=== PATIENT | male | born 1975 | race Hispanic/Latino ===

== ENCOUNTER 2016-02-11 20:46 | Emergency (ER) | payer MEDICAID ==
[~2016-02-11] VITALS: Ht 162.6 cm; Wt 73.0 kg
[~2016-02-11 20:46] MED LIST: ACET325T51 PO; CARV25TA PO; ISOS40TA4 PO; OXYC-474 PO; PANT40TA3 PO; POLY500P23 MC; PRD5T PO; SEVE800T7 PO; VALS320T12 PO; WARF5TAB PO; WARF7.5T PO
[2016-02-11 20:54] VITALS: BP 190/118; PULSE 87; RESP 16; O2SAT 97
--- NOTE | 2016-02-11 21:55 | ED.REPORT ---
HPI-General Illness Date of Service Feb 11, 2016 ED Provider: Avel Pedro MD A 40 year old anticoagulated male with an extensive medical history including CVA, PE, SLE, lupus nephritis, antiphospholipid syndrome, hypertension, and ESRD on dialysis presents to the ED requesting dialysis after missing his appointment today due to a court appearance. The patient normally dialyzes Tues , Th, and Sat in [place]. He was sent from [place] this evening because they couldn't schedule another dialysis until tomorrow. The patient denies other symptoms or complaints. Nursing Notes Stated Complaint: DIALYSIS PT/MUSCULAR PAIN Chief Complaint: Male Abdominal Pain Nursing Notes Reviewed: Yes Allergies: Coded Allergies: amlodipine (Verified Allergy, Unknown, 11/17/15) hydralazine (Verified Allergy, Unknown, 11/17/15) morphine (Verified Allergy, Unknown, 11/17/15) Scheduled Carvedilol (Coreg) 25 Mg Tablet 25 MG PO BID Isosorbide Dinitrate (Isochron) 40 Mg Tablet.er 40 MG PO TID Pantoprazole DR (Pantoprazole DR) 40 Mg Tablet.dr 40 MG PO DAILY Polyethylene Glycol 8000 (Polyethylene Glycol) 500 Gm Powder 17 GM MC prn Prednisone (PredniSONE) 5 Mg Tab 10 MG PO DAILY Sevelamer Carbonate (Renvela) 800 Mg Tablet 800 MG PO TID Valsartan (Valsartan) 320 Mg Tablet 320 MG PO DAILY Warfarin Sodium (Coumadin) 5 Mg Tablet 5 MG PO DIRECTED Warfarin Sodium (Coumadin) 7.5 Mg Tablet 7.5 MG PO DIRECTED Scheduled PRN Acetaminophen (Acetaminophen) 325 Mg Tablet 650 MG PO QID PRN PRN For Pain Oxycodone (Roxicodone) 5 Mg Tablet 5-20 MG PO Q4H PRN PRN For Pain General Time Seen by MD: 21:53 Chief Complaint Other (Dialysis Request) Hx Obtained From: Patient Arrived By: Walk-in Sudden in Onset?: No Onset Occurred: 13 - 16 hours ago Symptom Duration: Since onset Severity: Current: No pain currently Severity: Maximum: No pain Associated with: Denies: Cough, Fever, Shortness of breath Pertinent Negative: Relieved by nothing Context Related History: Reports Autoimmune disorder Recent Healthcare: Recent doctor visit Past Medical History Past Medical History Notes: in the hospital for lupus from 12/21/14 to 04/11/15 SeaMar: Dr. Velasco Bar Manager: Dr. Beckman Dialysis pt at [facility] Past Medical History 1. End-stage renal disease on chronic hemodialysis, since 2011 Hemodialysis on Monday, , Monday. right brachiocephalic fistula. 2. 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 h/o previous CVA while at [facility] 4. 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 Pulmonary embolism-s/p IVC filter placement, DVT-chronic anticoagulation on warfarin 6. Systolic and diastolic cardiomyopathy w/EF ~40% 7. Hypertension 8. Chronic autoimmune thrombocytopenia 9. Anemia 10. Chronic pain w/opioid dependence 11. h/o left lower extremity arterial ulcer 12. Oral herpes infection 13. Thrush Past Surgical History 1. AV fistula, reportedly thrombosed & required revisions. 2. Former fistula L arm Smoking History Never Smoker Social History Drug Use: Denies drug use Other Social History: Good social support, Local resident Ambulatory Status Independent Review of Systems + Dialysis request Full Review of Systems Constitutional: Denies: Fever Respiratory: Denies: Non-productive cough, Shortness of breath GI: Denies: Vomiting Complete sys rev & neg: except as marked. Physical Exam Vital Signs Vital Signs Date Time Temp Pulse Resp B/P Pulse Ox O2 Delivery O2 Flow Rate FiO2 02/12/16 03:45 36.4 68 18 151/100 95 Room Air 02/12/16 00:05 72 16 155/92 94 Room Air 02/11/16 20:54 36.4 87 16 190/118 97 Room Air Initial VS: Reviewed, Vital signs abnormal Head / Eyes: Atraumatic, Normocephalic ENT: Conjunctiva normal, No scleral icterus Neck: Supple, Full range of motion Respiratory: Breath sounds normal, Clear to auscultation, No respiratory distress Cardiovascular: Regular rate & rhythm, Heart sounds normal Abdomen / GI: Soft, Non-tender Neurologic: Alert, Oriented, Nonfocal Psychiatric: Mood/affect normal, Behavior normal, Normal thought content General/Constitutional: Awake, Alert, No acute distress Conversant Skin: Warm, Dry Trauma / Burn / Environmental: Positive: Ecchymosis (Multiple on extremities ) Interpretation & Diagnostics Lab Results Interpretation Result Diagram: 02/11/16 2221 02/12/16 0205 Test 02/11/16 22:21 02/12/16 02:05 White Blood Count 3.9th/mm3 (3.8-10.1) Red Blood Count 2.41mil/mm3 (4.40-5.80) Hemoglobin 7.4g/dL (13.8-17.2) Hematocrit 22.2% (41.0-50.0) Mean Corpuscular Volume 92.1fL (81-100) Mean Corpuscular Hemoglobin 30.7pg (27.0-35.0) Mean Corpuscular Hemoglobin Concent 33.3% (32.0-37.0) Red Cell Distribution Width 15.5% (12.3-15.4) Platelet Count 44bil/L (150-400) Neutrophils (%) (Auto) 83.6% (40-74) Lymphocytes (%) (Auto) 11.5% (14-46) Monocytes (%) (Auto) 4.1% (4-12) Eosinophils (%) (Auto) 0.3% (0-5) Basophils (%) (Auto) 0% (0-3) Prothrombin Time 15.0sec (8.1-12.5) Prothromb Time International Ratio 1.39ratio Sodium Level 138mEq/L (134-144) Chloride Level 93mEq/L (97-108) Carbon Dioxide Level 25mmol/L (18-29) Blood Urea Nitrogen 93mg/dL (6-20) Creatinine 9.05mg/dL (0.76-1.27) Estimat Glomerular Filtration Rate 7mL/min (>59) Glucose Level 109mg/dL (60-99) Calcium Level 8.8mg/dL (8.5-10.1) Phosphorus Level 5.8mg/dL (2.5-4.9) Magnesium Level 2.1mg/dL (1.6-2.6) Total Bilirubin 0.5mg/dL (0.0-1.2) Aspartate Amino Transf (AST/SGOT) 31U/L (0-50) Alanine Aminotransferase (ALT/SGPT) 50U/L (0-44) Alkaline Phosphatase 97U/L (25-150) Total Protein 4.9g/dL (6.4-8.4) Albumin 3.5g/dL (3.4-5.0) Hold Henry Top Tube Received (Received) Potassium Level 6.6mEq/L (3.5-5.2) Lab Results Interpretation: Stable chronic anemia, stable chronic renal failure, hyperkalemia ECG Interpretation ECG Interpretation: Sinus rhythm rate 77 LVH with secondary repolarization abnormality Time: 23:23 Interpreted by: ED physician ECG Interpretation: Ventricular-paced complexes, rate 71 Probable left atrial enlargement LVH with secondary repolarization abnormality Time: 03:27 Interpreted by: ED physician Re-Eval/Medical Decision Med Decision/Clinical Course 40-year-old male who has chronic renal failure and is on hemodialysis secondary to lupus nephrosis. He missed his dialysis today. His potassium was 7.2 and vital signs were otherwise normal. There were no EKG changes. He was given hyperkalemia treatment was brought the potassium from 7.2 down to 6.6. It would be unlikely for his potassium to cause him further problems while awaiting dialysis. I recommended low potassium diet also. It makes no sense that he was referred down here from [place] for dialysis. He initially stated that he was in the emergency room but I checked with the emergency room and they did not have any record of him. His case was discussed with Dr. Grande, hydraulic rock drill operator. He feels the patient is stable enough to wait for dialysis in the morning. He will contact the [place] dialysis center in the morning for an appointment. If he is not able to get into dialysis he is to report to the emergency room at [facility]. Source of Hx: Old records Time of Eval: 03:30 Patient Status: Condition improved Re-Evaluation/Progress Note: Discussed with patient lab results, diagnosis, and plan for discharge. Follow-up and return to the ER instructions given. Patient agrees with plan for care and all questions were addressed. Consultation #1: Call Returned at: 23:32 Street Light Repairer: Agrees with evtruman, Agrees with plan Note: [facility] ED - Patient was not seen there today Consultation #2: Referral / Consult Name: Stepan Grande DO Consulted With: Nephrology Call Returned at: 23:52 Street Light Repairer: Agrees with eval, Agrees with plan Counseled Regarding: Diagnosis, Lab results, Need for follow-up, When/why to return to ED Discharge & Departure Primary Impression: Hyperkalemia Additional Impressions: Hypertension with renal disease Chronic renal failure Chronic kidney disease stage: stage 5 Qualified Code: N18.5 - Chronic kidney disease, stage 5 Disposition: Home Discharge Condition All VS Reviewed: Yes Condition: Stable Patient Instructions: Renal Failure Diet (GEN) Additional Instructions: Your potassium went from 7.2 down to 6.6. You need to contact the [place] dialysis center BETTIE in the morning and get scheduled for your run. If you are unable to get into dialysis unit to go to the emergency room. Referrals: OTHER,PHYSICIAN (PCP) Scribe Attestation Portions of this note were transcribed by Shanda Velasco. I, Dr. Pedro, personally performed the history, physical exam, and medical decision-making; I reviewed and confirmed the accuracy of the information in the transcribed note. Signed by: Brandon Mullins, 02/12/2016, 03:49 Avel Pedro MD Feb 11, 2016 21:55 SHANDA VELASCO Feb 11, 2016 22:23
[2016-02-11 22:44] LABS: BASOPHILS % (AUTO) 0 % (0-3); EOSINOPHILS % (AUTO) 0.3 % (0-5); MONOCYTES % (AUTO) 4.1 % (4-12); Mean Corpuscular Hemoglobin 30.7 pg (27.0-35.0); Mean Corpuscular Volume 92.1 fL (81-100); NEUTROPHILS % (AUTO) 83.6 % (40-74); Platelet Count 44 bil/L (150-400)
[2016-02-11 23:10] LABS: Magnesium 2.1 mg/dL (1.6-2.6); Phosphorus 5.8 mg/dL (2.5-4.9)
[2016-02-11 23:14] LABS: INR 1.39 ratio
[2016-02-11] MEDS ORDERED: Sodium Polystyrene Sulfonate 0.25 Gm/mL 500 mL Suspension PO ONE (23:25)
[2016-02-11] MEDS ORDERED: Calcium GLUCOnate 10% (Gm) 1 Gm/10 mL Inj IVPUSH PRN (23:25)
[2016-02-11] MEDS ORDERED: Insulin Human REGular-Omnicell 100 Unit/mL IV ONE (23:25)
[2016-02-12 00:05] VITALS: BP 155/92; PULSE 72; RESP 16; O2SAT 94
[2016-02-12] MEDS ORDERED: Furosemide 10 mg/mL 4 mL Inj IVPUSH ONE (03:00)
[2016-02-12 03:45] VITALS: BP 151/100; PULSE 68; RESP 18; O2SAT 95
== END 2016-02-12 04:30 | disposition home or self-care (01) ==
LOC: SED 20:46
DX: E87.5 Hyperkalemia (principal); I12.0 Hypertensive chronic kidney disease with stage 5 chronic kidney disease or end stage renal disease; N18.5 Chronic kidney disease, stage 5; M32.14 Glomerular disease in systemic lupus erythematosus; D68.61 Antiphospholipid syndrome; Z86.73 Personal history of transient ischemic attack (TIA), and cerebral infarction without residual deficits; Z99.2 Dependence on renal dialysis; Z86.711 Personal history of pulmonary embolism; Z79.01 Long term (current) use of anticoagulants; Z88.8 Allergy status to other drugs, medicaments and biological substances; Z88.5 Allergy status to narcotic agent
CPT/HCPCS: 36415; 80053; 83735; 84100; 84132; 85025; 85610; 93005; 96374; 96375; 99285; J0610; J1815; J1940

== ENCOUNTER 2016-05-05 21:50 | Inpatient (IN) | payer MEDICAID ==
[~2016-05-05] VITALS: Ht 154.9 cm; Wt 64.2 kg
[2016-05-05 22:03] VITALS: BP 162/97; PULSE 86; RESP 21; O2SAT 96
[2016-05-05 23:07] LABS: Platelet Count 49 bil/L (150-400)
[2016-05-05 23:08] LABS: Mean Corpuscular Volume 93.3 fL (81-100)
[2016-05-05 23:09] LABS: BASOPHILS % (AUTO) 0.2 % (0-3); EOSINOPHILS % (AUTO) 1.1 % (0-5); MONOCYTES % (AUTO) 4.5 % (4-12); NEUTROPHILS % (AUTO) 87.1 % (40-74)
--- NOTE | 2016-05-05 23:14 | ED.REPORT ---
HPI-General Illness Date of Service May 05, 2016 ED Provider: Lex Zapata MD Patient is a 40 year old male with a history of lupus nephritis, ESRD on hemodialysis, congestive heart failure, antiphospholipid syndrome, CVA, PE s/p IVC filter placement, DVT, and recent admit for lupus pulmonary capillaritis who presents to the ED complaining of increasing shortness of breath after running out of his oxygen today. The patient was recently admitted to [facility] in [place] for 10 days, discharged yesterday. Patient states that he has had pneumonia for the past month, which "never fully goes away". He reports ongoing cough and states that he previously had hemoptysis (5 days ago) . He states that the cough is nonproductive and that it has improved since this morning. The patient states that during his hospital admission it was determined that he was oxygen dependent, discharged with oxygen. Patient states that he was also admitted to the hospital for anemia. Review of [facility] records reveal a diagnosis of lupus pulmonary capillaritis, hypoxia, and anemia requiring blood transfusion. See PMHx for further detail.However, his oxygen container only lasted for an hour after discharge. The patient has not used home oxygen in the past and is unsure if he used it improperly. The patient may have been set up for home oxygen, but he was visiting a friend today and is unsure. Patient also reports pain in his right leg, which began 5 days ago. Patient reports chills but denies fever or swelling in his legs. The patient is due for dialysis tomorrow and last had dialysis prior to discharge yesterday. His dialysis is in [place]. His PCP is Dr. Velasco at [facility] in [place]. He received narcotic pain medications through this provider and did not receive additional medication on discharge from the hospital. This conversation was assisted by the use of a Customer Business Manager. Nursing Notes Stated Complaint: TROUBLE BREATHING Chief Complaint: Respiratory Distress Nursing Notes Reviewed: Yes (SocialGlimpz not reconciled - EMR indicates ho warfarin use) Allergies: Coded Allergies: amlodipine (Verified Allergy, Unknown, 11/17/15) hydralazine (Verified Allergy, Unknown, 11/17/15) morphine (Verified Allergy, Unknown, 11/17/15) Scheduled Carvedilol (Coreg) 25 Mg Tablet 25 MG PO BID Isosorbide Dinitrate (Isochron) 40 Mg Tablet.er 40 MG PO TID Pantoprazole DR (Pantoprazole DR) 40 Mg Tablet.dr 40 MG PO DAILY Polyethylene Glycol 8000 (Polyethylene Glycol) 500 Gm Powder 17 GM MC prn Prednisone (PredniSONE) 5 Mg Tab 10 MG PO DAILY Sevelamer Carbonate (Renvela) 800 Mg Tablet 800 MG PO TID Valsartan (Valsartan) 320 Mg Tablet 320 MG PO DAILY Warfarin Sodium (Coumadin) 5 Mg Tablet 5 MG PO DIRECTED Warfarin Sodium (Coumadin) 7.5 Mg Tablet 7.5 MG PO DIRECTED Scheduled PRN Acetaminophen (Acetaminophen) 325 Mg Tablet 650 MG PO QID PRN PRN For Pain Oxycodone (Roxicodone) 5 Mg Tablet 5-20 MG PO Q4H PRN PRN For Pain General Time Seen by MD: 22:26 Chief Complaint Breathing problem Hx Obtained From: Patient Arrived By: Walk-in Sudden in Onset?: No Onset Occurred: 1 - 4 hours ago Symptom Duration: Since onset Location: : Hip right Quality: Painful Severity: Current: Moderate Severity: Maximum: Moderate Recent Healthcare: Recent hospitalization Similar Sx Previous: Yes Past Medical History Past Medical History Notes: Patient claims discharged from [facility] in [place] 05/04/16 (patient can not tell me why he was in the hospital and reports a 10 day admit) records obtained indicate the patient was admitted with 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 Patient also had anemia acute on chronic and received 4 units-exact baseline unknown. Patient's records do indicate he was supposed be discharged on home oxygen) in the hospital for lupus from 12/21/14 to 04/11/15 SeaMar: Dr. Velasco Dish Network Installer: Dr. Beckman Dialysis pt at [facility] Past Medical History 1. End-stage renal disease on chronic hemodialysis, since 2011 Hemodialysis on Monday, , Monday. right brachiocephalic fistula. 2. 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 h/o previous CVA while at [facility] 4. 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 Pulmonary embolism-s/p IVC filter placement, DVT-chronic anticoagulation on warfarin 6. Systolic and diastolic cardiomyopathy w/EF ~40% 7. Hypertension 8. Chronic autoimmune thrombocytopenia 9. Anemia 10. Chronic pain w/opioid dependence 11. h/o left lower extremity arterial ulcer 12. h/o Oral herpes infection 13. Thrush Past Surgical History 1. AV fistula, R upper extremity 2. Former fistula L arm 3. IVC filter Smoking History Never Smoker Social History Drug Use: Denies drug use Other Social History: Good social support, Local resident Ambulatory Status Independent Review of Systems Full Review of Systems Constitutional: Reports: Chills, Denies: Fever Respiratory: Reports: Non-productive cough, Shortness of breath, Denies: Hemoptysis Musculoskeletal: Reports: Extremity pain, Denies: Extremity swelling Complete sys rev & neg: except as marked. Physical Exam Vital Signs Vital Signs Date Time Temp Pulse Resp B/P Pulse Ox O2 Delivery O2 Flow Rate FiO2 05/05/16 22:03 36.3 86 21 162/97 96 Nasal Cannula 3 Initial VS: Reviewed Head / Eyes: Atraumatic, Normocephalic, PERRL ENT: Conjunctiva normal, No scleral icterus Neck: Supple, Full range of motion Skin: Warm, Dry, No cyanosis Neurologic: Alert, Oriented, Nonfocal Psychiatric: Mood/affect normal, Behavior normal General/Constitutional: Awake, Alert, No acute distress Appearance / Presentation: Positive: Ill appearing/not toxic (chronically ill appearing) poor historian, fatigued Respiratory / Chest: Breath sounds NL, Breath sounds = bilat, No respiratory distress crackles bilateral lung fisher, minimal movement causes increased shortness of breath dyspneic no increased work of breathing Cardiovascular: Heart rate NL, Regular rhythm, Heart sounds NL, No murmurs Abdomen: Soft, Non-tender, No guarding, No rebound several cutaneous bruises of abdomen Upper Extremities Upper Extremity / MS: No swelling, No edema fistula right upper extremity, with thrill old fistual site left upper extremity Lower Extremity / Pelvis / MS: No swelling, No edema Interpretation & Diagnostics Lab Results Interpretation Result Diagram: 05/05/16224405/05/162244 Test 05/05/16 22:45 05/05/16 23:25 White Blood Count 4.6th/mm3 (3.8-10.1) Red Blood Count 2.10mil/mm3 (4.40-5.80) Hemoglobin 6.5g/dL (13.8-17.2) Hematocrit 19.6% (41.0-50.0) Mean Corpuscular Volume 93.3fL (81-100) Mean Corpuscular Hemoglobin 31.0pg (27.0-35.0) Mean Corpuscular Hemoglobin Concent 33.2% (32.0-37.0) Red Cell Distribution Width 20.4% (12.3-15.4) Platelet Count 49bil/L (150-400) Neutrophils (%) (Auto) 87.1% (40-74) Lymphocytes (%) (Auto) 4.7% (14-46) Monocytes (%) (Auto) 4.5% (4-12) Eosinophils (%) (Auto) 1.1% (0-5) Basophils (%) (Auto) 0.2% (0-3) Band Neutrophils % 2% (1-5) Sodium Level 134mEq/L (134-144) Potassium Level 5.1mEq/L (3.5-5.2) Chloride Level 94mEq/L (97-108) Carbon Dioxide Level 19mmol/L (18-29) Blood Urea Nitrogen 110mg/dL (6-20) Creatinine 6.60mg/dL (0.76-1.27) Estimat Glomerular Filtration Rate 10mL/min (>59) Glucose Level 89mg/dL (60-99) Calcium Level 8.0mg/dL (8.5-10.1) Total Bilirubin 1.0mg/dL (0.0-1.2) Aspartate Amino Transf (AST/SGOT) 21U/L (0-50) Alanine Aminotransferase (ALT/SGPT) 22U/L (0-44) Alkaline Phosphatase 62U/L (25-150) Troponin T 0.051ug/L (0.0-0.011) Pro-B-Type Natriuretic Peptide 15152rw/mL (0-86) Total Protein 5.1g/dL (6.4-8.4) Albumin 3.1g/dL (3.4-5.0) Hold Henry Top Tube Received (Received) Prothrombin Time 24.8sec (8.1-12.5) Prothromb Time International Ratio 2.28ratio Activated Partial Thromboplast Time 32.9sec (22.8-33.0) Lab Results Interpretation: CBC-severe anemia and thrombocytopenia, records from [facility] indicate hemoglobin 6.5 and white count 78 on April 27, patient's anemia is similar to multiple prior lab values here - so it is not clear that there is any acute component. CMP normal potassium, chronic renal failure INR currently therapeutic, records indicate patient previously supratherapeutic little over a week ago with INR 5 ECG Interpretation ECG Interpretation: Normal sinus rhythm, Rate 84 LVH with repolarization T wave inversions and marginal ST depression laterally No major interval change compared with Feb 12 2016 Time: 22:13 Interpreted by: ED physician X-Ray Chest Interpretation Chest Xray Interpretation: Impression: Bilaterl densities. Differential includes congestive heart failure and pulmonary capillaritis. View: Portable Interpretation / Wet Read by: Tawnya read ED physician Re-Eval/Medical Decision Med Decision/Clinical Course This is a very complicated 40-year-old male. He is dialysis dependent, he has chronic lupus, has had multiple thromboembolic events, is status post an IVC filter, and is chronically quite warfarin. He presents tonight indicating that he needs more education. He is a difficult historian and matters are complicated by a language barrier. (He is a difficult patient to be able to use the iPad hand collator) When he tells me is that he is discharged yesterday from [facility], and told he needs to be on home O2-and was given follow-up O2, which is now out. As a result is develops more shortness of breath. He cannot tell me much about why he was in the hospital what all was going on-the records were obtained and indicate that he was thought to have lupus caplillaritis and it presented with some hemoptysis, hypoxemia and diffuse infiltrates. he has had no hemoptysis over the past week. He still feels short of breath, and is improved on being placed back on O2 when he arrives here. He denies fever. He denies hemorrhage. He reports fatigue. He also has some chronic right-sided abdominal leg pain-this is not new, and reports is unchanged-like some pain and nausea medicine for this. He was chronically ill. And he did bring in an empty oxygen bottle with him. The patient has very little understanding and really cannot articulate much else about what is going on, and required a cane records from [facility]. His evaluation here demonstrates he is hypoxic and does require O2, described impressive on his chest x-ray which match of the description of the chest x-ray and CT scan obtained at [facility]-may likely be chronic. Blood work is notable for severe anemia, and is similar to what I think with his entry labs at [facility]-a semi-a massive packet, but only a couple sets of labs-the records indicate a transfusion but I do not know what is postprandial numbers were. The patient is due for dialysis again tomorrow. He is presenting after hours, is a complex patient-think is newly anemic again- he is dialysis dependent, and requires O2 and does not have oxygen set up at home. None of the problems identified are clearly new - but it is challenging to determine the acuity and chronicity of his presentation. I have no social media job titles options, no way to set him up for home O2 hour time period Additionally the anemia may need to be monitored, and repeat transfusion may be warranted. Therefore admission is appropriate. Source of Hx: Old records (obtained from [facility]) Time of Eval: 01:08 Patient Status: Condition improved Re-Evaluation/Progress Note: Rechecked the patient. Discussed the results of his labs, EKG, and chest x-ray. Discussed his records from [facility]. Patient will be admitted to the hospital for further care. Patient understands and agrees with the plan for hospital admission. All questions were addressed. Introduced the patient to the inpatient resident. Consultation #1: Referral / Consult Name: Becki Bolanos DO Consulted With: Hospitalist Call Returned at: 00:43 Strategic Planner: Will see patient, Agrees with eval, Agrees with plan, Accepts admit Note: Spoke with Dr. Bolanos, hospitalist, about the patient's case. She agress to accept admit. Will coordinate his care tomorrow morning. Consultation #2: Referral / Consult Name: Stepan Grande DO Consulted With: Nephrology Call Returned at: 00:55 Strategic Planner: Will see patient, Agrees with eval, Agrees with plan Note: Spoke with Dr. Grande, nephrology, who agrees to act as consult. Will help coordinate his dialysis tomorrow. Counseled Regarding: Diagnosis, Lab results, Need for admission Discharge & Departure Primary Impression: Pulmonary capillaritis Additional Impressions: Lupus Hypoxia Anemia Anemia type: unspecified type Qualified Code: D64.9 - Anemia, unspecified Chronic renal failure Chronic kidney disease stage: stage 5 Qualified Code: N18.5 - Chronic kidney disease, stage 5 Anticoagulated on Coumadin Thrombocytopenia Disposition: ADMITTED TO HOSPITAL Discharge Condition All VS Reviewed: Yes Condition: Stable Referrals: OTHER,PHYSICIAN (PCP) Angelaibgil Attestation Portions of this note were transcribed by Nika Greenwood. I, Dr. Zapata personally performed the history, physical exam and medical decision-making; I reviewed and confirmed the accuracy of the information in the transcribed note. Signed by: Brandon Mckee, 05/06/2016 0115 copies to: OTHER,PHYSICIAN Lex Zapata MD May 05, 2016 23:14 Nika Greenwood May 05, 2016 23:17
[2016-05-05] MEDS ORDERED: HYDROmorphone 1 mg/mL Inj IVPUSH ONE ×2 (23:30)
[2016-05-05 23:48] LABS: TROPONIN T 0.051 ug/L (0.0-0.011)
[2016-05-05 23:49] LABS: INR 2.28 ratio
[2016-05-05] MEDS ORDERED: Ondansetron 2 mg/mL 2 mL Inj IVPUSH ONE (23:55)
[2016-05-06] VITALS (16 sets, daily range): BP systolic 114–174; BP diastolic 69–101; PULSE 64–92; RESP 18–24; O2SAT 92–97
[2016-05-06] MEDS ORDERED: Polyethylene Glycol (PEG) 17 Gm Powder PO PRN (01:45)
[2016-05-06] MEDS ORDERED: Alum-Mag Hydrox-Simeth 30 mL Suspension PO PRN (01:45)
[2016-05-06] MEDS ORDERED: PANT40TA2 PO (03:01)
[2016-05-06] MEDS ORDERED: SEVE800T7 PO (03:01)
[2016-05-06] MEDS ORDERED: ONDA4TAB6 PO (03:01)
[2016-05-06] MEDS ORDERED: ALBUTEROL 90 MCG INHALATION (03:01)
[2016-05-06] MEDS ORDERED: calcium carbonate (03:01)
[2016-05-06] MEDS ORDERED: WARF5TAB7 PO (03:01)
[2016-05-06] MEDS ORDERED: CARV25TA PO (03:01)
[2016-05-06] MEDS ORDERED: PRE10 PO (03:01)
[2016-05-06] MEDS ORDERED: CALC667C9 PO (03:01)
[2016-05-06] MEDS ORDERED: MYCO250C PO (03:01)
[2016-05-06] MEDS ORDERED: OXYC-474 PO (03:01)
[2016-05-06] MEDS ORDERED: [UNRECOGNIZED DRUG - MIXTURE] PO (03:01)
[2016-05-06] MEDS ORDERED: CALC0.257 PO (03:01)
[2016-05-06] MEDS ORDERED: SULF1TAB7 PO (03:01)
--- NOTE | 2016-05-06 04:11 | PCM.HPMED ---
Subjective Date of Service May 06, 2016 Primary Provider: Admitting Physician: Becki Bolanos DO Primary Care Physician: Other,Physician Attending Physician: Becki Bolanos DO Admit Status: From the Emergency Department, 23-Hour Observation, [facility] Telemetry Chief Complaint: SOB History of Present Illness: Jean-Claude Salinas is a 40 year old British-speaking male with a complex medical history of lupus nephritis, ESRD on hemodialysis, congestive heart failure, antiphospholipid syndrome, CVA, diffuse alveolar hemorrhage, PE s/p IVC filter placement, and DVT who presents to the ED complaining of increasing shortness of breath after running out of his oxygen today. The patient is a poor historian even with the help with a court interpreter. According to record, he was recently admitted to [facility] in [place] for lupus pulmonary capillaritis for 10 days, discharged yesterday. Patient states that he has had pneumonia for the past month, which "never fully goes away". He reports ongoing cough and states that he previously had hemoptysis 5 days ago, that now resolves. He states that the cough is nonproductive and that it has improved since this morning. The patient states that during his hospital admission it was determined that he was oxygen dependent and was discharged with home oxygen. However, his oxygen container only lasted for an hour after discharge. The patient has not used home oxygen in the past and is unsure if he used it improperly. He denies chest pain, fever, chills, loss of consciousness, headache, nausea, or vomiting. Patient states that he was also admitted to the hospital for anemia. Review of [facility] records reveal a diagnosis of lupus pulmonary capillaritis, hypoxia, and anemia requiring blood transfusion. Patient states that he has chronic anemia and has had several blood transfusion, approximately every 2 weeks. Patient also reports pain in his hip leg, which began while he was in the hospital 5 days ago. He has not been bedbound most of the time, but notes hip pain with walking. He denies any radiation of pain or numbness/tingling. He received narcotic pain medications through this provider and did not receive additional medication on discharge from the hospital. The patient is due for dialysis tomorrow and last had dialysis prior to discharge yesterday. His dialysis is in [place]. His PCP is Dr. Velasco at [facility] in [place]. This conversation was assisted by the use of a Process Control Programmer. In the ED, the patient had elevated BP of 162/97 and required 3L of O2 for SpO2 of 96%. RR 21, HR 86, temp 36.3. CBC significant for Hgb of 6.5 and platelet of 49. CMP significant for BUN 110, creatinine 6.6. CXR showed diffuse bilateral interstitial infiltrates. Radiology read pending. EKG normal sinus rhythm at rate 84 and no major changes compared to prior EKG. Review of Systems: A comprehensive review of systems was conducted with the patient and found to be negative except as above in the History of Present Illness. Allergies Coded Allergies: amlodipine (Verified Allergy, Unknown, 11/17/15) hydralazine (Verified Allergy, Unknown, 11/17/15) morphine (Verified Allergy, Unknown, 11/17/15) Home Medications Scheduled Carvedilol (Coreg) 25 Mg Tablet 25 MG PO BID Isosorbide Dinitrate (Isochron) 40 Mg Tablet.er 40 MG PO TID Pantoprazole DR (Pantoprazole DR) 40 Mg Tablet.dr 40 MG PO DAILY Polyethylene Glycol 8000 (Polyethylene Glycol) 500 Gm Powder 17 GM MC prn Prednisone (PredniSONE) 5 Mg Tab 10 MG PO DAILY Sevelamer Carbonate (Renvela) 800 Mg Tablet 800 MG PO TID Valsartan (Valsartan) 320 Mg Tablet 320 MG PO DAILY Warfarin Sodium (Coumadin) 5 Mg Tablet 5 MG PO DIRECTED Warfarin Sodium (Coumadin) 7.5 Mg Tablet 7.5 MG PO DIRECTED Scheduled PRN Acetaminophen (Acetaminophen) 325 Mg Tablet 650 MG PO QID PRN PRN For Pain Oxycodone (Roxicodone) 5 Mg Tablet 5-20 MG PO Q4H PRN PRN For Pain PMH 1. End-stage renal disease on chronic hemodialysis, since 2011 Hemodialysis on Monday, , Monday. right brachiocephalic fistula. 2. 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 h/o previous CVA while at [facility] 4. 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 Pulmonary embolism-s/p IVC filter placement, DVT-chronic anticoagulation on warfarin 6. Systolic and diastolic cardiomyopathy w/EF ~40% 7. Hypertension 8. Chronic autoimmune thrombocytopenia 9. Anemia 10. Chronic pain w/opioid dependence 11. h/o left lower extremity arterial ulcer 12. h/o Oral herpes infection 13. Thrush Surgical History 1. AV fistula, R upper extremity 2. Former fistula L arm 3. IVC filter Family History Patient denies significant family history. Social History Hx Alcohol Use: No Hx Substance Use: Yes (patient denied substance abuse) Smoking Status: Never Smoker Living Arrangement: with Friends/Roommate Additional Information SeaMar: Dr. Velasco Clay Digger: Dr. Beckman Dialysis pt at [facility] Patient lives with a friend in [place]. His partner from asthma attack 3 months ago, and his daughters now live with their grandmother. Exam Vital Signs Vital Sign - Last Date Time Temp Pulse Resp B/P Pulse Ox O2 Delivery O2 Flow Rate FiO2 05/06/16 01:22 92 21 174/99 92 Nasal Cannula 2 05/05/16 22:03 36.3 Exam GENERAL: chronically ill appearing, lying in bed in no distress. Poor historian. HEAD/EYES: Normocephalic, atraumatic, sclera pale, PERRL, mild facial edema with puffy eye lids. ENT: Mucous membranes dry, no nasal discharge. NECK: Supple, without lymphadenopathy or masses. RESPIRATORY: Mild crackles in bilateral lung fisher, no wheezing, no increased work of breathing. CARDIOVASCULAR: Regular rate and rhythm, systolic murmur present. ABDOMEN: several cutaneous bruises of abdomen. Soft, nondistended without masses or hepatosplenomegaly. Bowel sounds present EXTREMITIES: fistula right upper extremity, with thrill. Old fistual site left upper extremity. No edema in bilateral LE. MSK: moderate tenderness to palpation at the right hip capsule. However, full range of motion with mild pain. SKIN: Warm, dry, without obvious rashes or ulcerations. Lymphatic: no cervical or supraclavicular lymphadenopathy NEUROLOGIC: CN II-XII grossly intact. No focal deficit. Lab and Diagnostics Result Diagram: 05/05/16224405/05/162244 12-lead ECG Normal sinus rhythm, Rate 84 LVH with repolarization T wave inversions and marginal ST depression laterally No major interval change compared with Feb 12 2016 Assessment & Plan 40 year old male with a history of lupus nephritis, ESRD on hemodialysis, congestive heart failure, antiphospholipid syndrome, CVA, PE s/p IVC filter placement, DVT, and recent admit for lupus pulmonary capillaritis who presents to the ED complaining of increasing shortness of breath after running out of his oxygen today 1. Acute on chronic respiratory failure, present on admission, active. - At the recent hospitalization, patient was found to have lupus caplillaritis that led to hemoptysis, hypoxemia and diffuse infiltrates. His hemoptysis has resolved and dyspnea now improved on being placed back on O2. - Quantiferon Gold was negative per hospital record. - Will need to have home O2 set up so that the patient does not run out of O2. - Albuterol inhaler Q6H PRN - Follow up with pulmonology (Dr. Parsons) as outpatient per [facility] discharge. 2. Pulmonary capillaritis with hypoxemia and bilateral pulmonary infiltrates, present on admission, active. 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 - Patient was treated with 4 doses of IVIG, IV steroids, and started on CellCept. - Will continue CellCept and Prednisone (60mg x 2 weeks with tapering dose). - Follow up with Pulmonology and Rheumatology as outpatient. 3. Acute on chronic normocytic anemia, present on admission, active. - Records from [facility] indicate hemoglobin 6.5 on April 27. - Patient's anemia is similar to multiple prior lab values here. - Repeat H/H showed improvement to Hgb of 7 (From 6.5). No sign of active bleeding. - Blood is typed and crossed. - Continue to trend H/H Q6H. Consider transfusion if H/H trends down. - Patient is not a candidate for Erythropoietin according to [facility] because of thrombotic risk of lupus. 4. ESRD, on chronic HD, present on admission. - likely secondary to lupus nephritis - hemodialysis on right AV fistula - Patient is due for HD tomorrow. Will consult Nephrology. Dr. Grande saw the patient at the last visit. - Continue home Sevelamer - daily BMP 5. Chronic autoimmune thrombocytopenia, present on admission. - likely due to lupus - no signs/symptoms of active bleeding. - Transfusion threshold 15,000 if no bleeding, 50,000 in active bleeding - Continue to monitor. 6. 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 - will continue outpatient po prednisone for now - Follow up with Rheumatology as outpatient. 7. Chronic Hypertension, secondary to ESRD, present on admission. - Resume home Carvedilol. - Continue to monitor BP. 8. History of thromboembolic disease, present on admission. Stable. - h/o previous CVA, PE s/p IVC filter placement and DVT. 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 Will continue Warfarin dosing per pharmacy. Monitor INR daily. - encourage ambulation. PT eval in the morning. 9. History of systolic and diastolic cardiomyopathy w/EF ~40%, present on admission. - pt does not appear fluid overloaded. [place] [address]. - Last Echo in 11/2015 showed severely dilated left ventricle and EF 40-45%. - fluid removal via dialysis per nephrology. 10. Elevated Troponin, present on admission, active. - In the setting of ESRD. - No acute changes on EKG and patient denies CP. - Will continue to trend trop x3. - Monitor Tele 11. Acute on chronic right hip pain, present on admission, active. - Given his chronic steroid use, will check XR for avascular necrosis. - Pain control with Oxycodone and Dilaudid PRN. CODE STATUS: FULL CODE. Patient is admitted under observation status with expected length of stay less than 2 midnights due to severity of presenting symptoms, risk of adverse event, and complexity of treatment plan. Pain Evaluation: Adequate Pain Control GI Prophylaxis: Proton Pump Inhibitor VTE Prophylaxis: Theraputic Anticoag with Warfarin Resuscitation Status: CPR: Attempt Resuscitation Attending Statement The patient was seen and examined together with house staff on 05/06/2016 and I agree with the history, exam and plan as outlined in the note above. Angela Stanton DO May 06, 2016 01:52 Becki Bolanos DO May 06, 2016 05:41 midnights for severity of present symptoms and risk for adverse event. Pain Evaluation: Adequate Pain Control GI Prophylaxis: Proton Pump Inhibitor VTE Prophylaxis: Theraputic Anticoag with Warfarin Resuscitation Status: CPR: Attempt Resuscitation Angela Stanton DO May 06, 2016 01:52
[2016-05-06] MEDS: HYDROmorphone 0.5 mg/0.5 mL iSecure Syringe IVPUSH PRN ×2 (04:14→11:21)
[2016-05-06 04:47] LABS: BASOPHILS % (AUTO) 0.1 % (0-3); EOSINOPHILS % (AUTO) 1.2 % (0-5); MONOCYTES % (AUTO) 2.4 % (4-12); Mean Corpuscular Hemoglobin 31.1 pg (27.0-35.0); NEUTROPHILS % (AUTO) 89.5 % (40-74); Platelet Count 54 bil/L (150-400)
[2016-05-06 04:53] LABS: INR 2.28 ratio
[2016-05-06 04:58] LABS: Magnesium 2.3 mg/dL (1.6-2.6)
[2016-05-06] MEDS ORDERED: Albuterol 2.5 mg/3 mL Inhalation Solution NEB PRN (05:26)
--- NOTE | 2016-05-06 05:28 | NUR ---
Admit: Pt admitted to PCC room 2008. Pt naive language Lao but speaks good [place] African and is refusing an the need for an technical support associate at this time. Sp02 maintained mid 90s on 5 L NC. Tele SR 80s. Med rec completed from use of discharge paperwork from recent admission to [facility]. PRN dilaudid given for right hip pain. pt sleeping intermittently. care ongoing.
[2016-05-06 07:41] LABS: APPEARANCE,URINE HAZY (CLEAR,HAZY); COLOR,URINE YELLOW (YELLOW); OCCULT BLOOD,URINE SMALL (NEGATIVE); PH,URINE 7.5 (5.0-8.0); UROBILINOGEN,URINE NORMAL (NORMAL)
[2016-05-06] MEDS: Calcium Carbonate (Oyster Shell) 500 mg Tablet PO SCH (08:10)
[2016-05-06] MEDS: Ondansetron 2 mg/mL 2 mL Inj IVPUSH PRN ×2 (08:16→10:27)
[2016-05-06] MEDS ORDERED: Pantoprazole 40 mg ER24 Tablet PO SCH (08:30)
[2016-05-06] MEDS ORDERED: predniSONE 20 mg Tablet PO SCH (08:30)
--- NOTE | 2016-05-06 08:38 | DRSVH ---
PROCEDURE: X-RAY CHEST ONE VIEW, PORTABLE ([id number]) INDICATIONS: SHORTNESS OF BREATH TECHNIQUE: One view of the chest was acquired. COMPARISON: [facility], CR, XR CHEST 1VW (PORTABLE), 11/17/2015, 20:10. FINDINGS: Surgical changes and devices: None. Lungs and pleura: Diffuse, widespread bilateral pulmonary interstitial and air space opacities are pr esent increased from previous examination. Mediastinum: Mediastinal contours appear normal. Heart size is enlarged. Bones and chest wall: No suspicious bony lesions. Overlying soft tissues appear unremarkable. IMPRESSION: CHF and/or diffuse bilateral pneumonia. Correlate clinically. Dictated by: Errol Sánchez RRA Interpreted: Doar Augustine MD on 05/06/2016 at 8:37 Transcribed by: ABEBA on 05/06/2016 at 8:38 Approved by: Dora Augustine MD, PhD on 05/06/2016 at 12:49
--- NOTE | 2016-05-06 10:27 | NUR ---
Social Work: Screen D: Per EMR review, pt is a 40 year old male admitted for pulmonary capillaritis, anemia, lupus. Pt insurance is [facility]. PCP is listed as other physician. NOK is not listed. Readmit score not entered at this time. Advanced directives not completed- CUSHION SPRING ASSEMBLER provided pt with Somali directives. CUSHION SPRING ASSEMBLER met with pt at bedside. Sw role and contact info provided. Pt is Somali speaking but also speaks Greek- pt declined bid clerk. Pt live in [place] with roommates. He is I with ADLs at baseline. Pt states he was discharged home from [facility] with home 02 however he does not know which company was supposed to deliver his 02. Pt discussed in am rounds. RT is coming to see the pt today to assess for 02 needs and coordinate home 02 for the pt. Pt is scheduled for dialysis today. A: Pt who is I at baseline P: Anticipate pt to discharge home via POV with home 02; CUSHION SPRING ASSEMBLER to continue to follow and confirm pt's 02 has been setup with RT. DAXA Durand Addendum: 05/06/16 at 1458 by ANGELA SULLIVAN SS Per Process Account Notes pt insurance only covered for Emergency Related Services. This may explain why pt's 02 was not delivered. RT is attempting to coordinate RT services at discharge. DAXA updated re: pt's insurance.
[2016-05-06] MEDS ORDERED: LORazepam 0.5 mg Tablet PO ONE (10:55)
--- NOTE | 2016-05-06 10:59 | DRSVH ---
PROCEDURE: X-RAY RIGHT HIP COMPLETE, MINIMUM TWO VIEWS ([id number]) INDICATIONS: Acute hip pain TECHNIQUE: 2 views of the hip were acquired. COMPARISON: None. FINDINGS: Bones: No fractures or dislocations. Subchondral lucency present involving the superior medial aspe ct of the femoral head. The visualized pelvic ring appears intact. Soft tissues: No suspicious soft tissue calcifications or masses. IMPRESSION: Subchondral lucency involving the femoral head and avascular necrosis cannot be excluded or less likely fracture. Recommend clinical correlation and if indicated MRI could be performed. Dr. Vann given results and recommendations at 1058 hrs. 05/07/19 and 2016. Dictated by: Errol Sánchez RR Interpreted: Dora Augustine MD on 05/06/2016 at 9:51 Transcribed by: ABEBA on 05/06/2016 at 10:59 Approved by: Dora Augustine MD, PhD on 05/06/2016 at 16:35
--- NOTE | 2016-05-06 11:01 | CONS ---
[address] [address] CONSULTATION REPORT PATIENT: TAMMY SENIOR : 1975 MR#: [id number] ADMIT: 05/06/2016 JOB ID: [id number] DATE OF SERVICE: 05/06/2016 HISTORY: The patient is a very pleasant, but unfortunate 40-year-old gentleman who was admitted to [facility] for shortness of breath. He has a history of end-stage renal disease and renal consultation is being sought for further evaluation of his kidney issues. He has approximately a four year history of end-stage renal disease and normally receives three times a week dialysis. The etiology of his renal failure is due to longstanding lupus nephritis. He is normally seen by Dr. Hubbard, his crop production advisor, in [place]. He was recently hospitalized for approximately 10 days at [facility] in [place] for what sounds like a flare of his lupus. During his hospitalization, he had several episodes of sylvia hemoptysis which was felt consistent with pulmonary . Also during this hospitalization, he had complained of some ongoing issues with diffuse myalgias, arthralgias which were felt to be consistent with a flare of his lupus. In the last several months, he states that he has had some increasing fatigue and progressive shortness of breath usually exacerbated on Mondays and Monday mornings prior to dialysis. He was sent home on oxygen, however, the tank ran out and there had been no arrangements made for continuous home oxygen. He came to the hospital last night and was subsequently admitted. DATE OF SERVICE: REVIEW OF SYSTEMS: He denies any recent cough, chest pain or wheezing. He does complain of some orthopnea but no lower extremity edema. Of note, his hemoglobin was 7.0 which is no doubt adding to his respiratory problem. Otherwise his appetite is good and he denies any nausea, vomiting or diarrhea. PAST MEDICAL HISTORY: Is significant for lupus as detailed above and recent pulmonary . There is also a history of end-stage renal disease-dialysis dependent, hypertension with hypertensive heart disease and hypertensive nephrosclerosis, severe diastolic and systolic cardiomyopathy with an ejection fraction of 40%, autoimmune thrombocytopenia secondary to lupus, chronic pain with opioid dependency, and recent thrush. PAST SURGICAL HISTORY: Is significant for an IVC filter, a fistula of his left arm and right upper extremity. ALLERGIES: He is allergic to AMLODIPINE, HYDRALAZINE and MORPHINE. SOCIAL HISTORY: He denies use of alcohol, tobacco or illicit drugs. MEDICATIONS: At time of my evaluation included carvedilol, Isordil, omeprazole, polyethylene glycol, prednisone, Renvela, valsartan and warfarin. FAMILY HISTORY: Noncontributory. REVIEW OF SYSTEMS: Is detailed above. Otherwise is unremarkable. PHYSICAL EXAMINATION: Revealed a pale, somewhat sallow complected 40-year-old gentleman who was alert and oriented x3, and in some mild respiratory distress at time of my evaluation. His vital signs this morning showed a blood pressure of 159/101, and a pulse of 80. HEENT examination is remarkable for periorbital edema and pale sclerae. Neck is supple without adenopathy, thyromegaly or jugular venous distention. Heart was regular and rhythmical with a grade 2-3 systolic ejection murmur. There was no S3 or S4 noted. Abdomen is soft without any tenderness, rebound, guarding, masses or hepatosplenomegaly. Extremities did not show any evidence of any clubbing, cyanosis or edema. Skin turgor was good and there is no evidence of any rashes. LABORATORY EXAMINATION: This morning, his white count is 6.7, hemoglobin 7.0, hematocrit 20.7. Platelet count is 54,000 and he has 89 segs. Urinalysis was unremarkable. His sodium this morning is 129, potassium 5.8, chloride 92, bicarbonate of 17. BUN and creatinine were 115 and 6.8 respectively. IMPRESSION: 1. End-stage renal disease-dialysis dependent. 2. History of lupus nephritis and active lupus. 3. Anemia which appears to be multifactorial, however, I would like to exclude a gastrointestinal bleed. 4. Hypertension with hypertensive heart disease and hypertensive nephrosclerosis. RECOMMENDATION: The patient is to be dialyzed today for 4 hours on Revaclear Max dialyzer and a 3 potassium bath. There will be no heparin used, 2 units of blood will be given and I would like to take 3-4 kg of weight off as tolerated. Once again, I would like to thank you for allowing me to participate in the care of this most pleasant but unfortunate patient. I will be following him closely with you.
[2016-05-06] MEDS ORDERED: HYDROmorphone 1 mg/mL Inj IVPUSH PRN (11:20)
--- NOTE | 2016-05-06 13:11 | NUR ---
Home Oxygen I was asked to visit this pt by Dr Lopez to determine oxygen needs. Pt was discharged from [facility] 2 days ago with home oxygen from [facility]. I spoke to Neel at [facility], and he stated that they had been trying to reach the pt by phone, but they had not gotten a call back. The pt's paperwork was faxed, but was incomplete and had no qualifying testing. Pt will need to be re-qualified and have new paperwork submitted upon discharge from [facility].
--- NOTE | 2016-05-06 14:15 | NUR ---
pt arrived to [facility] at ~1315 via bed escorted by CNAs report received from primary nurse MS RN (PCC) tele lunchroom monitor informed of temp room location pt alert, cooperative, sleepy, denies complaints 6L oximask 97% sat; saline lock to left wrist ball worker at bedside; will cont to monitor
--- NOTE | 2016-05-06 15:22 | PCM.PNMED ---
Subjective Date of Service May 06, 2016 Subjective Overnight breathing status improved with supplemental oxygen. Continues to complain of right hip pain, making it difficult for him to walk. Exam Vital Signs Vital Sign - Last Date Time Temp Pulse Resp B/P Pulse Ox O2 Delivery O2 Flow Rate FiO2 05/06/16 08:00 85 05/06/16 07:57 Supplement Oxygen 05/06/16 07:57 37.2 24 159/101 95 5.00 Exam General: Sitting on side of bed, no apparent distress, appears mildly uncomfortable. HEENT: Normocephalic, atraumatic, EOMI grossly, mucous membranes moist, conjunctiva pink. Nasal cannula in place. Cardiovascular: Regular rate and rhythm, no clicks, rubs, peripheral pulses 2/4 equal bilaterally, + systolic murmur Pulmonary: Clear to auscultation bilaterally, no W/R/R. Abdominal: Some mild ecchymosis, soft, nondistended, no hepatosplenomegaly. Bowel sounds are present. Extremities: Fistula to the right upper extremity, large scar representing old fistula site to left upper extremity. No edema in upper or lower extremities. Neuro: Neurologically grossly intact, strength is equal bilaterally upper and lower extremities. MSK: Able to move extremities on their own volition, strength 5 out of 5 equal bilaterally to upper and lower extremities. IVs and Medications Medications Reviewed: Medications were reviewed in detail Lab and Diagnostics Result Diagram: 05/06/16 0250 05/06/16 0250 X-Rays, CTs and MRIs Complete right hip x-ray performed 05/06/2016 IMPRESSION: Subchondral lucency involving the femoral head and avascular necrosis cannot be excluded or less likely fracture. Recommend clinical correlation and if indicated MRI could be performed. Dr. Vann given results and recommendations at 1058 hrs. 05/07/19 and 2016. Dictated by: Errol AVILEZ Interpreted: Dora Augustine MD on 05/06/2016 at 9:51 Chest x-ray performed 05/05/2016 IMPRESSION: CHF and/or diffuse bilateral pneumonia. Correlate clinically. Dictated by: Errol AVIELZ Interpreted: Dora Augustine MD on 05/06/2016 at 8:37 12-lead ECG Normal sinus rhythm, Rate 84 LVH with repolarization T wave inversions and marginal ST depression laterally No major interval change compared with Feb 12 2016 Assessment & Plan 40 year old male with a history of lupus nephritis, ESRD on hemodialysis, congestive heart failure, antiphospholipid syndrome, CVA, PE s/p IVC filter placement, DVT, and recent admit for lupus pulmonary capillaritis who presents to the ED complaining of increasing shortness of breath after running out of his oxygen on day of admission. Further evaluation demonstrated a mass also have avascular necrosis of the right hip. 1. Acute on chronic respiratory failure, present on admission, active. - At the recent hospitalization, patient was found to have lupus caplillaritis that led to hemoptysis, hypoxemia and diffuse infiltrates. His hemoptysis has resolved and dyspnea now improved on being placed back on O2. - Quantiferon Gold was negative per hospital record. - Will need to have home O2 set up so that the patient does not run out of O2. - Albuterol inhaler Q6H PRN - Follow up with pulmonology (Dr. Parsons) as outpatient per [facility] [place] discharge. 2. Acute avascular necrosis of right hip, present on admission, evaluation ongoing -Demonstrated on hip x-ray, this is attributed to steroid use for autoimmune disorders. (x-ray images reviewed) -MRI ordered and pending -Orthopedics has been contacted, Dr. Solano will review the case -Decrease oral prednisone to 10 mg daily 2. Pulmonary capillaritis with hypoxemia and bilateral pulmonary infiltrates, present on admission, active. 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 - Patient was treated with 4 doses of IVIG, IV steroids, and started on CellCept. - Will continue CellCept and Prednisone (discontinued taper, return to 10 milligrams daily). - Follow up with Pulmonology and Rheumatology as outpatient. 3. Acute on chronic normocytic anemia, present on admission, active. - Records from [facility] [place] indicate hemoglobin 6.5 on April 27. - Patient's anemia is similar to multiple prior lab values here. - Repeat H/H showed improvement to Hgb of 7 (From 6.5). No sign of active bleeding. May be transfused during dialysis today. - Blood is typed and crossed. - Continue to trend H/H Q6H. Consider transfusion if H/H trends down. - Patient is not a candidate for Erythropoietin according to [facility] because of thrombotic risk of lupus. 4. ESRD, on chronic HD, present on admission. - likely secondary to lupus nephritis - Hemodialysis today, nephrology service is following - Continue home Sevelamer - daily BMP -Nephrology following 5. Chronic autoimmune thrombocytopenia, present on admission. Stable. - likely due to lupus - no signs/symptoms of active bleeding. - Transfusion threshold 15,000 if no bleeding, 50,000 in active bleeding - Continue to monitor. 6. 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 - will continue outpatient po prednisone for now, at lower dose due to AVN - Follow up with Rheumatology as outpatient. 7. Chronic Hypertension, secondary to ESRD, present on admission. - Resume home Carvedilol. - Continue to monitor BP. - Hemodialysis with ultrafiltration. 8. History of thromboembolic disease, present on admission. Stable. - h/o previous CVA, PE s/p IVC filter placement and DVT. 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 Will continue Warfarin dosing per pharmacy. Monitor INR daily. - encourage ambulation. PT eval in the morning. 9. History of systolic and diastolic cardiomyopathy w/EF ~40%, present on admission. - pt does not appear fluid overloaded. [place] [address]. - Last Echo in 11/2015 showed severely dilated left ventricle and EF 40-45%. - fluid removal via dialysis per nephrology. 10. Elevated Troponin, present on admission, active. - In the setting of ESRD. - No acute changes on EKG and patient denies CP. - No long trending troponin. - Monitor Tele 11. Acute on chronic right hip pain, present on admission, active. - Given his chronic steroid use, will check XR for avascular necrosis. - Pain control with Oxycodone and Dilaudid PRN. CODE STATUS: FULL CODE. Patient meets in patient status and has been changed from observation to in patient due to the complexity of the patient's treatment. Pain Evaluation: Adequate Pain Control GI Prophylaxis: Proton Pump Inhibitor VTE Prophylaxis: Theraputic Anticoag with Warfarin Resuscitation Status: CPR: Attempt Resuscitation Time spent 40 minutes Attending Statement The patient was seen and examined together with Dr. Gustafson on 05/06/16 and I have added additional information to the note above. Antonio Gustafson DO May 06, 2016 15:22 Brittany Vann DO May 07, 2016 12:07
--- NOTE | 2016-05-06 17:50 | NUR ---
Dialysis note: 4 hours tx 4000 ml net UF Right upper arm AV fistula Pls see DTR for VS details Qb 400 No heparin given O2 @ 5L via mask then switched to 4L via NC 2 units PRBC given with no problems Tolerated tx, slept at intervals Fistula needle sites clotted in 10 min Report given to Gaby Fernando RN Stable condition at end of tx
--- NOTE | 2016-05-06 17:58 | NUR ---
pt returned to [facility] post DIALYSIS at 1800 via bed escorted by CNAs report returned to MS RN ([facility]) tele personnel monitor informed of return to unit pt received 2 units PRBC during dialysis and tolerated well; vss; no adverse s/s see flat polisher note, interventions, and/or graphic flow chart for treatment details pt tolerating 4L NC (vs 6L mask) upon discharge from [facility]
--- NOTE | 2016-05-06 18:29 | NUR ---
Oxygen Sats/Anxiety/Pain At approximately 1000 pt became anxious about his oxygen sats. He repeatedly asked this RN how his breathing was. He was reassured that his SaO2 was at 93% and that his respiratory rate was within normal limits. Approximately 10 minutes later the PROPERTY ASSISTANT called this RN to room. Pt was extremely anxious and had started to desat into high 80s low 90s, RR 26. Pt was placed on oxymask @ 6L and coached to breath deeply and slower. Pt immediately improved his sats to 97%. Pt asked for anxiety medication. A one time dose of 0.5mg of Ativan was given with results. Pt c/o hip pain at 7/10 at rest and 10/10 with activity. Pt had been administered 5mg Roxycodone during prior shift with no relief. A second dose of 5mg was given with no relief. notified. Pt was given 0.5mg Dilaudid with the aforementioned Ativan. Upon reassessment pt was sleeping. increased Roxycodone to PRN q4hr 10mg.
--- NOTE | 2016-05-06 21:59 | PCM.CONORT ---
Subjective Surgeon Admitting Provider:Becki Bolanos DO Attending Provider:Becki Bolanos DO Primary Care Physician:Other,Physician Other Provider: Reason for Consultation: Right hip pain Allergy Allergies: Coded Allergies: amlodipine (Verified Allergy, Unknown, 11/17/15) hydralazine (Verified Allergy, Unknown, 11/17/15) morphine (Verified Allergy, Unknown, 11/17/15) Medications ([Albuterol 90 mcg]) 2 PUFFS INHALATION QID PRN PRN For Wheezing (Reported) ([calcoum carb vit d3]) 2 TABLET PO DAILY (Reported) Calcitriol (Rocaltrol) 0.25 Mcg Capsule 0.25 MCG PO Mon, , Mon (Reported) Calcium Acetate (Calcium Acetate) 667 Mg Capsule 1,334 MG PO TIDWM (Reported) Carvedilol (Coreg) 25 Mg Tablet 50 MG PO BID (Reported) Mycophenolate Mofetil (Cellcept) 250 Mg Capsule 1,000 MG PO BIDAC (Reported) Ondansetron (Zofran) 4 Mg Tablet 4 MG PO BID PRN PRN For Nausea (Reported) Oxycodone (Roxicodone) 5 Mg Tablet 5-10 MG PO Q4H PRN PRN For Pain (Reported) Pantoprazole DR (Protonix) 40 Mg Tablet 40 MG PO DAILY (Reported) Prednisone (PredniSONE) 10 Mg Tablet 10 MG PO DAILY (Reported) Sevelamer Carbonate (Renvela) 800 Mg Tablet 1,600 MG PO TIDWM (Reported) Sulfamethoxazole/Trimeth 800-160 mg (Bactrim DS) 1 Each Tablet 1 TABLET PO three times a week (Reported) Warfarin Sodium (Warfarin Sodium) 5 Mg Tablet 5 MG PO DAILY (Reported) Discontinued Medications ([calcium carbonate]) (Reported) Acetaminophen (Acetaminophen) 325 Mg Tablet 650 MG PO QID PRN PRN For Pain ( Reported) Carvedilol (Coreg) 25 Mg Tablet 25 MG PO BID (Reported) Isosorbide Dinitrate (Isochron) 40 Mg Tablet.er 40 MG PO TID (Reported) Oxycodone (Roxicodone) 5 Mg Tablet 5-20 MG PO Q4H PRN PRN For Pain Prescribed by: DIVYA AGUILAR MD Pantoprazole (Pantoprazole DR) 40 Mg Tablet.dr 40 MG PO DAILY (Reported) Polyethylene Glycol 8000 (Polyethylene Glycol) 500 Gm Powder 17 GM MC prn ( Reported) Prednisone (PredniSONE) 5 Mg Tab 10 MG PO DAILY (Reported) Sevelamer Carbonate (Renvela) 800 Mg Tablet 800 MG PO TID (Reported) Valsartan (Valsartan) 320 Mg Tablet 320 MG PO DAILY (Reported) Warfarin Sodium (Coumadin) 5 Mg Tablet 5 MG PO DIRECTED (Reported) Warfarin Sodium (Coumadin) 7.5 Mg Tablet 7.5 MG PO DIRECTED (Reported) History History of ENT Problems?: No HEENT History: Denies:: Cataracts Dysphagia Sinus Problem Hx of Heart Problems?: Yes Cardiovascular History: Positive for:: Chest Pain Congestive Heart Failure Hypertension Irregular Heartbeat Thrombophlebitis Denies:: Cardiac Surgery Edema Heart Murmur Pacemaker Hx of Respiratory Problem?: Yes Respiratory History: Positive for:: Dyspnea Hemoptysis Pneumonia Denies:: Asthma COPD Chest Surgery Emphysema Tuberculosis Other Resp Pertinent History: pulomnary capilaritis, PE S/p IVC filter Hx Neurologic Problems?: Yes Neurological History: Positive for:: CVA Dizziness Denies:: Alzheimer's Disease Dementia Headaches Parkinson's Disease Seizures Hx of GI Problems?: Yes Gastrointestinal History: Positive for:: Heartburn Denies:: Diverticulitis Gastroesphageal Reflux Gastrointestinal Bleeding Hepatitis Hiatal Hernia Rectal Bleeding Hx of Problems?: Yes Genitourinary History: Positive for:: HX of Hemodialysis (tue, thur, sat) Denies:: Kidney Stones Urinary Tract Infection HX of Peritoneal Dialysis: No Male Hx: Denies:: Prostate Problems Scrotal Mass Testicular Surgery Hx Musculoskeletal Problems?: No Musculoskeletal History: Denies:: Back Injury Joint Replacement Musculoskeletal Trauma Other History/Comment Gabriela Salinas is a 40-year-old male patient who presents to the hospital for shortness of breath with a past medical history of lupus nephritis , ESRD on hemodialysis, congestive heart failure, antiphospholipid syndrome, CVA , diffuse alveolar hemorrhage, PE s/p IVC filter placement, and DVT. Orthopedics was consulted for a 6 day history of right hip pain. The patient states that their pain is a dull in nature and mild/moderate in severity localized in the hip and groin without radiation. This has been progressing over the past 6 days after no known injury. Moreover, the pain is exacerbated by activities, especially with ambulation as well as deep flexion, walking, running, stairs, but not from sleeping on the affected side. Rest seems to improve the symptoms. Patient reports associated symptoms no clicking, no stiffness, no swelling, or weakness. Previous treatment has included no NSAIDs, PT, intraarticular injections. He reports that his current pain medications help his hip pain There is no reports numbness, tingling, or weakness to the affected distal lower extremity. There is no known history of hip problems as a child/adolescent such as SCFE, Perthes, dysplasia, OI, or ligamentous laxity. The patient denies any fever, chills, nausea, vomiting, chest pain, does report some shortness of breath, or calf tenderness. Work/hobbies/sports include: Accompanied by son Hx of Psycho/Social Problems?: No Psycho Social History: Denies:: Anxiety Bipolar Disorder Hx Depression Suicide Attempt Hx Surgeries?: Yes (FISTULAS) Hx Any Other Health Problems?: Yes Other History: Positive for:: Hospitalization Denies:: Cancer Thyroid Disease History Blood Transfusions: Positive for:: Accept Blood Products? Blood Transfusions Denies:: Blood Transfuse Reaction Hx Diabetes: No Other Pertinent History: lupus, anemia pt poor historian- unable to communicated H&p- information gathered from [facility] paper work and MD admit h &P Hx Alcohol Use: NoHx Substance Use: Yes (patient denied substance abuse) Smoking Status: Never Smoker Have You Smoked inLast 12 mo: NoApprox How Many Cigarettes/day: quit 8 years ago Objective Exam Vital Signs & I/O Vital Sign- Last 8 Hours Date Time Temp Pulse Resp B/P Pulse Ox O2 Delivery O2 Flow Rate FiO2 05/06/16 19:32 Supplement Oxygen 05/06/16 19:22 36.5 82 20 146/72 96 Nasal Cannula 5.00 05/06/16 18:25 Supplement Oxygen 05/06/16 16:36 18 97 Nasal Cannula 4.00 05/06/16 15:25 35.8 78 20 127/89 05/06/16 15:00 35.9 82 20 129/86 05/06/16 14:45 35.9 76 18 130/90 05/06/16 14:42 36.2 73 18 114/79 05/06/16 14:20 36.3 64 20 125/87 05/06/16 14:05 36.0 65 20 124/83 Lab & Micro Results Laboratory Tests Test 05/05/16 22:45 05/05/16 23:25 05/06/16 02:50 05/06/16 07:00 White Blood Count 4.6th/mm3 (3.8-10.1) 6.7th/mm3 (3.8-10.1) Red Blood Count 2.10mil/mm3 (4.40-5.80) 2.25mil/mm3 (4.40-5.80) Hemoglobin 6.5g/dL (13.8-17.2) 7.0g/dL (13.8-17.2) Hematocrit 19.6% (41.0-50.0) 20.7% (41.0-50.0) Mean Corpuscular Volume 93.3fL (81-100) 92.0fL (81-100) Mean Corpuscular Hemoglobin 31.0pg (27.0-35.0) 31.1pg (27.0-35.0) Mean Corpuscular Hemoglobin Concent 33.2% (32.0-37.0) 33.8% (32.0-37.0) Red Cell Distribution Width 20.4% (12.3-15.4) 20.2% (12.3-15.4) Platelet Count 49bil/L (150-400) 54bil/L (150-400) Neutrophils (%) (Auto) 87.1% (40-74) 89.5% (40-74) Lymphocytes (%) (Auto) 4.7% (14-46) 5.2% (14-46) Monocytes (%) (Auto) 4.5% (4-12) 2.4% (4-12) Eosinophils (%) (Auto) 1.1% (0-5) 1.2% (0-5) Basophils (%) (Auto) 0.2% (0-3) 0.1% (0-3) Band Neutrophils % 2% (1-5) Sodium Level 134mEq/L (134-144) 129mEq/L (134-144) Potassium Level 5.1mEq/L (3.5-5.2) 5.5mEq/L (3.5-5.2) Chloride Level 94mEq/L (97-108) 92mEq/L (97-108) Carbon Dioxide Level 19mmol/L (18-29) 17mmol/L (18-29) Blood Urea Nitrogen 110mg/dL (6-20) 115mg/dL (6-20) Creatinine 6.60mg/dL (0.76-1.27) 6.81mg/dL (0.76-1.27) Estimat Glomerular Filtration Rate 10mL/min (>59) 10mL/min (>59) Glucose Level 89mg/dL (60-99) 101mg/dL (60-99) Calcium Level 8.0mg/dL (8.5-10.1) 8.3mg/dL (8.5-10.1) Total Bilirubin 1.0mg/dL (0.0-1.2) 1.1mg/dL (0.0-1.2) Aspartate Amino Transf (AST/SGOT) 21U/L (0-50) 24U/L (0-50) Alanine Aminotransferase (ALT/SGPT) 22U/L (0-44) 24U/L (0-44) Alkaline Phosphatase 62U/L (25-150) 64U/L (25-150) Troponin T 0.051ug/L (0.0-0.011) 0.053ug/L (0.0-0.011) Pro-B-Type Natriuretic Peptide 75499yn/mL (0-86) Total Protein 5.1g/dL (6.4-8.4) 5.2g/dL (6.4-8.4) Albumin 3.1g/dL (3.4-5.0) 3.6g/dL (3.4-5.0) Hold Henry Top Tube Received (Received) Prothrombin Time 24.8sec (8.1-12.5) 24.8sec (8.1-12.5) Prothromb Time International Ratio 2.28ratio 2.28ratio Activated Partial Thromboplast Time 32.9sec (22.8-33.0) Magnesium Level 2.3mg/dL (1.6-2.6) Urine Color Yellow (YELLOW) Urine Appearance Hazy (CLEAR,HAZY) Urine pH 7.5 (5.0-8.0) Urine Specific [place] 1.015 (1.003-1.035) Urine Protein 100mg/dL (NEG,TRACE) Urine Glucose (UA) 250mg/dL (NEGATIVE) Urine Ketones Negativemg/dL (NEGATIVE) Urine Occult Blood Small (NEGATIVE) Urine Nitrite Negative (NEGATIVE) Urine Bilirubin Negative (NEGATIVE) Urine Urobilinogen Normalmg/dL (NORMAL) Urine Leukocyte Esterase Negative (NEGATIVE) Urine RBC 0-2/hpf (0-2) Urine WBC 0-5/hpf (0-5) Urine Epithelial Cells Few/hpf (NONE-MOD) Urine Crystals None seen (NONE SEEN) Urine Bacteria Few/hpf (NONE-FEW) Urine Hyaline Casts None/lpf (NONE) Urine Granular Casts None seen (NONE SEEN) Urine Waxy Casts None seen (NONE SEEN) Urine Red Blood Cell Casts None seen (NONE SEEN) Urine White Blood Cell Casts None seen (NONE SEEN) Urine Mucus None seen (None Seen) Urine Trichomonas None seen (NONE SEEN) Urine Yeast None (NONE SEEN) Urinalysis Comment None Urine Culture Reflexed Not indicated Test 05/06/16 11:35 05/06/16 17:00 Troponin T 0.061ug/L (0.0-0.011) 0.053ug/L (0.0-0.011) Result Diagram: 05/06/16 0250 05/06/16 0250 Review of Systems: Constitutional: Negative, except as otherwise mentioned in the history above. Ophthalmologic: Negative, except as otherwise mentioned in the history above. Cardiovascular: Negative, except as otherwise mentioned in the history above. Respiratory: Negative, except as otherwise mentioned in the history above. Gastrointestinal: Negative, except as otherwise mentioned in the history above. Genitourinary: Negative, except as otherwise mentioned in the history above. Musculoskeletal: Negative, except as otherwise mentioned in the history above. Neurological: Negative, except as otherwise mentioned in the history above. Psychiatric: Negative, except as otherwise mentioned in the history above. Hematologic/Lymphatic: Negative, except as otherwise mentioned in the history above. Allergic/Immunologic: Negative, except as otherwise mentioned in the history above. H&P Surgical Exam Exam Musculoskeletal: CONST: WD,WN, NAD, A+OX3 OCULAR: EOMI, no conjunctivitis/icterus ENT: no deformities, scars or lesions CARDIAC: Pulse is regular. No cyanosis,clubbing,edema RESP: regular,unlabored MSK: normal light touch SPN/DPN/TN distributions. 5/5 DF/PF/Inv/Ev, 2+ DP Right HIP - scars.- swelling, - erythema - atrophy or asymmetry. TTP none, alignment- spine neutral, shoulder-crest equal, - pelvic tilt, ASIS-medial mal- symmetric ROM logroll-nonpainful Strength flexion- 110, 5-/5 extension- 10, 5-/5 abduction- 50, 5-/5 adduction- 30, 5-/5 knee extension/flexion 5/5 SLT 5-/5 ER at 90- 40, IR at 90- 30 - calf tenderness thigh circ-equal, tredelenburg- neg Additional Information Two-view x-ray of the right hip demonstrates some subchondral lucency to the right femoral head. No acute fracture or dislocation noted. H&P Preop Plan Impression Right hip pain, likely avascular necrosis of the right femoral head. Problems: Risks & Benefits * We have reviewed the risks and benefits as well as the alternatives to surgery. All questions were answered to the patient's satisfaction and a counseling note to that effect. The patient has provided informed consent. * I have counseled the patient regarding the deleterious effects that smoking during the perioperative period can have upon wound healing, infection rates, and the overall rate of complications. Plan Weight-bear as tolerated Oral pain medicines as needed Recommend decreased dose of steroids if possible Continue medical management per primary Recommend MRI of the right hip for evaluation of avascular necrosis for staging purposes Patient can follow up in orthopedic clinic on an outpatient basis once discharged. Please call with questions Giuseppe Solano MD May 06, 2016 21:59
--- NOTE | 2016-05-06 22:01 | NUR ---
MRI attempt: Pt off floor for MRI, upon return transporter stats that pt was unable to tolerate MRI. Pt states he felt very SOB laying down and was very anxious.
[2016-05-07] VITALS (8 sets, daily range): BP systolic 132–159; BP diastolic 81–104; PULSE 64–98; RESP 18–20; O2SAT 94–100
[2016-05-07 02:58] LABS: Mean Corpuscular Hemoglobin 30.4 pg (27.0-35.0); Mean Corpuscular Volume 90.8 fL (81-100)
[2016-05-07 03:06] LABS: INR 1.37 ratio
[2016-05-07] MEDS: Calcium Carbonate (Oyster Shell) 500 mg Tablet PO SCH (07:56)
[2016-05-07] MEDS: predniSONE 20 mg Tablet PO SCH (07:57)
--- NOTE | 2016-05-07 08:47 | NUR ---
Pt arrived to [facility] [place]: Pt arrived to [facility] for dialysis treatment. Pt appears stable at time of arrival. gastroenterology technician aware of transfer. Report obtained from. Marisol Stevens RN. Addendum: 05/07/16 at 1307 by CHRISTIANO VALERA RN Pt returned to unit after dialysis treatment. Report given to Marisol Stevens RN. Pt stable at time of transfer.
--- NOTE | 2016-05-07 12:25 | NUR ---
Dialysis note: 3 1/2 hours tx 3000 ml net UF Right upper arm AV fistula Pls see DTR for VS details Qb 400 No heparin given O2 @ 4L via NC on Tolerated tx, slept at intervals Fistula needle sites clotted in 10 min Report given to Steff Costa RN Stable condition at end of tx
[2016-05-07] MEDS ORDERED: LORazepam 0.5 mg Tablet ONE (13:02)
--- NOTE | 2016-05-07 13:37 | PCM.PNNEPH ---
Subjective Date of Service May 07, 2016 Subjective Patient is seen during hemodialysis. He reported that he is feeling better with oxygen on and with some fluid removal. X-ray of the hip shows possibly right hip vascular necrosis. Patient was evaluated by ortho. Exam Vital Signs Vital Sign - Last Date Time Temp Pulse Resp B/P Pulse Ox O2 Delivery O2 Flow Rate FiO2 05/07/16 09:05 68 05/07/16 08:11 Supplement Oxygen 05/07/16 07:50 36.7 20 153/104 96 5.00 Intake and Output 05/06/16 05/06/16 05/07/16 Cumulative From/Thru 15:00 23:00 07:00 05/05/16 22:03 - 05/07/16 06:17 Intake Total 400 ml 1040 ml 477 ml 1917 ml Output Total 4000 ml 25 ml 0 ml 4025 ml Balance -3600 ml 1015 ml 477 ml -2108 ml Intake Oral 640 ml 477 ml 1117 ml IV Total 50 ml 50 ml 100 ml Packed Cells 350 ml 350 ml 700 ml Output Urine Total 25 ml 0 ml 25 ml Ultrafiltrate 4000 ml 4000 ml Exam GENERAL: The patient in no apparent distress, and alert and oriented x3. HEENT: Head is normocephalic and atraumatic. Extraocular muscles are intact. Pupils are equal, round, and reactive to light and accommodation. Nares appeared normal. Mouth is well hydrated and without lesions. Mucous membranes are moist. Posterior pharynx clear of any exudate or lesions. NECK: Supple, no elevation of JVD, No carotid bruits. No lymphadenopathy or thyromegaly. LUNGS: Fine crackles at the bases, no wheezing or rhonchi. HEART: Normal S1/S2, Regular rate and rhythm, systolic murmur noted. ABDOMEN: Soft, nontender, and nondistended. Positive bowel sounds. No hepatosplenomegaly was noted. EXTREMITIES: Without any cyanosis, clubbing, rash, lesions or edema. NEUROLOGIC: The patient is oriented to person, place and time. Strength and sensation are grossly intact. SKIN: No ulceration or induration present. Lab and Diagnostics Result Diagram: 05/07/16 0235 05/07/16 0235 X-Rays, CTs and MRIs Complete right hip x-ray performed 05/06/2016 IMPRESSION: Subchondral lucency involving the femoral head and avascular necrosis cannot be excluded or less likely fracture. Recommend clinical correlation and if indicated MRI could be performed. Dr. Vann given results and recommendations at 1058 hrs. 05/07/19 and 2016. Dictated by: Errol AVILEZ Interpreted: Dora Augustine MD on 05/06/2016 at 9:51 Chest x-ray performed 05/05/2016 IMPRESSION: CHF and/or diffuse bilateral pneumonia. Correlate clinically. Dictated by: Errol AVILEZ Interpreted: Dora Augustine MD on 05/06/2016 at 8:37 12-lead ECG Normal sinus rhythm, Rate 84 LVH with repolarization T wave inversions and marginal ST depression laterally No major interval change compared with Feb 12 2016 Plan Impression 1. End-stage renal disease secondary to lupus nephritis. Hemodialysis Procedure Dialyzer: revaclear Blood Flow Rate: 400 Dialysate Flow Rate: 600 Duration: 4 HD access: AVF K bath: 3 HCO3 bath: 35 Ultrafiltration: 3L 2. Acute on chronic hypoxic respiratory failure with underlying disease of pulmonary capillaritis. 3. History of SLE and antiphospholipid syndrome. 4. Acute on chronic anemia, positive for stool occult blood. 5. History of DVT/PE status post IVC filter. 6. HFrEF. 7. Avascular necrosis of right hip. Plan: Continue dialysis per schedule. Repeat iron panel. Recommend transfusion if hemoglobin less than 7. Next dialysis on Monday. We will follow along with you. Nina Goodman MD May 07, 2016 13:37
[2016-05-07 14:15] LABS: Unsaturated Iron Binding 148.8 ug/dL
--- NOTE | 2016-05-07 15:04 | DRSVH ---
PROCEDURE: MRI HIP RIGHT WITHOUT CONTRAST ([id number]) INDICATIONS: History of lupus with possible avascular necrosis in the right hip. TECHNIQUE: Noncontrast coronal T1 spin echo and STIR through the bony pelvis. Coronal and axial T2 fast spin ec ho with fat saturation, sagittal T1 spin echo, and oblique axial T2 fast spin echo with fat saturatio n through the hip. COMPARISON: [facility], CR, XR HIP 2VW RT, 05/06/2016, 5:23. FINDINGS: Image quality: Excellent. Bones and joints: Bone marrow of the pelvic ring and proximal femurs demonstrate normal overall sign al. There is a curvilinear subchondral T2 hyperintense line along the superior articular surface of the right femoral head. No evidence of articular surface collapse. There is associated mild edema w ithin the femoral head. There is a small right hip joint effusion and minimal left effusion. The vi sualized lower lumbar spine appears normally aligned. Tendons: The gluteus medius and minimus tendons appear intact, without associated muscle atrophy. T he nearby proximal iliotibial band also appears intact. Th or e iliopsoas tendon appears intact, wit hout adjacent bursal fluid collections or evidence for impingement syndrome. The origin of the hamst ring tendon is intact at the ischial tuberosity, as well as the associated sacrotuberous ligament. T he straight and reflected heads of the rectus femoris muscle origin appear intact, as well as the con joint tendon. Labrum and cartilage: The acetabular labrum appears intact in the absence of intra-articular contras t. Cartilage surface of the femoral head appears of normal thickness. The alpha angle of the femur is within normal limits at less than 55 degrees. Soft tissues: There is mild edema demonstrated within multiple muscle groups bilaterally including th e anterior compartments of the thigh, the adductor compartment, the tensor fascia allen, and the glute us minimus. Quadratus femoris muscle demonstrates no internal edema to suggest ischiofemoral impinge ment. The proximal sciatic neurovascular bundle appears normal adjacent to the hamstring tendons. T here is mild free fluid in the pelvis. Bladder wall thickness is normal. Genitourinary structures a nd bowel loops appear normal where visualized. IMPRESSION: 1. Curvilinear subchondral T2 hyperintense line in the right femoral head compatible with avascular necrosis. No evidence of articular surface collapse. 2. Small right hip joint effusion. 3. Bilateral edema demonstrated within multiple muscle groups. The findings are suggestive of a non specific myositis possibly related to patient's history of lupus. Muscle strains are less likely giv en the bilateral involvement. 4. Small amount of nonspecific free fluid in the pelvis. Dictated by: Live Gonzalez M.D. on 05/07/2016 at 15:02 Approved by: Live Gonzalez M.D. on 05/07/2016 at 15:02
--- NOTE | 2016-05-07 15:38 | PCM.PNMED ---
Subjective Date of Service May 07, 2016 Subjective Patient states he is doing well today, much better than when he presented. Lying still and that says there is no pain, but when he moves he continues to have pain in the right hip. Pain medications are making pain manageable. ROS otherwise negative. Exam Vital Signs Vital Sign - Last Date Time Temp Pulse Resp B/P Pulse Ox O2 Delivery O2 Flow Rate FiO2 05/07/16 09:05 68 05/07/16 08:11 Supplement Oxygen 05/07/16 07:50 36.7 20 153/104 96 5.00 Intake and Output 05/06/16 05/06/16 05/07/16 Cumulative From/Thru 15:00 23:00 07:00 05/05/16 22:03 - 05/07/16 06:17 Intake Total 400 ml 1040 ml 477 ml 1917 ml Output Total 4000 ml 25 ml 0 ml 4025 ml Balance -3600 ml 1015 ml 477 ml -2108 ml Intake Oral 640 ml 477 ml 1117 ml IV Total 50 ml 50 ml 100 ml Packed Cells 350 ml 350 ml 700 ml Output Urine Total 25 ml 0 ml 25 ml Ultrafiltrate 4000 ml 4000 ml Exam General: Sitting on side of bed, no apparent distress, appears mildly uncomfortable. HEENT: Normocephalic, atraumatic, EOMI grossly, mucous membranes moist, conjunctiva pink. Nasal cannula in place. Cardiovascular: Regular rate and rhythm, harsh 3/6 systolic murmur heard best at fifth intercostal space left anterior axillary line. no clicks, rubs, peripheral pulses 2/4 equal bilaterally, Pulmonary: Clear to auscultation bilaterally, no W/R/R. Abdominal: Some mild ecchymosis, soft, nondistended, no hepatosplenomegaly. Bowel sounds are present. Extremities: Fistula to the right upper extremity, large scar representing old fistula site to left upper extremity. No edema in upper or lower extremities. Neuro: Neurologically grossly intact, strength is equal bilaterally upper and lower extremities. MSK: Able to move extremities on his own volition, strength 5 out of 5 equal bilaterally to upper and lower extremities pain with movement of the right lower extremity. IVs and Medications Medications Reviewed: Medications were reviewed in detail Lab and Diagnostics Result Diagram: 05/07/16 0235 05/07/16 0235 X-Rays, CTs and MRIs Right hip MRI completed 05/07/2016 IMPRESSION: 1. Curvilinear subchondral T2 hyperintense line in the right femoral head compatible with avascular necrosis. No evidence of articular surface collapse. 2. Small right hip joint effusion. 3. Bilateral edema demonstrated within multiple muscle groups. The findings are suggestive of a nonspecific myositis possibly related to patient's history of lupus. Muscle strains are less likely given the bilateral involvement. 4. Small amount of nonspecific free fluid in the pelvis. Dictated by: Live Gonzalez M.D. on 05/07/2016 at 15:02 Complete right hip x-ray performed 05/06/2016 IMPRESSION: Subchondral lucency involving the femoral head and avascular necrosis cannot be excluded or less likely fracture. Recommend clinical correlation and if indicated MRI could be performed. Dr. Vann given results and recommendations at 1058 hrs. 05/07/19 and 2016. Dictated by: Errol AVILEZ Interpreted: Dora Augustine MD on 05/06/2016 at 9:51 Chest x-ray performed 05/05/2016 IMPRESSION: CHF and/or diffuse bilateral pneumonia. Correlate clinically. Dictated by: Errol AVILEZ Interpreted: Dora Augustine MD on 05/06/2016 at 8:37 12-lead ECG Normal sinus rhythm, Rate 84 LVH with repolarization T wave inversions and marginal ST depression laterally No major interval change compared with Feb 12 2016 Assessment & Plan 40 year old male with a history of lupus nephritis, ESRD on hemodialysis, congestive heart failure, antiphospholipid syndrome, CVA, PE s/p IVC filter placement, DVT, and recent admit for lupus pulmonary capillaritis who presents to the ED complaining of increasing shortness of breath after running out of his oxygen on day of admission. Further evaluation demonstrated a mass also have avascular necrosis of the right hip. 1. Acute on chronic respiratory failure, present on admission, active. - At the recent hospitalization, patient was found to have lupus caplillaritis that led to hemoptysis, hypoxemia and diffuse infiltrates. His hemoptysis has resolved and dyspnea now improved on being placed back on O2. - Quantiferon Gold was negative per hospital record. - Will need to have home O2 set up - Albuterol inhaler Q6H PRN - Follow up with pulmonology (Dr. Parsons) as outpatient per Blue's discharge. 2. Acute avascular necrosis of right hip, present on admission, active. -Demonstrated on hip x-ray, this is most likely attributed to chronic steroid use for autoimmune disorders. (x-ray images reviewed) -MRI confirmed avascular necrosis of right femoral head, without articular surface collapse. (MRI personally reviewed.) -Orthopedics is following, Dr. Solano's Recommendations: -Decrease oral steroids (decreased to 10mg daily) -Continue with weightbearing as tolerated -Follow-up as an outpatient -Oral analgesics. -Physical Therapy to evaluate patient. 3. Pulmonary capillaritis with hypoxemia and bilateral pulmonary infiltrates, present on admission, active. 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 - Patient was treated with 4 doses of IVIG, IV steroids, and started on CellCept. - Will continue CellCept and Prednisone (discontinued taper, return to 10 milligrams daily). - Follow up with Pulmonology and Rheumatology as outpatient. 4. Acute on chronic normocytic anemia, present on admission, stable. - Serum iron normal, TIBC elevated, serum ferritin greater than 5000 - Likely GI source, see #4. Chronic disease may be compounding factor. - Records from [facility] indicate hemoglobin 6.5 on April 27. - Patient's anemia is similar to multiple prior lab values here. - Repeat H/H showed improvement to Hgb of 7 (From 6.5) - Received 2 units of blood during dialysis on 05/06/2016 - Continue to trend H/H Q6H. Consider transfusion if H/H trends down. - Patient is not a candidate for Erythropoietin according to [facility] because of thrombotic risk of lupus. 5. Gastrointestinal bleed, present on admission, active. - Hemoccult positive, chronic anemia established in patient's history. - Upper or lower GI bleed source unclear. Pt denies bright red blood in his stool. - Anemia Tx as above. - Gastroenterology has agreed to see patient. - Started on 325mg FeSO2 TID 6. ESRD, on chronic HD, present on admission. - likely secondary to lupus nephritis - Had additional 3L removed today during dialysis (total 7L) - Continue home Sevelamer - Nephrology following -May resume normal Dialysis schedule (MondayMay 10). - Daily BMP 7. Chronic autoimmune thrombocytopenia, present on admission. Stable. - likely due to lupus - no signs/symptoms of active bleeding. - Transfusion threshold 15,000 if no bleeding, 50,000 in active bleeding - Continue to monitor. 8. 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 - will continue outpatient po prednisone for now, at lower dose due to AVN - Follow up with Rheumatology as outpatient. 9. Chronic Hypertension, secondary to ESRD, present on admission. Improved - Resume home Carvedilol. - Continue to monitor BP. - Hemodialysis with ultrafiltration as scheduled. 10. History of thromboembolic disease, present on admission. Stable. - h/o previous CVA, PE s/p IVC filter placement and DVT. 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 Will continue Warfarin dosing per pharmacy. Monitor INR daily. - encourage ambulation. PT eval in the morning. 11. History of systolic and diastolic cardiomyopathy w/EF ~40%, present on admission. - pt does not appear fluid overloaded. [place] [address]. - Last Echo in 11/2015 showed severely dilated left ventricle and EF 40-45%. - fluid removal via dialysis per nephrology. 12. Elevated Troponin, present on admission, active. - In the setting of ESRD. - No acute changes on EKG and patient denies CP. - No long trending troponin. - Monitor Tele 13. Acute on chronic right hip pain, present on admission, active. - Given his chronic steroid use, will check XR for avascular necrosis. - Pain control with Oxycodone and Dilaudid PRN. CODE STATUS: FULL CODE. Disposition: Anticipate potential discharge tomorrow or Monday, given the complexity of his medical care, and need to be evaluated by multiple specialists. Anticipate discharge to home with home health and close office follow-up. On discharge will need definitive oxygen requirements, schedule for dialysis, and follow-up appointments with primary care, pulmonology, rheumatology. Pain Evaluation: Adequate Pain Control GI Prophylaxis: Proton Pump Inhibitor VTE Prophylaxis: Theraputic Anticoag with Warfarin Resuscitation Status: CPR: Attempt Resuscitation Time spent 35 minutes Attending Statement The patient was seen and examined together with Dr. Gustafson on 05/07/16 and I have added additional information to the note above. Antonio Gustafson DO May 07, 2016 15:38 Brittany Vann DO May 08, 2016 13:23
--- NOTE | 2016-05-07 18:31 | NUR ---
Pain/Education Pt c/o hip pain during assessment at 6/10. He c/o increased pain when moving. When specifically asked pain when at rest he stated that when he sits it is 2/10 with medication, when he stands it is a 3-4 and when he walks it is 6+. MD was at bedside during this discussion and pt was educated to expectations of pain management. It was explained to the patient that he will have pain with movement and that if he could be given enough medication to get rid of that pain, he would likely stop breathing from an excess of narcotics. Pt voiced understanding. Pt will also be working with PT tomorrow morning to develop strategies to move that may reduce his pain during ambulation. Pt is looking forward to working with PT.
--- NOTE | 2016-05-07 21:53 | NUR ---
Pain Pt c/o right hi pain rated at a 5 Given oxycodone. Pt states that his pain relief goal is a 1. Will monitor for effectiveness
--- NOTE | 2016-05-08 01:46 | NUR ---
Oxygen Pt gets up OOB without his oxygen. I reminded him how important it is to keep his oxygen on when exerting himself. The pt responded "yes, I know" Nasal canula back in place at 4LNC Pt denies SOB
[2016-05-08 03:01] LABS: BASOPHILS % (AUTO) 0 % (0-3); EOSINOPHILS % (AUTO) 1.7 % (0-5); MONOCYTES % (AUTO) 3.7 % (4-12); Mean Corpuscular Hemoglobin 30.4 pg (27.0-35.0); Mean Corpuscular Volume 93.6 fL (81-100); NEUTROPHILS % (AUTO) 84.4 % (40-74); Platelet Count 68 bil/L (150-400)
[2016-05-08 03:12] LABS: INR 1.57 ratio
[2016-05-08 03:19] VITALS: BP 169/85; PULSE 69; RESP 18; O2SAT 97
--- NOTE | 2016-05-08 05:04 | NUR ---
Hygiene C/o itchiness. Generalized. Requests shower. Currently taking shower. Oxygen on at 4LNC.
[2016-05-08 05:05] VITALS: PULSE 80
[2016-05-08 07:28] VITALS: BP 144/92; PULSE 80; RESP 20; O2SAT 100
[2016-05-08] MEDS: Calcium Carbonate (Oyster Shell) 500 mg Tablet PO SCH (07:38)
[2016-05-08] MEDS: predniSONE 20 mg Tablet PO SCH (07:38)
[2016-05-08 08:31] VITALS: PULSE 88
[2016-05-08] MEDS ORDERED: WALK1EAC55 MC (10:56)
[2016-05-08] MEDS ORDERED: PRE10 PO (10:57)
[2016-05-08] MEDS ORDERED: FERR-74 PO (10:57)
--- NOTE | 2016-05-08 11:07 | NUR ---
Evaluation completed. Please go to "Notes" then click on "Assessments and Notes" (bottom left corner of screen). Then select appropriate discipline tab on top of screen.
[2016-05-08] MEDS ORDERED: OXYC-474 PO (11:10)
--- NOTE | 2016-05-08 11:23 | PCM.DIMED ---
Discharge Instructions Date of Service May 08, 2016 Dates of Hospitalization May 06, 2016 at 01:04 Discharge Diagnosis Discharge Diagnosis Acute on chronic respiratory failure secondary to pulmonary capillaritis from lupus Avascular necrosis of the right hip SLE GI bleed End-stage renal disease on dialysis Medication Instructions Your chronic steroid dose of medications have been decreased to 5 mg daily. Please follow-up with your primary care physician for further monitoring of your lupus. Diet Heart Healthy, Renal Diet Activity Other (please use the walker for daily use so that you do not put too much pressure on the right hip. Porfavor usar el walker cada maura porque no quiers poner demasiado presion en la shantel derecha) Call your provider Fever or Chills, Shortness of breath, Bleeding, Chest pain, Vomitting, Weakness (unilateral) Patient Instructions Please follow-up with your primary care physician as your medications for the steroids have decreased. This medication was decreased because steroids can cause degeneration of the bone and this is what is happening to your right hip. Because you have lupus you need to be on chronic steroids but may be with a decrease in the amount of steroids you are taking this may be beneficial. Please follow up with orthopedics Dr. Solano for follow up of your right hip. Your insurance company will need a referral for you to see Dr. Solano from your primary care provider. [address] [address] A prescription has been written for the walker. Please follow-up with your insurance company for approval of this equipment. Please use your oxygen while walking. You must use 3 L of oxygen at all times while doing any activities. You do not have to use the oxygen while sitting or eating. Please continue your dialysis as scheduled. Follow-up Provider: [facility] Follow-up with PCP in: 1 week Provider: Giuseppe Solano MD Follow-up in: 1 week Brittany Vann DO May 08, 2016 11:05
[2016-05-08 12:06] VITALS: BP 164/88; PULSE 72; RESP 20; O2SAT 99
--- NOTE | 2016-05-08 12:41 | PCM.PNNEPH ---
Subjective Date of Service May 08, 2016 Subjective Patient is feeling much better today. He no longer has shortness of breath. He will be discharged today with home oxygen. Exam Vital Signs Vital Sign - Last Date Time Temp Pulse Resp B/P Pulse Ox O2 Delivery O2 Flow Rate FiO2 05/08/16 12:06 36.8 72 20 164/88 99 Nasal Cannula 4.00 Intake and Output 05/07/16 05/07/16 05/08/16 Cumulative From/Thru 15:00 23:00 07:00 05/05/16 22:03 - 05/08/16 05:35 Intake Total 720 ml 240 ml 2877 ml Output Total 3000 ml 0 ml 7025 ml Balance -3000 ml 720 ml 240 ml -4148 ml Intake Oral 720 ml 240 ml 2077 ml IV Total 100 ml Packed Cells 700 ml Output Urine Total 0 ml 25 ml Ultrafiltrate 3000 ml 7000 ml # Voids 0 0 # Bowel Movements 0 0 Exam GENERAL: The patient in no apparent distress, and alert and oriented x3. HEENT: Head is normocephalic and atraumatic. Extraocular muscles are intact. Pupils are equal, round, and reactive to light and accommodation. Nares appeared normal. Mouth is well hydrated and without lesions. Mucous membranes are moist. Posterior pharynx clear of any exudate or lesions. NECK: Supple, no elevation of JVD, No carotid bruits. No lymphadenopathy or thyromegaly. LUNGS: Clear to auscultation bilaterally. No wheezing or rhonchi. HEART: Normal S1/S2, Regular rate and rhythm, systolic murmur noted. ABDOMEN: Soft, nontender, and nondistended. Positive bowel sounds. No hepatosplenomegaly was noted. EXTREMITIES: Without any cyanosis, clubbing, rash, lesions or edema. Lab and Diagnostics Result Diagram: 05/08/16 0255 05/08/16 0255 X-Rays, CTs and MRIs Right hip MRI completed 05/07/2016 IMPRESSION: 1. Curvilinear subchondral T2 hyperintense line in the right femoral head compatible with avascular necrosis. No evidence of articular surface collapse. 2. Small right hip joint effusion. 3. Bilateral edema demonstrated within multiple muscle groups. The findings are suggestive of a nonspecific myositis possibly related to patient's history of lupus. Muscle strains are less likely given the bilateral involvement. 4. Small amount of nonspecific free fluid in the pelvis. Dictated by: Live Gonzalez M.D. on 05/07/2016 at 15:02 Complete right hip x-ray performed 05/06/2016 IMPRESSION: Subchondral lucency involving the femoral head and avascular necrosis cannot be excluded or less likely fracture. Recommend clinical correlation and if indicated MRI could be performed. Dr. Vann given results and recommendations at 1058 hrs. 05/07/19 and 2016. Dictated by: Errol AVILEZ Interpreted: Dora Augustine MD on 05/06/2016 at 9:51 Chest x-ray performed 05/05/2016 IMPRESSION: CHF and/or diffuse bilateral pneumonia. Correlate clinically. Dictated by: Errol AVILEZ Interpreted: Dora Augustine MD on 05/06/2016 at 8:37 12-lead ECG Normal sinus rhythm, Rate 84 LVH with repolarization T wave inversions and marginal ST depression laterally No major interval change compared with Feb 12 2016 Plan Impression 1. End-stage renal disease secondary to lupus nephritis. 2. Acute on chronic hypoxic respiratory failure with underlying disease of pulmonary capillaritis. 3. History of SLE and antiphospholipid syndrome. 4. Acute on chronic anemia, positive for stool occult blood. 5. History of DVT/PE status post IVC filter. 6. HFrEF. 7. Avascular necrosis of right hip. Plan: Next dialysis on Monday. He can be discharged per renal standpoint. Nina Goodman MD May 08, 2016 12:41
--- NOTE | 2016-05-08 13:40 | PCM.DC.MED ---
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 Martines) Nephrology (Dr. Grande and Dr. Goodman) Procedures XRay, CTs & MRIs Right hip MRI completed 05/07/2016 IMPRESSION: 1. Curvilinear subchondral T2 hyperintense line in the right femoral head compatible with avascular necrosis. No evidence of articular surface collapse. 2. Small right hip joint effusion. 3. Bilateral edema demonstrated within multiple muscle groups. The findings are suggestive of a nonspecific myositis possibly related to patient's history of lupus. Muscle strains are less likely given the bilateral involvement. 4. Small amount of nonspecific free fluid in the pelvis. Dictated by: Live Gonzalez M.D. on 05/07/2016 at 15:02 Complete right hip x-ray performed 05/06/2016 IMPRESSION: Subchondral lucency involving the femoral head and avascular necrosis cannot be excluded or less likely fracture. Recommend clinical correlation and if indicated MRI could be performed. Dr. Vann given results and recommendations at 1058 hrs. 05/07/19 and 2016. Dictated by: Errol AVILEZ Interpreted: Dora Augustine MD on 05/06/2016 at 9:51 Chest x-ray performed 05/05/2016 IMPRESSION: CHF and/or diffuse bilateral pneumonia. Correlate clinically. Dictated by: Errol AVILEZ Interpreted: Dora Augustine MD on 05/06/2016 at 8:37 ECG 12 Lead Normal sinus rhythm, Rate 84 LVH with repolarization T wave inversions and marginal ST depression laterally No major interval change compared with Feb 12 2016 Brief History Jean-Claude Salinas is a 40 year old Dutch-speaking male with a complex medical history of lupus nephritis, ESRD on hemodialysis, congestive heart failure, antiphospholipid syndrome, CVA, diffuse alveolar hemorrhage, PE s/p IVC filter placement, and DVT who presents to the ED complaining of increasing shortness of breath after running out of his oxygen today. The patient is a poor historian even with the help with a planning assistant. According to record, he was recently admitted to [facility] in [place] for lupus pulmonary capillaritis for 10 days, discharged yesterday. Patient states that he has had pneumonia for the past month, which "never fully goes away". He reports ongoing cough and states that he previously had hemoptysis 5 days ago, that now resolves. He states that the cough is nonproductive and that it has improved since this morning. The patient states that during his hospital admission it was determined that he was oxygen dependent and was discharged with home oxygen. However, his oxygen container only lasted for an hour after discharge. The patient has not used home oxygen in the past and is unsure if he used it improperly. He denies chest pain, fever, chills, loss of consciousness, headache, nausea, or vomiting. Patient states that he was also admitted to the hospital for anemia. Review of [facility] records reveal a diagnosis of lupus pulmonary capillaritis, hypoxia, and anemia requiring blood transfusion. Patient states that he has chronic anemia and has had several blood transfusion, approximately every 2 weeks. Patient also reports pain in his hip leg, which began while he was in the hospital 5 days ago. He has not been bedbound most of the time, but notes hip pain with walking. He denies any radiation of pain or numbness/tingling. He received narcotic pain medications through this provider and did not receive additional medication on discharge from the hospital. The patient is due for dialysis tomorrow and last had dialysis prior to discharge yesterday. His dialysis is in [place]. His PCP is Dr. Velasco at [facility] in [place]. This conversation was assisted by the use of a Fuel Cell Technician. In the ED, the patient had elevated BP of 162/97 and required 3L of O2 for SpO2 of 96%. RR 21, HR 86, temp 36.3. CBC significant for Hgb of 6.5 and platelet of 49. CMP significant for BUN 110, creatinine 6.6. CXR showed diffuse bilateral interstitial infiltrates. Radiology read pending. EKG normal sinus rhythm at rate 84 and no major changes compared to prior EKG. Hospital Course 40 year old male with a history of lupus nephritis, ESRD on hemodialysis, congestive heart failure, antiphospholipid syndrome, CVA, PE s/p IVC filter placement, DVT, and recent admit for lupus pulmonary capillaritis who presents to the ED complaining of increasing shortness of breath after running out of his oxygen on day of admission. Further evaluation demonstrated a mass also have avascular necrosis of the right hip. The patient was discharged home and there was some confusion as to the patient' s oxygen status in the prescription for oxygen and his oxygen was not renewed. During the stay the patient was set up on home O2 and oxygen delivery to the patient's home. While admitted the patient underwent dialysis and had a total of 7 L of fluid removed which was most likely also adding to the patient's shortness of breath. The patient should resume his regularly scheduled dialysis appointments. The patient is to use 3 L of oxygen with activity. While present the patient was complaining of right hip pain and x-ray and an MRI were both performed confirming the patient has avascular necrosis of the right hip most likely secondary to chronic steroid use due to SLE. The patient' s steroids were decreased to 5 mg daily and he was told to follow-up with his primary care and equipment mechanic to ensure that this is adequate for him and to possibly wean him off of steroids if possible. Physical therapy has evaluated the patient and recommend using a walker. The patient has been given information to the [facility] in [place] who can potentially provide the walker for free as the patient has been given a prescription for a walker. Orthopedics was consulted and stated that the patient should follow-up as an outpatient and should be weightbearing as tolerated for the right lower extremity with assistive devices. The patient may follow-up with Dr. Solano in [place] or he may follow-up with an orthopedist in [place] if this is more convenient for him. However because of the patient's insurance he will need a referral from his primary care provider. The patient was also noted to be Hemoccult positive while here and was transfused 2 units during dialysis. The patient had a discussion with gastroenterology who recommended that the patient follow-up either with his own waiter/waitress tavern or with Dr. Martines here in [place] to have a possible colonoscopy as an outpatient. The patient stated that he understood the follow-up plan which was also reviewed with him in Dutch. The patient is being discharged home in stable condition. Patient's case and follow up plan was discussed today with Dr. Martines (Gastroenterology) and Dr. Goodman (Nephrology) 1. Acute on chronic respiratory failure, present on admission, active. - At the recent hospitalization, patient was found to have lupus caplillaritis that led to hemoptysis, hypoxemia and diffuse infiltrates. His hemoptysis has resolved and dyspnea now improved on being placed back on O2. - Quantiferon Gold was negative per hospital record. - Will need to have home O2 set up so that the patient does not run out of O2. - Albuterol inhaler Q6H PRN - Follow up with pulmonology (Dr. Parsons) as outpatient per [place] discharge. 2. Acute avascular necrosis of right hip, present on admission, active. -Demonstrated on hip x-ray, this is attributed to steroid use for autoimmune disorders. (x-ray images reviewed) -MRI confirmed avascular necrosis of right femoral head, without articular surface collapse. (MRI personally reviewed.) -Orthopedics is following, Dr. Solano's Recommendations: -Decrease oral steroids (decreased to 10mg daily) -Continue with weightbearing as tolerated -Follow-up as an outpatient -Oral analgesics. -Physical Therapy to evaluate patient. 3. Pulmonary capillaritis with hypoxemia and bilateral pulmonary infiltrates, present on admission, active. 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 - Patient was treated with 4 doses of IVIG, IV steroids, and started on CellCept. - Will continue CellCept and Prednisone (discontinued taper, return to 10 milligrams daily). - Follow up with Pulmonology and Rheumatology as outpatient. 4. Acute on chronic normocytic anemia, present on admission, stable. - Serum iron normal, TIBC elevated, serum ferritin greater than 5000 - Likely GI source, see #4. Chronic disease may be compounding factor. - Records from [facility] indicate hemoglobin 6.5 on April 27. - Patient's anemia is similar to multiple prior lab values here. - Repeat H/H showed improvement to Hgb of 7 (From 6.5) - Received 2 units of blood during dialysis on 05/06/2016 - Continue to trend H/H Q6H. Consider transfusion if H/H trends down. - Patient is not a candidate for Erythropoietin according to [facility] because of thrombotic risk of lupus. 5. Gastrointestinal bleed, present on admission, active. - Hemoccult positive, chronic anemia established in patient's history. - Upper or lower GI bleed source unclear. Pt denies bright red blood in his stool. - Anemia Tx as above. - Gastroenterology has agreed to see patient. - Started on 325mg FeSO2 TID 6. ESRD, on chronic HD, present on admission. - likely secondary to lupus nephritis - Had additional 3L removed today during dialysis (total 7L) - Continue home Sevelamer - Nephrology following -May resume normal Dialysis schedule (MondayMay 10). - Daily BMP 7. Chronic autoimmune thrombocytopenia, present on admission. Stable. - likely due to lupus - no signs/symptoms of active bleeding. - Transfusion threshold 15,000 if no bleeding, 50,000 in active bleeding - Continue to monitor. 8. 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 - will continue outpatient po prednisone for now, at lower dose due to AVN - Follow up with Rheumatology as outpatient. 9. Chronic Hypertension, secondary to ESRD, present on admission. Improved - Resume home Carvedilol. - Continue to monitor BP. - Hemodialysis with ultrafiltration as scheduled. 10. History of thromboembolic disease, present on admission. Stable. - h/o previous CVA, PE s/p IVC filter placement and DVT. 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 Will continue Warfarin dosing per pharmacy. Monitor INR daily. - encourage ambulation. PT eval in the morning. 11. History of systolic and diastolic cardiomyopathy w/EF ~40%, present on admission. - pt does not appear fluid overloaded. [place] [address]. - Last Echo in 11/2015 showed severely dilated left ventricle and EF 40-45%. - fluid removal via dialysis per nephrology. 12. Elevated Troponin, present on admission, active. - In the setting of ESRD. - No acute changes on EKG and patient denies CP. - No long trending troponin. - Monitor Tele 13. Acute on chronic right hip pain, present on admission, active. - Given his chronic steroid use, will check XR for avascular necrosis. - Pain control with Oxycodone and Dilaudid PRN. CODE STATUS: FULL CODE. Disposition: Anticipate potential discharge tomorrow or Monday, given the complexity of his medical care, and need to be evaluated by multiple specialists. Anticipate discharge to home with home health and close office follow-up. On discharge will need definitive oxygen requirements, schedule for dialysis, and follow-up appointments with primary care, pulmonology, rheumatology. Exam Vital Signs (Last) Date Time Temp Pulse Resp B/P Pulse Ox O2 Delivery O2 Flow Rate FiO2 05/08/16 08:31 88 05/08/16 07:48 Supplement Oxygen 05/08/16 07:28 36.7 20 144/92 100 4.00 Exam Physical Exam: GEN: Patient was awake, alert, responding appropriately to questions HEENT: PERRLA, EOMI, Neck soft supple, trachea midline, nomocephalic/atraumatic CV: +S1/S2, RRR, positive systolic murmur auscultated Respiratory: CTAB, no wheezes, rales, rhonchi GI: +bowel sounds x4, soft, compressible, non TTP EXT: no c/c/e in the lower extremities, right upper extremity palpable fistula thrill with notable scarring noted from the fistula. Neuro: CN II-XII grossly intact Psych: mood and affect were appropriate Test 05/05/16 22:45 05/05/16 23:25 05/06/16 02:50 05/06/16 07:00 Band Neutrophils % 2% (1-5) Pro-B-Type Natriuretic Peptide [id number]/mL (0-86) Hold Henry Top Tube Received (Received) Activated Partial Thromboplast Time 32.9sec (22.8-33.0) Magnesium Level 2.3mg/dL (1.6-2.6) Urine Color Yellow (YELLOW) Urine Appearance Hazy (CLEAR,HAZY) Urine pH 7.5 (5.0-8.0) Urine Specific Stockett 1.015 (1.003-1.035) Urine Protein 100mg/dL (NEG,TRACE) Urine Glucose (UA) 250mg/dL (NEGATIVE) Urine Ketones Negativemg/dL (NEGATIVE) Urine Occult Blood Small (NEGATIVE) Urine Nitrite Negative (NEGATIVE) Urine Bilirubin Negative (NEGATIVE) Urine Urobilinogen Normalmg/dL (NORMAL) Urine Leukocyte Esterase Negative (NEGATIVE) Urine RBC 0-2/hpf (0-2) Urine WBC 0-5/hpf (0-5) Urine Epithelial Cells Few/hpf (NONE-MOD) Urine Crystals None seen (NONE SEEN) Urine Bacteria Few/hpf (NONE-FEW) Urine Hyaline Casts None/lpf (NONE) Urine Granular Casts None seen (NONE SEEN) Urine Waxy Casts None seen (NONE SEEN) Urine Red Blood Cell Casts None seen (NONE SEEN) Urine White Blood Cell Casts None seen (NONE SEEN) Urine Mucus None seen (None Seen) Urine Trichomonas None seen (NONE SEEN) Urine Yeast None (NONE SEEN) Urinalysis Comment None Urine Culture Reflexed Not indicated Test 05/06/16 17:00 05/07/16 02:35 05/08/16 02:55 Troponin T 0.053ug/L (0.0-0.011) Iron Level 78ug/dL (35-150) Total Iron Binding Capacity 227ug/dL (250-450) Percent Iron Saturation 34%sat (15-50) Unsaturated Iron Binding 148.8ug/dL Ferritin > 5000ng/mL (30-400) White Blood Count 5.9th/mm3 (3.8-10.1) Red Blood Count 2.50mil/mm3 (4.40-5.80) Hemoglobin 7.6g/dL (13.8-17.2) Hematocrit 23.4% (41.0-50.0) Mean Corpuscular Volume 93.6fL (81-100) Mean Corpuscular Hemoglobin 30.4pg (27.0-35.0) Mean Corpuscular Hemoglobin Concent 32.5% (32.0-37.0) Red Cell Distribution Width 18.8% (12.3-15.4) Platelet Count 68bil/L (150-400) Neutrophils (%) (Auto) 84.4% (40-74) Lymphocytes (%) (Auto) 9.0% (14-46) Monocytes (%) (Auto) 3.7% (4-12) Eosinophils (%) (Auto) 1.7% (0-5) Basophils (%) (Auto) 0% (0-3) Prothrombin Time 16.9sec (8.1-12.5) Prothromb Time International Ratio 1.57ratio Sodium Level 139mEq/L (134-144) Potassium Level 4.3mEq/L (3.5-5.2) Chloride Level 98mEq/L (97-108) Carbon Dioxide Level 25mmol/L (18-29) Blood Urea Nitrogen 54mg/dL (6-20) Creatinine 3.83mg/dL (0.76-1.27) Estimat Glomerular Filtration Rate 19mL/min (>59) Glucose Level 117mg/dL (60-99) Calcium Level 8.5mg/dL (8.5-10.1) Total Bilirubin 1.2mg/dL (0.0-1.2) Aspartate Amino Transf (AST/SGOT) 31U/L (0-50) Alanine Aminotransferase (ALT/SGPT) 26U/L (0-44) Alkaline Phosphatase 98U/L (25-150) Total Protein 5.4g/dL (6.4-8.4) Albumin 3.4g/dL (3.4-5.0) Discharge Medications Discharge Medications ([calcoum carb vit d3]) 2 TABLET PO DAILY (Reported) Calcitriol (Rocaltrol) 0.25 Mcg Capsule 0.25 MCG PO Pretty Izquierdo, Sat (Reported) Calcium Acetate (Calcium Acetate) 667 Mg Capsule 1,334 MG PO TIDWM (Reported) Carvedilol (Coreg) 25 Mg Tablet 50 MG PO BID (Reported) Ferrous Sulfate (Feosol) 325 Mg Tablet 325 MG PO TIDWM Prescribed by: BRITTANY VANN DO Mycophenolate Mofetil (Cellcept) 250 Mg Capsule 1,000 MG PO BIDAC (Reported) Pantoprazole DR (Protonix) 40 Mg Tablet 40 MG PO DAILY (Reported) Prednisone (PredniSONE) 10 Mg Tablet 5 MG PO DAILY Prescribed by: BRITTANY VANN DO Sevelamer Carbonate (Renvela) 800 Mg Tablet 1,600 MG PO TIDWM (Reported) Sulfamethoxazole/Trimeth 800-160 mg (Bactrim DS) 1 Each Tablet 1 TABLET PO three times a week (Reported) Warfarin Sodium (Warfarin Sodium) 5 Mg Tablet 5 MG PO DAILY (Reported) As needed ([Albuterol 90 mcg]) 2 PUFFS INHALATION QID PRN PRN For Wheezing (Reported) Ondansetron (Zofran) 4 Mg Tablet 4 MG PO BID PRN PRN For Nausea (Reported) Oxycodone (Roxicodone) 5 Mg Tablet 5 MG PO Q4H PRN PRN For Pain Please take 1-2 pills as needed for pain Prescribed by: BRITTANY VANN DO Durable Medical Equipment Walker (Ultra-Light Rollator) 1 Each Each 1 EACH MC DAILY (DME) 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 Prescribed by: BRITTANY VANN DO Additional med instructions Your chronic steroid dose of medications have been decreased to 5 mg daily. Please follow-up with your primary care physician for further monitoring of your lupus. Followup Plan Discharge Diet: Heart Healthy, Renal Diet Discharge Activity: Other (please use the walker for daily use so that you do not put too much pressure on the right hip. Porfavor usar el walker cada maura porque no quiers poner demasiado presion en la shantel derecha) Patient Instructions Please follow-up with your primary care physician as your medications for the steroids have decreased. This medication was decreased because steroids can cause degeneration of the bone and this is what is happening to your right hip. Because you have lupus you need to be on chronic steroids but may be with a decrease in the amount of steroids you are taking this may be beneficial. Please follow up with orthopedics Dr. Solano for follow up of your right hip. Your insurance company will need a referral for you to see Dr. Solano from your primary care provider. [address] [address] A prescription has been written for the walker. Please follow-up with your insurance company for approval of this equipment. Please use your oxygen while walking. You must use 3 L of oxygen at all times while doing any activities. You do not have to use the oxygen while sitting or eating. Please continue your dialysis as scheduled. Follow-up Provider: [facility] Follow-up with PCP in: 1 week Provider: Giuseppe Solano MD Follow-up in: 1 week Time spent 45 minutes copies to: [facility] Brittany Vann DO May 08, 2016 11:31
--- NOTE | 2016-05-08 13:47 | NUR ---
Social Work Note: Discharge Data& Assessment: EMR reviewed. Per pt is medically improved and ready to discharge home via POV. STEPHANIE met with pt at bedside to confirm discharge plan and assess for any unmet needs. Jean-Claude Salinas is a 40 year old male admitted on 05/06/2016 for pulmonary capillartitis and anemia. Per MD pt is medically improved and ready for discharge. Per MD and PT, pt requires a walker for ambulation assistance. Pt provided with DME list for preferences, pt has a preference for [facility] in [place] as it is closest to his home. None of the local DME companies are open today. SW faxed prescription, facesheet and appropriate documentation to [facility]. SW discussed plan to follow up with [facility] tomorrow and also provided information on renting a walker for a low monthly fee if his insurance will not cover the entire cost. Pt confirmed understanding and denied any other needs. RT arranging home oxygen. Pt friend transporting pt home today. No other discharge needs identified. Plan: Per pt is medically ready to discharge home via POV. DME prescription and appropriate documentation faxed to [facility], pt to follow up with DME company tomorrow as they are closed today. RT arranging home oxygen. Pt friend transporting pt home today. No other discharge needs identified. DAXA Bella
--- NOTE | 2016-05-08 14:33 | NUR ---
Discharge Pt discharged to his friend's home in [place], to be transported POV by his friend. Pt IV's dc'd intact, telemetry was removed and tech was notified. Pt's belongings were gathered for transport home with pt. Pt's new medications, discharge instructions and follow up appointments were reviewed, all questions were answered and pt voiced understanding. Pt is Panamanian speaking, but is relatively fluent in Maltese, pt was provided written instructions for medications and his problem list in both Maltese and Panamanian. Pt stated that he would follow up tomorrow 05/09/2016 with his bilingual patient support caseworker at [facility] in [place] to make the appropriate follow up appointments. Pt was escorted off unit by APPLICATION PROGRAMMER ANALYST to his friend's vehicle.
--- NOTE | 2016-05-08 17:10 | CONS ---
[address] [address] CONSULTATION REPORT PATIENT: TAMMY SENIOR : 1975 MR#: [id number] ADMIT: 05/06/2016 JOB ID: [id number] DATE OF SERVICE: 05/08/2016 REQUESTING PROVIDER: Antonio Gustafson D.O. REASON FOR CONSULTATION: Heme-positive stool. HISTORY OF PRESENT ILLNESS: This is a 40-year-old male with multiple medical comorbidities on chronic anticoagulation hospitalized as of May 06 for symptoms of shortness of breath. He was found to have a stably low normocytic anemia. He has not had any melena. No report of any red blood per rectum. The patient denies any significant reflux. No mention of this difficulty swallowing. No nausea or vomiting. No abdominal pain. Bowel movements are reasonably regular. The patient recalls having an upper endoscopy a couple of times perhaps within the last six months. He does not recall ever having a colonoscopy. ALLERGIES: 1. AMLODIPINE. 2. HYDRALAZINE. 3. MORPHINE. MEDICATIONS: The patient was takin. Bactrim. 2. Ferrous sulfate. 3. Warfarin. 4. Carvedilol. 5. Oxycodone. 6. Calcium acetate. 7. Sevelamer. 8. Zofran. 9. Protonix. 10. Prednisone. 11. Calcitriol. 12. CellCept. 13. Albuterol as needed. 14. Calcium carbonate as needed. 15. Acetaminophen as needed. 16. Isosorbide dinitrate t.i.d. 17. MiraLAX as needed. 18. Valsartan. PAST MEDICAL HISTORY: Chronic kidney disease on hemodialysis, lupus, antiphospholipid syndrome, heparin-induced thrombocytopenia, pulmonary embolism status post IVC filter on chronic anticoagulation, cardiomyopathy, hypertension, anemia (normocytic), chronic pain on opiates, left lower extremity arterial ulcer, oral herpes, thrush. PAST SURGICAL HISTORY: He has a fistula on his right upper extremity. He has had the IVC filter. Prior fistula on the left side. Possible EGDs x2, as above. FAMILY HISTORY: Noncontributory. SOCIAL HISTORY: Nonsmoker. No alcohol. He receives a lot of his care up at [facility]. REVIEW OF SYSTEMS: No other current complaints. He uses oxygen. He is hoping to be discharged home. Otherwise, review is as per HPI. PHYSICAL EXAMINATION: Blood pressure 164/88, pulse 72, breathing 20, afebrile at 36.8, 99% on 4 L nasal cannula. The patient was in no distress, sitting up at the side of the bed, watching a YouTube video on his laptop. Lungs were acceptably clear bilaterally. Good air entry. Trace peripheral pitting edema bilaterally in the lower extremities. Abdomen: No evidence of abdominal distention. Heart was regular. Sclerae anicteric. He was alert, oriented, appropriate, pleasant, conversational. LABORATORY DATA: Hemoglobin 7.6, hematocrit 23.4, white count 5.9, platelets 68, MCV 93.6. INR 1.57. BUN 54, creatinine 3.83, glucose 117. Liver tests normal. Albumin 3.4, protein 5.4. Sodium 139, potassium 4.3, chloride 98, bicarb 25, iron is 78, TIBC was 227, percent sat 34, ferritin greater than 5000, troponins are positive. UA negative for urinary tract infection. Stool positive for occult blood, as above. IMAGING: He has avascular necrosis of the right hip. ASSESSMENT AND RECOMMENDATIONS: This is a 40-year-old male with multiple medical comorbidities and what appears to be a chronic normocytic anemia of chronic disease. He does have heme-positive stool in the face of anticoagulation, but there are no overt symptoms of recent gastrointestinal hemorrhage. I would recommend correlation of this clinical finding with his recent upper endoscopy that the patient reports having done up at [facility]. I recommended the patient consider further evaluation with colonoscopy, but this can certainly be done very electively as an outpatient. The patient has a preference to continue with GI care up in [place], and therefore I would defer the followup on this score to his primary care provider. If he elects to have procedures done down here in [facility], that would be fine and I can accommodate at his discretion.
== END 2016-05-08 13:49 | disposition home or self-care (01) | DRG 189 ==
LOC: SED 21:50 → INTOOBSV 05-06 01:04 → OBSVTOIN 05-06 01:04 → PCC 05-06 01:04
PROVIDERS: ADMIT Internal Medicine; ATTEND Internal Medicine
PROC: 5A1D60Z (ICD-10-PCS; principal; 2016-05-06)
PROC: 30233N1 Transfusion of Nonautologous Red Blood Cells into Peripheral Vein, Percutaneous Approach (ICD-10-PCS; 2016-05-06)
DX: J96.21 Acute and chronic respiratory failure with hypoxia (principal); N18.6 End stage renal disease; I12.0 Hypertensive chronic kidney disease with stage 5 chronic kidney disease or end stage renal disease; D68.61 Antiphospholipid syndrome; I42.8 Other cardiomyopathies; M87.151 Osteonecrosis due to drugs, right femur; K92.2 Gastrointestinal hemorrhage, unspecified; Z99.2 Dependence on renal dialysis; Z86.73 Personal history of transient ischemic attack (TIA), and cerebral infarction without residual deficits; Z86.718 Personal history of other venous thrombosis and embolism; Z86.711 Personal history of pulmonary embolism; Z79.01 Long term (current) use of anticoagulants; Z99.81 Dependence on supplemental oxygen; I78.8 Other diseases of capillaries; D64.9 Anemia, unspecified; M32.14 Glomerular disease in systemic lupus erythematosus; D69.59 Other secondary thrombocytopenia; T38.0X5A Adverse effect of glucocorticoids and synthetic analogues, initial encounter; Z79.52 Long term (current) use of systemic steroids; J96.22 Acute and chronic respiratory failure with hypercapnia

== ENCOUNTER 2016-05-16 14:47 | Inpatient (IN) | payer MEDICAID ==
[2016-05-16] VITALS (14 sets, daily range): BP systolic 182–245; BP diastolic 68–119; PULSE 76–121; RESP 16–48; O2SAT 94–100
[~2016-05-16] VITALS: Ht 154.9 cm; Wt 67.1 kg
[~2016-05-16 14:47] MED LIST changes: -ACET325T51 PO; +ALBUTEROL 90 MCG INHALATION; +CALC0.257 PO; +CALC667C9 PO; +FERR-74 PO; -ISOS40TA4 PO; +MYCO250C PO; +ONDA4TAB6 PO; +PANT40TA2 PO; -PANT40TA3 PO; -POLY500P23 MC; -PRD5T PO; +PRE10 PO; +SULF1TAB7 PO; -VALS320T12 PO; +WALK1EAC55 MC; -WARF5TAB PO; +WARF5TAB7 PO; -WARF7.5T PO; +[UNRECOGNIZED DRUG - MIXTURE] PO
--- NOTE | 2016-05-16 14:48 | ED.REPORT ---
HPI-Dyspnea / Wheezing Date of Service May 16, 2016 ED Provider: The patient is a 40 year old male with a history of systemic lupus erythematosus , lupus nephritis, ESRD on hemodialysis, congestive heart failure, antiphospholipid syndrome, CVA, PE s/p IVC filter placement, DVT, anemia, GI bleed, and recent admit for lupus pulmonary capillaritis who presents to the emergency department by EMS for shortness of breath that began this morning but suddenly got worse 30 minutes prior to arrival. The patient also complains of chest pain. Medics report his blood pressure was 207/100, heart rate in the low 100's, respiratory rate in the 50s. His initial O2 sat was at 57 %. The history is difficult to obtain due to the patient's respiratory distress. He last dialyzed on Monday. Nursing Notes Stated Complaint: RESPIRATORY DISTRESS Chief Complaint: Respiratory Complaints Nursing Notes Reviewed: Yes Allergies: Coded Allergies: amlodipine (Verified Allergy, Unknown, 05/16/16) hydralazine (Verified Allergy, Unknown, 05/16/16) morphine (Verified Allergy, Unknown, 05/16/16) Scheduled Calcitriol (Rocaltrol) 0.25 Mcg Capsule 0.25 MCG PO Mon, , Mon Calcium Acetate (Calcium Acetate) 667 Mg Capsule 1,334 MG PO TIDWM Calcium Carbonate/Vitamin D3 (Calcium 500 + Vit D 400 Tablet) 1 Each Tablet 2 EACH PO DAILYWM Carvedilol (Coreg) 25 Mg Tablet 50 MG PO BIDWM Ferrous Sulfate (Feosol) 325 Mg Tablet 325 MG PO TIDWM Mycophenolate Mofetil (Cellcept) 250 Mg Capsule 1,000 MG PO BIDAC Pantoprazole DR (Protonix) 40 Mg Tablet 40 MG PO QAM Prednisone (PredniSONE) 10 Mg Tablet 10 MG PO DAILYWM Sevelamer Carbonate (Renvela) 800 Mg Tablet 1,600 MG PO TIDWM Sulfamethoxazole/Trimeth 800-160 mg (Bactrim DS) 1 Each Tablet 1 TABLET PO three times a week Vitamin B Complex/Vit C (Bethany-Myrtle Tablet) 1 Tab Tab 1 TAB PO DAILYWM Warfarin Sodium (Warfarin Sodium) 5 Mg Tablet 5 MG PO DAILYWD Scheduled PRN Albuterol HFA (Proair HFA) 8.5 Gm Hfa.aer.ad 2 PUFFS INHALATION Q4H PRN PRN For Shortness of Breath Hydroxyzine Pamoate (HydrOXYzine Pamoate) 25 Mg Capsule 25 MG PO BID PRN PRN For Itching Ondansetron (Zofran) 4 Mg Tablet 4 MG PO BID PRN PRN For Nausea Oxycodone (Roxicodone) 5 Mg Tablet 5 MG PO Q4H PRN PRN For Pain Please take 1-2 pills as needed for pain General Time Seen by MD: 14:47 Chief Complaint Shortness of breath Hx Obtained From: Patient, EMS Arrived By: Ambulance Sudden in Onset?: Yes Onset Occurred: 16 - 30 minutes ago Symptom Duration: Since onset Severity: Current: Moderate Severity: Maximum: Severe Recent Healthcare: Recent doctor visit, Recent hospitalization Similar Sx Previous: Yes Past Medical History Past Medical History Notes: [place]: 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 End-stage renal disease on chronic hemodialysis, since 2011 Hemodialysis on Monday, , Monday. right brachiocephalic fistula. 2. 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 h/o previous CVA while at [facility] 4. 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 Pulmonary embolism-s/p IVC filter placement, DVT-chronic anticoagulation on warfarin 6. Systolic and diastolic cardiomyopathy w/EF ~40% 7. Hypertension 8. Chronic autoimmune thrombocytopenia 9. Anemia 10. Chronic pain w/opioid dependence 11. h/o left lower extremity arterial ulcer 12. h/o Oral herpes infection 13. Thrush Past Surgical History 1. AV fistula, R upper extremity 2. Former fistula L arm 3. IVC filter Family History Noncontributory Smoking History Never Smoker Social History Drug Use: Denies drug use Other Social History: Good social support, Local resident Ambulatory Status Independent Review of Systems Respiratory: Reports: Shortness of breath Cardiovascular: Reports: Chest pain Complete sys rev & neg: except as marked. Physical Exam Initial Vital Signs Vital Signs (First) Date Time Temp Pulse Resp B/P Pulse Ox O2 Delivery O2 Flow Rate FiO2 05/16/16 14:48 121 48 94 Non-Rebreather 15 05/16/16 15:52 204/91 Initial VS: Reviewed Head / Eyes: Atraumatic, Normocephalic, PERRL ENT: Mucous membranes moist, Conjunctiva normal, No scleral icterus Abdomen / GI: Soft, Non-tender, No guarding, No rebound, No distention Lymphatic: No lymphadenopathy Extremities: Vascular intact, Neuro intact Skin: Warm, Dry, No cyanosis Neurologic: Alert, Oriented, Nonfocal Psychiatric: Mood/affect normal, Behavior normal, Normal thought content General/Constitutional: Awake, Alert Distress / Hydration: Positive: Distress moderate Neck: Atraumatic, Supple, No meningismus, Full range of motion, No swelling, Non-tender, No masses Resp Distress / Stridor: Positive: Resp distress severe Wheezing / Retractions: Positive: Intercostal retractions, Supracostal retractions, Suprasternal retractions Diffuse crackles bilaterally. Not speaking in full sentences. Cardiovascular: Heart rate NL, Regular rhythm, Heart sounds NL, Peripheral circulation NL Interpretation & Diagnostics Lab Results Interpretation Result Diagram: 05/16/16 1506 05/16/16 1506 Test 05/16/16 15:06 White Blood Count 12.8th/mm3 (3.8-10.1) Red Blood Count 2.22mil/mm3 (4.40-5.80) Hemoglobin 6.7g/dL (13.8-17.2) Hematocrit 20.3% (41.0-50.0) Mean Corpuscular Volume 91.4fL (81-100) Mean Corpuscular Hemoglobin 30.2pg (27.0-35.0) Mean Corpuscular Hemoglobin Concent 33.0% (32.0-37.0) Red Cell Distribution Width 17.1% (12.3-15.4) Platelet Count 97bil/L (150-400) Neutrophils (%) (Auto) 81.3% (40-74) Lymphocytes (%) (Auto) 10.5% (14-46) Monocytes (%) (Auto) 6.2% (4-12) Eosinophils (%) (Auto) 1.1% (0-5) Basophils (%) (Auto) 0.2% (0-3) Sodium Level 134mEq/L (134-144) Potassium Level 5.8mEq/L (3.5-5.2) Chloride Level 91mEq/L (97-108) Carbon Dioxide Level 19mmol/L (18-29) Blood Urea Nitrogen 68mg/dL (6-20) Creatinine 6.86mg/dL (0.76-1.27) Estimat Glomerular Filtration Rate 10mL/min (>59) Glucose Level 110mg/dL (60-99) Calcium Level 8.6mg/dL (8.5-10.1) Magnesium Level 2.0mg/dL (1.6-2.6) Total Bilirubin 0.7mg/dL (0.0-1.2) Aspartate Amino Transf (AST/SGOT) 23U/L (0-50) Alanine Aminotransferase (ALT/SGPT) 22U/L (0-44) Alkaline Phosphatase 71U/L (25-150) Lactate Dehydrogenase 883U/L (100-190) Troponin T 0.067ug/L (0.0-0.011) Pro-B-Type Natriuretic Peptide > 42321qx/mL (0-86) Total Protein 4.8g/dL (6.4-8.4) Albumin 2.9g/dL (3.4-5.0) Procalcitonin 0.88ng/mL (0.00-0.08) ECG Interpretation ECG Interpretation: Unable to interpret EKG Time: 14:53 Interpreted by: ED physician X-Ray Chest Interpretation Chest Xray Interpretation: IMPRESSION: Moderate diffuse appearance of bilateral pulmonary opacities. This can represent diffuse edema, ARDS and/or superimposed infection such as pneumonia. Dictated by: Martha Elder M.D. on 05/16/2016 at 15:04 Interpretation / Wet Read by: Interpret - Radiologist Re-Eval/Medical Decision Med Decision/Clinical Course 40-year-old male history of lupus nephritis, in stage renal disease on dialysis presenting with shortness of breath started this morning. Patient presented in severe respiratory distress with respiratory rate in the 50s. His oxygen was requiring 15 L oximeter mask for sats in the mid 90s. ABG shows good ventilation. He is grossly overloaded on exam and x-ray. Discussed with nephrology emergently admitted to the ICU emergently for dialysis. Differential diagnosis volume overload versus pneumonia versus OR versus PE versus other. Admitted pending labs given emergent need for dialysis. Source of Hx: Old records, EMS Re-Evaluation/Progress #1: Time of Eval: 15:13 Re-Evaluation/Progress Note: Rechecked the patient. His symptoms are improved. Discussed plan for dialysis. Re-Evaluation/Progress #2: Time of Eval: 15:29 Re-Evaluation/Progress Note: Dr. Grande is here to evaluate the patient. Re-Evaluation/Progress #3: Time of Eval: 15:31 Re-Evaluation/Progress Note: Discussed plan for admission. All questions were addressed. Re-Evaluation/Progress #4: Time of Eval: 15:51 Re-Evaluation/Progress Note: Rechecked the patient. He is still complaining of shortness of breath. Consultation #1: Referral / Consult Name: Stepan Grande DO Consulted With: Nephrology Call Returned at: 14:57 Clinical Program Manager: Will see patient, Agrees with eval, Agrees with plan Note: Dr. Grande will come and see the patient. Consultation #2: Referral / Consult Name: Momo Swift MD Consulted With: Hospitalist Call Returned at: 16:06 Clinical Program Manager: Will see patient, Agrees with eval, Agrees with plan, Accepts admit Counseled Regarding: Diagnosis, Lab results, Need for admission Discharge & Departure Impression: Primary Impression: Respiratory distress Additional Impression: Volume overload Hypervolemia type: unspecified Qualified Code: E87.70 - Fluid overload, unspecified Disposition: ADMITTED TO HOSPITAL Discharge Condition All VS Reviewed: Yes Condition: Stable Referrals: OTHER,PHYSICIAN (PCP) Crit Care Except Billable Proc Time Spent: 30-74 minutes Services Performed: Patient management by me, Time spent at bedside, Reviewing test results, Reviewing imaging, Discussing patient care, Documentation in record Scribe Attestation Portions of this note were transcribed by Jayde Naqvi. I, Dr. Mehta personally performed the history, physical exam and medical decision-making; I reviewed and confirmed the accuracy of the information in the transcribed note. Signed by: Brandon Chaidez, 05/16/2016 at 1615. Hermelindo Mehta MD May 16, 2016 14:48 Jayde Naqvi May 16, 2016 14:54
--- NOTE | 2016-05-16 15:07 | DRSVH ---
PROCEDURE: X-RAY CHEST ONE VIEW, PORTABLE ([id number]) INDICATIONS: dyspnea TECHNIQUE: One view of the chest was acquired. COMPARISON: [facility], CR, XR CHEST 1VW (PORTABLE), 05/05/2016, 22:14. FINDINGS: Surgical changes and devices: None. Lungs and pleura: Moderate diffuse appearance of bilateral pulmonary opacities. Mediastinum: Mediastinal contours appear normal. Heart size is normal. Bones and chest wall: No suspicious bony lesions. Overlying soft tissues appear unremarkable. IMPRESSION: Moderate diffuse appearance of bilateral pulmonary opacities. This can represent diffuse edema, ARDS and/or superimposed infection such as pneumonia. Dictated by: Martha Elder M.D. on 05/16/2016 at 15:04 Approved by: Martha Elder M.D. on 05/16/2016 at 15:06
--- NOTE | 2016-05-16 15:09 | ABG ---
DateTimeAnalyzed 15:05:00 -_ pH ____7.402 - 7.350 7.450 pCO2 ___37.8__ -mmHg 35.0 45.0 pO2 ___63.6__ -mmHg 69.0 116 HCO3- ___23.0__ -mmol/L 22.0 26.0 ABE ___-1.0__ -mmol/L -2.0 2.0 tHb ____6.3__ -g/dL O2Hb ___91.3__ -% COHb ____1.9__ -% MetHb ____0.9__ -% sO2 ___93.9__ -% 25.0 FIO2 __100.0__ -% Drawn By JJ - Date/Time Notified____ 15:09:00 -_ Oxygen Device 1 NRB - Notified By JJ - Notified Whom DR MIKEY-HORTON -____ B 758 -mmHg tO2 ____8.2__ -Vol% Wily test _Positive -
[2016-05-16 15:31] LABS: BASOPHILS % (AUTO) 0.2 % (0-3); EOSINOPHILS % (AUTO) 1.1 % (0-5); MONOCYTES % (AUTO) 6.2 % (4-12); Mean Corpuscular Hemoglobin 30.2 pg (27.0-35.0); Mean Corpuscular Volume 91.4 fL (81-100); NEUTROPHILS % (AUTO) 81.3 % (40-74); Platelet Count 97 bil/L (150-400)
[2016-05-16] MEDS ORDERED: Albuterol-Ipratropium 3 mL Inhalation Solution NEB ONE (15:35)
[2016-05-16] MEDS ORDERED: Alum-Mag Hydrox-Simeth 30 mL Suspension PO PRN (15:35)
[2016-05-16 16:12] LABS: TROPONIN T 0.067 ug/L (0.0-0.011)
[2016-05-16] MEDS ORDERED: PRE10 PO (16:42)
[2016-05-16] MEDS ORDERED: HYDR-3797 PO (16:42)
[2016-05-16] MEDS ORDERED: ALBU8.5H2 INHALATION (16:42)
--- NOTE | 2016-05-16 16:49 | NUR ---
Pt admitted to CCU from ER at approx 1615hrs Pt admitted from the ER for emergent dialysis. He is on 8l O2 via oxymask, with RR in the mid 30's and sats in the mid 90's. BP is up in the 200's sys. He is complaining of some pain, which he states is his baseline. MD to see him now and order pain meds. Dialysis nurse is in the room setting up. I am unable to check his skin thoroughly at this time as he is unstable and being started on dialysis. Pt denies any skin problems. His feet are dry and he has scars from his fistula etc. He is in SR in the 90's. Lab will be sent by dialysis nurse including blood cultures.
[2016-05-16] MEDS ORDERED: CALC-51 PO (16:54)
[2016-05-16] MEDS ORDERED: NEPHVIT PO (16:55)
[2016-05-16] MEDS ORDERED: Vancomycin Dose per Pharmacist XX ONE (17:25)
[2016-05-16] MEDS: Ondansetron 2 mg/mL 2 mL Inj IVPUSH PRN (17:35)
[2016-05-16] MEDS ORDERED: Piperacillin-Tazo 3.375 Gm Inj 3.375 GM in Dextrose 5% Minibag Plus 50 ML IV ONE ×2 (18:00→21:30)
[2016-05-16] MEDS ORDERED: levoFLOXacin Inj 750 MG in IV Premix 1 EACH IV SCH (18:15)
[2016-05-16 18:22] LABS: D-Dimer 1.18 mg/L FEU (<0.50)
[2016-05-16] MEDS ORDERED: Hydrocortisone 50 mg/mL 2 mL Inj IV ONE ×2 (18:25→19:30)
[2016-05-16 18:44] LABS: INR 10.63 ratio
[2016-05-16] MEDS ORDERED: Phytonadione (Adult) 10 mg/1 mL Inj PO ONE (19:00)
--- NOTE | 2016-05-16 19:16 | PCM.HPMED ---
Subjective Date of Service May 16, 2016 Primary Provider: Admitting Physician: Momo Swift MD Primary Care Physician: Mita Attending Physician: Momo Swift MD Chief Complaint: Shortness of breath History of Present Illness: Patient is a 40-year-old male with history of PE and DVT s/p IVC filter placement, lupus nephritis, ESRD on hemodialysis, congestive heart failure, antiphospholipid syndrome, CVA, and recent hospitalization for pulmonary capillaritis presenting with shortness of breath. At time of visit the patient is somnolent, intermittently falling asleep during the interview and unable to elaborate very much. Patient reports waking up this morning with shortness of breath, fever, chills and a productive cough. He states his sputum is clear. The patient waited about half an hour and without any improvement he he summoned EMS and was brought to [facility] ED for further evaluation. His breathing reportedly worsened prior to his arrival with accompanying chest pain. His blood pressure was 207/100, heart rate in the low 100s, respiratory rate in the 50s. His initial O2 sat was 57%. AB.402 / 37.8 / 63.6 / 23. Patient was placed on a non-rebreather with increase in his oxygen saturation. At time of visit, the patient reports his breathing has improved since his arrival to the emergency department. The patient denies chest pain, nausea, emesis, abdominal pain, dysuria. In the ED, vitals: HR 121, RR 48 satting 94% on 15L non-rebreather. Notable labs : WBC 12.8, Hgb 6.7, Hct 20.3, Plt 97, Na 134, K 5.8, Cl 91, CO2 19, BUN 68, creatinine 6.86. Troponin 0.067, LDH 883, procalcitonin 0.88. Chest x-ray reads moderate diffuse appearance of bilateral pulmonary opacities. Patient admitted to ICU for further management. Review of Systems: A comprehensive review of systems was conducted with the patient and found to be negative except as above in the History of Present Illness. Allergies Coded Allergies: amlodipine (Verified Allergy, Unknown, 05/16/16) hydralazine (Verified Allergy, Unknown, 05/16/16) morphine (Verified Allergy, Unknown, 05/16/16) Home Medications Albuterol 8.5g HFA. 2 puffs Q4 PRN Calcitriol 0.25mcg Calcium acetate 1334mg TIDWM Carvedilol 50mg BID Ferrous sulfate 325mg TIDWM Hydroxyzine 25mg BID PRN Mycophenolate mofetil 1000mg BIDAC Zofran 4mg BID PRN Oxycodone 5mg Q4H PRN Protonix 40mg QAM Prednisone 10mg Renvela 1600mg TIDWM Bactrim DS. 1 tab three times per week Warfarin 5mg daily PMH 1. End-stage renal disease on chronic hemodialysis, since 2011 Hemodialysis on Monday, , Monday. right brachiocephalic fistula. 2. 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 h/o previous CVA while at [facility] 4. 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 Pulmonary embolism-s/p IVC filter placement, DVT-chronic anticoagulation on warfarin 6. Systolic and diastolic cardiomyopathy w/EF ~40% 7. Hypertension 8. Chronic autoimmune thrombocytopenia 9. Anemia 10. Chronic pain w/opioid dependence 11. h/o left lower extremity arterial ulcer 12. h/o Oral herpes infection 13. Thrush Surgical History 1. AV fistula, right upper extremity 2. Former fistula left arm 3. IVC filter Social History Hx Alcohol Use: No Hx Substance Use: Yes (patient denied substance abuse) Smoking Status: Never Smoker Living Arrangement: with Friends/Roommate Exam Vital Signs Vital Sign - Last Date Time Temp Pulse Resp B/P Pulse Ox O2 Delivery O2 Flow Rate FiO2 05/16/16 16:19 99 37 245/119 100 Non-Rebreather 15 Exam General: Ill-appearing supine in bed, well-developed, well-nourished, somnolent but arouseable HEENT: Normocephalic, atraumatic. External ears without defect. Pupils equal, round, and reactive to light and accommodation. Anicteric sclerae, moist conjunctivae, and no lid lag. Oropharynx free of erythema and cobble stoning with moist mucosa. Oxymask in place. Neck: Supple with full range of motion. No lymphadenopathy or thyromegaly. Cardiovascular: Tachycardic, regular rhythm. No murmurs, rubs, or gallops appreciated Pulmonary: Coarse bilaterally. Tachypneic with respiratory rates in 30s Abdomen: Bowel tones present. Soft, nontender, nondistended. Ecchymosis over right upper quadrant Extremities: Bilateral lower extremity pitting edema. Left lower extremity with ichthyotic skin. Skin: Normal temperature, turgor, and texture; no rash, ulcers, or subcutaneous nodules appreciated. Neurological: Cranial nerves grossly intact. Psychiatric: Alert and oriented to person, place, and time. Lab and Diagnostics Result Diagram: 05/16/16 1506 05/16/16 1506 Assessment & Plan Patient is a 40-year-old male with history of PE and DVT s/p IVC filter placement, lupus nephritis, ESRD on hemodialysis, congestive heart failure, antiphospholipid syndrome, CVA, and recent hospitalization for pulmonary capillaritis presenting with shortness of breath. Hospital day #1. 1. Sepsis, present on admission. Active -Meets criteria with HR (121), RR (48), WBC (12.8) with suspected pulmonary source of infection -Start antibiotics (vancomycin, Zosyn, levofloxacin) after dialysis -Stress dose steroids hydrocortisone 100mg -Lactic acid normal -Procalcitonin elevated (0.88) in setting of ESRD -Pending: urine culture, MRSA screen 2. Acute hypoxemic respiratory failure. Present on admission, active. -AB.402 / 37.8 / 63.6 / 23 -Possibly secondary to pneumonia, fluid overload, heart failure, pulmonary embolism, pulmonary capillaritis -Continue supplemental oxygen -Pending studies: UA, legionella and strep pneumo urine ag, respiratory virus PCR, sputum culture -Chest x-ray in AM 3. Acute on chronic normocytic anemia requiring transfusion, present on admission, active. -Review of past records indicate similar levels but possible blood loss given supratherapeutic INR (10.63) -LDH, haptoglobin pending -2u PRBC transfusion with dialysis -Vitamin K 2.5mg PO -will consider imaging to look source of bleeding if Hb drops again or inappropriate response -Follow with CBC, INR 4. Supratherapeutic INR, present on admission. active -INR 10.63 -Uncertain etiology -Vitamin K 2.5mg PO -Recheck INR in AM 5. ESRD on HD, chronic. present on admission. active -Likely secondary to lupus nephritis -Currently undergoing dialysis -Nephrology following. Recommendations per nephrology appreciated 6. Systolic and diastolic heart failure, present on admission. -Echo 11/2015: LV EF estimated 40-45% with mild global hypokinesis of the LV. -Echocardiogram pending 7. Elevated troponin, present on admission, active. -Troponin 0.067 in setting of ESRD -Similar troponin levels during past hospitalizations -Trend 8. Chronic hypertension with hypertensive urgency. Present on admission. -BP 204/91 on arrival to ED -Patient undergoing dialysis. Will reassess blood pressure afterwards 9. Chronic autoimmune thrombocytopenia, present on admission. -Currently [address] -Continue to monitor 10. 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 -Holding mycophenolate mofetil 11. History of thromboembolic disease s/p IVC filter, present on admission. Stable. -D-dimer elevated (1.18), possibly secondary to sepsis -PE less likely given supratherapeutic INR (10.63) -Holding warfarin. Giving vitamin K 2.5mg PO Patient Status: Patient is admitted under inpatient status with expected length of stay greater than 2 midnights due to severity of presenting symptoms, risk of adverse event, and complexity of treatment plan. VTE Prophylaxis: Other (Supratherapeutic INR) Resuscitation Status: CPR: Attempt Resuscitation Attending Statement The patient was seen and examined together with Dr. Llanos on 05/16/2016 and I agree with the history, exam and plan as outlined in the note above. Stephen Llanos DO May 16, 2016 17:05 Momo Swift MD May 17, 2016 06:21
--- NOTE | 2016-05-16 19:29 | NUR ---
Temp spike to 38.4 Pt temp re-checked prior to blood and it was elevated at 38.4. Tylenol 975mg given. Pt is on dialysis at this time. Antibiotics ordered post treatment. New blood samples sent to the lab when dialysis was started to ensure accurate results. Pt complaining of pain on and off. He will complain and then 10min later deny any pain. MD is aware. INR elevated, Vit K has been ordered.
[2016-05-16] MEDS ORDERED: Albuterol 1.25 mg/3 mL Inhalation Solution NEB PRN (19:45)
[2016-05-16] MEDS ORDERED: Vancomycin Inj 1,000 MG in IV Premix 1 EACH IV ONE (21:00)
--- NOTE | 2016-05-16 21:21 | CONS ---
[address] [address] CONSULTATION REPORT PATIENT: TAMMY SENIOR : 1975 MR#: [id number] ADMIT: 05/16/2016 JOB ID: [id number] CORRECTED REPORT: DATE OF SERVICE: 05/16/2016 HISTORY: The patient is a very pleasant but unfortunate, 40-year-old, gentleman, who was admitted to [facility] for acute decompensated congestive heart failure and pulmonary edema. He has a history of end-stage renal disease and normally dialyzes on Monday, , Monday. I am quite familiar with the patient from numerous previous consultations. Renal consultation is being sought for further management and evaluation of his acute pulmonary edema. He has a history of severe lupus, antiphospholipid antibody syndrome, recurrent pulmonary emboli, and a stroke. 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 He had been hospitalized up at [facility] in [place] for the capillaritis and was subsequently discharged in good condition. He was subsequently re-admitted two weeks ago because he was unable to get his oxygen at home. This was resolved, and he states that he was doing well. His last dialysis was on Monday, which he states that he completed the full treatment without problems. Yesterday, he states he was feeling fine and slept well last night and was feeling well when he awoke this morning. Several hours prior to admission, he began to have rapidly developing dyspnea, orthopnea, cough productive of scant amounts of sputum; however, there was no hemoptysis. He came to the emergency department, where he was found to be in acute left ventricular congestive heart failure with pulmonary edema. Nephrology was consulted, and I saw him in the emergency department. His chest x-ray was reviewed and was consistent with diffuse pulmonary edema. His hemoglobin was also found to be 6.7, which has no doubt added to the clinical picture. He denies any recent upper respiratory tract symptoms, productive cough, prior orthopnea, chest pain, difficulty in ambulation, dyspnea on exertion, or orthopnea. He denies any hematuria, hematemesis, or melena. In the emergency room, he was given a breathing treatment with some improvement. I have given orders for the dialysis nurse to do ultrafiltration on him, and we will infuse him with two units of blood. PAST MEDICAL HISTORY: Significant for antiphospholipid antibody syndrome, lupus, end-stage renal disease, hypertension with hypertensive heart disease and hypertensive nephrosclerosis, upper GI bleed, and multiple thrombotic events and intravenous IV filter. He also has a history of a longstanding lupus nephritis, congestive heart failure, and anemia. PAST SURGICAL HISTORY: Significant for placement of an AV fistula and stent placement along with an IVC filter. ALLERGIES: 1. AMLODIPINE. 2. HYDRALAZINE. 3. MORPHINE. FAMILY HISTORY: Unremarkable. SOCIAL HISTORY: Unremarkable. He denies use of alcohol, tobacco, or illicit drugs. REVIEW OF SYSTEMS: As detailed above. Otherwise is negative for fever, chills, rashes, or arthralgias. MEDICATIONS: His medications at time of admission include: Calcitriol, calcium acetate, carvedilol, ferrous sulfate, CellCept, Protonix, prednisone, Renvela. Bactrim 3 times a week, and warfarin. PHYSICAL EXAMINATION: Revealed a pale, quite uncomfortable, 39-year-old, male, who was alert and oriented times three and in moderate to severe respiratory distress. His blood pressure was 204/91 with a pulse rate of 94. HEENT: Examination is remarkable for cushingoid facies. Sclerae were pale with some periorbital edema noted. Neck was supple without adenopathy or thyromegaly; however, he did have mild to moderate jugular venous distention at 90 degrees. Lungs showed diffuse end-expiratory wheezes, rales, and scattered rhonchi. Heart was regular and rhythmical with a harsh 3/6 systolic ejection murmur and an S3 was noted. Abdomen was soft with some right upper quadrant tenderness, and the liver was pulsatile. There was no fluid in the abdomen. Extremities do not show any evidence of any clubbing, cyanosis, or edema. Skin turgor is good. There is no evidence of any rashes. LABORATORY EXAMINATION: His sodium is 134, potassium 5.8 chloride of 91, bicarbonate of 19, BUN and creatinine were 68 and 6.8 respectively. Albumin was 2.9. His white count is 12.8, hemoglobin 6.7, hematocrit 20.3, platelet count was 97, and there were 81 segs. IMPRESSION: 1. Acute pulmonary edema/left-sided congestive heart failure. 2. Acute anemia. 3. End-stage renal disease. 4. Hypertension with hypertensive heart disease and hypertensive nephrosclerosis. 5. Systemic lupus with antiphospholipid antibody syndrome. RECOMMENDATION: I will go ahead and type and cross him for two units, but I would also like to get a haptoglobin and an LDH on him. Will go ahead and do a four hour dialysis treatment on him today at a 450 blood flow, 2 potassium bath, and no heparin to be given. I would like to try to take 3 or more liters of fluid as tolerated. I would also recommend giving him 100 mg of hydrocortisone as I would be concerned about immunosuppression. Once again, I would like to thank you for allowing me to participate in the care of this most pleasant but unfortunate patient. I will be following him closely with you. Corrected by LOVELY 06/30/16 at 12:01pm DOS.
[2016-05-16] MEDS ORDERED: levoFLOXacin Inj 750 MG in IV Premix 1 EACH IV ONE (22:00)
--- NOTE | 2016-05-16 22:00 | NUR ---
Dialysis note: 4 hours tx 3800 ml net UF (3000 ml + 800 ml for PRBC) Right upper arm AV fistula ESR, C3/C4, ANCA, GEMA and blood cultures x 2 drawn Pls see DTR for VS details Qb 450 No heparin given Febrile 38.4 PRN Tylenol po given; temp rechecked 37.7 PRN Zofran 4 mg IV given for nausea Hydrocortisone 100 mg IV given by primary RN O2 @ 8-9L via mask on, sat in the 90's 2 units PRBC given w/ no problems Tolerated tx, slept at intervals Fistula needle sites clotted in 10 min Report given to Chiqui Mallory RN Stable condition at end of tx Addendum: 05/17/16 at 1811 by BRIAN COPELAND RN Late entry Dialysis note: At end of tx 05/16/2016, pt's visitor brought in food from home and started feeding the pt. Reported this to the primary RN (Chiqui Mallory) who said that pt has no diet order yet and went in the room to talk to the pt about it.
--- NOTE | 2016-05-16 22:14 | PCM.CONPHA ---
Subjective Date of Service: May 16, 2016 Requesting Provider: Stephen Llanos DO Shortness of breath Reason for Pharmacy Consult: Vancomycin Dosing Objective Vital Signs Date Time Temp Pulse Resp B/P Pulse Ox O2 Delivery O2 Flow Rate FiO2 05/16/16 20:15 37.7 76 20 183/82 05/16/16 19:50 37.7 86 20 204/78 05/16/16 19:35 38.0 82 20 209/86 05/16/16 19:30 38.1 83 24 205/68 05/16/16 19:05 38.1 92 20 184/83 05/16/16 18:50 38.4 82 24 186/81 05/16/16 17:19 90 05/16/16 16:30 Supplement Oxygen 05/16/16 16:30 37.6 96 36 220/84 OxyMask 8.00 05/16/16 16:19 99 37 245/119 100 Non-Rebreather 15 05/16/16 15:53 94 31 100 Simple Mask 8 05/16/16 15:52 94 31 100 Simple Mask 8 05/16/16 15:39 94 30 100 Non-Rebreather 15 05/16/16 14:48 121 48 94 Non-Rebreather 15 Weight (Kilograms): 66.000 Height (Feet): 5 Height (Inches): 1.00 Test 05/16/16 15:06 05/16/16 17:00 05/16/16 17:55 White Blood Count 12.8th/mm3 (3.8-10.1) Red Blood Count 2.22mil/mm3 (4.40-5.80) Hemoglobin 6.7g/dL (13.8-17.2) Hematocrit 20.3% (41.0-50.0) Mean Corpuscular Volume 91.4fL (81-100) Mean Corpuscular Hemoglobin 30.2pg (27.0-35.0) Mean Corpuscular Hemoglobin Concent 33.0% (32.0-37.0) Red Cell Distribution Width 17.1% (12.3-15.4) Platelet Count 97bil/L (150-400) Neutrophils (%) (Auto) 81.3% (40-74) Lymphocytes (%) (Auto) 10.5% (14-46) Monocytes (%) (Auto) 6.2% (4-12) Eosinophils (%) (Auto) 1.1% (0-5) Basophils (%) (Auto) 0.2% (0-3) Magnesium Level 2.0mg/dL (1.6-2.6) Lactate Dehydrogenase 883U/L (100-190) Troponin T 0.067ug/L (0.0-0.011) Pro-B-Type Natriuretic Peptide > 14176ml/mL (0-86) Procalcitonin 0.88ng/mL (0.00-0.08) Erythrocyte Sedimentation Rate 39mm/hr (0-15) Sodium Level 135mEq/L (134-144) Potassium Level 4.9mEq/L (3.5-5.2) Chloride Level 92mEq/L (97-108) Carbon Dioxide Level 25mmol/L (18-29) Blood Urea Nitrogen 71mg/dL (6-20) Creatinine 6.99mg/dL (0.76-1.27) Estimat Glomerular Filtration Rate 9mL/min (>59) Glucose Level 88mg/dL (60-99) Calcium Level 8.4mg/dL (8.5-10.1) Total Bilirubin 0.6mg/dL (0.0-1.2) Aspartate Amino Transf (AST/SGOT) 12U/L (0-50) Alanine Aminotransferase (ALT/SGPT) 18U/L (0-44) Alkaline Phosphatase 67U/L (25-150) Total Protein 4.0g/dL (6.4-8.4) Albumin 2.7g/dL (3.4-5.0) Prothrombin Time 119.4sec (8.1-12.5) Prothromb Time International Ratio 10.63ratio D-Dimer 1.18mg/L FEU (<0.50) Lactic Acid Level 0.4mmol/L (0.4-2.0) Assessment/Plan Assessment/Plan Vanco per Rx Indication: Sepsis, Bacteremia ? LD 1000mg, post HD Normal HD schedule : /, but processed today Will draw 1st trough in AM, per protocol - uncertain if HD tomorrow Further dose per level Abdi Hanks PharmD May 16, 2016 22:14
[2016-05-16] MEDS: HYDROmorphone 1 mg/mL Inj IVPUSH PRN (22:45)
--- NOTE | 2016-05-16 23:16 | PCM.PHAPRO ---
Progress Date of Service: May 16, 2016 Requesting Provider: Stephen Llanos DO Shortness of breath Vanco per Rx HD may change to M/W/F; will change 1st trough to Wed AM, as Vanco loading dose 1000mg was just started Abdi Hanks PharmD May 16, 2016 23:16
[2016-05-17] VITALS (11 sets, daily range): BP systolic 132–181; BP diastolic 79–98; PULSE 74–90; RESP 19–24; O2SAT 91–97
[2016-05-17 00:42] LABS: Mean Corpuscular Hemoglobin 29.8 pg (27.0-35.0); Mean Corpuscular Volume 91.5 fL (81-100)
[2016-05-17 01:34] LABS: TROPONIN T 0.069 ug/L (0.0-0.011)
--- NOTE | 2016-05-17 02:14 | NUR ---
P) Fever/blood sugar/Respiratory Pt.febrile tonight, T-max so far 37.9. Blood sugar at HS high at 206mg/dl. Lung with coarse breath sounds and scattered crackles, more crackles on the L than the R side. Pt. c/o dry cough, states he always has a cough the 3rd day after dialysis, feels that he may need to change his dialysis schedule. Cardiac rhythm sinus with and IVCD and intermittent prolonged QTc of 0.52. Hypertensive with blood pressures in the 180's systolic even after dialysis. MRSA positive per Micro from nares. Repeat labs show low H and H after receiving 2 units of PRBC's during HD. Pt. denies any new pain, just chronic pain in R hip, no bruising on hip though he does have 3 bruises on his chest/abdomen his abdomen is non tender and he stated his last stool was normal. I) Placed in contact precautions, meds per 's orders, cont. close monitoring. Passive cooling, will recheck blood sugar in am and if high contact provider about insulin coverage. E) Currently resting quietly with eyes closed.
[2016-05-17] MEDS: HYDROmorphone 1 mg/mL Inj IVPUSH PRN ×4 (03:19→21:56)
[2016-05-17 05:40] LABS: BASOPHILS % (AUTO) 0.2 % (0-3); EOSINOPHILS % (AUTO) 0.5 % (0-5); MONOCYTES % (AUTO) 5.9 % (4-12); Mean Corpuscular Volume 90.1 fL (81-100); NEUTROPHILS % (AUTO) 85.8 % (40-74); Platelet Count 44 bil/L (150-400)
[2016-05-17] MEDS ORDERED: Labetalol 5 mg/mL 4 mL Inj IVPUSH ONE ×2 (06:30)
[2016-05-17 07:40] LABS: INR 3.63 ratio
[2016-05-17] MEDS ORDERED: levoFLOXacin Inj 750 MG in IV Premix 1 EACH IV SCH (08:30)
[2016-05-17] MEDS ORDERED: Piperacillin-Tazo 3.375 Gm Inj 3.375 GM in Dextrose 5% Minibag Plus 50 ML IV SCH (08:30)
[2016-05-17] MEDS: Vancomycin Dose per Pharmacist XX SCH (08:30)
[2016-05-17 09:18] LABS: Unsaturated Iron Binding 153.2 ug/dL
--- NOTE | 2016-05-17 10:25 | DRSVH ---
PROCEDURE: X-RAY CHEST ONE VIEW, PORTABLE ([id number]) INDICATIONS: shortness of breath TECHNIQUE: One view of the chest was acquired. COMPARISON: [facility], CR, XR CHEST 1VW (PORTABLE), 05/16/2016, 14:41. FINDINGS: Surgical changes and devices: Vascular stent present within the right upper arm incompletely visualiz ed. Lungs and pleura: Slight decrease in diffuse, widespread bilateral interstitial and airspace opacitie s. Mediastinum: Mediastinal contours appear normal. Heart size is enlarged. Bones and chest wall: No suspicious bony lesions. Overlying soft tissues appear unremarkable. IMPRESSION: Decrease in appearance of bilateral pulmonary opacities likely related to decreasing rakan a and/or diffuse bilateral pneumonia. Dictated by: Errol AVILEZ Interpreted: Marita Jade MD on 05/17/2016 at 10:23 Transcribed by: JANNETH on 05/17/2016 at 10:25 Approved by: Marita Jade M.D. on 05/17/2016 at 17:10
--- NOTE | 2016-05-17 10:39 | PCM.PNMED ---
Subjective Date of Service May 17, 2016 Subjective Patient is a 40-year-old male with history of PE and DVT s/p IVC filter placement, lupus nephritis, ESRD on hemodialysis, congestive heart failure, antiphospholipid syndrome, CVA, and recent hospitalization for pulmonary capillaritis presenting with shortness of breath. Hospital day #2. Overnight: Patient reportedly had a fever 37.9. He successfully underwent dialysis yesterday. Sinus rhythm throughout the night with regular rate. Received 2 units PRBCs and a.m. labs showed a low H&H. He endorses chronic right hip pain. No acute events reported Today: Patient awake and alert sitting up in bed maintaining appropriate. He states overall he feels much better than on admission, though still endorses a right hip pain which is chronic in nature. He states this is no worse than his baseline. He denies chest pain, shortness of breath nausea vomiting, headache, visual disturbances or abdominal pain. Exam Vital Signs Vital Sign - Last Date Time Temp Pulse Resp B/P Pulse Ox O2 Delivery O2 Flow Rate FiO2 05/17/16 08:56 79 05/17/16 08:00 36.7 22 167/88 94 OxyMask 6.00 Intake and Output 05/16/16 05/16/16 05/17/16 Cumulative From/Thru 15:00 23:00 07:00 05/16/16 14:48 - 05/17/16 06:33 Intake Total 800 ml 1355 ml 2155 ml Output Total 3800 ml 0 ml 3800 ml Balance -3000 ml 1355 ml -1645 ml Intake Oral 0 ml 880 ml 880 ml IV Total 100 ml 475 ml 575 ml Packed Cells 700 ml 700 ml Output Urine Total 0 ml 0 ml 0 ml Ultrafiltrate 3800 ml 3800 ml Exam General: Patient awake alert sitting up in bed, mentating appropriately. Overall looks chronically ill in nature though is appropriately conversant. I HEENT: Normocephalic, atraumatic. External ears without defect. Pupils equal, round, and reactive to light and accommodation. Neck: Supple with full range of motion. Cardiovascular: Regular rate and rhythm with no murmurs appreciated Tachycardic Pulmonary: Coarse bilaterally. Respiratory rate approximately 20 no use of accessory muscles. No apparent respiratory distress Abdomen: Bowel tones present. Soft, nontender, nondistended. Right lower quadrant has some pain to palpation. Extremities: Bilateral lower extremity mild pitting edema. Left lower extremity with ichthyotic skin. Pain to palpation to right hip Skin: Normal temperature, turgor, and texture Neurological: Cranial nerves grossly intact. Psychiatric: Alert and oriented to person, place, and time. IVs and Medications Medications Reviewed: Medications were reviewed in detail Lab and Diagnostics Result Diagram: 05/17/16 0500 05/17/16 0500 Microbiology Nasal swab positive for MRSA X-Rays, CTs and MRIs . X-RAY CHEST ONE VIEW, PORTABLE IMPRESSION: Moderate diffuse appearance of bilateral pulmonary opacities. This can represent diffuse edema, ARDS and/or superimposed infection such as pneumonia. Dictated by: Martha Elder M.D. on 05/16/2016 at 15:04 X-RAY CHEST ONE VIEW, PORTABLE IMPRESSION: Decrease in appearance of bilateral pulmonary opacities likely related to decreasing edema and/or diffuse bilateral pneumonia. 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 Hospital day #2. 1. Sepsis/bactremia, present on admission. Active -Meets criteria with HR (121), RR (48), WBC (12.8) with suspected pulmonary source of infection -Start antibiotics (vancomycin, Zosyn, levofloxacin) after dialysis -Stress dose steroids hydrocortisone 100mg -Lactic acid normal -Procalcitonin trended up 3.17 from 0.88 -Pending: urine, blood culture 2. Acute hypoxemic respiratory failure. Present on admission, active. -AB.402 / 37.8 / 63.6 / 23 -Possibly secondary to pneumonia, fluid overload, heart failure, pulmonary embolism, pulmonary capillaritis -Continue supplemental oxygen -Pending studies: UA, legionella and strep pneumo urine ag, sputum culture -Respiratory PCR panel negative -CXR daily 3. Acute on chronic normocytic anemia requiring transfusion, present on admission, active. -Review of past records indicate similar levels but possible blood loss given supratherapeutic INR (10.63) -LDH elevated 883, -Haptoglobin less than 10 -2u PRBC transfusion with dialysis, H&H remains low -Vitamin K 2.5mg PO -Pending hemoglobin A, A2, C, F, S and variant hemoglobin, G6PD 4. Supratherapeutic INR, present on admission. active -INR 10.63 -Uncertain etiology -Vitamin K 2.5mg PO -Repeat INR 3.63 -Pharmacy to dose Coumadin 5. ESRD on HD, chronic. present on admission. active -Likely secondary to lupus nephritis -Currently undergoing dialysis -Nephrology following. Recommendations per nephrology appreciated 6. Systolic and diastolic heart failure, present on admission. -Echo 11/2015: LV EF estimated 40-45% with mild global hypokinesis of the LV. -Echocardiogram pending 7. Elevated troponin, present on admission, active. -Troponin 0.067 in setting of ESRD -Similar troponin levels during past hospitalizations -Trend 8. Chronic hypertension with hypertensive urgency. Present on admission. -BP 204/91 on arrival to ED -Patient undergoing dialysis. Will reassess blood pressure afterwards -Remains hypertensive -Continued home carvedilol 50 mg twice a day 9. Chronic autoimmune thrombocytopenia, present on admission. -Currently 44 -Continue to monitor 10. 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 -Holding mycophenolate mofetil 11. History of thromboembolic disease s/p IVC filter, present on admission. Stable. -D-dimer elevated (1.18), possibly secondary to sepsis -PE less likely given supratherapeutic INR (10.63) -Holding warfarin. Giving vitamin K 2.5mg PO -Warfarin and INR as in #4, INR Disposition: Patient will remain inpatient status secondary to ongoing treatment plan with nephrology as well as infectious workup. CODE STATUS: Full code DVT prophylaxis is not indicated secondary to supratherapeutic INR GI prophylaxis PPI Pain acetaminophen when necessary, Dilaudid for breakthrough GI Prophylaxis: Proton Pump Inhibitor VTE Prophylaxis: Other (Supratherapeutic INR) Resuscitation Status: CPR: Attempt Resuscitation Attending Statement The patient was seen and examined together with on 05/17/2016 and I agree with the history, exam and plan as outlined in the note above. ZAY MARSHALL DO May 17, 2016 10:39 Momo Swift MD May 18, 2016 06:42
--- NOTE | 2016-05-17 12:05 | DRSVH ---
[facility] [address] [facility] [facility] [address] Echocardiogram Report Name: TAMMY SENIOR Study Date: 05/17/2016 Height: 61 in Hospital Exam Location: [facility] Weight: 145 lb Gender: Male BSA: 1.6 m2 : 1975 Age: 40 yrs BP: 179/86 mmHg Reason For Study: SOB Ordering Physician: Performed By: Kashmir Brush Referring Physician: MARTHA PERRY Interpretation Summary There is moderate concentric left ventricular hypertrophy. The ejection fraction is estimated to be 40-45%. There is mild global hypokinesis of the left ventricle. Severe inferolateral hypokinesis. Prominent trabeculations in apex are noted. The right ventricle is mild to moderately dilated. Right ventricular systolic function is mildly reduced. The left atrium is severely dilated. There is moderate mitral regurgitation. There is mild to moderate tricuspid regurgitation. The right ventricular systolic pressure is estimated at 51 mmHg assuming a right atrial pressure of 8 mm Hg. Procedure: A two-dimensional transthoracic echocardiogram with color flow and Doppler was performed. The study quality was technically good. Comparison is made with the echocardiogram of 11/19/15. The patient was in normal sinus rhythm during the exam. Left Ventricle: The left ventricle is mildly dilated. There is moderate concentric left ventricular hypertrophy. Prominent trabeculations in apex are noted. The ejection fraction is estimated to be 40-45%. There is mild global hypokinesis of the left ventricle. Severe inferolateral hypokinesis. Decreasing the preload to the left ventricle with a valsalva maneuver did not change the restrictive filling pattern, consistent with severely elevated left atrial pressures. Right Ventricle: The right ventricle is mild to moderately dilated. Right ventricular systolic function is mildly reduced. Atria: The left atrium is severely dilated. The right atrium is moderately dilated. The interatrial septum is intact with no evidence for an atrial septal defect. Mitral Valve: The mitral valve leaflets are mildly calcified. There is mild mitral annular calcification. There is moderate mitral regurgitation. Aortic Valve: The aortic valve is normal in structure and function. No aortic regurgitation is present. Tricuspid Valve: The tricuspid valve is not well visualized, but is grossly normal. There is mild to moderate tricuspid regurgitation. The right ventricular systolic pressure is estimated at 51 mmHg assuming a right atrial pressure of 8 mm Hg. Pulmonic Valve: The pulmonic valve leaflets are thin and pliable; valve motion is normal. There is mild pulmonic regurgitation. Great Vessels: The aortic root is mildly dilated. The ascending aorta is mild-moderately enlarged. The aortic arch is mildly enlarged. The pulmonary artery is normal size. The IVC is dilated (diameter is greater than 2.1 cm) yet it collapses greater than 50% with a sniff. This suggests a right atrial pressure of 8 mm Hg. Pericardium/ Pleura There is no pericardial effusion. There is no pleural effusion. MMode/2D Measurements & Calculations LVIDd: 6.4 cm RA long axis LVOT diam: 2.1 cm LVIDs: 4.8 cm LA A2 area: 31.4 cm AoV Opening FS: 24.7 % LA A4 area: 34.0 cm RA area EPSS: 1.6 cm LA length (vol) Ao root diam IVSd: 1.4 cm : 23.9 cm LVPWd: 1.3 cm LA vol: 141.8 ml RA vol asc Aorta Diam LA vol index : 76.9 ml RA Ao Arch Diam (Prox : 46.6 mm2 Trans): 3.3 cm IVC diam: 2.6 cm LV sims. diameter/BSA LV sys. diameter/BSA RVD1 (basal) RVD2 (mid): 4.8 cm (cm/m^2): 3.9 (cm/m^2): 2.9 TAPSE: 1.6 cm Doppler Measurements & Calculations Ao V2 max MV E max humphrey MV E/A: 1.9 TR max humphrey : 163.5 cm/sec : 152.0 cm/sec Med Peak E' Humphrey : 326.0 cm/sec Ao max P.7 mmHg MV A max humphrey TR max PG Ao mean P.7 mmHg : 81.4 cm/sec E/E' med: 33.8 : 42.5 mmHg LVOT Max Humphrey Lat Peak E' Humphrey PA V2 max : 98.5 cm/sec MVA(VTI): 1.7 cm2 : 106.8 cm/sec E/E' lat: 21.0 PA mean PG BRADEN(I,D): 2.2 cm E/e' average : 2.3 mmHg sev ratio: 0.60 MV V2 mean Ao V2 mean LV V1 max PG PA V2 mean : 98.4 cm/sec : 125.0 cm/sec : 71.1 cm/sec MV mean P.3 mmHg Ao V2 VTI: 28.6 cmLV V1 VTI PA pr(Accel) MV V2 VTI: 35.8 cm : 17.3 cm : 27.1 mmHg MV dec time: 0.19 sec BRADEN(V,D): 2.2 cm2 BRADEN indexed to BSA (cm^2/m^2): 1.3 Electronically signed by: Wisam Saha on Reading Physician:05/17/2016 12:04 PM
[2016-05-17] MEDS: predniSONE 10 mg Tablet PO SCH (12:11)
--- NOTE | 2016-05-17 12:17 | PCM.PNNEPH ---
Subjective Date of Service May 17, 2016 Subjective Although the patient is resting considerably more comfortably his hemoglobin is unchanged despite 2 units of blood. His haptoglobin came back less than 10 with an LDH greater than 800. Both C3 and C4 were low and his sedimentation rate is 39. His hemoglobin this morning is 7.0. A long discussion with the patient's fagoter, Dr. Roberto Hubbard from [facility] [place]. He has known antiphospholipid antibody syndrome with lupus. He has been seen by a felt hanger in [place] in [place] name who is quite familiar with the patient. I discussed the case with Dr. Rosas from hematology here and have asked him to see the patient. In the meantime reticulocyte count, G6PD level, and a Mikki test. Exam Vital Signs Vital Sign - Last Date Time Temp Pulse Resp B/P Pulse Ox O2 Delivery O2 Flow Rate FiO2 05/17/16 08:56 79 05/17/16 08:00 36.7 22 167/88 94 OxyMask 6.00 Intake and Output 05/16/16 05/16/16 05/17/16 Cumulative From/Thru 15:00 23:00 07:00 05/16/16 14:48 - 05/17/16 06:33 Intake Total 800 ml 1355 ml 2155 ml Output Total 3800 ml 0 ml 3800 ml Balance -3000 ml 1355 ml -1645 ml Intake Oral 0 ml 880 ml 880 ml IV Total 100 ml 475 ml 575 ml Packed Cells 700 ml 700 ml Output Urine Total 0 ml 0 ml 0 ml Ultrafiltrate 3800 ml 3800 ml Exam The patient remains pale and somewhat sallow complected in some mild respiratory distress. Neck is supple without adenopathy, thyromegaly, or jugular venous distention. Lungs are clear to auscultation. Heart is regular and rhythmical with a soft systolic murmur. Abdomen shows some diminished sounds but no tenderness or rebound guarding masses or hepatosplenomegaly. Extremities do not show any evidence of any clubbing cyanosis or edema. Lab and Diagnostics Result Diagram: 05/17/16 0500 05/17/16 0500 Microbiology Nasal swab positive for MRSA X-Rays, CTs and MRIs . X-RAY CHEST ONE VIEW, PORTABLE IMPRESSION: Moderate diffuse appearance of bilateral pulmonary opacities. This can represent diffuse edema, ARDS and/or superimposed infection such as pneumonia. Dictated by: Martha Elder, M.D. on 05/16/2016 at 15:04 X-RAY CHEST ONE VIEW, PORTABLE IMPRESSION: Decrease in appearance of bilateral pulmonary opacities likely related to decreasing edema and/or diffuse bilateral pneumonia. Dictated by: Errol Sánchez RR Interpreted: Marita Jade MD on 05/17/2016 at 10:23 Plan Impression Pressure #1 end-stage renal disease dialysis dependent number to antiphospholipid antibody syndrome with hemolytic anemia/lupus Recommendations #1 I will go ahead and ultrafiltrate him once again today for 3 hours for 50 blood flow and no heparin. I will also go ahead and give him 1 unit of packed red blood cells and try to take an additional 2-3 L of fluid off. Appreciate hematology's import and we may want to consider transfer to [facility] after their evaluation. Stepan Grande DO May 17, 2016 12:16
--- NOTE | 2016-05-17 13:08 | NUR ---
Positive blood cultures, notified I notified Dr. Llanos of pos blood cultures approx 1 hr ago when lab notified me.
[2016-05-17 13:40] LABS: Mean Corpuscular Hemoglobin 29.9 pg (27.0-35.0)
[2016-05-17] MEDS ORDERED: Vancomycin Inj 500 MG in 0.9% Sodium Chloride 100 ML IV ONE (14:00)
--- NOTE | 2016-05-17 14:30 | NUR ---
Dialysis note: Planned to dialyze pt as ordered. Prior to starting tx, pt assisted to the bathroom by RN and COGNOS. Checked and called out pts name at intervals, pt would reply almost done. After about 15 min, pt opened the bathroom door and appeared very upset, repeatedly saying "I dont feel good, dont touch me, get an per diem interpreter!". Pt moving back and forth with unsteady gait and this RN didnt feel that pt was safe standing and moving in the bathroom, so advised the pt that its best for him to go back in the bed then an per diem interpreter can be called. Tried to assist him but he refused help and appeared very anxious, repeating the need for per diem interpreter. Once back in bed, an per diem interpreter was called. Using the per diem interpreter, the pt said that he doesnt feel that he is emotionally ready for treatment and is refusing dialysis, adding that he knows the consequence and would sign the paper (against medical advice). Explained to the pt the need for the dialysis, blood transfusion, and fluid removal. Pt still refused and voiced concern with not being allowed food by this RN, pertaining to last night (pls see previous note) and during tx; explained full meals are not allowed for safety reasons (hypotension). Pt asked for primary PHARMACY ASSOCIATE, so Chio Radford was called and came to the room. Pt also asked to talk to installation supervisor, Sydnee ([facility] valuation manager) called [facility] valuation manager Nicolasa to come and speak with the pt. This RN notified Dr Grande of pts concerns and refusal to dialyze, and was given an order to postpone tx until tomorrow. After prolonged talk with [facility] RN, [facility] valuation manager and per diem interpreter, pt appeared to have calmed down and expressed embarrassment and apologized for his behavior. Pt then transported back to his room by 2 RNs.
--- NOTE | 2016-05-17 15:07 | NUR ---
Social Work Note: Screen Note Data& Assessment: EMR reviewed. SW met with pt at bedside to check in and assess for any unmet needs with the assistance from rod tape operator. Pt is a readmission and was discharged last week with a prescription for a walker and discharged home via POV. Pt confirmed he did obtain the walker. Pt explained there was an issue with his oxygen at home and he felt like he was not getting enough oxygen which resulted in this admission. Jean-Claude Salinas is a 40 year old male admitted on 05/16/2016 for respiratory distress. Pt has [facility] insurance coverage. Pt [facility] [place], but pt lives in [place]. Pt explained he is in the process of getting transferred to the [place] [facility]. Pt has family and friends who are his primary supports. Pt sister Yaa is at bedside and explained she has a PCP appointment arranged for the 24 of May through [facility], but does not remember the providers name. Per pt and pt family request, SW provided pt with information on [facility] care giving, application for disabled parking permit, application for [employer], financial assistance application, and $4 medication list for [employer]. SW also contacted [place] and explained pt is having issues with his oxygen tank at home, [place] territory representative explained that they had not received orders from [facility] when pt was there last week and so pt is not an official client yet. SW to follow up with respiratory therapy and MD about obtaining and sending official oxygen orders with 02 sats to [place] at time of discharge in order to establish consistent oxygen access for pt. Pt denies any other needs at this time. SW to continue to follow if any needs arise. Plan: Anticipated discharge home via POV when medically ready. SW to follow to ensure [place] obtains oxygen orders at time of discharge. SW to follow for [facility] caregiving application if appropriate. Pt and pt family denies any other needs at this time. SW to continue to follow. DAXA Bella
[2016-05-17 15:18] LABS: APPEARANCE,URINE HAZY (CLEAR,HAZY); COLOR,URINE STRAW (YELLOW); PH,URINE 8.5 (5.0-8.0)
[2016-05-17 15:19] LABS: OCCULT BLOOD,URINE TRACE (NEGATIVE); UROBILINOGEN,URINE NORMAL (NORMAL)
[2016-05-17] MEDS: Calcium Carbonate (Oyster Shell) 500 mg Tablet PO SCH ×2 (16:08→19:38)
--- NOTE | 2016-05-17 17:27 | PCM.PNMED ---
Subjective Date of Service May 17, 2016 Subjective Interim progress note: Had a lengthy discussion with the patient as he refused dialysis earlier today. Patient was visited with music copyist, Zeny, to determine his reasons for refusing dialysis. The patient states he was not satisfied with the treatment he was receiving from the dialysis nurse, though he would not fully elaborate on what transpired for him to come to this conclusion. He reports that he is currently undergoing a lot of stress at home and felt he would be unable to withstand the additional emotional stress. Of note, the patient's most recent hemoglobin is 6.6, which is after transfusion of two units of PRBCs yesterday. Per Dr. Grande of Nephrology, the plan for dialysis today is to remove 2-3L of fluid and transfuse one unit of PRBC. It was explained to the patient that in order to receive the transfusion of PRBC it would require undergoing dialysis as he is already fluid overloaded. The possible risks and complications of not undergoing dialysis and transfusion were explained in detail to the patient. After some thought the patient agreed to undergo ultrafiltration and blood transfusion. Exam Vital Signs Vital Sign - Last Date Time Temp Pulse Resp B/P Pulse Ox O2 Delivery O2 Flow Rate FiO2 05/17/16 12:13 Supplement Oxygen 05/17/16 12:13 38.0 83 20 169/84 97 6.00 Intake and Output 05/16/16 05/16/16 05/17/16 Cumulative From/Thru 15:00 23:00 07:00 05/16/16 14:48 - 05/17/16 06:33 Intake Total 800 ml 1355 ml 2155 ml Output Total 3800 ml 0 ml 3800 ml Balance -3000 ml 1355 ml -1645 ml Intake Oral 0 ml 880 ml 880 ml IV Total 100 ml 475 ml 575 ml Packed Cells 700 ml 700 ml Output Urine Total 0 ml 0 ml 0 ml Ultrafiltrate 3800 ml 3800 ml Lab and Diagnostics Result Diagram: 05/17/16 1300 05/17/16 0500 Microbiology Nasal swab positive for MRSA X-Rays, CTs and MRIs . X-RAY CHEST ONE VIEW, PORTABLE IMPRESSION: Moderate diffuse appearance of bilateral pulmonary opacities. This can represent diffuse edema, ARDS and/or superimposed infection such as pneumonia. Dictated by: Martha Elder M.D. on 05/16/2016 at 15:04 X-RAY CHEST ONE VIEW, PORTABLE IMPRESSION: Decrease in appearance of bilateral pulmonary opacities likely related to decreasing edema and/or diffuse bilateral pneumonia. 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 Hospital day #2. 1. Sepsis/bacteremia, present on admission. Active -Meets criteria with HR (121), RR (48), WBC (12.8) with suspected pulmonary source of infection -Start antibiotics (vancomycin, Zosyn, levofloxacin) after dialysis -Stress dose steroids hydrocortisone 100mg,lowered to home dose -Lactic acid normal -Procalcitonin trended up 3.17 from 0.88 -Blood cultures positive for gram positive cocci -Pending: urine culture -Infectious Disease consult. Recommendations per ID appreciated 2. Acute hypoxemic respiratory failure. Present on admission, active. -AB.402 / 37.8 / 63.6 / 23 -Possibly secondary to pneumonia, fluid overload, heart failure, pulmonary embolism, pulmonary capillaritis -Continue supplemental oxygen -Pending studies: UA, legionella and strep pneumo urine ag, sputum culture -Respiratory PCR panel negative -CXR daily 3. Acute on chronic normocytic anemia requiring transfusion, present on admission, active. -Review of past records indicate similar levels but possible blood loss given supratherapeutic INR (10.63) -LDH elevated 883, -Haptoglobin less than 10 -2u PRBC transfusion with dialysis, H&H remains low -Vitamin K 2.5mg PO given 05/16 -Pending hemoglobin A, A2, C, F, S and variant hemoglobin, G6PD 4. Supratherapeutic INR, present on admission. active -INR 10.63 on admit -Uncertain etiology -Vitamin K 2.5mg PO given 410 -Repeat INR 3.63 -Pharmacy to dose Coumadin 5. ESRD on HD, chronic. present on admission. active -Likely secondary to lupus nephritis -Currently undergoing dialysis -Nephrology following. Recommendations per nephrology appreciated 6. Systolic and diastolic heart failure, present on admission. -Echocardiogram shows LV EF estimated 40-45% with mild global hypokinesis of the LV. 7. Elevated troponin, present on admission, active. -Troponin 0.067 in setting of ESRD -Similar troponin levels during past hospitalizations -Trend 8. Chronic hypertension with hypertensive urgency. Present on admission. Improving -BP 204/91 on arrival to ED -Continued home carvedilol 50 mg twice a day 9. Chronic autoimmune thrombocytopenia, present on admission. -Currently 44 -Continue to monitor 10. 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 -Holding mycophenolate mofetil 11. History of thromboembolic disease s/p IVC filter, present on admission. Stable. -D-dimer elevated (1.18), possibly secondary to sepsis -PE less likely given supratherapeutic INR (10.63) -Holding warfarin. Giving vitamin K 2.5mg PO -Warfarin and INR as in #4, INR Analgesic: Acetaminophen when necessary, Dilaudid for breakthrough pain Disposition: Patient will remain inpatient status secondary to ongoing treatment plan with nephrology as well as infectious workup. CODE STATUS: Full code DVT prophylaxis is not indicated secondary to supratherapeutic INR GI prophylaxis PPI GI Prophylaxis: Proton Pump Inhibitor VTE Prophylaxis: Other (Supratherapeutic INR) Resuscitation Status: CPR: Attempt Resuscitation Attending Statement The patient was seen and examined together with Dr. Llanos on 05/17/2016 and I agree with the history, exam and plan as outlined in the note above. Stephen Llanos DO May 17, 2016 16:42 Momo Swift MD May 18, 2016 06:40
--- NOTE | 2016-05-17 18:39 | NUR ---
was notified of 4/4 BC bottles pos Gram pos ? strep per micro BC X 4 bottles. MD has been made aware as each has been reported to me. The last one was at this time.
--- NOTE | 2016-05-17 18:40 | NUR ---
P: Hemodynamics, Resp, GI, Pain, Social I,E: Pt BP was improved today in the 150's sys over 80's. He is in SR. He did void a little today and I was able to send urine to the lab. He had one BM while over on [facility] having dialysis . Pt is on 6l O2 via NC down from 8l on oxy, with sats in the low to mid 90's. Pt was sitting up in the bed, visiting with family most of the morning. He has had diludid for pain X 2 today with good effect for his right hip pain. He was able to order lunch. I took him juice as well as cups of ice chips multiple times today. I also had truck service manager at the bedside several times for conversations with the MD's, echo technicicians, myself and with case management. Pt went to [facility] for dialysis today and I was notified by the financial secretary that his brother in law was calling to speak with me r.e. the way we "were treating Jean-Claude". He was threatening to call the police. I was very confused r.e. this because I had spent a lot of time with the pt this am and assisted with extra concerns r.e. outpatient dialysis and facilitating time with case management r.e. insurance and his insurance card, and MDs with truck service manager. I also ensured pt had his lunch when he went to [facility]. Some of the concerns from his brother in law were that we had not used the truck service manager and we had not fed the pt. I went to [facility], ensured truck service manager was there and we had a long conversation about pt's concerns. He agreed that there had not been a problem here on [facility], and his brother in law had "gotten it wrong". Pt did state that he had had a problem while he was in [facility] and we discussed this with truck service manager and the director of dialysis center. I believe she was able to explain the need for some of the things re dialysis. She was also able to help him with questions r.e. changing his care to [facility]. Pt refused dialysis today and Dr. Grande was notified and pt was returned to his room here on P[facility]. Dr. Llanos was then able to explain (again with truck service manager) the concerns we had for him not having dialysis, especially as he needed blood transfusion that he could only have during dialysis. Pt then consented to go and have dialysis this afternoon. I spoke again with pt and he apologized for any confusion and admitted that there had been no problem here, but he did have some concerns when he went over for dialysis. I am hoping that further use of truck service manager and assistance with dialysis education will help to clear some of his questions and concerns.
--- NOTE | 2016-05-17 19:00 | NUR ---
Dialysis note: 2 hours PUF 2400 ml net UF (2000 ml UF + 400 ml for PRBC) Right upper arm AV fistula Pls see DTR for VS details Qb 450 No heparin given O2 @ 6L via NC on 1 unit PRBC given w/ no problems Tolerated tx, cooperative with care Fistula needle sites clotted in 15 min Report given to Chio Radford RN Stable condition at end of tx
--- NOTE | 2016-05-17 19:30 | NUR ---
Pt returned from [facility] at 1915hrs Pt returned from dialysis, VS reported stable. Pt sitting up in bed and appears comfortable.
--- NOTE | 2016-05-17 22:09 | CONS ---
[address] [address] CONSULTATION REPORT PATIENT: TAMMY SENIOR : 1975 MR#: [id number] ADMIT: 05/16/2016 JOB ID: [id number] DATE OF SERVICE: 05/17/[address] Ludwig Llanos for this consult. REASON FOR CONSULTATION: High-grade streptococcal bacteremia in extremely complex immunosuppressed host. HISTORY OF PRESENT ILLNESS: The patient is a 40-year-old gentleman who emigrated from [place] at around the age of 14. In his middle teenage years, he was diagnosed with lupus and has suffered a wide variety of complications related to that diagnosis including anti-phospholipid syndrome, end-stage renal disease requiring permanent hemodialysis, DVTs, pulmonary emboli, and most recently a pulmonary capillaritis. He also has cytopenias and has developed right hip avascular necrosis with chronic pain to the extent he only gets around with a walker. He is thoroughly debilitated by these sequence of diseases. The patient was in his usual state of very compensated ill health until he basically yesterday when he developed the sudden onset of fevers, chills, shortness of breath, cough productive of clear sputum, some pleuritic chest pain and weakness. Because of these symptoms, the patient was brought to the emergency department and evaluated. He reports that since admission his cough seems to have improved and his chest pain also has improved considerably. However, the patient has evidence of worsening cytopenias as well as now positive blood cultures for a streptococcal organism and ID is requested to help evaluate. The patient tells us he has been chewing on a lot of ice lately and having some bleeding within his mouth which is apparently abnormal for him. He also notes he has had some pain with swallowing so odynophagia recently. He has had a cough productive of some clear sputum which he states is already improving. He also had some pleuritic chest pain and worsening shortness of breath above his baseline. He denies any significant nausea, vomiting or diarrhea. He does not make significant urine and notes that he has continued and severe pain in his right hip which was evaluated during his last admission and found to be avascular necrosis. PAST MEDICAL HISTORY: 1. SLE. 2. Antiphospholipid syndrome. 3. End-stage renal disease secondary to number one. 4. Pulmonary emboli with history of DVT. 5. Reduced cardiac ejection fraction. 6. Pulmonary capillaritis diagnosed April 2016. 7. Pancytopenias with anemia and decreased platelets. 8. Right hip avascular necrosis. SOCIAL HISTORY: The patient neither smokes nor drinks. Patient lives locally with family. He is not able to work for obvious reasons. He immigrated from [place] at the age of 14. FAMILY HISTORY: Reviewed but noncontributory. No family history of lupus. REVIEW OF SYSTEMS: Was done. The patient states no headache. He has chronically blurred vision and he is not sure what the etiology is but reports this waxes and wanes. He has had sores and bleeding in the mouth secondary to chewing ice apparently. He states he had odynophagia but it is not clear if he has dysphagia. No complaints referable to the neck. He had a dry cough productive of clear sputum in addition to some pleuritic chest pain and shortness of breath yesterday which is what led to this admission. He states his cough is better now. No nausea, vomiting or significant diarrhea. No significant abdominal pain. Does not have urinary complaints as he is in renal failure. States he has chronic and unrelenting right hip pain which has been getting worse and limits him to getting around with a walker. Remainder of the review of systems is negative. PHYSICAL EXAMINATION: Reveals a gentleman who was febrile on admission to 38.4. He has been afebrile throughout his 24 hours in the hospital. Currently 38 degrees on most recent temperature. Pulse in the 80s. Respiratory rate is unlabored and about 20. Blood pressure 169/84. He is saturating well but requiring 6 L OxyMask. His mental status this afternoon is clear. The patient's Georgian is fair. We were able to get some history using some Georgian and some Belarusian, but tomorrow will visit again with the waterproof bag cutting machine operator. He appears, however, to be completely lucid and able to give an accurate history. His head is without trauma. There is no temporal wasting. His eyes are without conjunctivitis or scleral icterus. His oral cavity: No significant ulcerations or thrush or pharyngitis noted. Neck without adenopathy or obvious stiffness. Lungs basically clear bilaterally. Cardiac tones: Tachycardic, regular rate and rhythm. The patient's abdomen is slightly distended, soft, nontender. No notable abnormalities. No suprapubic fullness. He does not have a Tuttle catheter. He has obvious tenderness with palpation around the right hip joint but does not have any tenderness within the muscle groups of the right thigh as one might see with pyomyositis. His extremities are relatively wasted but without edema, cellulitis, skin breakdown or evidence of synovitis except perhaps in the right hip joint. Neurologically the patient moves everything but is weak. He has a fistula in his right upper extremity where he is dialyzed. This appears free of infection. He has an unusual location for peripheral IV which appears to be almost up to the shoulder. This does not appear infected. LABORATORIES: Include white count 6300 this morning. It was 12,800 when he came to the ED yesterday. His crit is 20, platelet count 43,000, haptoglobin less than 10 suggesting hemolysis. Creatinine 3.23. LFTs normal. Procalcitonin 3.17, up from 0.88 yesterday in the emergency department. Urinalysis was done. No white cells. No red cells. P-ANCA is pending. GEMA screen negative, interestingly, in a patient with lupus and antiphospholipid syndrome. Complement levels are low, both C3 and C4 consistent with vasculitis. Urine Legionella and pneumococcal antigens are negative. PCR screen of the nose positive. Respiratory viral nasopharyngeal panel is entirely negative. Four of four blood cultures from admission were positive in approximately 20 hours for a streptococcal species to be identified. These are growing from both aerobic and anaerobic bottles. IMAGING: Includes two chest x-rays, which we reviewed. These show diffuse pulmonary infiltrates which could be fluid overload, CHF or perhaps an unusual bilateral pneumonia such as viral or atypical pneumonia. Echocardiogram has already been done. It shows an ejection fraction 40% to 45%, a very distended left atrium, moderate mitral regurg, moderate tricuspid regurg, and a slightly elevated right ventricular systolic pressure. No valvular vegetations were seen. IMPRESSION: This is an extraordinarily unfortunate young man with 20+ years of complications of lupus antiphospholipid syndrome and attendant complications. This illness has affected his bone marrow with cytopenias as well as a production of pulmonary hemorrhage due to capillaritis as well as end-stage renal disease and avascular necrosis. He now presents with fairly sudden onset of an infectious syndrome which sounds like pneumonia though neither his chest x-ray nor auscultation suggest a focal bacterial process. We already have evidence, however, that he is bacteremic with a streptococcal species. If this turns out to be pneumococcus and it seems likely that somewhere within his very abnormal bilateral chest x-ray there is some pneumococcal pneumonia. If, on the other hand, this is all viridans Strep, the possibility of endocarditis will be very real and presumably would be secondary to the sores in the mouth and trauma giving a chance for a Streptococcal bacteria in the oral cavity to enter the circulation and seed an abnormal valve. It is also remotely possible these are of the Strep anginosus group, though I would find it less likely as I would suggest a probable abscess somewhere. These could also be beta hemolytic strep and certainly group B or group A beta-hemolytic strep would not be out of the question in this patient. RECOMMENDATIONS: 1. We can go ahead and discontinue the Zosyn and levo he has been receiving as we now know this is a gram-positive organism and likely a Streptococcus. Vancomycin should suffice unless of course these turn operator to be vancomycin-resistant Enterococcus. 2. Because of his growing up in [place], it is reasonable to check both Strongyloides antibody as well as QuantiFERON Gold to evaluate for the possibility of latent or dormant Strongyloides infection and/or latent tuberculosis in this dialysis patient. I am aware that the patient has undoubtedly been checked for TB many times in the past, however, as part of routine protocol for dialysis patient. 3. Will continue to follow this patient with you, and as we get more information about the etiology of the bacteremic organism, it will help us narrow our search for a site of origin.
[2016-05-18] VITALS (10 sets, daily range): BP systolic 130–176; BP diastolic 90–104; PULSE 66–82; RESP 14–20; O2SAT 95–99
[2016-05-18] MEDS: HYDROmorphone 1 mg/mL Inj IVPUSH PRN ×3 (04:53→21:48)
[2016-05-18] MEDS ORDERED: Vancomycin Serum Trough XX ONE (05:00)
--- NOTE | 2016-05-18 05:01 | NUR ---
NOC: uneventful night. Sp02 maintained on 6 L NC, pt noted to have dyspnea on exertion. PT requesting building wrecker to discuss fistula site. IPad building wrecker used, pt states he is worries about his fistula site upon arrival to [facility] from [facility], as site was slightly bleeding. Discussed with pt elevated INR. knitter helper made aware of site. states to reinforce dressing. Dressing reinforced and has remain c/d/i all night. PRN IV Dilaudid given x2 overnight for hip pain. Pt sleeping intermittently. Care ongoing.
[2016-05-18 05:26] LABS: Mean Corpuscular Hemoglobin 29.9 pg (27.0-35.0); Mean Corpuscular Volume 90.9 fL (81-100)
[2016-05-18 05:27] LABS: Platelet Count 36 bil/L (150-400)
[2016-05-18 05:28] LABS: BASOPHILS % (AUTO) 0.2 % (0-3); EOSINOPHILS % (AUTO) 1.4 % (0-5); MONOCYTES % (AUTO) 6.2 % (4-12); NEUTROPHILS % (AUTO) 80.1 % (40-74)
[2016-05-18] MEDS: Vancomycin Dose per Pharmacist XX SCH (08:30)
[2016-05-18] MEDS: Calcium Carbonate (Oyster Shell) 500 mg Tablet PO SCH ×3 (08:46→20:38)
[2016-05-18] MEDS: Pantoprazole 40 mg ER24 Tablet PO SCH (08:46)
[2016-05-18] MEDS: predniSONE 10 mg Tablet PO SCH (08:47)
--- NOTE | 2016-05-18 09:39 | PROG NOTE ---
[address] [address] PROGRESS NOTE PATIENT: TAMMY SENIOR : 1975 MR#: [id number] ADMIT: 05/16/2016 JOB ID: [id number] DATE: 05/18/2016 REASON FOR FOLLOWUP: High-grade strep viridans bacteremia in a dialysis patient with profound autoimmune issues. INTERVAL HISTORY: Overnight, the patient has felt a little bit better. He denies fevers or chills. He has no significant cough or shortness of breath. No abdominal pain, nausea, vomiting or diarrhea. He continues to complain of pain in his right hip which is quite chronic. PHYSICAL EXAMINATION: Reveals an afebrile gentleman. Temperature 36.5, pulse 77, respiratory rate 20, blood pressure 153/102, saturating well on 6 L, and he says he is on too much oxygen, is requesting to be turned down. He is awake and alert. No conjunctival hemorrhages. Oral cavity without palatal petechia. Lungs relatively clear bilaterally. Cardiac tones with a 1/6 systolic murmur heard best along the left lower sternal border. A fistula in the right upper extremity has a good thrill, and is nontender, without erythema. Abdomen soft and nontender. The patient has venous stasis changes of his bilateral lower extremities. He does not have any peripheral stigmata of endocarditis on his hands. LABORATORIES: Include white count 4400, hematocrit 23, platelets 36. His creatinine is 5.61. His LFTs are basically normal. Vancomycin trough 23, which is acceptable in this dialysis patient. Strongyloides QuantiFERON Gold pending. MRSA screen of the nares positive, 4/4 blood cultures from the are growing viridans strep. This is yet to be formally identified. IMAGING: On the includes decrease in the pulmonary infiltrates which likely represented edema. IMPRESSION: Extremely complex and immunosuppressed gentleman with underlying lupus and antiphospholipid syndrome who is on dialysis. He also is known to have pulmonary capillaritis as well as avascular necrosis of his hip. He now presents with high-grade bacteremia and sepsis secondary to viridans strep. This immediately raises concerns about endocarditis and, though we have a transthoracic echo which shows no vegetations, we obviously need to proceed to get a transesophageal echo in the near future. RECOMMENDATIONS: 1. Will continue with IV vancomycin as a solo agent. 2. Serial blood cultures are indicated here until they turn negative. 3. We await the susceptibilities on the organism. 4. A transesophageal echo will be the next order of business in this complex patient.
[2016-05-18 13:09] LABS: Antiproteinase 3 (PR-3) Abs <3.5 U/mL (0.0-3.5); Perinuclear (P-ANCA) <1:20 titer (Neg:<1:20)
[2016-05-18 16:49] LABS: INR 2.52 ratio
--- NOTE | 2016-05-18 17:30 | PCM.PHAPRO ---
Progress Date of Service: May 18, 2016 Shortness of breath Warfarin dosing per pharmacy Indication: Hx of PE (w/ IVC filter) INR goal: 2-3 Home warfarin dose: 5 mg daily Pertinent info: - Presented with INR 10.63 on 05/16. - Corrected with vitamin K 2.5 mg PO on 05/16. - Warfarin held x2 days. - HCT/Plt remain low: 23.1/36. INR is therapeutic but trending down due to held doses and previous dose of vitamin K. Will proceed cautiously. Give warfarin 2.5 mg PO this evening. Pharmacy to continue to monitor and dose warfarin daily. Thank you, Chacha Espana Pharmacist Chacha Espana May 18, 2016 17:30
--- NOTE | 2016-05-18 18:28 | PCM.PNMED ---
Subjective Date of Service May 18, 2016 Subjective Patient is a 40-year-old male with history of PE and DVT s/p IVC filter placement, lupus nephritis, ESRD on hemodialysis, congestive heart failure, antiphospholipid syndrome, CVA, and recent hospitalization for pulmonary capillaritis presenting with shortness of breath. Hospital day 3. Overnight: Patient required propeller tester just is discusses fistulous site, anxious about a slow bleed. Dilaudid given 2 for hip pain. Today: Patient awake and alert sitting up in count next hospital bed watching TV on computer. Overall he states he feels okay though still endorses a right hip pain and right lower quadrant abdominal pain. Exam Vital Signs Vital Sign - Last Date Time Temp Pulse Resp B/P Pulse Ox O2 Delivery O2 Flow Rate FiO2 05/18/16 18:03 36.6 71 14 176/102 99 OxyMask 5.00 Intake and Output 05/17/16 05/17/16 05/18/16 Cumulative From/Thru 14:59 22:59 06:59 05/16/16 14:48 - 05/18/16 06:10 Intake Total 1440 ml 510 ml 4105 ml Output Total 2420 ml 6220 ml Balance -980 ml 510 ml -2115 ml Intake Oral 540 ml 400 ml 1820 ml IV Total 550 ml 110 ml 1235 ml Packed Cells 350 ml 1050 ml Output Urine Total 20 ml 20 ml Ultrafiltrate 2400 ml 6200 ml # Voids 1 1 2 # Bowel Movements 1 2 3 Exam General: Patient awake alert sitting up in bed side couch, mentating appropriately. Overall looks chronically ill in nature though is appropriately conversant. HEENT: Normocephalic, atraumatic. External ears without defect. Pupils equal, round, and reactive to light and accommodation. Neck: Supple with full range of motion. No jugular venous distention Cardiovascular: Regular rate and rhythm with no murmurs appreciated Pulmonary: Coarse bilaterally. Respiratory rate approximately 14 no use of accessory muscles. No apparent respiratory distress Abdomen: Bowel tones present. Soft, nontender, nondistended. Right lower quadrant has some pain to palpation. Extremities: Bilateral lower extremity mild pitting edema. Left lower extremity with ichthyotic skin. Pain to palpation to right hip Skin: Normal temperature, turgor, and texture Neurological: Cranial nerves grossly intact. Psychiatric: Alert and oriented to person, place, and time. IVs and Medications Medications Reviewed: Medications were reviewed in detail Lab and Diagnostics Result Diagram: 05/18/16 0505 05/18/16 0505 Microbiology Nasal swab positive for MRSA X-Rays, CTs and MRIs . X-RAY CHEST ONE VIEW, PORTABLE IMPRESSION: Moderate diffuse appearance of bilateral pulmonary opacities. This can represent diffuse edema, ARDS and/or superimposed infection such as pneumonia. Dictated by: Martha Elder M.D. on 05/16/2016 at 15:04 X-RAY CHEST ONE VIEW, PORTABLE IMPRESSION: Decrease in appearance of bilateral pulmonary opacities likely related to decreasing edema and/or diffuse bilateral pneumonia. Dictated by: Errol Sánchez RRA Interpreted: Marita Jade MD on 05/17/2016 at 10:23 Cardiac Echo Impressions . Echocardiogram Report Interpretation Summary There is moderate concentric left ventricular hypertrophy. The ejection fraction is estimated to be 40-45%. There is mild global hypokinesis of the left ventricle. Severe inferolateral hypokinesis. Prominent trabeculations in apex are noted. The right ventricle is mild to moderately dilated. Right ventricular systolic function is mildly reduced. The left atrium is severely dilated. There is moderate mitral regurgitation. There is mild to moderate tricuspid regurgitation. The right ventricular systolic pressure is estimated at 51 mmHg assuming a right atrial pressure of 8 mm Hg. Electronically signed by: Wisam Saha Assessment & Plan Patient is a 40-year-old male with history of PE and DVT s/p IVC filter placement, lupus nephritis, ESRD on hemodialysis, congestive heart failure, antiphospholipid syndrome, CVA, and recent hospitalization for pulmonary capillaritis presenting with shortness of breath. Hospital day 3. 1. Sepsis/bactremia, present on admission. Active -Meets criteria with HR (121), RR (48), WBC (12.8) bacteremic -Infectious disease following, recommendations are appreciated -Antibiotics to include vancomycin as solo agent -Prednisone 10 mg daily -Lactic acid normal -Procalcitonin tenuous to trend up 5.12 today -Blood culture positive for gram-positive cocci, susceptibilities pending -HERNESTO 2. Acute on chronic normocytic anemia requiring transfusion, present on admission, active. -Review of past records indicate similar levels but possible blood loss given supratherapeutic INR (10.63) -LDH elevated 883, -Haptoglobin less than 10 -2u PRBC transfusion with dialysis, H&H remains low -Vitamin K 2.5mg PO -Pending hemoglobin A, A2, C, F, S and variant hemoglobin, G6PD -Follow up on Oncology consult 3. Thrombocytopenia. Presently on admission. Ongoing -Most likely secondary to autoimmune disease -No heparin -Transfuse if any signs of active bleeding or if platelets less than 10 4. Supratherapeutic INR, present on admission. active -INR 10.63 -Uncertain etiology -Vitamin K 2.5mg PO -Repeat INR 3.63 -Pharmacy to dose Coumadin 5. Acute hypoxemic respiratory failure. Present on admission, stable -Possibly secondary to pneumonia, fluid overload, heart failure, pulmonary embolism, pulmonary capillaritis -Continue supplemental oxygen when necessary -Pending studies: UA, legionella and strep pneumo urine ag, sputum culture -Respiratory PCR panel negative -CXR daily 6. ESRD on HD, chronic. present on admission. active -Likely secondary to lupus nephritis -Currently undergoing dialysis per nephrology -Nephrology following. Recommendations per nephrology appreciated 7. Systolic and diastolic heart failure, present on admission. -Echo 11/2015: LV EF estimated 40-45% with mild global hypokinesis of the LV. -Repeat Echocardiogram as above 8. Elevated troponin, present on admission, active. -Troponin 0.067 in setting of ESRD -Similar troponin levels during past hospitalizations -Continue to trend 9. Chronic hypertension with hypertensive urgency. Present on admission. Ongoing -BP 204/91 on arrival to ED -Remains hypertensive -Continued home carvedilol 50 mg twice a day 10. 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 -Holding mycophenolate mofetil 11. History of thromboembolic disease s/p IVC filter, present on admission. Stable. -D-dimer elevated (1.18), possibly secondary to sepsis -PE less likely given supratherapeutic INR (10.63) -Holding warfarin. Giving vitamin K 2.5mg PO -Warfarin and INR as in #4, INR Disposition: Patient will remain inpatient status secondary to ongoing treatment plan with nephrology as well as infectious workup. CODE STATUS: Full code DVT prophylaxis is not indicated secondary to supratherapeutic INR GI prophylaxis PPI Pain acetaminophen when necessary, Dilaudid for breakthrough GI Prophylaxis: Proton Pump Inhibitor VTE Prophylaxis: Other (Supratherapeutic INR) Resuscitation Status: CPR: Attempt Resuscitation Attending Statement The patient was seen and examined independently on 05/18/2016 and case discussed with Dr. Granda . I agree with the history, exam and plan as outlined in the note above. ZAY GRANDA DO May 18, 2016 18:28 Momo Swift MD May 19, 2016 06:36
--- NOTE | 2016-05-18 19:25 | PCM.PNNEPH ---
Merlin Do DO 05/18/16 1925: Subjective Date of Service May 18, 2016 Subjective The nephrology service saw the patient today with an hull grinder. The patient states that he feels significantly better including significantly improved breathing he almost feels normal in fact. The patient states that the reason he had issues with obtaining dialysis yesterday was because of minor conflicts he had with the dialysis nurse who he believed was being short and terse. The patient denies any issues with any other hospital staff at this time. Exam Vital Signs Vital Sign - Last Date Time Temp Pulse Resp B/P Pulse Ox O2 Delivery O2 Flow Rate FiO2 05/18/16 18:03 36.6 71 14 176/102 99 OxyMask 5.00 Intake and Output 05/17/16 05/17/16 05/18/16 Cumulative From/Thru 15:00 23:00 07:00 05/16/16 14:48 - 05/18/16 06:10 Intake Total 1440 ml 510 ml 4105 ml Output Total 2420 ml 6220 ml Balance -980 ml 510 ml -2115 ml Intake Oral 540 ml 400 ml 1820 ml IV Total 550 ml 110 ml 1235 ml Packed Cells 350 ml 1050 ml Output Urine Total 20 ml 20 ml Ultrafiltrate 2400 ml 6200 ml # Voids 1 1 2 # Bowel Movements 1 2 3 Exam General: Patient awake alert sitting up in bed side couch, mentating appropriately. Overall looks chronically ill in nature though is appropriately conversant. Eyes: Pupils equal round reactive to light, extraocular motion intact noninjected conjunctiva HEENT: Normocephalic, atraumatic. External ears without defect. Oropharynx clear with moist mucous membranes without central cyanosis Neck: Supple with full range of motion. No jugular venous distention Cardiovascular: Regular rate and rhythm with no murmurs appreciated Pulmonary: Mild coarse breath sounds bilaterally in the bases no wheezing noted no apparent respiratory distress Abdomen: Bowel tones present. Soft, nontender, nondistended. Right lower quadrant has some pain to palpation. Extremities: Bilateral lower extremity mild pitting edema. Left lower extremity with dry rough skin. No cyanosis or clubbing noted. Skin: Normal temperature and turgor Neurological: Without focal neurologic deficit, able to move all extremities Psychiatric: Alert and oriented to person, place, and time. Lab and Diagnostics Result Diagram: 05/18/165 05/18/16 050 Microbiology Nasal swab positive for MRSA X-Rays, CTs and MRIs . X-RAY CHEST ONE VIEW, PORTABLE IMPRESSION: Moderate diffuse appearance of bilateral pulmonary opacities. This can represent diffuse edema, ARDS and/or superimposed infection such as pneumonia. Dictated by: Martha Elder M.D. on 05/16/2016 at 15:04 X-RAY CHEST ONE VIEW, PORTABLE IMPRESSION: Decrease in appearance of bilateral pulmonary opacities likely related to decreasing edema and/or diffuse bilateral pneumonia. Dictated by: Errol Sánchez [facility] Interpreted: Marita Jade MD on 05/17/2016 at 10:23 Cardiac Echo Impressions . Echocardiogram Report Interpretation Summary There is moderate concentric left ventricular hypertrophy. The ejection fraction is estimated to be 40-45%. There is mild global hypokinesis of the left ventricle. Severe inferolateral hypokinesis. Prominent trabeculations in apex are noted. The right ventricle is mild to moderately dilated. Right ventricular systolic function is mildly reduced. The left atrium is severely dilated. There is moderate mitral regurgitation. There is mild to moderate tricuspid regurgitation. The right ventricular systolic pressure is estimated at 51 mmHg assuming a right atrial pressure of 8 mm Hg. Electronically signed by: Wisam Baca Plan Impression 40-year-old male with medical history remarkable for end-stage renal disease on chronic hemodialysis secondary lupus nephritis /SLE as well as antiphospholipid antibody syndrome with a recent history of capillaritis presents to schedule her hospital in acute respiratory distress, likely blood loss anemia and hypervolemia. 1) end-stage renal disease dialysis dependent, chronic 2) systemic lupus erythematosus 3) antiphospholipid antibody syndrome 4) acute respiratory failure 5) acute anemia 6) sepsis/gram-positive bacteremia 7) chronic systolic and diastolic heart failure Plan: 1. ESRD on HD, chronic. present on admission. active -Likely secondary to lupus nephritis -Patient was discussed extensively with his normal lyric writer Dr. Hubbard in [place] -Patient is received hemodialysis in the first and second days of admission with a total of 6200 mL of fluid pulled off of 3 units of PRBCs given -Hold dialysis today -Likely continue dialysis on regular schedule 2. 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 -Low C3 and C4 complement consistent with activation of classic pathologic -Pending hemoglobin A, A2, C, F, S and variant hemoglobin, G6PD -Holding mycophenolate mofetil 3. Acute hypoxemic respiratory failure. Present on admission, stable -Possibly secondary to pneumonia, fluid overload, heart failure, pulmonary capillaritis -Continue supplemental oxygen when necessary -CXR daily 4. Acute on chronic normocytic anemia requiring transfusion, present on admission, active. -Review of past records indicate similar levels but possible blood loss given supratherapeutic INR (10.63) -LDH elevated 883, and Haptoglobin less than 10 make hemolysis also likely cause -3u PRBC transfusion with dialysis in hospital days 1 and 2, H&H remains low -Pending hemoglobin A, A2, C, F, S and variant hemoglobin, G6PD -Follow up on Oncology consult 5. Sepsis/bactremia, present on admission. Active -Meets criteria with HR (121), RR (48), WBC (12.8) bacteremic -Infectious disease following, recommendations are appreciated -Blood culture positive for gram-positive cocci, susceptibilities pending -Antibiotics to include vancomycin as solo agent -Primary team to give stress dose steroids 6. Systolic and diastolic heart failure, present on admission. -Echo 11/2015: LV EF estimated 40-45% with mild global hypokinesis of the LV. -Repeat Echocardiogram shows EF remains stable at 40-45% Stepan Grande DO 05/19/16 1628: Exam Lab and Diagnostics Result Diagram: 05/18/16 0505 05/18/16 0505 Plan Plan: Patient was seen with the internal medicine resident and the chart was reviewed and case discussed. I agree with the above findings and plan. Merlin Do DO May 18, 2016 19:25 Stepan Grande DO May 19, 2016 16:28
[2016-05-19] VITALS (8 sets, daily range): BP systolic 123–190; BP diastolic 60–105; PULSE 65–86; RESP 16–18; O2SAT 95–100
--- NOTE | 2016-05-19 01:36 | CONS ---
[address] [address] CONSULTATION REPORT PATIENT: TAMMY SENIOR : 1975 MR#: [id number] ADMIT: 05/16/2016 JOB ID: [id number] DATE OF SERVICE: 05/18/2016 INPATIENT HEMATOLOGY CONSULTATION: REQUESTING PROVIDER: Stepan Grande DO. REASON FOR CONSULTATION: Severe thrombocytopenia and anemia. HISTORY OF PRESENT ILLNESS: I was asked by Dr. Grande to see this patient. This is a pleasant 40-year-old gentleman who speaks limited Irish. I had a chance to ask one of the nurses to interpret. I reviewed numerous records in [facility], including a consultation by Dr. Islas, who saw this patient in clinic in June 2015. Currently, this patient is readmitted to hospital for streptococcal sepsis, and has been started on IV vancomycin. His illness started suddenly two days ago with sudden onset of fever, chills, dyspnea, cough, pleuritic chest pain, and weakness. When medics arrived, he was tachycardic, tachypneic, hypoxemic and had a very high blood pressure. He was initially febrile on admission, but defervesced 24 hours ago. Blood cultures from admission have grown gram-positive cocci in 4/4 bottles. His past medical history is complex, and most importantly includes longstanding history of SLE, lupus nephritis, end-stage renal disease, on hemodialysis. (Tuesdays, and Saturdays in [place], under care of Dr. Hubbard), antiphospholipid syndrome, chronic immune thrombocytopenia, venous and arterial thromboembolic events, and is on chronic anticoagulation therapy. He tells me he has been on warfarin for 10 years or longer, and has been on hemodialysis for about five years. Based on records and limited history, it appears that his chronic thrombocytopenia has been present for the last one or two years. It appears that a year ago, in March or April 2015, he was transferred from [place] to [facility], and underwent extensive hematology evaluation by Dr. Nicholas Lucia. He has received rituximab, cyclophosphamide and prednisone, among other immunosuppressives, for different indications, including lupus nephritis, antiphospholipid syndrome, and immune thrombocytopenia. He is currently on prednisone 10 mg daily. He tells me that he has had a bone marrow biopsy in the past for thrombocytopenia, but he is not sure when and where it was. Our records show that his platelet count is persistently low, mostly under 50,000 over the last one and half years. During this admission it is in 40,000 range which is more or less his baseline. His hemoglobin has been around 6-7 g/dL, which is also similar to multiple other hemoglobins during previous admissions. Haptoglobin was undetectable and LDH was significantly high at 883 two days ago, but direct Mikki is negative, and his bilirubin is only modestly elevated today. These results were ruled out autoimmune hemolytic anemia. His haptoglobin is most likely undetectable due to decreased hepatic synthesis. Ferritin was over 5000 on May 07, last admission. PAST MEDICAL HISTORY: 1. Systemic lupus erythematosus. 2. Lupus nephritis with consequent end-stage renal disease, on hemodialysis. 3. Antiphospholipid syndrome. 4. Prior arterial and venous thromboembolic events, on longstanding anticoagulation therapy. 5. Chronic glucocorticoid therapy. 6. Severe hypertension. 7. Systolic and diastolic cardiomyopathy. 8. Questionable history of heparin induced thrombocytopenia. 9. Right-sided avascular necrosis of femoral head. SOCIAL HISTORY: He does not smoke and does not drink alcohol. He lives locally with family. He immigrated from [place] at age 14. HOME MEDICATIONS: Reviewed. PHYSICAL EXAMINATION: He appears comfortable and has some cushingoid features. Vital signs are normal except high blood pressure, currently 161/100. Oxygen is mid to high 90s on 5-6 L OxyMask. HEENT: Normal. Neck is supple without adenopathy. Lungs: Clear. Cardiac: Regular rate and rhythm. Abdomen: Slightly distended, but soft and nontender without palpable mass or hepatosplenomegaly. Extremities: No edema. IMPRESSION AND RECOMMENDATIONS: In terms of hematological issues, this patient has chronic secondary immune thrombocytopenia in the context of antiphospholipid syndrome and systemic lupus erythematosus. He was extensively evaluated about a year ago at [facility], and has received a number of immunosuppressives, including rituximab, cyclophosphamide and prednisone. His platelet count is generally under 50,000; and his counts during this admission are about the same. His chronic severe anemia is a little more difficult to explain. He is clearly iron overloaded. Ferritin was over 5000 during last admission on May 07. Direct Mikki test is negative; therefore, he does not have autoimmune hemolytic anemia. B12 has been recently checked and was normal. His retic count yesterday was only 2.5%, which is low for the degree of anemia, but it could be due to transient myelosuppression in the context of severe sepsis. I would recommend when he is at his usual state of health, and not in the setting of sepsis, he would have repeat hematology workup for his severe anemia, which may need to include a bone marrow biopsy, but I understand that this patient mostly receives his care in [place], and is only currently admitted for treatment of his streptococcal sepsis, and I would; therefore, recommend that he sees a golf club repairer in [place] to coordinate his care with Dr. Hubbard, who is the primary care provider for this gentleman. I do not have any specific recommendations for this gentleman during this admission, other than limiting transfusions to hemoglobin under 6.5 as he appears to already have a significant degree of transfusional iron overload. Thank you, Dr. Grande, for consultation.
[2016-05-19 04:59] LABS: BASOPHILS % (AUTO) 0 % (0-3); EOSINOPHILS % (AUTO) 1.8 % (0-5); MONOCYTES % (AUTO) 7.1 % (4-12); Mean Corpuscular Hemoglobin 29.8 pg (27.0-35.0); Mean Corpuscular Volume 90.7 fL (81-100); NEUTROPHILS % (AUTO) 77.6 % (40-74); Platelet Count 39 bil/L (150-400)
[2016-05-19 05:09] LABS: INR 2.82 ratio
[2016-05-19] MEDS: Pantoprazole 40 mg ER24 Tablet PO SCH (08:33)
[2016-05-19] MEDS: predniSONE 10 mg Tablet PO SCH (08:34)
[2016-05-19] MEDS: Calcium Carbonate (Oyster Shell) 500 mg Tablet PO SCH ×3 (08:35→20:36)
[2016-05-19] MEDS: HYDROmorphone 1 mg/mL Inj IVPUSH PRN ×2 (08:36→15:39)
--- NOTE | 2016-05-19 09:02 | NUR ---
Appropriate/Dialysis Pt appropriate this am, able to answer questions, understands which medications taking, understands Dialysis this am. Pt off floor at 0855 to Dialysis. Pt ate small amount of breakfast, another tray being sent to Dialysis for pt. Care continues.
--- NOTE | 2016-05-19 09:56 | DRSVH ---
PROCEDURE: X-RAY CHEST ONE VIEW, PORTABLE ([id number]) INDICATIONS: poss pneumonia TECHNIQUE: One view of the chest was acquired. COMPARISON: [facility], CR, XR CHEST 1VW (PORTABLE), 05/05/2016, 22:14. [facility], CR, XR CHEST 1VW (PORTABLE), 05/08/2015, 19:51. [facility], CR, XR CHEST 1VW (POR TABLE), 05/17/2016, 4:31. FINDINGS: Surgical changes and devices: Vascular stent present within the right upper arm incompletely visualiz ed. Lungs and pleura: Slight decrease in diffuse, widespread bilateral interstitial and airspace opacitie s. Mediastinum: Mediastinal contours appear normal. Heart size is enlarged. Bones and chest wall: No suspicious bony lesions. Overlying soft tissues appear unremarkable. IMPRESSION: Slight decrease in appearance of bilateral pulmonary opacities suggesting resolving edema and/or diffuse bilateral pneumonia. Dictated by: Errol Sánchez RRA Interpreted: Marita Jade MD on 05/19/2016 at 9:55 Transcribed by: JANNETH on 05/19/2016 at 9:56 Approved by: Marita Jade M.D. on 05/19/2016 at 11:16
--- NOTE | 2016-05-19 09:57 | NUR ---
[facility] Patient transported by staff in hospital bed with isolation precautions. technology intern notified. Reports pain in hip is 2/10. Actively talking on phone. Aware of pain of care. transfer man at bedside.
--- NOTE | 2016-05-19 14:14 | PCM.PNNEPH ---
Merlin Do DO 05/19/16 1414: Subjective Date of Service May 19, 2016 Subjective The patient was seen prior to his dialysis treatment as well as during his dialysis treatment. The patient states that his breathing well and denies any abdominal pain at this point. The patient states that he is ready to go home and he is happy to hear that nephrology believes that his kidney function is stable enough to be discharged at this point given his ongoing regular dialysis treatments as an outpatient. Exam Vital Signs Vital Sign - Last Date Time Temp Pulse Resp B/P Pulse Ox O2 Delivery O2 Flow Rate FiO2 05/19/16 08:28 36.6 79 16 135/95 95 05/19/16 08:28 Supplement Oxygen 05/19/16 04:12 4.00 Intake and Output 05/18/16 05/18/16 05/19/16 Cumulative From/Thru 14:59 22:59 06:59 05/16/16 14:48 - 05/19/16 06:08 Intake Total 657 ml 300 ml 5062 ml Output Total 0 ml 6220 ml Balance 657 ml 300 ml -1158 ml Intake Oral 657 ml 300 ml 2777 ml IV Total 1235 ml Packed Cells 1050 ml Output Urine Total 0 ml 20 ml Ultrafiltrate 6200 ml # Voids 1 3 # Bowel Movements 3 Exam General: Patient awake alert sitting up in bed side couch, mentating appropriately. Overall looks chronically ill in nature though is appropriately conversant. Eyes: Pupils equal round reactive to light, extraocular motion intact , anicteric sclera, noninjected conjunctiva HEENT: Normocephalic, atraumatic. External ears without defect. Oropharynx clear with moist mucous membranes without central cyanosis Neck: Supple with full range of motion. No jugular venous distention Cardiovascular: Regular rate and rhythm with no murmurs appreciated Pulmonary: Mild coarse breath sounds bilaterally in the bases no wheezing noted no apparent respiratory distress Abdomen: Bowel tones present. Soft, nontender, nondistended. Extremities: Bilateral lower extremity mild pitting edema. Left lower extremity with dry rough skin. No cyanosis or clubbing noted. Skin: Normal temperature and turgor Neurological: Without focal neurologic deficit, able to move all extremities Psychiatric: Normal mood and affect, Alert and oriented to person, place, and time. Lab and Diagnostics Result Diagram: 05/19/160 4/13/17 0440 Microbiology Nasal swab positive for MRSA Microbiology TANIA CULTURE BLOOD Final 05/19/16-0815 Organism 1 STREPTOCOCCUS SALIVARIUS GROUP STREPTOCOCCUS SALIVARIUS GROUP Species: salivarius ISOLATED FROM FOUR OF FOUR BOTTLES COLLECTED 05/16/16. 1. STREPTOCOCCUS SALIVARIUS GROUP M.I.C Interp --------- ------ * AMPICILLIN <=0.25 S * CEFOTAXIME <=0.12 S * CEFTRIAXONE <=0.12 S * CLINDAMYCIN R * ERYTHROMYCIN R * LEVOFLOXACIN 2 S * LINEZOLID <=2 S * PENICILLIN-G 0.25 I * VANCOMYCIN 1 S X-Rays, CTs and MRIs . X-RAY CHEST ONE VIEW, PORTABLE IMPRESSION: Moderate diffuse appearance of bilateral pulmonary opacities. This can represent diffuse edema, ARDS and/or superimposed infection such as pneumonia. Dictated by: Martha Elder M.D. on 05/16/2016 at 15:04 X-RAY CHEST ONE VIEW, PORTABLE IMPRESSION: Decrease in appearance of bilateral pulmonary opacities likely related to decreasing edema and/or diffuse bilateral pneumonia. Dictated by: Errol AVILEZ Interpreted: Marita Jade MD on 05/17/2016 at 10:23 Cardiac Echo Impressions . Echocardiogram Report Interpretation Summary There is moderate concentric left ventricular hypertrophy. The ejection fraction is estimated to be 40-45%. There is mild global hypokinesis of the left ventricle. Severe inferolateral hypokinesis. Prominent trabeculations in apex are noted. The right ventricle is mild to moderately dilated. Right ventricular systolic function is mildly reduced. The left atrium is severely dilated. There is moderate mitral regurgitation. There is mild to moderate tricuspid regurgitation. The right ventricular systolic pressure is estimated at 51 mmHg assuming a right atrial pressure of 8 mm Hg. Electronically signed by: Wisam Saha Plan Impression 40-year-old male with medical history remarkable for end-stage renal disease on chronic hemodialysis secondary lupus nephritis /SLE as well as antiphospholipid antibody syndrome with a recent history of capillaritis presents to schedule her hospital in acute respiratory distress, likely blood loss anemia and hypervolemia. 1) end-stage renal disease dialysis dependent, chronic 2) systemic lupus erythematosus 3) antiphospholipid antibody syndrome 4) acute respiratory failure 5) acute anemia 6) sepsis/gram-positive bacteremia 7) chronic systolic and diastolic heart failure Plan: 1. ESRD on HD, chronic. present on admission. active -Likely secondary to lupus nephritis -Patient was discussed extensively with his normal special effects specialist Dr. Hubbard in [place] -Patient is received hemodialysis in the first and second days of admission with a total of 6200 mL of fluid pulled off of 3 units of PRBCs given -continue dialysis on regular schedule including May 19 with 2 units PRBCs to be given 2. 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 -Low C3 and C4 complement consistent with activation of classic pathologic -Pending hemoglobin A, A2, C, F, S and variant hemoglobin, G6PD -Holding mycophenolate mofetil - hematology Dr. Grayson does not believe this patient currently has a hemolytic anemia based off of Mikki testing and recommends the patient received a workup for his chronic anemia as an outpatient wall and a healthier state including a possible bone marrow biopsy; he is currently under the impression that the patient's low reticulocyte count could be explained by myelosuppression due to sepsis. The patient is regularly seen by physicians in [place] including special effects specialist Dr. Hubbard. He likely should seek a drapery rod assembler in [place] in accordance with his regular healthcare settings. 3. Acute hypoxemic respiratory failure. Present on admission, stable -Possibly secondary to pneumonia, fluid overload, heart failure, pulmonary capillaritis -Continue supplemental oxygen when necessary -CXR daily 4. Acute on chronic normocytic anemia requiring transfusion, present on admission, active. -Review of past records indicate similar levels but possible blood loss given supratherapeutic INR (10.63) -LDH elevated 883, and Haptoglobin less than 10 make hemolysis also likely cause -3u PRBC transfusion with dialysis in hospital days 1 and 2, H&H remains low -Pending hemoglobin A, A2, C, F, S and variant hemoglobin, G6PD -2 units PRBCs to be given on May 19 with dialysis - hematology Dr. Grayson does not believe this patient currently has a hemolytic anemia based off of Mikki testing and recommends the patient received a workup for his chronic anemia as an outpatient wall and a healthier state including a possible bone marrow biopsy; he is currently under the impression that the patient's low reticulocyte count could be explained by myelosuppression due to sepsis. The patient is regularly seen by physicians in [place] including special effects specialist Dr. Hubbard. He likely should seek a drapery rod assembler in [place] in accordance with his regular healthcare settings. 5. Sepsis/bactremia, present on admission. Active -Meets criteria with HR (121), RR (48), WBC (12.8) bacteremic -Infectious disease following, recommendations are appreciated -Blood culture positive for gram-positive cocci, Streptococcus Salivarius which has good sensitivities to antibiotics including ceftriaxone, linezolid, vancomycin -Infectious disease following with current recommendations to include Antibiotics to include vancomycin as solo agent which will be dialyzed off and re-dose regularly -Primary team to give stress dose steroids -Awaiting infectious disease recommendations for discharge 6. Systolic and diastolic heart failure, present on admission. -Echo 11/2015: LV EF estimated 40-45% with mild global hypokinesis of the LV. -Repeat Echocardiogram shows EF remains stable at 40-45% From a nephrologic standpoint the patient is currently stable and is capable of being discharged home to be followed by his regular special effects specialist with regular dialysis scheduled however given his ongoing infection the primary team likely will want to confirm that he will be able to get regular antibiotic infusions with dialysis. Stepan Grande DO 05/19/16 1628: Exam Lab and Diagnostics Result Diagram: 05/19/1643905/19/16439 Plan Plan: Nephrology attending: Patient was seen with Dr. Chan and his chart was reviewed and his plan was discussed. He is being dialyzed today. 4 hours on a max dialyzer, 1, 2 potassium bath, 2 units of packed red blood cells to be given and we will try to take 2-3 kg off. Merlin Do DO May 19, 2016 14:14 Stepan Grande DO May 19, 2016 16:28
--- NOTE | 2016-05-19 14:18 | NUR ---
Dialysis note: 4 hr tx. Net UF 3100. Accessed left fistula 15 g needles without difficulty. QB 450 throughout tx. Pt refused BP cuff on upper arm to begin with but eventually agreed to move BP cuff to upper arm to get more accurate BP results. SBP in the 140s to 200 range. Pt denied pain, visual disturbances. 2 units PRBC given. pt denied chills, sweats, uncomfortable feeling through both infusions and for 20 min post infusion. Tx was extended 20 min to insure pt was stable post PRBC infusions. [place] pulled, finger point pressure x 5 min, then clamped for 15 min r/t history of site bleeding. Site secured with SS, gauze and tape. Please see DTR for complete record of VS. Report given to primary RN Gabrielle. Pt returned to floor stable.
--- NOTE | 2016-05-19 15:37 | NUR ---
Transfer Patient transferred back to room by cell stripper. certified dialysis technician notified.
--- NOTE | 2016-05-19 17:10 | PCM.PHAPRO ---
Progress Date of Service: May 19, 2016 Shortness of breath Warfarin dosing per pharmacy Indication: Hx of PE (w/ IVC filter) INR goal: 2-3 Home warfarin dose: 5 mg daily Pertinent info: - Presented with INR 10.63 on 05/16. - Corrected with vitamin K 2.5 mg PO on 05/16. - HCT/Plt remain low: 20.4/39 Date -May 17-May 18-May 19-May INR 10.6 3.63 2.52 2.82 INR change -6.97 -1.11 0.3 Warf Dose vit K 2.5 mg PO HOLD 2.5 MG XXXXXX INR is therapeutic and trending up. Will proceed cautiously. Give warfarin 1 mg PO this evening. Pharmacy to continue to monitor and dose warfarin daily. Thank you, Chacha Espana Pharmacist Chacha Espana May 19, 2016 17:10
--- NOTE | 2016-05-19 18:28 | PCM.PNMED ---
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 Hospital day 4. Overnight: No events reported Today: An awake and alert sitting in hospital bed watching program on his PC. Overall he feels very well, he would like to go home and states he was told he was going to go home today. Still endorses his chronic hip pain. Exam Vital Signs Vital Sign - Last Date Time Temp Pulse Resp B/P Pulse Ox O2 Delivery O2 Flow Rate FiO2 05/19/16 15:33 36.9 79 16 123/78 99 05/19/16 08:28 Supplement Oxygen 05/19/16 04:12 4.00 Intake and Output 05/18/16 05/18/16 05/19/16 Cumulative From/Thru 14:59 22:59 06:59 05/16/16 14:48 - 05/19/16 06:08 Intake Total 657 ml 300 ml 5062 ml Output Total 0 ml 6220 ml Balance 657 ml 300 ml -1158 ml Intake Oral 657 ml 300 ml 2777 ml IV Total 1235 ml Packed Cells 1050 ml Output Urine Total 0 ml 20 ml Ultrafiltrate 6200 ml # Voids 1 3 # Bowel Movements 3 Exam General: Patient awake alert sitting up in bed side couch, mentating appropriately. Appropriately conversant HEENT: Normocephalic, atraumatic. External ears without defect. Pupils equal, round, and reactive to light and accommodation. Neck: Supple with full range of motion. No jugular venous distention Cardiovascular: Regular rate and rhythm with no murmurs appreciated Pulmonary: Coarse bilaterally. Improved from yesterday. No use of accessory muscles, good air movement.s Abdomen: Bowel tones present. Soft, nontender, nondistended. Extremities: Bilateral lower extremity mild pitting edema. Left lower extremity with ichthyotic skin. Skin: Normal temperature, turgor, and texture Neurological: Cranial nerves grossly intact. Psychiatric: Alert and oriented to person, place, and time. IVs and Medications Medications Reviewed: Medications were reviewed in detail Lab and Diagnostics Result Diagram: 05/19/160 05/19/16 0440 Microbiology Nasal swab positive for MRSA Microbiology TANIA CULTURE BLOOD Final 05/19/16-814 Organism 1 STREPTOCOCCUS SALIVARIUS GROUP STREPTOCOCCUS SALIVARIUS GROUP Species: salivarius ISOLATED FROM FOUR OF FOUR BOTTLES COLLECTED 05/16/16. 1. STREPTOCOCCUS SALIVARIUS GROUP M.I.C Interp --------- ------ * AMPICILLIN <=0.25 S * CEFOTAXIME <=0.12 S * CEFTRIAXONE <=0.12 S * CLINDAMYCIN R * ERYTHROMYCIN R * LEVOFLOXACIN 2 S * LINEZOLID <=2 S * PENICILLIN-G 0.25 I * VANCOMYCIN 1 S X-Rays, CTs and MRIs . X-RAY CHEST ONE VIEW, PORTABLE IMPRESSION: Moderate diffuse appearance of bilateral pulmonary opacities. This can represent diffuse edema, ARDS and/or superimposed infection such as pneumonia. Dictated by: Martha Elder M.D. on 05/16/2016 at 15:04 X-RAY CHEST ONE VIEW, PORTABLE IMPRESSION: Decrease in appearance of bilateral pulmonary opacities likely related to decreasing edema and/or diffuse bilateral pneumonia. Dictated by: Errol AVILEZ Interpreted: Marita Jade MD on 05/17/2016 at 10: 23 X-RAY CHEST ONE VIEW, PORTABLE IMPRESSION: Slight decrease in appearance of bilateral pulmonary opacities suggesting resolving edema and/or diffuse bilateral pneumonia. Dictated by: Errol AVILEZ Interpreted: Marita Jade MD on 05/19/2016 at 9:55 Cardiac Echo Impressions . Echocardiogram Report Interpretation Summary There is moderate concentric left ventricular hypertrophy. The ejection fraction is estimated to be 40-45%. There is mild global hypokinesis of the left ventricle. Severe inferolateral hypokinesis. Prominent trabeculations in apex are noted. The right ventricle is mild to moderately dilated. Right ventricular systolic function is mildly reduced. The left atrium is severely dilated. There is moderate mitral regurgitation. There is mild to moderate tricuspid regurgitation. The right ventricular systolic pressure is estimated at 51 mmHg assuming a right atrial pressure of 8 mm Hg. Electronically signed by: Wisam Saha Assessment & Plan Patient is a 40-year-old male with history of PE and DVT s/p IVC filter placement, lupus nephritis, ESRD on hemodialysis, congestive heart failure, antiphospholipid syndrome, CVA, and recent hospitalization for pulmonary capillaritis presenting with shortness of breath. Hospital day 4. 1. Sepsis/bactremia, present on admission. Active -Meets criteria with HR (121), RR (48), WBC (12.8) bacteremic -Infectious disease following, recommendations are appreciated -Antibiotics to include ceftriaxone 2 g daily -Prednisone 10 mg daily -Lactic acid normal -Procalcitonin trending down 4.36 today from 5.12 -Blood culture positive for Streptococcus salivaris -ID Considering HERNESTO 2. Acute on chronic normocytic anemia requiring transfusion, present on admission, active. -Review of past records indicate similar levels but possible blood loss given supratherapeutic INR (10.63) -LDH elevated 883, -Haptoglobin less than 10 -2u PRBC transfusion with dialysis, H&H remains low -Vitamin K 2.5mg PO -Pending hemoglobin A, A2, C, F, S and variant hemoglobin, G6PD -Oncology consult to, their recommendations are appreciated -Threshold for transfusion only if hemoglobin less than 6.5 3. Thrombocytopenia. Presently on admission. Ongoing -Most likely secondary to autoimmune disease -No heparin -Transfuse if any signs of active bleeding or if platelets less than 10 4. Supratherapeutic INR, present on admission. active -INR 10.63 -Uncertain etiology -Vitamin K 2.5mg PO -Repeat INR 3.63 -Pharmacy to dose Coumadin 5. Acute hypoxemic respiratory failure. Present on admission, stable -Possibly secondary to pneumonia, fluid overload, heart failure, pulmonary embolism, pulmonary capillaritis -Continue supplemental oxygen when necessary -Pending studies: UA, legionella and strep pneumo urine ag, sputum culture -Respiratory PCR panel negative -CXR daily 6. ESRD on HD, chronic. present on admission. active -Likely secondary to lupus nephritis -Currently undergoing dialysis per nephrology -Nephrology following. Recommendations per nephrology appreciated 7. Systolic and diastolic heart failure, present on admission. -Echo 11/2015: LV EF estimated 40-45% with mild global hypokinesis of the LV. -Repeat Echocardiogram as above 8. Elevated troponin, present on admission, active. -Troponin 0.067 in setting of ESRD -Similar troponin levels during past hospitalizations -Continue to trend 9. Chronic hypertension with hypertensive urgency. Present on admission. Ongoing -BP 204/91 on arrival to ED -Remains hypertensive -Continued home carvedilol 50 mg twice a day 10. 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 -Holding mycophenolate mofetil -Dr. Grayson hematology following recommends outpatient follow-up with possible bone marrow biopsy to follow 2. 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 -Low C3 and C4 complement consistent with activation of classic pathologic -Pending hemoglobin A, A2, C, F, S and variant hemoglobin, G6PD -Holding mycophenolate mofetil 11. History of thromboembolic disease s/p IVC filter, present on admission. Stable. -D-dimer elevated (1.18), possibly secondary to sepsis -PE less likely given supratherapeutic INR (10.63) -Holding warfarin. Giving vitamin K 2.5mg PO -Warfarin and INR as in #4, INR Disposition: Patient will remain inpatient status secondary to ongoing treatment plan with nephrology as well as infectious workup. CODE STATUS: Full code DVT prophylaxis is not indicated secondary to supratherapeutic INR GI prophylaxis PPI Pain acetaminophen when necessary, Dilaudid for breakthrough GI Prophylaxis: Proton Pump Inhibitor VTE Prophylaxis: Other (Supratherapeutic INR) Resuscitation Status: CPR: Attempt Resuscitation Attending Statement The patient was seen and examined together with Dr. Granda on 05/19/16 and I agree with the history, exam and plan as outlined in the note above. ZAY GRANDA DO May 19, 2016 18:28 Momo Swift MD May 19, 2016 18:46
[2016-05-19] MEDS: cefTRIAXone Inj 2,000 MG in Dextrose 5% Minibag Plus 50 ML IV SCH (20:36)
--- NOTE | 2016-05-19 22:07 | PROG NOTE ---
[address] [address] PROGRESS NOTE PATIENT: TAMMY SENIOR : 1975 MR#: [id number] ADMIT: 05/16/2016 JOB ID: [id number] DATE: 05/19/2016 REASON FOR FOLLOWUP: High-grade Strep viridans bacteremia. INTERVAL HISTORY: Recall that this is our 40-year-old gentleman with a very complex medical history revolving around lupus and antiphospholipid syndrome with end-stage renal disease. He has a high-grade Strep viridans bacteremia of unknown etiology, and we are attempting to sort this out. Today, the patient reports he is gradually feeling better. No fevers, chills, or sweats. He has a bit of a dry cough but no productive cough. No chest pain. No nausea, vomiting, diarrhea, or headache. PHYSICAL EXAMINATION: Physical exam reveals an afebrile gentleman, in no acute distress. Temp 36.6, pulse 77, respiratory rate 16, blood pressure 135/95. He is in no acute distress and saturating well on low-flow nasal oxygen. His mental status is clear. Eyes without conjunctival hemorrhage. Oral cavity with no palatal petechia. Lungs: Fairly clear. Cardiac tones with soft 1/6 murmur. Abdomen: Soft and nontender. No peripheral stigmata of endocarditis on the hands. LABORATORIES: Include a white count of 3400, platelet count 39,000, creatinine is 7.57. That was done just before dialysis today, though his LFTs are normal. Procalcitonin is bouncing around 4. Vanco trough 22. Strongyloides and QuantiFERON Gold are pending. Blood cultures are negative. Nasal smear was positive for MRSA, but blood cultures from admission grew Strep salivarius, 4/4 bottles. The interesting part about this organism is it is intermediate to penicillin with an TANIA of 0.25. It is very susceptible to ceftriaxone however. A chest x-ray done today shows decreasing pulmonary edema. Recall that the transthoracic echo did not show evidence of endocarditis, but there were valvular abnormalities including moderate mitral regurg, moderate tricuspid regurg. IMPRESSION: The concern with this patient continues to be the possibility of endocarditis. He is a very complex patient with pulmonary capillaritis as well as avascular necrosis of his hip and end-stage renal disease. RECOMMENDATIONS: 1. Will transition at this point to ceftriaxone as our sole antimicrobial agent. 2. I have asked the lab to set up a cefazolin susceptibility to see whether that may be an option in this dialysis patient. 3. A transesophageal echo will be needed to determine our final duration of therapy and help us to understand whether or not this patient does in fact have endocarditis or not.
[2016-05-20] VITALS (7 sets, daily range): BP systolic 163–197; BP diastolic 97–124; PULSE 64–82; RESP 16–20; O2SAT 93–98
[2016-05-20] MEDS: HYDROmorphone 1 mg/mL Inj IVPUSH PRN ×3 (02:04→17:21)
[2016-05-20 04:51] LABS: BASOPHILS % (AUTO) 0.3 % (0-3); EOSINOPHILS % (AUTO) 2.4 % (0-5); Mean Corpuscular Hemoglobin 29.4 pg (27.0-35.0); Mean Corpuscular Volume 90.2 fL (81-100); NEUTROPHILS % (AUTO) 72.9 % (40-74); Platelet Count 47 bil/L (150-400)
[2016-05-20 05:00] LABS: INR 2.23 ratio
[2016-05-20] MEDS ORDERED: Vancomycin Serum Trough XX ONE (05:00)
[2016-05-20 05:15] LABS: Magnesium 1.7 mg/dL (1.6-2.6)
--- NOTE | 2016-05-20 07:27 | NUR ---
Shift note uneventful night medicated for pain only twice BP trending up asymptomatic
[2016-05-20] MEDS: Ondansetron 2 mg/mL 2 mL Inj IVPUSH PRN (09:21)
[2016-05-20] MEDS: Pantoprazole 40 mg ER24 Tablet PO SCH (09:28)
[2016-05-20] MEDS: Calcium Carbonate (Oyster Shell) 500 mg Tablet PO SCH ×3 (09:28→20:54)
[2016-05-20] MEDS: predniSONE 10 mg Tablet PO SCH (09:28)
--- NOTE | 2016-05-20 09:51 | PCM.PNMED ---
Subjective Date of Service May 20, 2016 Subjective Patient is a 40-year-old male with history of PE and DVT s/p IVC filter placement, lupus nephritis, ESRD on hemodialysis, congestive heart failure, antiphospholipid syndrome, CVA, and recent hospitalization for pulmonary capillaritis presenting with shortness of breath. Hospital day 4. Overnight: No events reported, required pain medications. Blood pressure continued to elevate the patient remained in a symptom medic Today: An awake and alert sitting side of hospital bed, interview and examination done with the infectious disease he states that he feels okay though endorses this chronic right hip pain. Jokingly Stating he believes his anemia is from the hospital food. Overall he remains in good spirits and has no specific complaints aside from the right hip. Exam Vital Signs Vital Sign - Last Date Time Temp Pulse Resp B/P Pulse Ox O2 Delivery O2 Flow Rate FiO2 05/20/16 09:18 36.8 82 20 197/120 96 Room Air 05/20/16 03:59 5.00 Intake and Output 05/19/16 05/19/16 05/20/16 Cumulative From/Thru 15:00 23:00 07:00 05/16/16 14:48 - 05/20/16 05:40 Intake Total 520 ml 227 ml 5809 ml Output Total 3100 ml 0 ml 0 ml 9320 ml Balance -3100 ml 520 ml 227 ml -3511 ml Intake Oral 520 ml 227 ml 3524 ml IV Total 1235 ml Packed Cells 1050 ml Output Urine Total 0 ml 0 ml 20 ml Ultrafiltrate 3100 ml 9300 ml # Voids 3 # Bowel Movements 3 Exam General: Patient awake alert sitting up in light of bed, mentating appropriately. 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 External ears without defect. Pupils equal, round, and reactive to light and accommodation. Neck: Supple with full range of motion. Cardiovascular: Regular rate and rhythm with no murmurs appreciated. Pulmonary: Clear to auscultation bilaterally. No use of accessory muscles, good air movement. Abdomen: Bowel tones present. Soft, nontender, nondistended. Skin: Normal temperature, turgor, and texture Neurological: Cranial nerves grossly intact. Psychiatric: Alert and oriented to person, place, and time. IVs and Medications Medications Reviewed: Medications were reviewed in detail Lab and Diagnostics Result Diagram: 05/20/16 0430 05/20/16 0430 Microbiology Nasal swab positive for MRSA Microbiology TANAI CULTURE BLOOD Final 05/19/16 Organism 1 STREPTOCOCCUS SALIVARIUS GROUP STREPTOCOCCUS SALIVARIUS GROUP Species: salivarius ISOLATED FROM FOUR OF FOUR BOTTLES COLLECTED 05/16/16. 1. STREPTOCOCCUS SALIVARIUS GROUP M.I.C Interp --------- ------ * AMPICILLIN <=0.25 S * CEFOTAXIME <=0.12 S * CEFTRIAXONE <=0.12 S * CLINDAMYCIN R * ERYTHROMYCIN R * LEVOFLOXACIN 2 S * LINEZOLID <=2 S * PENICILLIN-G 0.25 I * VANCOMYCIN 1 S X-Rays, CTs and MRIs . X-RAY CHEST ONE VIEW, PORTABLE IMPRESSION: Moderate diffuse appearance of bilateral pulmonary opacities. This can represent diffuse edema, ARDS and/or superimposed infection such as pneumonia. Dictated by: Martha Elder M.D. on 05/16/2016 at 15:04 X-RAY CHEST ONE VIEW, PORTABLE IMPRESSION: Decrease in appearance of bilateral pulmonary opacities likely related to decreasing edema and/or diffuse bilateral pneumonia. Dictated by: Errol AVILEZ Interpreted: Marita Jade MD on 05/17/2016 at 10: 23 X-RAY CHEST ONE VIEW, PORTABLE IMPRESSION: Slight decrease in appearance of bilateral pulmonary opacities suggesting resolving edema and/or diffuse bilateral pneumonia. Dictated by: Errol AVILEZ Interpreted: Marita Jade MD on 05/19/2016 at 9:55 Cardiac Echo Impressions . Echocardiogram Report Interpretation Summary There is moderate concentric left ventricular hypertrophy. The ejection fraction is estimated to be 40-45%. There is mild global hypokinesis of the left ventricle. Severe inferolateral hypokinesis. Prominent trabeculations in apex are noted. The right ventricle is mild to moderately dilated. Right ventricular systolic function is mildly reduced. The left atrium is severely dilated. There is moderate mitral regurgitation. There is mild to moderate tricuspid regurgitation. The right ventricular systolic pressure is estimated at 51 mmHg assuming a right atrial pressure of 8 mm Hg. Electronically signed by: Wisam Saha Assessment & Plan Patient is a 40-year-old male with history of PE and DVT s/p IVC filter placement, lupus nephritis, ESRD on hemodialysis, congestive heart failure, antiphospholipid syndrome, CVA, and recent hospitalization for pulmonary capillaritis presenting with shortness of breath. Hospital day 5. 1. Sepsis/bactremia, present on admission. Active -Meets criteria with HR (121), RR (48), WBC (12.8) bacteremic -Infectious disease following, recommendations are appreciated -Antibiotics to include ceftriaxone 2 g daily, ID considering addition of Gentamicin -Prednisone 10 mg daily -Lactic acid normal -Procalcitonin trending down 4.36 today from 5.12 -Blood culture positive for Streptococcus salivaris -HERNESTO ordered for Monday per cardiology -NPO after midnight Monday05/22/16 for HERNESTO Monday05/23/2016 2. Acute on chronic normocytic anemia requiring transfusion, present on admission, active. -Review of past records indicate similar levels but possible blood loss given supratherapeutic INR (10.63) -LDH elevated 883, -Haptoglobin less than 10 -2u PRBC transfusion with dialysis, H&H remains low -Vitamin K 2.5mg PO -Pending hemoglobin A, A2, C, F, S and variant hemoglobin, G6PD -Oncology consult to, their recommendations are appreciated -Threshold for transfusion only if hemoglobin less than 6.5 3. Thrombocytopenia. Presently on admission. Ongoing -Most likely secondary to autoimmune disease -No heparin -Transfuse if any signs of active bleeding or if platelets less than 10 4. Supratherapeutic INR, present on admission. active -INR 10.63 -Uncertain etiology -Vitamin K 2.5mg PO -Repeat INR 3.63 -Pharmacy to dose Coumadin 5. Acute hypoxemic respiratory failure. Present on admission, stable -Possibly secondary to pneumonia, fluid overload, heart failure, pulmonary embolism, pulmonary capillaritis -Continue supplemental oxygen when necessary -Pending studies: UA, legionella and strep pneumo urine ag, sputum culture -Respiratory PCR panel negative -CXR daily 6. ESRD on HD, chronic. present on admission. active -Likely secondary to lupus nephritis -Currently undergoing dialysis per nephrology -Nephrology following. Recommendations per nephrology appreciated 7. Systolic and diastolic heart failure, present on admission. -Echo 11/2015: LV EF estimated 40-45% with mild global hypokinesis of the LV. -Repeat Echocardiogram as above 8. Elevated troponin, present on admission, active. -Troponin 0.067 in setting of ESRD -Similar troponin levels during past hospitalizations -Continue to trend 9. Chronic hypertension with hypertensive urgency. Present on admission. Ongoing -BP 204/91 on arrival to ED -Remains hypertensive - Per nephrology recommendations - Stop home carvedilol 50 mg twice a day - Start Labetalol 300 BID - Start spironolactone 25mg BID 10. 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 -Holding mycophenolate mofetil -Dr. Grayson hematology following recommends outpatient follow-up with possible bone marrow biopsy to follow 2. 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 -Low C3 and C4 complement consistent with activation of classic pathologic -Pending hemoglobin A, A2, C, F, S and variant hemoglobin, G6PD -Holding mycophenolate mofetil 11. History of thromboembolic disease s/p IVC filter, present on admission. Stable. -D-dimer elevated (1.18), possibly secondary to sepsis -PE less likely given supratherapeutic INR (10.63) -Holding warfarin. Giving vitamin K 2.5mg PO -Warfarin and INR as in #4, INR Disposition: Patient will remain inpatient status secondary to ongoing treatment plan for bacteremia and possible endocarditis, HERNESTO scheduled Monday. Patient will need dialysis over the weekend. CODE STATUS: Full code DVT prophylaxis is not indicated secondary to supratherapeutic INR GI prophylaxis PPI Pain acetaminophen when necessary, Dilaudid for breakthrough GI Prophylaxis: Proton Pump Inhibitor VTE Prophylaxis: Other (Supratherapeutic INR) Resuscitation Status: CPR: Attempt Resuscitation Attending Statement The patient was seen and examined together with Dr. Granda on 05/20/16 and I agree with the history, exam and plan as outlined in the note above. ZAY GRANDA DO May 20, 2016 09:51 Momo Swift MD May 20, 2016 13:44
--- NOTE | 2016-05-20 10:27 | NUR ---
Social Work Note: Continued D/C Planning Data& Assessment: EMR reviewed. Pt is on day 4 of hospitalization for respiratory distress. Pt is not medically stable, anticipate hospitalization through the weekend. Per MD in rounds, pt to receive HERNESTO, possibly Monday. STEPHANIE spoke with Alexandra, staff at [facility], regarding pt's transfer of care to [facility] from the [facility] in [place]. Pt has not initiated this process. Alexandra states she will follow up with pt during hospitalization regarding this transfer. STEPHANIE has provided pt with information on [facility] care giving, application for disabled parking permit, application for [employer], financial assistance application, and $4 medication list for [facility]. SW will follow for discharge needs and orders for O2 with [facility] to establish consistent oxygen access at discharge. Plan: Anticipated discharge home via POV when medically ready. SW to follow to ensure [facility] obtains oxygen orders at time of discharge. SW to follow for [facility] caregiving application if appropriate. SW to continue to follow. Natali Sousa MSW
--- NOTE | 2016-05-20 11:07 | PROG NOTE ---
[address] [address] PROGRESS NOTE PATIENT: TAMMY SENIOR : 1975 MR#: [id number] ADMIT: 05/16/2016 JOB ID: [id number] DATE: 05/20/2016 INFECTIOUS DISEASE FOLLOWUP NOTE: REASON FOR FOLLOWUP: High-grade intermediate Strep viridans bacteremia in a patient with lupus, end-stage renal disease, antiphospholipid syndrome and pulmonary capillaritis. INTERVAL HISTORY: Overnight, the patient has had difficulties with blood pressure and as we evaluate this patient this morning, the nurse is administering meds for a sustained blood pressure of 200/120. Despite this impressive blood pressure, the patient says he has no headache, chest pain, or shortness of breath, and no acute change in his chronically somewhat impaired vision. The patient also denies having fevers, chills, or sweats. He has no significant cough or shortness of breath at this point, and no significant GI symptoms. He believes many of his problems including worsening anemia are likely related to flavorless hospital food. PHYSICAL EXAMINATION: Reveals a gentleman who is sitting up, awake, alert, conversant and even joking at times despite his very high blood pressure. He has been afebrile all night. Temp 36.8, pulse 82, respiratory rate 20, blood pressure 197/120 at this moment, saturating well on room air. His mental status is completely normal. Eyes without notable abnormality. Oral cavity has two shallow ulcerations, one on the right hard palate and the other one on the underside of the left tongue. The patient tells us he had many more of these oral ulcers fairly recently and they have been improving. Recall he put ice on those and chewed up a lot of ice in an attempt to get rid of these ulcers. His lungs are quite clear posteriorly today. Cardiac tones with a 1/6 murmur heard best along the left lower sternal border with a poor-quality stethoscope. His abdomen was completely benign. He has no peripheral stigmata of endocarditis. LABORATORIES: Include white count 3400 today. Creatinine 3.92. LFT normal. Procalcitonin continues to slide, currently 2.87, down from a peak of 5.12. Urine legionella is negative. Strongyloides and QuantiFERON Gold still pending. Recall that the patient had multiple positive blood cultures for Strep salivaris with a penicillin TANIA of 0.25 when he came in on the . Followup blood cultures on the remain negative, and he was nasal MRSA smear positive. Chest radiograph done yesterday showed decrease in what appeared to be pulmonary edema. IMPRESSION: This is a difficult case of a young man with really an overwhelming collection of medical problems stemming from lupus and renal failure. He came in with a febrile picture and had 4/4 blood cultures growing Strep salivaris with an intermediate susceptibility to penicillin. At this point, he is improving from an infectious disease point of view on ceftriaxone. I have not added gentamicin for synergistic therapy of intermediately resistant Strep viridans endocarditis, as we do not yet have proof of endocarditis based upon a transesophageal echo. We await the transesophageal echo. RECOMMENDATIONS: 1. Will continue with ceftriaxone as her sole antibiotic. I would not add gentamicin empirically without knowledge of endocarditis because of the possibility of ototoxicity and other complications. 2. I will continue to work with the Lab to try and get a cefazolin susceptibility but apparently, this will be technically difficult, as the CLSI no longer recommend such studies. 3. We await the HERNESTO, and I have discussed this personally this morning with Cardiology. 4. If the HERNESTO turns out to be negative for endocarditis, we will probably treat him for about 10 days for this bacteremia and assume that it came from the sores in his mouth which were probably due to his lupus. If, on the other hand, he has endocarditis, he will need a prolonged course of beta lactam on a daily basis plus aminoglycosides administered with dialysis.
[2016-05-20 11:09] LABS: Hgb A 93.5 % (94.0-98.0)
--- NOTE | 2016-05-20 13:14 | NUR ---
Nausea/BP Pt stated he was nauseous prior to VS and medication administration. BP 186/124. Recheck 197/120 x two. MD in room. Administered Zofran 4mg. Pt eyes puffy denies headache. Machine Plaster Mixer present. Pt stated he felt his eyes puffy. Care continues.
--- NOTE | 2016-05-20 15:03 | PCM.PHAPRO ---
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 Significant history for SLE with nephritis and antiphospholipid syndrome, CHF, ESRD. Active problems include acute on chronic anemia with thrombocytopenia. Date May 17-May 18-May 19-May 20-May 15-May 16-May 17-May 18-May INR 10.6 3.63 2.52 2.82 2.23 INR change -6.97 -1.11 0.3 -0.59 Warf Dose HOLD 2.5 MG 1 MG 2.5 a/ Reduced warfarin tolerance, likely multifactorial, Bactrim use COIL WINDER HAND may have been contributed INR on presentation. p/ To receive 2.5mg today, INR in am /gsf Oscar Cardona S Pharm D May 20, 2016 15:03
[2016-05-20] MEDS: cefTRIAXone Inj 2,000 MG in Dextrose 5% Minibag Plus 50 ML IV SCH (16:46)
--- NOTE | 2016-05-20 20:11 | NUR ---
BP/Dialysis Patient continues to have hypertension: BP 167/97, 167/105. aware. Dialysis Monday. Care continues.
[2016-05-21] VITALS (10 sets, daily range): BP systolic 150–185; BP diastolic 86–120; PULSE 66–76; RESP 16–22; O2SAT 96–100
[2016-05-21] MEDS: HYDROmorphone 1 mg/mL Inj IVPUSH PRN ×4 (00:21→20:54)
[2016-05-21 04:21] LABS: BASOPHILS % (AUTO) 0.3 % (0-3)
[2016-05-21 04:24] LABS: EOSINOPHILS % (AUTO) 3.1 % (0-5); MONOCYTES % (AUTO) 11.7 % (4-12); Mean Corpuscular Hemoglobin 29.9 pg (27.0-35.0); Mean Corpuscular Volume 90.6 fL (81-100); NEUTROPHILS % (AUTO) 64.2 % (40-74); Platelet Count 76 bil/L (150-400)
[2016-05-21 04:33] LABS: INR 1.84 ratio
--- NOTE | 2016-05-21 06:42 | NUR ---
Respiratory/BPs Pt SpO2 >92% on RA at times. Pt either used 11L oxymask or 3.5L NC of supplemental O2. Pt's BP continues to be HTN with SBP in the 170s-180s. Pt is to have dialysis today and pt said that their BP will go down once they are done with dialysis.
--- NOTE | 2016-05-21 08:31 | DRSVH ---
PROCEDURE: X-RAY CHEST ONE VIEW, PORTABLE ([id number]) INDICATIONS: Poss Pneumonia TECHNIQUE: One view of the chest was acquired. COMPARISON: [facility], CR, XR CHEST 1VW (PORTABLE), 05/19/2016, 5:10. FINDINGS: Surgical changes and devices: An endovascular stent is projected over the lateral right chest wall, l ikely within the right upper extremity. Lungs and pleura: Diffuse patchy pulmonary opacities are present throughout the right lung, similar i n extent to the study dated . Mild, focal pulmonary radiopacities are also present in the le ft midlung as before. No pleural effusion or pneumothorax. Mediastinum: Mediastinal contours appear normal. Heart size is mildly enlarged. Bones and chest wall: No suspicious bony lesions. Overlying soft tissues appear unremarkable. IMPRESSION: 1. Right greater than left, patchy pulmonary opacities, suspicious for pneumonia. Differential consid erations include fluid overload in the setting of cardiomegaly. Short interval followup is recommende d to ensure resolution of this finding and exclude underlying pulmonary pathology. Dictated by: Marita Jade M.D. on 05/21/2016 at 8:28 Approved by: Marita Jade M.D. on 05/21/2016 at 8:29
[2016-05-21] MEDS: predniSONE 10 mg Tablet PO SCH (08:59)
[2016-05-21] MEDS: Pantoprazole 40 mg ER24 Tablet PO SCH (08:59)
[2016-05-21] MEDS: Calcium Carbonate (Oyster Shell) 500 mg Tablet PO SCH ×3 (09:02→20:55)
--- NOTE | 2016-05-21 09:13 | NUR ---
BP 185/117; Dialysis planned this a.m.
--- NOTE | 2016-05-21 14:38 | PCM.PNNEPH ---
Subjective Date of Service May 21, 2016 Subjective The patient continues to do well and apparently is awaiting placement. He denies any chest pain shortness of breath cough or wheezing. His hemoglobin is stable at 8.8 and his blood pressure is good. Exam Vital Signs Vital Sign - Last Date Time Temp Pulse Resp B/P Pulse Ox O2 Delivery O2 Flow Rate FiO2 05/21/16 11:33 72 05/21/16 09:10 Supplement Oxygen 05/21/16 09:05 37.0 18 185/117 100 3.00 Intake and Output 05/20/16 05/20/16 05/21/16 Cumulative From/Thru 14:59 22:59 06:59 05/16/16 14:48 - 05/21/16 06:23 Intake Total 683 ml 600 ml 7092 ml Output Total 9320 ml Balance 683 ml 600 ml -2228 ml Intake Oral 683 ml 600 ml 4807 ml IV Total 1235 ml Packed Cells 1050 ml Output Urine Total 20 ml Ultrafiltrate 9300 ml # Voids 1 1 5 # Bowel Movements 3 Exam Neck is supple without adenopathy, thyromegaly, or jugular venous distention. Lungs are clear to auscultation. Heart was regular and rhythmical with a soft systolic murmur. Abdomen soft without any tenderness rebound guarding masses or hepatosplenomegaly. Extremities do not show any evidence of any clubbing cyanosis or edema. Skin turgor is good and there is no evidence of any rashes. Lab and Diagnostics Result Diagram: 05/21/165 05/21/16 0405 Microbiology Nasal swab positive for MRSA Microbiology TANIA CULTURE BLOOD Final 05/19/16-0815 Organism 1 STREPTOCOCCUS SALIVARIUS GROUP STREPTOCOCCUS SALIVARIUS GROUP Species: salivarius ISOLATED FROM FOUR OF FOUR BOTTLES COLLECTED 05/16/16. 1. STREPTOCOCCUS SALIVARIUS GROUP M.I.C Interp --------- ------ * AMPICILLIN <=0.25 S * CEFOTAXIME <=0.12 S * CEFTRIAXONE <=0.12 S * CLINDAMYCIN R * ERYTHROMYCIN R * LEVOFLOXACIN 2 S * LINEZOLID <=2 S * PENICILLIN-G 0.25 I * VANCOMYCIN 1 S X-Rays, CTs and MRIs . X-RAY CHEST ONE VIEW, PORTABLE IMPRESSION: Moderate diffuse appearance of bilateral pulmonary opacities. This can represent diffuse edema, ARDS and/or superimposed infection such as pneumonia. Dictated by: Martha Elder M.D. on 05/16/2016 at 15:04 X-RAY CHEST ONE VIEW, PORTABLE IMPRESSION: Decrease in appearance of bilateral pulmonary opacities likely related to decreasing edema and/or diffuse bilateral pneumonia. Dictated by: Errol AVILEZ Interpreted: Marita Jade MD on 05/17/2016 at 10: 23 X-RAY CHEST ONE VIEW, PORTABLE IMPRESSION: Slight decrease in appearance of bilateral pulmonary opacities suggesting resolving edema and/or diffuse bilateral pneumonia. Dictated by: Errol AVILEZ Interpreted: Marita Jade MD on 05/19/2016 at 9:55 Cardiac Echo Impressions . Echocardiogram Report Interpretation Summary There is moderate concentric left ventricular hypertrophy. The ejection fraction is estimated to be 40-45%. There is mild global hypokinesis of the left ventricle. Severe inferolateral hypokinesis. Prominent trabeculations in apex are noted. The right ventricle is mild to moderately dilated. Right ventricular systolic function is mildly reduced. The left atrium is severely dilated. There is moderate mitral regurgitation. There is mild to moderate tricuspid regurgitation. The right ventricular systolic pressure is estimated at 51 mmHg assuming a right atrial pressure of 8 mm Hg. Electronically signed by: Wisam Saha Plan Impression Impression #1 end-stage renal disease dialysis dependent #2 antiphospholipid antibody syndrome with acute hemolytic anemia Recommendations #1 the patient's dialyzed today for 4 hours on max dialyzer, 2 potassium bath, no heparin, will try to take 2-3 L of fluid off. Stepan Grande DO May 21, 2016 14:37
--- NOTE | 2016-05-21 14:50 | NUR ---
Dialysis note: 4 hours tx 3000 ml net UF Right upper arm AV fistula Pls see DTR for VS details Qb 450 No heparin given O2 @ 3L via NC on Tolerated tx, slept at intervals Fistula needle sites clotted in 15 min Report given to Steff Costa RN Stable condition at end of tx
--- NOTE | 2016-05-21 15:08 | NUR ---
Pt arrived ot MOC: Pt arrived to [facility] for dialysis treatment @0950. Pt appeared stable at time of arrival. Report obtained form Arminda Bowman RN. Pt completed treatment and returned to [facility] room 2029. scheme technician aware of transfer. Pt's primary nurse busy with another pt and will call for report when able.
[2016-05-21] MEDS: cefTRIAXone Inj 2,000 MG in Dextrose 5% Minibag Plus 50 ML IV SCH (15:42)
--- NOTE | 2016-05-21 16:33 | PCM.PNMED ---
Subjective Date of Service May 21, 2016 Subjective Overnight: Patient remained with saturations in the mid to low 90s on room air and with supplemental O2. Continue to be hypertensive. Today: At time of interview patient just returning from dialysis, resting in bed somnolent and sleepy. States he feels fine and is in no acute pain. Exam Vital Signs Vital Sign - Last Date Time Temp Pulse Resp B/P Pulse Ox O2 Delivery O2 Flow Rate FiO2 05/21/16 11:33 72 05/21/16 09:10 Supplement Oxygen 05/21/16 09:05 37.0 18 185/117 100 3.00 Intake and Output 05/20/16 05/20/16 05/21/16 Cumulative From/Thru 15:00 23:00 07:00 05/16/16 14:48 - 05/21/16 06:23 Intake Total 683 ml 600 ml 7092 ml Output Total 9320 ml Balance 683 ml 600 ml -2228 ml Intake Oral 683 ml 600 ml 4807 ml IV Total 1235 ml Packed Cells 1050 ml Output Urine Total 20 ml Ultrafiltrate 9300 ml # Voids 1 1 5 # Bowel Movements 3 Exam General: Patient laying in bed sleeping, arousable to voice. Appropriately interactive and conversant, though very tired HEENT: Normocephalic, atraumatic. External ears without defect. Pupils equal, round, and reactive to light and accommodation. Neck: Supple with full range of motion. Cardiovascular: Regular rate and rhythm with soft systolic murmur Pulmonary: Clear to auscultation bilaterally. No use of accessory muscles, good air movement. Abdomen: Bowel tones present. Soft, nontender, nondistended. Skin: Normal temperature, turgor, and texture Neurological: Cranial nerves grossly intact. Psychiatric: Alert and oriented to person, place, and time. IVs and Medications Medications Reviewed: Medications were reviewed in detail Lab and Diagnostics Result Diagram: 05/21/1640405/21/16404 Microbiology Nasal swab positive for MRSA Microbiology TANIA CULTURE BLOOD Final 05/19/16-0815 Organism 1 STREPTOCOCCUS SALIVARIUS GROUP STREPTOCOCCUS SALIVARIUS GROUP Species: salivarius ISOLATED FROM FOUR OF FOUR BOTTLES COLLECTED 05/16/16. 1. STREPTOCOCCUS SALIVARIUS GROUP M.I.C Interp --------- ------ * AMPICILLIN <=0.25 S * CEFOTAXIME <=0.12 S * CEFTRIAXONE <=0.12 S * CLINDAMYCIN R * ERYTHROMYCIN R * LEVOFLOXACIN 2 S * LINEZOLID <=2 S * PENICILLIN-G 0.25 I * VANCOMYCIN 1 S X-Rays, CTs and MRIs . X-RAY CHEST ONE VIEW, PORTABLE IMPRESSION: Moderate diffuse appearance of bilateral pulmonary opacities. This can represent diffuse edema, ARDS and/or superimposed infection such as pneumonia. Dictated by: Martha Elder M.D. on 05/16/2016 at 15:04 X-RAY CHEST ONE VIEW, PORTABLE IMPRESSION: Decrease in appearance of bilateral pulmonary opacities likely related to decreasing edema and/or diffuse bilateral pneumonia. Dictated by: Errol AVILEZ Interpreted: Marita Jade MD on 05/17/2016 at 10: 23 X-RAY CHEST ONE VIEW, PORTABLE IMPRESSION: Slight decrease in appearance of bilateral pulmonary opacities suggesting resolving edema and/or diffuse bilateral pneumonia. Dictated by: Errol AVILEZ Interpreted: Marita Jade MD on 05/19/2016 at 9:55 X-RAY CHEST ONE VIEW, PORTABLE IMPRESSION: 1. Right greater than left, patchy pulmonary opacities, suspicious for pneumonia. Differential considerations include fluid overload in the setting of cardiomegaly. Short interval followup is recommended to ensure resolution of this finding and exclude underlying pulmonary pathology. Dictated by: Marita Jade M.D. on 05/21/2016 at 8:28 Cardiac Echo Impressions . Echocardiogram Report Interpretation Summary There is moderate concentric left ventricular hypertrophy. The ejection fraction is estimated to be 40-45%. There is mild global hypokinesis of the left ventricle. Severe inferolateral hypokinesis. Prominent trabeculations in apex are noted. The right ventricle is mild to moderately dilated. Right ventricular systolic function is mildly reduced. The left atrium is severely dilated. There is moderate mitral regurgitation. There is mild to moderate tricuspid regurgitation. The right ventricular systolic pressure is estimated at 51 mmHg assuming a right atrial pressure of 8 mm Hg. Electronically signed by: Wisam Saha Assessment & Plan Patient is a 40-year-old male with history of PE and DVT s/p IVC filter placement, lupus nephritis, ESRD on hemodialysis, congestive heart failure, antiphospholipid syndrome, CVA, and recent hospitalization for pulmonary capillaritis presenting with shortness of breath. Hospital day 5. 1. Sepsis/bactremia, present on admission. Active -Met criteria with HR (121), RR (48), WBC (12.8) bacteremic -Infectious disease following, recommendations are appreciated -Antibiotics to include ceftriaxone 2 g daily, ID considering addition of Gentamicin -Prednisone 10 mg daily -Lactic acid normal -Procalcitonin trending down 4.36 today from 5.12 -Blood culture positive for Streptococcus salivaris -HERNESTO ordered for Monday per cardiology -NPO after midnight Monday05/22/16 for HERNESTO Monday05/23/2016 2. Acute on chronic normocytic anemia requiring transfusion, present on admission, active. -Review of past records indicate similar levels but possible blood loss given supratherapeutic INR (10.63) -LDH elevated 883, -Haptoglobin less than 10 -2u PRBC transfusion with dialysis, H&H remains low -Vitamin K 2.5mg PO -Pending hemoglobin A, A2, C, F, S and variant hemoglobin, G6PD -Oncology consult to, their recommendations are appreciated -Threshold for transfusion only if hemoglobin less than 6.5 3. Thrombocytopenia. Presently on admission. Ongoing -Most likely secondary to autoimmune disease -No heparin -Transfuse if any signs of active bleeding or if platelets less than 10 4. Supratherapeutic INR, present on admission. active -INR 10.63 -Uncertain etiology -Vitamin K 2.5mg PO -Repeat INR 3.63 -Pharmacy to dose Coumadin 5. Acute hypoxemic respiratory failure. Present on admission, stable -Possibly secondary to pneumonia, fluid overload, heart failure, pulmonary embolism, pulmonary capillaritis -Continue supplemental oxygen when necessary -Pending studies: UA, legionella and strep pneumo urine ag, sputum culture -Respiratory PCR panel negative -CXR daily 6. ESRD on HD, chronic. present on admission. active -Likely secondary to lupus nephritis -Currently undergoing dialysis per nephrology -Nephrology following. Recommendations per nephrology appreciated -HD today 7. Systolic and diastolic heart failure, present on admission. -Echo 11/2015: LV EF estimated 40-45% with mild global hypokinesis of the LV. -Repeat Echocardiogram as above 8. Elevated troponin, present on admission, active. -Troponin 0.067 in setting of ESRD -Similar troponin levels during past hospitalizations -Continue to trend 9. Chronic hypertension with hypertensive urgency. Present on admission. Ongoing -BP 204/91 on arrival to ED -Remains hypertensive -Per nephrology recommendations -Stopped carvedilol 50 mg twice a day -Start Labetalol 300 BID -Start spironolactone 25mg BID 10. 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 -Holding mycophenolate mofetil -Dr. Grayson hematology following recommends outpatient follow-up with possible bone marrow biopsy to follow 2. 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 -Low C3 and C4 complement consistent with activation of classic pathologic -Pending hemoglobin A, A2, C, F, S and variant hemoglobin, G6PD -Holding mycophenolate mofetil 11. History of thromboembolic disease s/p IVC filter, present on admission. Stable. -D-dimer elevated (1.18), possibly secondary to sepsis -PE less likely given supratherapeutic INR (10.63) -Holding warfarin. Giving vitamin K 2.5mg PO -Warfarin and INR as in #4, INR Disposition: Patient will remain inpatient status secondary to ongoing treatment plan for bacteremia and possible endocarditis, HERNESTO scheduled Monday. Patient will need dialysis over the weekend. Holding pattern through the weekend, awaiting HERNESTO. CODE STATUS: Full code DVT prophylaxis is not indicated secondary to supratherapeutic INR GI prophylaxis PPI Pain acetaminophen when necessary, Dilaudid for breakthrough GI Prophylaxis: Proton Pump Inhibitor VTE Prophylaxis: Other (Supratherapeutic INR) Resuscitation Status: CPR: Attempt Resuscitation Attending Statement The patient was seen and examined together with Dr. Granda on 05/21/16 and I agree with the history, exam and plan as outlined in the note above. ZAY GRANDA DO May 21, 2016 15:23 Momo Swift MD May 21, 2016 22:18
[2016-05-21] MEDS: [UNRECOGNIZED DRUG - OTHER] PO SCH (20:56)
[2016-05-22] VITALS (9 sets, daily range): BP systolic 149–188; BP diastolic 99–118; PULSE 54–86; RESP 18–20; O2SAT 95–99
[2016-05-22] MEDS: HYDROmorphone 1 mg/mL Inj IVPUSH PRN ×5 (00:50→23:44)
[2016-05-22 04:53] LABS: BASOPHILS % (AUTO) 0.3 % (0-3); EOSINOPHILS % (AUTO) 2.2 % (0-5); MONOCYTES % (AUTO) 14.6 % (4-12); Mean Corpuscular Hemoglobin 29.9 pg (27.0-35.0); Mean Corpuscular Volume 92.1 fL (81-100); NEUTROPHILS % (AUTO) 63.6 % (40-74); Platelet Count 56 bil/L (150-400)
[2016-05-22 05:14] LABS: INR 1.59 ratio
--- NOTE | 2016-05-22 07:26 | NUR ---
Pain This shift pt said that hip pain has increased to 8/10. 1mg Dilaudid is given Q4-6H and pt says that the relief from the Dilaudid starts approximately 5-10 minutes after the administration of the drug. Pt says that 30 minutes after medication administration that the pain goes down to a 2-3/10. Discussed alternating Dilaudid and Roxycodone for pain management with the pt and with the oncoming RN during report. Pt was educated on calling before pain gets 8/10 so that pain medication can be given to try and prevent that level of pain from being reached.
[2016-05-22] MEDS: predniSONE 10 mg Tablet PO SCH (08:25)
[2016-05-22] MEDS: Pantoprazole 40 mg ER24 Tablet PO SCH (08:25)
[2016-05-22] MEDS: Calcium Carbonate (Oyster Shell) 500 mg Tablet PO SCH ×3 (08:25→19:51)
[2016-05-22] MEDS: [UNRECOGNIZED DRUG - OTHER] PO SCH ×4 (08:26→23:55)
--- NOTE | 2016-05-22 12:09 | PCM.PNNEPH ---
Subjective Date of Service May 22, 2016 Subjective Patient continues to do well. He is resting comfortably and denies any chest pain, shortness of breath, nausea or vomiting. His blood pressure is better. Exam Vital Signs Vital Sign - Last Date Time Temp Pulse Resp B/P Pulse Ox O2 Delivery O2 Flow Rate FiO2 05/22/16 10:40 72 05/22/16 08:21 37.0 20 188/108 99 Nasal Cannula 2.00 Intake and Output 05/21/16 05/21/16 05/22/16 Cumulative From/Thru 15:00 23:00 07:00 05/16/16 14:48 - 05/22/16 06:21 Intake Total 350 ml 400 ml 7842 ml Output Total 3000 ml 200 ml 41395 ml Balance -3000 ml 350 ml 200 ml -4678 ml Intake Oral 350 ml 400 ml 5557 ml IV Total 1235 ml Packed Cells 1050 ml Output Urine Total 200 ml 220 ml Ultrafiltrate 3000 ml 38425 ml # Voids 1 1 7 # Bowel Movements 1 4 Exam Lungs are clear to auscultation. Heart is regular and rhythmical with a soft systolic murmur. Abdomen soft without any tenderness or rebound guarding masses or hepatosplenomegaly. Extremities not show any evidence of any clubbing cyanosis or edema. Skin turgor is good. Lab and Diagnostics Result Diagram: 05/22/16 0440 05/22/16 0440 Microbiology Nasal swab positive for MRSA Microbiology TANIA CULTURE BLOOD Final 05/19/16-15 Organism 1 STREPTOCOCCUS SALIVARIUS GROUP STREPTOCOCCUS SALIVARIUS GROUP Species: salivarius ISOLATED FROM FOUR OF FOUR BOTTLES COLLECTED 05/16/16. 1. STREPTOCOCCUS SALIVARIUS GROUP M.I.C Interp --------- ------ * AMPICILLIN <=0.25 S * CEFOTAXIME <=0.12 S * CEFTRIAXONE <=0.12 S * CLINDAMYCIN R * ERYTHROMYCIN R * LEVOFLOXACIN 2 S * LINEZOLID <=2 S * PENICILLIN-G 0.25 I * VANCOMYCIN 1 S X-Rays, CTs and MRIs . X-RAY CHEST ONE VIEW, PORTABLE IMPRESSION: Moderate diffuse appearance of bilateral pulmonary opacities. This can represent diffuse edema, ARDS and/or superimposed infection such as pneumonia. Dictated by: Martha Elder M.D. on 05/16/2016 at 15:04 X-RAY CHEST ONE VIEW, PORTABLE IMPRESSION: Decrease in appearance of bilateral pulmonary opacities likely related to decreasing edema and/or diffuse bilateral pneumonia. Dictated by: Errol AVILEZ Interpreted: Marita Jade MD on 05/17/2016 at 10: 23 X-RAY CHEST ONE VIEW, PORTABLE IMPRESSION: Slight decrease in appearance of bilateral pulmonary opacities suggesting resolving edema and/or diffuse bilateral pneumonia. Dictated by: Errol AVILEZ Interpreted: Marita Jade MD on 05/19/2016 at 9:55 X-RAY CHEST ONE VIEW, PORTABLE IMPRESSION: 1. Right greater than left, patchy pulmonary opacities, suspicious for pneumonia. Differential considerations include fluid overload in the setting of cardiomegaly. Short interval followup is recommended to ensure resolution of this finding and exclude underlying pulmonary pathology. Dictated by: Marita Jade M.D. on 05/21/2016 at 8:28 Cardiac Echo Impressions . Echocardiogram Report Interpretation Summary There is moderate concentric left ventricular hypertrophy. The ejection fraction is estimated to be 40-45%. There is mild global hypokinesis of the left ventricle. Severe inferolateral hypokinesis. Prominent trabeculations in apex are noted. The right ventricle is mild to moderately dilated. Right ventricular systolic function is mildly reduced. The left atrium is severely dilated. There is moderate mitral regurgitation. There is mild to moderate tricuspid regurgitation. The right ventricular systolic pressure is estimated at 51 mmHg assuming a right atrial pressure of 8 mm Hg. Electronically signed by: Wisam Saha Plan Impression Impression #1 end-stage renal disease dialysis dependent #2 hypertension with hypertensive heart disease and hypertensive nephrosclerosis #3 AND lipid antibody syndrome with acute hemolytic anemia which appears to be stable. Condition #1 he can be discharged once a housing arrangements and other social arrangements can be made. Otherwise he is scheduled for dialysis on Monday. Stepan Grande DO May 22, 2016 12:09
--- NOTE | 2016-05-22 14:00 | PCM.PNMED ---
Subjective Date of Service May 22, 2016 Subjective Patient is a 40-year-old male with history of PE and DVT s/p IVC filter placement, lupus nephritis, ESRD on hemodialysis, congestive heart failure, antiphospholipid syndrome, CVA, and recent hospitalization for pulmonary capillaritis presenting with shortness of breath. Hospital day #6. No overnight events. The patient reports some right hip pain but otherwise is doing well. He denies fever, chills, shortness of breath, abdominal pain, nausea , emesis. Exam Vital Signs Vital Sign - Last Date Time Temp Pulse Resp B/P Pulse Ox O2 Delivery O2 Flow Rate FiO2 05/22/16 08:21 37.0 79 20 188/108 99 Nasal Cannula 2.00 Intake and Output 05/21/16 05/21/16 05/22/16 Cumulative From/Thru 15:00 23:00 07:00 05/16/16 14:48 - 05/22/16 06:21 Intake Total 350 ml 400 ml 7842 ml Output Total 3000 ml 200 ml 60673 ml Balance -3000 ml 350 ml 200 ml -4678 ml Intake Oral 350 ml 400 ml 5557 ml IV Total 1235 ml Packed Cells 1050 ml Output Urine Total 200 ml 220 ml Ultrafiltrate 3000 ml 90137 ml # Voids 1 1 7 # Bowel Movements 1 4 Exam General: Patient sitting upright in chair using labtop. Appropriately interactive and conversant HEENT: Normocephalic, atraumatic. External ears without defect. Pupils equal, round, and reactive to light and accommodation. Cardiovascular: Regular rate and rhythm Pulmonary: Clear to auscultation bilaterally. No use of accessory muscles, good air movement. Abdomen: Bowel tones present. Soft, nontender, nondistended. Extremities: Left lower extremity is larger than right. Left lower extremity with ichthyosis Skin: Normal temperature, turgor, and texture Neurological: Cranial nerves grossly intact. Psychiatric: Alert and oriented to person, place, and time. IVs and Medications Medications Reviewed: Medications were reviewed in detail Lab and Diagnostics Result Diagram: 05/22/1643905/22/16439 Microbiology Nasal swab positive for MRSA Microbiology TANIA CULTURE BLOOD Final 05/19/16-0815 Organism 1 STREPTOCOCCUS SALIVARIUS GROUP STREPTOCOCCUS SALIVARIUS GROUP Species: salivarius ISOLATED FROM FOUR OF FOUR BOTTLES COLLECTED 05/16/16. 1. STREPTOCOCCUS SALIVARIUS GROUP M.I.C Interp --------- ------ * AMPICILLIN <=0.25 S * CEFOTAXIME <=0.12 S * CEFTRIAXONE <=0.12 S * CLINDAMYCIN R * ERYTHROMYCIN R * LEVOFLOXACIN 2 S * LINEZOLID <=2 S * PENICILLIN-G 0.25 I * VANCOMYCIN 1 S X-Rays, CTs and MRIs . X-RAY CHEST ONE VIEW, PORTABLE IMPRESSION: Moderate diffuse appearance of bilateral pulmonary opacities. This can represent diffuse edema, ARDS and/or superimposed infection such as pneumonia. Dictated by: Martha Elder M.D. on 05/16/2016 at 15:04 X-RAY CHEST ONE VIEW, PORTABLE IMPRESSION: Decrease in appearance of bilateral pulmonary opacities likely related to decreasing edema and/or diffuse bilateral pneumonia. Dictated by: Errol AVILEZ Interpreted: Marita Jade MD on 05/17/2016 at 10: 23 X-RAY CHEST ONE VIEW, PORTABLE IMPRESSION: Slight decrease in appearance of bilateral pulmonary opacities suggesting resolving edema and/or diffuse bilateral pneumonia. Dictated by: Errol AVILEZ Interpreted: Marita Jade MD on 05/19/2016 at 9:55 X-RAY CHEST ONE VIEW, PORTABLE IMPRESSION: 1. Right greater than left, patchy pulmonary opacities, suspicious for pneumonia. Differential considerations include fluid overload in the setting of cardiomegaly. Short interval followup is recommended to ensure resolution of this finding and exclude underlying pulmonary pathology. Dictated by: Marita Jade M.D. on 05/21/2016 at 8:28 Cardiac Echo Impressions . Echocardiogram Report Interpretation Summary There is moderate concentric left ventricular hypertrophy. The ejection fraction is estimated to be 40-45%. There is mild global hypokinesis of the left ventricle. Severe inferolateral hypokinesis. Prominent trabeculations in apex are noted. The right ventricle is mild to moderately dilated. Right ventricular systolic function is mildly reduced. The left atrium is severely dilated. There is moderate mitral regurgitation. There is mild to moderate tricuspid regurgitation. The right ventricular systolic pressure is estimated at 51 mmHg assuming a right atrial pressure of 8 mm Hg. Electronically signed by: Wisam Saha Assessment & Plan Patient is a 40-year-old male with history of PE and DVT s/p IVC filter placement, lupus nephritis, ESRD on hemodialysis, congestive heart failure, antiphospholipid syndrome, CVA, and recent hospitalization for pulmonary capillaritis presenting with shortness of breath. Hospital day #6. 1. Sepsis/bactremia, present on admission. Active -Met criteria with HR (121), RR (48), WBC (12.8) bacteremic -Infectious disease following, recommendations are appreciated -Antibiotics per ID. Continue ceftriaxone 2 g daily -Blood culture positive for Streptococcus salivaris -HERNESTO scheduled for 05/23/2016 per cardiology -NPO after midnight Monday05/22/16 for HERNESTO Monday05/23/2016 2. Acute on chronic normocytic anemia requiring transfusion, present on admission, active. -Review of past records indicate similar levels but possible superimposed blood loss given supratherapeutic INR (10.63) -LDH elevated 883, Haptoglobin less than 10 -Oncology consulted. Recommendations per oncology appreciated -Threshold for transfusion only if hemoglobin less than 6.5 due to iron overload 3. Thrombocytopenia. Presently on admission. Ongoing -Most likely secondary to autoimmune disease -No heparin -Transfuse if any signs of active bleeding or if platelets less than 10 4. Supratherapeutic INR, present on admission. Resolved -INR 10.63. Patient received vitamin K 2.5mg PO one time -Uncertain etiology -Pharmacy to dose Coumadin 5. Acute hypoxemic respiratory failure. Present on admission, stable -Possibly secondary to pneumonia, fluid overload, heart failure, pulmonary embolism, pulmonary capillaritis -Continue supplemental oxygen when necessary -Negative studies: legionella and strep pneumo urine ag, sputum culture -Respiratory PCR panel negative 6. ESRD on HD, chronic. present on admission. active -Likely secondary to lupus nephritis -Currently undergoing dialysis per nephrology -Nephrology following. Recommendations per nephrology appreciated -HD per Nephrology 7. Systolic and diastolic heart failure, present on admission. -Echo 11/2015: LV EF estimated 40-45% with mild global hypokinesis of the LV. -Repeat Echocardiogram as above 8. Elevated troponin, present on admission, active. -Troponin 0.067 in setting of ESRD -Similar troponin levels during past hospitalizations. Unlikely cardiac ischemia 9. Chronic hypertension with hypertensive urgency. Present on admission. Ongoing -BP 204/91 on arrival to ED -Remains hypertensive -Per nephrology recommendations -Stopped carvedilol 50 mg twice a day -Continue Labetalol 300 BID -Continue spironolactone 25mg BID 10. 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 -Holding mycophenolate mofetil -Prednisone 10 mg daily -Dr. Rosales of Hematology following. Recommends outpatient follow-up with possible bone marrow biopsy to follow -Low C3 and C4 complement consistent with activation of classic pathway -Holding mycophenolate mofetil 11. History of thromboembolic disease s/p IVC filter, present on admission. Stable. -D-dimer elevated (1.18), possibly secondary to sepsis -INR supratherapeutic on admit (10.63) -Warfarin and INR as in #4 Pain acetaminophen when necessary, Dilaudid for breakthrough Code status: FULL Disposition: Patient will remain inpatient status secondary to ongoing treatment plan for bacteremia and possible endocarditis. HERNESTO scheduled Monday. Patient will need dialysis over the weekend. Holding pattern through the weekend, awaiting HERNESTO. GI Prophylaxis: Proton Pump Inhibitor VTE Prophylaxis: Theraputic Anticoag with Warfarin Resuscitation Status: CPR: Attempt Resuscitation Attending Statement patient was seen independently and case discussed with Dr Llanos,I agree with the assessment and plan as outlined above Stephen Llanos DO May 22, 2016 09:42 Momo Swift MD May 22, 2016 16:19
[2016-05-22] MEDS ORDERED: 0.9% Sodium Chloride 250 ML ONE (16:24)
[2016-05-22] MEDS: cefTRIAXone Inj 2,000 MG in Dextrose 5% Minibag Plus 50 ML IV SCH (16:30)
--- NOTE | 2016-05-22 16:59 | NUR ---
Respiratory and activity Pt. denied SOB. He was able to perform ADLs independently. He took a shower today. Pt. maintained SpO2 above 92% on room air. He preferred intermittent O2 by NC as he had been doing at home Pt. agreed to NPO after midnight. Plan for HERNESTO on 05/23/16Monday.
--- NOTE | 2016-05-22 17:25 | CONS ---
[address] [address] CONSULTATION REPORT PATIENT: TAMMY SENIOR : 1975 MR#: [id number] ADMIT: 05/16/2016 JOB ID: [id number] DATE OF SERVICE: 05/22/2016 IDENTIFICATION: Dr. Stepan Barajas has asked that I consult on this 40-year-old, male, with a complicated medical history including lupus, antiphospholipid syndrome, end-stage renal disease, and pulmonary hemorrhage now admitted with fevers and chills and positive blood cultures for consideration of HERNESTO. HISTORY: The patient has no previous specific cardiac history with the exception of CHF, presumably from hypertensive heart disease, and his end-stage renal disease. He had a previous stroke, alveolar hemorrhage, and pulmonary embolism, and is status post an IVC filter. He was admitted last November with confusion and had an echocardiogram at that time that showed significant left ventricular enlargement with LVH with mild global hypokinesis with an EF of around 40% to 45% with mild right ventricular enlargement and moderate pulmonary hypertension with moderate mitral and mild tricuspid regurgitation. He was admitted on May 06, 2016, with dyspnea after running out of his home oxygen. He reported being discharged from [facility] several weeks prior with hematemesis or hemoptysis and had a hematocrit of 20% and was felt to have a GI bleed. He was also diagnosed with avascular necrosis of the right hip. He apparently underwent EGD at [facility]. He was admitted on May 16, 2016, with dyspnea and with a blood pressure of 207/100, with again a hematocrit of 20%. He was in sinus tachycardia at 121 with a white count of 12.8, but a platelet count of only 42,000. An ABG showed a pH of 7.4, with a pCO2 of 38 and a pO2 of 64. His INR was 10.6. Transthoracic echocardiography showed an ejection fraction of 40% to 45% with moderate LVH and by my personal review of the images shows no evidence for any significant focal wall motion abnormality. He continues to have some mild calcification and thickening of the anterior mitral valve leaflet, with mild to moderate mitral regurgitation but this appears unchanged from the previous echo and I do not see any obvious evidence of vegetation. He has subsequently developed four out of four blood cultures for Strep salivarius and has been started on antibiotic therapy. A HERNESTO is requested to attempt to provide further additional diagnostic information in regards to possible endocarditis. Currently, the patient feels that his breathing has improved and is now near baseline, although he continues to use oxygen. He denies any specific pains except for his right hip pain. He has some limited Mauritian-speaking ability, but I felt that I was able to communicate with him fairly well but I will need to come back when an bilingual interpreter is available. PAST MEDICAL HISTORY: End-stage renal disease, on hemodialysis. Last dialysis episode on May 22, 2015. Lupus with lupus nephritis and had a classical lipid syndrome. History of stroke. History of possible heparin-induced thrombocytopenia although now has chronic thrombocytopenia. History of pulmonary embolism, status post IVC filter. Hypertension with hypertensive heart disease. Chronic anemia. Chronic pain with opioid dependence. Left chronic left lower ulcer. FAMILY HISTORY: Not obtainable. SOCIAL HISTORY: The patient does not smoke or drink. REVIEW OF SYSTEMS: Not currently obtainable because of the language barrier. PHYSICAL EXAMINATION: A very pleasant, male, in no distress. HR 79, BP 188/108. O2 saturation 99% on 2 L of nasal cannula. Skin warm and dry. HEENT : Grossly normal. Lungs: Clear bilaterally without any appreciable rales or wheeze. CV: Regular rate and rhythm without any appreciable murmurs or gallops. No obvious JVD in the sitting position. Abdomen: Mildly obese but nondistended and nontender. Extremities: Warm with mild edema on the left but none on the right which the patient states has been chronic. LABORATORY: His laboratory from today shows a white count of 3.2, with an hematocrit of 26% and a platelet count of 56,000. His INR is 1.6. His potassium is 4.4, with a BUN of 28 and a creatinine of 4.1. Procalcitonin remains markedly elevated but declining. A chest x-ray from yesterday shows patchy opacities, right greater than left. His ECG from May 16, 2016, shows probable LVH but is a very poor tracing. IMPRESSION: 1. Febrile episode with positive blood cultures for Streptococcus salivarius. While endocarditis cannot be excluded, the likelihood is relatively low on the basis of his transthoracic echocardiogram which shows fairly good echocardiographic images without any evidence of vegetation. Transesophageal echocardiogram can be performed, although the risks, which in this case are higher than normal because of the patient's underlying comorbidities including his pulmonary disease, history of gastrointestinal bleeding, and thrombocytopenia, need to be weighed against the potential benefits. I will attempt to obtain the endoscopy records from [facility] to ensure that the patient does not have any esophageal varices or other esophageal pathology as a cause of his gastrointestinal bleeding. If there is significant esophageal or gastric pathology, I think the risks would outweigh the potential benefits of HERNESTO. If none, then we can proceed although I will discuss further with Dr. Barajas. I will also return tomorrow when an bilingual interpreter is available to get complete informed consent. In the meantime, I would keep the patient n.p.o. for potential procedure tomorrow. With his underlying pulmonary issues, I will request Anesthesiology to assist with anesthesia during the procedure. This may affect the timing of the procedure, depending upon their availability. 2. Mildly reduced left ventricular systolic function. Most likely secondary to hypertensive heart disease given his left ventricular hypertrophy. I would try to achieve better blood pressure control but will leave management of this to Dr. Grande and his other physicians. 3. Severe anemia and thrombocytopenia. Again, any invasive procedure will carry with it some additional risk. 4. End-stage renal disease, on hemodialysis. Appears to be fairly well compensated currently. 5. Systemic lupus erythematosus with anti-phospholipid syndrome. Management per the hospitalist team. PLAN: 1. Obtain records from [facility], specifically his endoscopy records to ensure there is no esophageal or gastric pathology. 2. Discuss the case further with Dr. Barajas in regards to the potential benefits of the procedure, to ensure that they outweigh the risks. 3. Schedule further discussion tomorrow morning with an bilingual interpreter to obtain informed consent and consult Anesthesia to assist with sedation at the time of the procedure. I spent 1 hour 14 minutes reviewing the patient's record and discussing with the patient and anticipate spending more time coordinating his care.
[2016-05-23] VITALS (8 sets, daily range): BP systolic 157–216; BP diastolic 93–133; PULSE 69–94; RESP 16–22; O2SAT 92–100
[2016-05-23] MEDS: HYDROmorphone 1 mg/mL Inj IVPUSH PRN ×5 (03:46→21:32)
[2016-05-23 04:46] LABS: BASOPHILS % (AUTO) 0.9 % (0-3); EOSINOPHILS % (AUTO) 1.8 % (0-5); MONOCYTES % (AUTO) 13.3 % (4-12); Mean Corpuscular Volume 93.5 fL (81-100); NEUTROPHILS % (AUTO) 56.5 % (40-74); Platelet Count 53 bil/L (150-400)
[2016-05-23 05:08] LABS: INR 1.52 ratio
--- NOTE | 2016-05-23 05:49 | NUR ---
pain control patient consistently rates pain to his right hip 6-7 prior to pain medication after administration of dilaudid 1mg slow iv push pain improves to a 4. patient states that the pain is increases with activity. and lessens with rest. npo for alejandra today. reviewed plan of care with patient. no questions at this time.
[2016-05-23] MEDS: [UNRECOGNIZED DRUG - OTHER] PO SCH ×4 (06:30→21:33)
[2016-05-23] MEDS: Pantoprazole 40 mg ER24 Tablet PO SCH (09:38)
[2016-05-23] MEDS: Calcium Carbonate (Oyster Shell) 500 mg Tablet PO SCH ×3 (09:39→21:36)
[2016-05-23] MEDS: predniSONE 10 mg Tablet PO SCH (09:39)
--- NOTE | 2016-05-23 09:39 | PROG NOTE ---
[address] [address] PROGRESS NOTE PATIENT: TAMMY SENIOR : 1975 MR#: [id number] ADMIT: 05/16/2016 JOB ID: [id number] DATE: 05/23/2016 REASON FOR FOLLOWUP: High-grade penicillin intermediate strep viridans bacteremia in a complex patient. INTERVAL HISTORY: The patient reports today that he feels reasonably well except for a cough which he often gets in between sessions of dialysis. He has no fevers, chills, sweats, headache. He does continue to have one lesion in his mouth which is somewhat painful. No GI symptoms. PHYSICAL EXAMINATION: Include temperature 36.6, pulse 83, blood pressure 168/100, saturating 94% on 2 L. Examination of the mental status feels to be clear. Eyes without conjunctival hemorrhages. Oral cavity with one ulcer on the hard palate as previously seen. Lungs reasonably clear. Cardiac tones with 1/6 murmur heard right upper sternal border. LABORATORIES: Include white count 3300, platelet count stable at 53,000. Creatinine 7.15 in this dialysis patient. Albumin 3. Procalcitonin declining, now 1.1, which is probably approaching normal for a dialysis patient. Strongyloides antibody has come back negative. QuantiFERON Gold is still pending. In micro, we have positive blood cultures from May 16. The followups on May 18 are negative. Our last chest x-ray is dated the , shows right greater than left pulmonary opacities which could be pneumonia or fluid overload. IMPRESSION: This is a complex case of a gentleman with multiple underlying medical problems stemming primarily from lupus and antiphospholipid syndrome, complicated by renal failure. He has chronic thrombocytopenia as well. I discussed this case in person in detail with Dr. Ramsey of Cardiology this morning. Ideally, we would get a HERNESTO in this case to say more definitively whether or not he has endocarditis. If his HERNESTO is negative, I think I would be comfortable with just a couple of weeks of ceftriaxone or perhaps even vancomycin, as we would assume that his viridans strep came from his oral ulcers and has not caused endocarditis. If on the other hand, the HERNESTO does demonstrate a vegetation, then I think are forced to use gentamicin in combination with a beta-lactam for a longer course of therapy for this penicillin intermediate organism. If the HERNESTO cannot be safely done, then we will be forced to treat for longer and more aggressive duration for possible endocarditis. RECOMMENDATIONS: 1. Continue with ceftriaxone today. 2. If possible, we will get a HERNESTO. Dr. Ramsey is working on evaluating that. 3. Continue with ceftriaxone while we wait.
--- NOTE | 2016-05-23 10:20 | PROG NOTE ---
[address] [address] PROGRESS NOTE PATIENT: TAMMY SENIOR : 1975 MR#: [id number] ADMIT: 05/16/2016 JOB ID: [id number] DATE: 05/23/2016 SUBJECTIVE: The patient is now interviewed and examined with the assistance of an park interpreter. He currently states that he feels well and denies any dyspnea or chest discomfort. He reports that he believes that he had a "heart infection" about 3 or 4 years ago when he was in [place], but does not remember having a HERNESTO. He denies any recent hemoptysis or hematemesis or any swallowing problem, although states he had a "mouth infection" and 3-4 weeks ago. I reviewed the EGD report from 2010 from [facility] which apparently is the only report they have on file that showed no evidence for any esophageal or gastric abnormality with the exception of moderate gastritis with patchy erythema, but no ulceration. PHYSICAL EXAMINATION: HR 83, BP 160/100, O2 saturation 94% on 2 L. Skin: Warm and dry. Lungs: Clear bilaterally without any appreciable rales or wheeze. CV: Distant heart tones without any appreciable murmurs or gallops. There is no obvious JVD. Abdomen: Benign. Extremities: 1+ pitting edema on the left. LABORATORY: White count this morning is 3.3 with a hematocrit of 24% and a platelet count of 53,000. Potassium is 5.3, with a BUN of 48 and a creatinine of 7.1. INR is 1.52. IMPRESSION: History of febrile episode with positive blood cultures for Streptococcus, viridans. I have discussed the case with Dr. Barajas and I have explained that I believe while a HERNESTO can be performed it will be higher than ordinary risks. Dr. Barajas feels that the potential benefits of the diagnostic procedure outweigh the risks. We discussed that if I had any challenges in passing the probe that I would stop in an effort to minimize any risk of esophageal trauma, which could be devastating for this patient with his anemia and thrombocytopenia. I have explained this to the patient in the presence of an park interpreter, explaining that he is at somewhat increased risk because of his hematologic issues and respiratory issues. I explained the procedure, the alternatives of empiric antibiotic therapy for treatment of endocarditis, as well as potential risks. After a thorough discussion, the patient wishes to proceed as he would like to avoid prolonged antibiotics, if possible. He has remained n.p.o. and we will proceed with HERNESTO the later this morning as scheduled with the assistance of anesthesiology service to provide sedation as well as an park interpreter at that time. I spent 50 minutes reviewing the patient's records, discussing with Dr. Barajas, interviewing and examining the patient and obtaining informed consent.
--- NOTE | 2016-05-23 10:24 | PCM.HPANE ---
Patient Data Date of Service: May 23, 2016 Surgeon Admitting Provider:Momo Swift MD Attending Provider:Momo Swift MD Primary Care Physician:Mita Other Provider: Reason for Visit Respiratory Distress Ht/WT & BMI Height (Feet): 5 Height (Inches): 1.00 Weight (Kilograms): 65.500 Body Mass Index 26.97 Allergies Coded Allergies: amlodipine (Verified Allergy, Unknown, 05/16/16) hydralazine (Verified Allergy, Unknown, 05/16/16) morphine (Verified Allergy, Unknown, 05/16/16) Past Anesthesia History Anesthesia History: Denies:: Anesthesia Reactions, Fam Anesthesia Reaction, Malignant Hyperthermia Diabetes History Hx Diabetes?: No Current Bedside Blood Glucose: 97 MRSA MRSA: No Medications Hypertension Medication: Yes Home Meds Incl Beta Jesusita: Yes Date Beta Jesusita Taken: May 23, 2016 Time Beta Jesusita Taken: 09:38 Previous Beta Jesusita Dose >24: Previous Dose <24 Hours Active Scripts Oxycodone (Roxicodone)5 Mg Tablet5 Mg PO Q4H PRN For Pain #30 TABLET Ref 0 Please take 1-2 pills as needed for pain Prov:Brittany Vann L DO 05/08/16 Ferrous Sulfate (Feosol)325 Mg [id number] Mg PO TIDWM #90 TABLET Prov:Brittany Vann L DO 05/08/16 Walker (Ultra-Light Rollator)1 Each Each #1 Each Mc Daily 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 Prov:Brittany Vann L DO 05/08/16 Reported Medications Vitamin B Complex/Vit C (Bethany-Myrtle Tablet)1 Tab Tab1 Tab PO DAILYWM 05/16/16 Calcium Carbonate/Vitamin D3 (Calcium 500 + Vit D 400 Tablet)1 Each Tablet2 Each PO DAILYWM 05/16/16 Albuterol HFA (Proair HFA)8.5 Gm Hfa.aer.ad2 Puffs INHALATION Q4H PRN For Shortness of Breath #1 INHALER 05/16/16 Hydroxyzine Pamoate (HydrOXYzine Pamoate)25 Mg Csylnqr27 Mg PO BID PRN For Itching Ref 0 05/16/16 Prednisone (PredniSONE)10 Mg Rlnmog57 Mg PO DAILYWM Ref 0 05/16/16 Sulfamethoxazole/Trimeth 800-160 mg (Bactrim DS)1 Each Tablet1 Tablet PO three times a week Ref 0 05/06/16 Warfarin Sodium 5 Mg Tablet5 Mg PO DAILYWD 30 Days Ref 0 05/06/16 Sevelamer Carbonate (Renvela)800 Mg Tablet1,600 Mg PO TIDWM 90 Days 05/06/[address] (Protonix)40 Mg Wapjhl63 Mg PO QAM Ref 0 05/06/16 Calcium Acetate 667 Mg Capsule1,334 Mg PO TIDWM 05/06/16 Calcitriol (Rocaltrol)0.25 Mcg Capsule0.25 Mcg PO , Mon05/06/16 Carvedilol (Coreg)25 Mg Idzogu09 Mg PO BIDWM Ref 0 05/06/16 Ondansetron (Zofran)4 Mg Tablet4 Mg PO BID PRN For Nausea 05/06/16 Mycophenolate Mofetil (Cellcept)250 Mg Capsule1,000 Mg PO BIDAC 05/06/16 Discontinued Reported Medications [calcoum carb vit d3] No Conflict Check2 Tablet PO DAILY 05/06/16 [Albuterol 90 mcg] No Conflict Check2 Puffs INHALATION QID PRN For Wheezing 05/06/16 Discontinued Scripts Prednisone (PredniSONE)10 Mg Tablet5 Mg PO DAILY #30 TABLET Ref 0 Prov:Brittany Vann DO 05/08/16 History History of ENT Problems?: No HEENT History: Denies:: Cataracts Dysphagia Sinus Problem Hx of Heart Problems?: Yes Cardiovascular History: Positive for:: Chest Pain Congestive Heart Failure Hypertension Irregular Heartbeat Thrombophlebitis Denies:: Cardiac Surgery Edema Heart Murmur Pacemaker Hx of Respiratory Problem?: Yes Respiratory History: Positive for:: Dyspnea Hemoptysis Pneumonia Denies:: Asthma COPD Chest Surgery Emphysema Tuberculosis Hx Neurologic Problems?: Yes Neurological History: Positive for:: CVA Dizziness Denies:: Alzheimer's Disease Dementia Headaches Parkinson's Disease Seizures Hx of GI Problems?: Yes Gastrointestinal History: Positive for:: Heartburn Denies:: Diverticulitis Gastroesphageal Reflux Gastrointestinal Bleeding Hepatitis Hiatal Hernia Rectal Bleeding Hx of Problems?: Yes Genitourinary History: Positive for:: HX of Hemodialysis (, mon) Denies:: Kidney Stones Urinary Tract Infection HX of Peritoneal Dialysis: No Male Hx: Denies:: Prostate Problems Scrotal Mass Testicular Surgery Other Skin Pertinent History: per history, he has had foot ulcers in the past , nothing obvious at this time Hx Musculoskeletal Problems?: No Musculoskeletal History: Denies:: Back Injury Joint Replacement Musculoskeletal Trauma Hx of Psycho/Social Problems?: No Psycho Social History: Denies:: Anxiety Bipolar Disorder Hx Depression Suicide Attempt Hx Surgeries?: Yes (FISTULAS) Hx Any Other Health Problems?: Yes Other History: Positive for:: Hospitalization Denies:: Cancer Thyroid Disease History Blood Transfusions: Positive for:: Accept Blood Products? Blood Transfusions Denies:: Blood Transfuse Reaction Hx Diabetes: NoBedside Blood Glucose: 97 Hx Alcohol Use: NoHx Substance Use: Yes (patient denied substance abuse) Smoking Status: Never Smoker Have You Smoked inLast 12 mo: No Stop/Bang Treated for Sleep Apnea?: No Do You Have a CPAP Machine?: No S-Snoring: Do You Snore Loudly: No T-Tired: feel tired, fatigued: Yes O-Obsered: Observed not breath: No P-Blood Pressure: treated: Yes B- Body Mass Index > 35 kg/m2: No A- Age over 50: No N- Neck Large Circumference: No G- Gender Male: Yes SRIDHAR Total Score: 3 SRIDHAR Risk Assessment: High Risk, =/>3 Yes SRIDHAR Category 2: Yes Risk Assessment Category Category 1A: Patient has history of documented sleep apnea, and HAS NOT received any narcotic, sedative or anesthesia administration during this stay. Category 1B: Patient has history of documented sleep apnea, and HAS received any narcotic , sedative or anesthesia administration during this stay Category 2: Patient has SUSPECTED Obstructive Sleep Apnea, and HAS received any narcotic , sedative or anesthesia administration during this stay. Category 3: Patient has SUSPECTED Obstructive Sleep Apnea and HAS NOT received narcotic, sedative or anesthesia administration during this stay. Category 4: Outpatient in Procedural Areas with known sleep apnea or who screen positive for High Risk via the STOP/BANG questionnaire. Exam Exam Vital Signs Vital Signs Date Time Temp Pulse Resp B/P Pulse Ox O2 Delivery O2 Flow Rate FiO2 05/23/16 09:17 Supplement Oxygen 05/23/16 09:17 36.8 88 16 175/110 92 Nasal Cannula 2.00 05/23/16 04:08 36.6 83 168/100 94 Nasal Cannula 2.00 General Appearance: Alert, Oriented X3, Cooperative, No Acute Distress HEENT/AIRWAY: MP 2 Lungs: Diminished, Crackles (BIBASILAR) Heart: Exam Unremarkable, Regular Rate/Rhythm, No Murmurs/Rubs/Gallops Meds/Labs/Diagnostics Admission Meds Current Medications Warfarin Sodium 5 mg 5 mg OT ONCE PO Last administered on 05/22/16 16:36; Start 05/22/16 at 17:00; Stop 05/22/16 at 17:01; Status DC Sodium Chloride (Normal Saline) 250 ml @ STK-MED ONCE .ROUTE Last administered on 05/22/16 16:30; Start 05/22/16 at 16:24; Stop 05/22/16 at 16:26 ; Status DC Bedside Blood Glucose: 97 Labs Test 05/16/16 15:06 05/16/16 17:00 05/16/16 17:55 05/17/16 00:00 Lactate Dehydrogenase 883U/L (100-190) Troponin T 0.067ug/L (0.0-0.011) Pro-B-Type Natriuretic Peptide > 79665bo/mL (0-86) Erythrocyte Sedimentation Rate 39mm/hr (0-15) Haptoglobin < 10mg/dL (34-200) Myeloperoxidase <9.0U/mL (0.0-9.0) Anti-Nuclear Antibody Screen Negative (Negative) Cytoplasmic ANCA (c-ANCA) Antibody <1:20titer (Neg:<1:20) Proteinase 3 (PR3) Antibodies <3.5U/mL (0.0-3.5) Atypical p-ANCA <1:20titer (Neg:<1:20) Perinuclear ANCA (p-ANCA) Antibody <1:20titer (Neg:<1:20) Complement C3 71mg/dL (82-167) Complement C4 7mg/dL (14-44) D-Dimer 1.18mg/L FEU (<0.50) Lactic Acid Level 0.4mmol/L (0.4-2.0) Urine Color Straw (YELLOW) Urine Appearance Hazy (CLEAR,HAZY) Urine pH 8.5 (5.0-8.0) Urine Specific [place] 1.015 (1.003-1.035) Urine Protein 100mg/dL (NEG,TRACE) Urine Glucose (UA) 100mg/dL (NEGATIVE) Urine Ketones Negativemg/dL (NEGATIVE) Urine Occult Blood Trace (NEGATIVE) Urine Nitrite Negative (NEGATIVE) Urine Bilirubin Negative (NEGATIVE) Urine Urobilinogen Normalmg/dL (NORMAL) Urine Leukocyte Esterase Negative (NEGATIVE) Urine RBC 0-2/hpf (0-2) Urine WBC 0-5/hpf (0-5) Urine Epithelial Cells Occasional/hpf (NONE-MOD) Urine Crystals None seen (NONE SEEN) Urine Bacteria None/hpf (NONE-FEW) Urine Hyaline Casts None/lpf (NONE) Urine Granular Casts None seen (NONE SEEN) Urine Waxy Casts None seen (NONE SEEN) Urine Red Blood Cell Casts None seen (NONE SEEN) Urine White Blood Cell Casts None seen (NONE SEEN) Urine Mucus None seen (None Seen) Urine Trichomonas None seen (NONE SEEN) Urine Yeast None (NONE SEEN) Urinalysis Comment Urine Culture Reflexed Not indicated Test 05/17/16 05:00 05/17/16 10:05 05/17/16 14:07 05/18/16 05:05 Reticulocyte Count,Calculated 2.5% (0.6-2.6) Iron Level 40ug/dL (35-150) Total Iron Binding Capacity 193ug/dL (250-450) Percent Iron Saturation 21%sat (15-50) Unsaturated Iron Binding 153.2ug/dL Hemoglobin A 93.5% (94.0-98.0) Hemoglobin A2 25.0% (0.7-3.1) Hemoglobin C 0.0% (0.0) Hemoglobin F () 0.0% (0.0-2.0) Hemoglobin S 0.0% (0.0) Variant Hemoglobin 4.0%% (0.0) Hemoglobin Electrophoresis Interp Comment: (.) Hemoglobin Solubility Negative (Negative) Kpyhnfs-5-Bdockoyzw Dehydrogenase 279 (146-376) G-6-PD Red Blood Cell Count 2.97q45I5/uL (4.14-5.80) Heparin-PF4 Ab Optical Density 0.026OD (<0.4) Heparin-PF4 Antibody Interpretation Not indicated Urine Legionella pneumophilia Ag Negative (Negative) Vancomycin Level Trough 22.7mcg/mL Strongyloides IgG Antibody Negative (Negative) Test 05/19/16 04:40 05/20/16 04:30 05/22/16 04:40 05/23/16 04:30 Band Neutrophils % 0% (1-5) Magnesium Level 1.7mg/dL (1.6-2.6) Random Vancomycin Level 10.5ug/mL Rx Procalcitonin 1.10ng/mL (0.00-0.08) White Blood Count 3.3th/mm3 (3.8-10.1) Red Blood Count 2.60mil/mm3 (4.40-5.80) Hemoglobin 7.8g/dL (13.8-17.2) Hematocrit 24.3% (41.0-50.0) Mean Corpuscular Volume 93.5fL (81-100) Mean Corpuscular Hemoglobin 30.0pg (27.0-35.0) Mean Corpuscular Hemoglobin Concent 32.1% (32.0-37.0) Red Cell Distribution Width 14.6% (12.3-15.4) Platelet Count 53bil/L (150-400) Neutrophils (%) (Auto) 56.5% (40-74) Lymphocytes (%) (Auto) 26.3% (14-46) Monocytes (%) (Auto) 13.3% (4-12) Eosinophils (%) (Auto) 1.8% (0-5) Basophils (%) (Auto) 0.9% (0-3) Prothrombin Time 16.4sec (8.1-12.5) Prothromb Time International Ratio 1.52ratio Sodium Level 133mEq/L (134-144) Potassium Level 5.3mEq/L (3.5-5.2) Chloride Level 93mEq/L (97-108) Carbon Dioxide Level 27mmol/L (18-29) Blood Urea Nitrogen 48mg/dL (6-20) Creatinine 7.15mg/dL (0.76-1.27) Estimat Glomerular Filtration Rate 9mL/min (>59) Glucose Level 101mg/dL (60-99) Calcium Level 9.2mg/dL (8.5-10.1) Total Bilirubin 0.4mg/dL (0.0-1.2) Aspartate Amino Transf (AST/SGOT) 12U/L (0-50) Alanine Aminotransferase (ALT/SGPT) 13U/L (0-44) Alkaline Phosphatase 70U/L (25-150) Total Protein 4.9g/dL (6.4-8.4) Albumin 3.0g/dL (3.4-5.0) Plan Impression Patient chart reviewed, patient interviewed and anesthestic plan with risks, benefits, and alternatives discussed, and informed consent obtained. NPO Status: appropriate ASA Physical Status: ASA3 Severe Disease Anesthetic Plan: TIVA Bene/Risks/Altern/Consents: Yes HP Complete Prior to Induction: Yes Kashmir Gan MD May 23, 2016 10:24
--- NOTE | 2016-05-23 12:23 | PCM.PHAPRO ---
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 Significant history for SLE with nephritis and antiphospholipid syndrome, CHF, ESRD. Active problems include acute on chronic anemia with thrombocytopenia. 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 p/ To receive 5mg today, INR in Kylie Johnson Pharm.D May 23, 2016 12:23
--- NOTE | 2016-05-23 12:31 | PCM.ANEP1 ---
Post Anesthesia Phase 1 PACU Phase 1 Assessment Date of Service: May 23, 2016 Vital Signs Vital Signs Date Time Temp Pulse Resp B/P Pulse Ox O2 Delivery O2 Flow Rate FiO2 05/23/16 11:13 87 05/23/16 09:17 Supplement Oxygen 05/23/16 09:17 36.8 88 16 175/110 92 Nasal Cannula 2.00 Anesthetic Administered: TIVA Level of Alertness: Sleepy, easy to arouse MC's with Equal Strength: Yes Pain: No Pain Scale Score: 6 Nausea or Vomiting: No Oxygen Delivery: Nasal Cannula Lungs: Diminished, Crackles (BIBASILAR) Dermatome Level: Full Sensation Summary VSS 1230 HR 98 BP 150/92 RR 16 SpO2 98% on 4L NC Temp 36.7C temporal Kashmir Gan MD May 23, 2016 12:31
--- NOTE | 2016-05-23 12:31 | PCM.ANEP2 ---
Post Anesthesia Evaluation ASA/CMS Post Anesthesia Date of Service: May 23, 2016 VS in Patient's Normal Range?: Yes Resp Stable; Airway Patent?: Yes CV Function & Hydration Stable: Yes Mental Status Recovered?: Yes Pain control Satisfactory?: Yes N/V Control Satisfactory?: Yes Kashmir Gan MD May 23, 2016 12:31
[2016-05-23] MEDS ORDERED: Propofol 10,000 mCg/mL 20 mL Inj ONE (13:18)
[2016-05-23] MEDS ORDERED: Ketamine 10 mg/mL 20 mL Inj ONE (13:18)
[2016-05-23] MEDS ORDERED: Glycopyrrolate 0.2 MG/ML 1mL Inj ONE (13:18)
--- NOTE | 2016-05-23 14:18 | DRSVH ---
[facility] [address] [place] [address] Echocardiogram Report Name: TAMMY SENIOR Study Date: 05/23/2016 Height: 6 1 in Hospital Exam Location: [facility] Weight: 1 43 lb Gender: Male BSA: 1.6 m2 : 1975 Age: 40 yrs BP: 165/9 9 mmHg Reason For Study: Endocarditis Ordering Physician: HOSPITALIST [facility] Performed By: Dinora Stanford Referring Physician: Dr. Guicho Grande Interpretation Summary The left ventricle is normal in size and left ventricular systolic function is mildly reduced with the ejection fraction visually estimated to be 45-50% with mild global hypokinesis but no focal wall motion abnormalities. The right ventricle grossly appears normal in size with probable normal systolic function. The interatrial septum is intact with no evidence for an atrial septal defect and no Doppler evidence for an atrial septal defect. No left atrial mass or thrombus is visualized. The mitral valve is grossly normal and no vegetation is seen on the mitral valve. There is mild to moderate mitral regurgitation. The aortic valve is normal in structure and function and there is no aortic valvular vegetation. There is no vegetation on the pulmonic valve or tricuspid valve. Procedure: Informed consent for Transesophageal Echocardiogram, and use of a contrast agent as needed, was obtained prior to the procedure. Sedation was managed by anesthesiologist; see anesthesiology notes for details. The transesophageal probe was passed without difficulty. Comparison is made with the echocardiogram of . The patient was in normal sinus rhythm during the exam. There were no complications. Left Ventricle: The left ventricle is normal in size. Left ventricular systolic function is mildly reduced. The ejection fraction is estimated to be 45-50%. There is mild global hypokinesis of the left ventricle. There are no focal wall motion abnormalities. Right Ventricle: The right ventricle grossly appears normal in size with probable normal systolic function. Atria: No left atrial mass or thrombus visualized. No thrombus is detected in the left atrial appendage. The interatrial septum is intact with no evidence for an atrial septal defect. There is no Doppler evidence for an atrial septal defect. Mitral Valve: The mitral valve is grossly normal. There is no vegetation seen on the mitral valve. There is mild to moderate mitral regurgitation. Aortic Valve: The aortic valve is normal in structure and function. The aortic valve is trileaflet. The aortic valve opens well. There is no aortic valvular vegetation. No aortic regurgitation is present. Tricuspid Valve: The tricuspid valve leaflets are thin and pliable. There is no tricuspid valve vegetation. Pulmonic Valve: The pulmonic valve is not well seen, but is grossly normal. There is no vegetation on the pulmonic valve. There is no other significant valvular heart disease. There is no obvious valvular vegetation identified on this exam. Consider HERNESTO if there is a high degree of clinical suspicion for endocarditis and clinically appropriate. Reading Physician:02:17 PM
--- NOTE | 2016-05-23 14:30 | PCM.PNMED ---
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 Hospital day #8. Overnight: Continue to have right hip pain rating his pain around a 7 out of 10 , Dilaudid continues to be given with some relief. Today: Patient still reports right hip pain, is curious about the test to be done today though is in good spirits overall. At time of interview patient scheduled for HERNESTO Exam Vital Signs Vital Sign - Last Date Time Temp Pulse Resp B/P Pulse Ox O2 Delivery O2 Flow Rate FiO2 05/23/16 13:00 36.5 94 22 216/133 100 Nasal Cannula 4.00 Intake and Output 05/22/16 05/22/16 05/23/16 Cumulative From/Thru 15:00 23:00 07:00 05/16/16 14:48 - 05/23/16 06:44 Intake Total 1011 ml 0 ml 8853 ml Output Total 75 ml 11371 ml Balance 1011 ml -75 ml -3742 ml Intake Oral 936 ml 0 ml 6493 ml IV Total 75 ml 1310 ml Packed Cells 1050 ml Output Urine Total 75 ml 295 ml Ultrafiltrate 66242 ml # Voids 2 1 10 # Bowel Movements 1 0 5 Exam General: Patient sitting upright in hospital bed. Appropriately interactive and conversant. Thermal Intelligence Analyst present in the room HEENT: Normocephalic, atraumatic. External ears without defect. Pupils equal, round, and reactive to light and accommodation. Cardiovascular: Regular rate and rhythm. Soft murmur heard best at right upper sternal border Pulmonary: Clear to auscultation bilaterally. No use of accessory muscles, good air movement. Abdomen: Bowel tones present. Soft, nontender, nondistended. Extremities: Left lower extremity is larger than right. Left lower extremity with ichthyosis Skin: Normal temperature, turgor, and texture Neurological: Cranial nerves grossly intact. Psychiatric: Alert and oriented to person, place, and time. IVs and Medications Medications Reviewed: Medications were reviewed in detail Lab and Diagnostics Result Diagram: 05/23/1642905/23/16429 Microbiology Nasal swab positive for MRSA Microbiology TANIA CULTURE BLOOD Final 05/19/16-0815 Organism 1 STREPTOCOCCUS SALIVARIUS GROUP STREPTOCOCCUS SALIVARIUS GROUP Species: salivarius ISOLATED FROM FOUR OF FOUR BOTTLES COLLECTED 05/16/16. 1. STREPTOCOCCUS SALIVARIUS GROUP M.I.C Interp --------- ------ * AMPICILLIN <=0.25 S * CEFOTAXIME <=0.12 S * CEFTRIAXONE <=0.12 S * CLINDAMYCIN R * ERYTHROMYCIN R * LEVOFLOXACIN 2 S * LINEZOLID <=2 S * PENICILLIN-G 0.25 I * VANCOMYCIN 1 S X-Rays, CTs and MRIs . X-RAY CHEST ONE VIEW, PORTABLE IMPRESSION: Moderate diffuse appearance of bilateral pulmonary opacities. This can represent diffuse edema, ARDS and/or superimposed infection such as pneumonia. Dictated by: Martha Elder M.D. on 05/16/2016 at 15:04 X-RAY CHEST ONE VIEW, PORTABLE IMPRESSION: Decrease in appearance of bilateral pulmonary opacities likely related to decreasing edema and/or diffuse bilateral pneumonia. Dictated by: Errol AVILEZ Interpreted: Marita Jade MD on 05/17/2016 at 10: 23 X-RAY CHEST ONE VIEW, PORTABLE IMPRESSION: Slight decrease in appearance of bilateral pulmonary opacities suggesting resolving edema and/or diffuse bilateral pneumonia. Dictated by: Errol AVILEZ Interpreted: Marita Jade MD on 05/19/2016 at 9:55 X-RAY CHEST ONE VIEW, PORTABLE IMPRESSION: 1. Right greater than left, patchy pulmonary opacities, suspicious for pneumonia. Differential considerations include fluid overload in the setting of cardiomegaly. Short interval followup is recommended to ensure resolution of this finding and exclude underlying pulmonary pathology. Dictated by: Marita Jade M.D. on 05/21/2016 at 8:28 Cardiac Echo Impressions . Echocardiogram Report Interpretation Summary There is moderate concentric left ventricular hypertrophy. The ejection fraction is estimated to be 40-45%. There is mild global hypokinesis of the left ventricle. Severe inferolateral hypokinesis. Prominent trabeculations in apex are noted. The right ventricle is mild to moderately dilated. Right ventricular systolic function is mildly reduced. The left atrium is severely dilated. There is moderate mitral regurgitation. There is mild to moderate tricuspid regurgitation. The right ventricular systolic pressure is estimated at 51 mmHg assuming a right atrial pressure of 8 mm Hg. Electronically signed by: Wisam TALBERT Echocardiogram Report Interpretation Summary The left ventricle is normal in size and left ventricular systolic function is mildly reduced with the ejection fraction visually estimated to be 45-50% with mild global hypokinesis but no focal wall motion abnormalities. The right ventricle grossly appears normal in size with probable normal systolic function. The interatrial septum is intact with no evidence for an atrial septal defect and no Doppler evidence for an atrial septal defect. No left atrial mass or thrombus is visualized. The mitral valve is grossly normal and no vegetation is seen on the mitral valve. There is mild to moderate mitral regurgitation. The aortic valve is normal in structure and function and there is no aortic valvular vegetation. There is no vegetation on the pulmonic valve or tricuspid valve. Assessment & Plan Patient is a 40-year-old male with history of PE and DVT s/p IVC filter placement, lupus nephritis, ESRD on hemodialysis, congestive heart failure, antiphospholipid syndrome, CVA, and recent hospitalization for pulmonary capillaritis presenting with shortness of breath. Hospital day #8. 1. Sepsis/bactremia, present on admission. Active -Met criteria with HR (121), RR (48), WBC (12.8) bacteremic -Infectious disease following, recommendations are appreciated -Antibiotics per ID. Continue ceftriaxone 2 g daily -Blood culture positive for Streptococcus salivaris -HERNESTO showed no evidence of vegetations or thrombus 2. Acute on chronic normocytic anemia requiring transfusion, present on admission, active. -Review of past records indicate similar levels but possible superimposed blood loss given supratherapeutic INR (10.63) -LDH elevated 883, Haptoglobin less than 10 -Oncology consulted. Recommendations per oncology appreciated -Threshold for transfusion only if hemoglobin less than 6.5 due to iron overload 3. Thrombocytopenia. Presently on admission. Ongoing -Most likely secondary to autoimmune disease -No heparin -Transfuse if any signs of active bleeding or if platelets less than 10 4. Supratherapeutic INR, present on admission. Resolved -INR 10.63. Patient received vitamin K 2.5mg PO one time -Uncertain etiology -Pharmacy to dose Coumadin 5. Acute hypoxemic respiratory failure. Present on admission, stable -Possibly secondary to pneumonia, fluid overload, heart failure, pulmonary embolism, pulmonary capillaritis -Patient has required oxygen via nasal candidate maintain saturations, will most likely need oxygen upon discharge -Negative studies: legionella and strep pneumo urine ag, sputum culture -Respiratory PCR panel negative 6. ESRD on HD, chronic. present on admission. active -Likely secondary to lupus nephritis -Currently undergoing dialysis per nephrology -Nephrology following. Recommendations per nephrology appreciated -HD per Nephrology 7. Systolic and diastolic heart failure, present on admission. -Echo 11/2015: LV EF estimated 40-45% with mild global hypokinesis of the LV. -Repeat Echocardiogram as above 8. Elevated troponin, present on admission, active. -Troponin 0.067 in setting of ESRD -Similar troponin levels during past hospitalizations. Unlikely cardiac ischemia 9. Chronic hypertension with hypertensive urgency. Present on admission. Ongoing -BP 204/91 on arrival to ED -Remains hypertensive -Per nephrology recommendations -Stopped carvedilol 50 mg twice a day -Continue Labetalol 300 BID -Continue spironolactone 25mg BID 10. 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 -Holding mycophenolate mofetil -Prednisone 10 mg daily -Dr. Rosales of Hematology following. Recommends outpatient follow-up with possible bone marrow biopsy to follow -Low C3 and C4 complement consistent with activation of classic pathway -Holding mycophenolate mofetil 11. History of thromboembolic disease s/p IVC filter, present on admission. Stable. -D-dimer elevated (1.18), possibly secondary to sepsis -INR supratherapeutic on admit (10.63) -Warfarin and INR as in #4 Pain acetaminophen when necessary, Dilaudid for breakthrough Code status: FULL Disposition: Patient will most likely discharge home tomorrow or the next day, awaiting specialty services input and sign off Pain Evaluation: Adequate Pain Control GI Prophylaxis: Proton Pump Inhibitor VTE Prophylaxis: Theraputic Anticoag with Warfarin Resuscitation Status: CPR: Attempt Resuscitation Attending Statement The patient was seen and examined together with Dr. Granda on 05/23/2016 and I agree with the history, exam and plan as outlined in the note above. . ZAY GRANDA DO May 23, 2016 14:30 Ludwig Gutiérrez MD May 23, 2016 17:46
--- NOTE | 2016-05-23 14:43 | NUR ---
Home O2 Eval At Rest: -RA sat: 91% Standing: -RA sat: 84% -3LNC sat: 92%
--- NOTE | 2016-05-23 16:19 | NUR ---
Multidisciplinary Communication/HERNESTO/Patrol Mother 0850 - Kiya Mallory RN from [facility] called to say that he would be having the HERNESTO procedure at 1130 and needed to be to [facility] around 1100. Gave her report on the pt. 0930 - Performed morning assessments and gave medications with a [place] speaking interpreter for the deaf. Assured him that during the HERNESTO procedure an interpreter for the deaf would be provided per his request. 1115 - He was taken via wheelchair by the DEVELOPER PROGRAMMER ANALYST from [facility] to [facility] for the HERNESTO procedure. The interpreter for the deaf went with him. 1220 - Nazario PEREIRA from [facility] called to give a report as he was to return soon. He said the procedure went well and "he looked clean." 1237 - He returned to [facility] and was settled back into the room. He requested something to eat as he was hungry. Paged Dr. Granda at 1242 and he called back at 1245 and gave a telephone order for a renal diet. It was ordered and the pt was told he could order something to eat which he did. 1313 - His mid-day blood pressure check was 216/133. Notified Dr. Granda via page about this. Did not hear back and followed up with Dr. Granda in person at 1340. He said he was aware of his consistent high blood pressure and given the fact that he was asymptomatic did not give any new orders at that time. Would review when rounding. 1333 - Was giving the pt his own home Magic Mouthwash and noted that his bottle was almost empty. Spoke with pt about this and he said he had two more bottles at home that a friend or family member could bring in this afternoon/evening. 1505 - Noted that one of his calcium pills was missing in the drawer. Left a note for Pharmacist Pa Tapia to request from pharmacy. Care continues.
--- NOTE | 2016-05-23 16:23 | NUR ---
Social Work Note: Continued Discharge Planning Data& Assessment: SW discussed home oxygen needs with MD and RT. RT will be evaluating pt for home oxygen and ensuring referral to oxygen company is complete at time of discharge. Pt was not set up with home oxygen when discharged recently from another hospital which caused pt to go into respiratory distress this last week. SW to continue to follow. Plan: Anticipated discharge home via POV when medically ready with home oxygen and follow up appointment with Dr. Peterson tomorrow 05/24/2016. SW to continue to follow. DAXA Bella
[2016-05-23] MEDS: cefTRIAXone Inj 2,000 MG in Dextrose 5% Minibag Plus 50 ML IV SCH (16:50)
[2016-05-23] MEDS ORDERED: diphenhydrAMINE 25 mg Capsule PO ONE (18:30)
--- NOTE | 2016-05-23 19:27 | NUR ---
Itchiness Complained of generalized itchiness about 1817 and said it had been going on about a half hour. No apparent hives noted. Paged Dr. Granda who called back at 1819 and said he would order Benadryl. Discussed any possible new medications that could cause an allergic reaction like this, but he has not taken anything new recently. Called pharmacy for a medication check. They called back at 1827 and said there was nothing they could see that would cause an allergic reaction. Dr. Granda had ordered Benadryl cream and so per this nurse's request they changed it to by mouth since he had generalized itchiness and it would be difficult to spread the cream all over his body. Notified Krupa RN on night club manager who said she would give it to him. Care continues.
[2016-05-23] MEDS: LORazepam 1 mg Tablet PO PRN (23:21)
[2016-05-24] VITALS (7 sets, daily range): BP systolic 145–194; BP diastolic 87–115; PULSE 71–84; RESP 15–20; O2SAT 96–100
[2016-05-24] MEDS: HYDROmorphone 1 mg/mL Inj IVPUSH PRN ×3 (01:53→12:53)
--- NOTE | 2016-05-24 02:01 | NUR ---
meds/pain/anxiety/BP/sats Requested he not be given Benadryl until he received his HS meds. States this was effective for generalized itching. C/o chronic hip pain, as well as headache and requested IV Dilaudid, stating it is more effective than the oxycodone. Requested medication for anxiety, stating he's received it before, but can't remember which one. C/o waking up feeling breathless and anxious multiple times. MD contacted and orders for Ativan. Given, and patient states this was effective. BP has been high with SBP from 157-194. MD notified and aware of this. Pt started on higher dose of labetelol with HS meds. Sqats have remained in mid-high 90's on 4 liters nasal cannula. Addendum: 05/24/16 at 0206 by CONSTANCE JAMES RN Used translator/interpreter on a stick to discuss plan of care with patient, answer questions, and for assessment.
[2016-05-24 03:56] LABS: BASOPHILS % (AUTO) 0.6 % (0-3); EOSINOPHILS % (AUTO) 1.2 % (0-5); MONOCYTES % (AUTO) 15.4 % (4-12); Mean Corpuscular Hemoglobin 29.4 pg (27.0-35.0); NEUTROPHILS % (AUTO) 52.8 % (40-74); Platelet Count 63 bil/L (150-400)
[2016-05-24] MEDS: [UNRECOGNIZED DRUG - OTHER] PO SCH ×4 (06:30→21:30)
--- NOTE | 2016-05-24 06:37 | NUR ---
magic mouthwash Pt is out of magic mouthwash. States he has several more bottles at home and his friend will bring it in later today.
[2016-05-24 07:20] LABS: INR 1.9 ratio
[2016-05-24] MEDS: Ondansetron 2 mg/mL 2 mL Inj IVPUSH PRN (07:25)
[2016-05-24] MEDS: Pantoprazole 40 mg ER24 Tablet PO SCH (07:30)
[2016-05-24] MEDS: predniSONE 10 mg Tablet PO SCH (08:00)
[2016-05-24] MEDS: LORazepam 1 mg Tablet PO PRN (08:19)
[2016-05-24] MEDS: Calcium Carbonate (Oyster Shell) 500 mg Tablet PO SCH ×3 (08:30→20:35)
--- NOTE | 2016-05-24 09:33 | NUR ---
Dialysis Pt went for dialysis at 0915. Brought to room 244 by unit staff. ambulatory technologist notified that pt left the unit. Report given to Karo PEREIRA and Jessie PEREIRA. Pt complained of a headache "9/10" prior to dialysis and oxycodone had been given at 0815. Also reporting nausea and reported zofran was ineffective.
--- NOTE | 2016-05-24 09:48 | PROG NOTE ---
[address] [address] PROGRESS NOTE PATIENT: TAMMY SENIOR : 1975 MR#: [id number] ADMIT: 05/16/2016 JOB ID: [id number] DATE: 05/24/2016 INFECTIOUS DISEASE FOLLOWUP NOTE: REASON FOR FOLLOWUP: Streptococcal bacteremia in a patient with end-stage renal disease and underlying lupus and antiphospholipid syndrome. INTERVAL HISTORY: Yesterday, the patient underwent his transesophageal echo, which was done by Dr. Ramsey. After the procedure Dr. Ramsey called and we discussed the procedure. There was no evidence of any significant vegetation or endocarditis. The ejection fraction was mildly decreased at 45% to 50% with mild global hypokinesis. Today, the patient has multiple complaints. He states that he is very short of breath and coughing up some blood. He states that this happens every time he is due for dialysis. He notes that during the two or three days between dialysis sessions he gradually becomes more short of breath and will start to have hemoptysis prior to . He also notes he has a terrible headache, as well as severe pain in his avascular hip. He denies fevers, chills, or sweats. He does have some nausea but does not have vomiting or diarrhea today. No issues with his ceftriaxone therapy that he is aware of. No skin rash. His case was discussed with the nurses. OBJECTIVE: Temperature afebrile, currently 37 degrees. Pulse 80, respiratory rate 18, blood pressure 174/104 and it has been as high as 194/115. In general exam, the patient looks quite ill. He is obviously very uncomfortable sitting up in bed, using face mask oxygen rather than his usual nasal prongs. Despite that, he says he does not feel that bad for a day of dialysis when he is often very ill just prior to the initiation of the procedure. He is awake and alert. His eyes without any conjunctivitis or scleral icterus. His lungs are notable for rales, which extend at least residential up bilaterally. Cardiac tones without any significant murmur. Regular rate and rhythm. Abdomen negative. No skin rash. LABORATORIES: Include white count 3400, platelet count 63,000. Creatinine 8.99. LFT normal. QuantiFERON Gold and strongyloides antibodies both back and both negative. Micro studies include the MRSA swab of the nares which was positive by PCR, as well as the blood cultures, which grew the strep salivarius, which was intermittently resistant to penicillin with an TANIA of 0.25 but very susceptible to ceftriaxone and cefotaxime. IMPRESSION: This is an extremely unfortunate young gentleman with really an overwhelming collection of problems secondary to lupus, antiphospholipid syndrome and renal failure associated with pancytopenia. The patient had a wide variety of oral ulcers a couple of weeks ago and these have gradually healed. Unfortunately, he came in with a high-grade viridans bacteremia, which I suspect is from the oral ulcers. Because of concerns about endocarditis we did a transesophageal echocardiogram, which was, fortunately, negative, and I think we can truncate his therapy for the viridans bacteremia 10-14 days. This is the start of the 9th day of his hospital stay. RECOMMENDATIONS: 1. I would continue the ceftriaxone once a day as long as he is here in the hospital up to a maximum of 14 days which would take us through May 29. 2. If the patient is deemed ready for discharge, the simplest way to handle this would simply be to give vancomycin at the end of each dialysis through the middle of next week or May 29 with a dose of about 750 mg at the conclusion of each dialysis going forward. 3. Infectious Disease will continue to follow this patient with you until he is discharged, though I will likely not see him tomorrow and see him again on if he is still here. If he is discharged though, the followup two or three doses of vancomycin at the conclusion of dialysis should be adequate for resolution of this high-grade Streptococcus viridans bacteremia, which likely came from the mouth and did not appear to cause endocarditis.
--- NOTE | 2016-05-24 13:48 | NUR ---
Dialysis note Completed 2 1/2 hrs. of HD. 1000ml net UF removed. Pt slept comfortably thru tx until todd 1 1/2 hrs. of tx remaining and pt abruptly woke up very anxious, stating "just doesn't feel good", but unable to further articulate. UF off at this time, VS checked and were stable. Pt requesting to come off tx. Tried to convince pt to stay on tx but he demanded to end tx, stated he had pain, was unable to articulate where, pain medications were not due to be given yet and pt was continuing to be quite somulent despite stating he was anxious. See DTR for complete vitals. Blood returned and tx ended. Dr. James was notified. Sureseals/clamps X15 mins. Report given and pt returned to floor stable.
[2016-05-24] MEDS: cefTRIAXone Inj 2,000 MG in Dextrose 5% Minibag Plus 50 ML IV SCH (15:53)
--- NOTE | 2016-05-24 16:56 | PCM.PNNEPH ---
Subjective Date of Service May 24, 2016 Subjective He is seen during HD. c/o headache and right hip pain. received IV dilaudid. hyperkalemia noted. Exam Vital Signs Vital Sign - Last Date Time Temp Pulse Resp B/P Pulse Ox O2 Delivery O2 Flow Rate FiO2 05/24/16 15:13 84 05/24/16 09:00 Supplement Oxygen 05/24/16 08:00 37.0 18 174/104 96 4.00 Intake and Output 05/23/16 05/23/16 05/24/16 Cumulative From/Thru 15:00 23:00 07:00 05/16/16 14:48 - 05/24/16 06:22 Intake Total 1006 ml 200 ml 25145 ml Output Total 0 ml 92516 ml Balance 1006 ml 200 ml -2536 ml Intake Oral 936 ml 200 ml 7629 ml IV Total 70 ml 1380 ml Packed Cells 1050 ml Output Urine Total 0 ml 295 ml Ultrafiltrate 98854 ml # Voids 2 12 # Bowel Movements 0 5 Exam GA: lying in bed comfortably, NAD. HEENT: no pallor, atraumatic, moist MM. Lungs: Clear to auscultation. Heart: Regular and rhythmical with a soft systolic murmur. Abdomen: Soft without any tenderness or rebound guarding masses or hepatosplenomegaly. Extremities not show any evidence of any clubbing cyanosis or edema. Lab and Diagnostics Result Diagram: 05/24/16 0345 05/24/16 034 Microbiology Nasal swab positive for MRSA Microbiology TANIA CULTURE BLOOD Final 05/19/16-814 Organism 1 STREPTOCOCCUS SALIVARIUS GROUP STREPTOCOCCUS SALIVARIUS GROUP Species: salivarius ISOLATED FROM FOUR OF FOUR BOTTLES COLLECTED 05/16/16. 1. STREPTOCOCCUS SALIVARIUS GROUP M.I.C Interp --------- ------ * AMPICILLIN <=0.25 S * CEFOTAXIME <=0.12 S * CEFTRIAXONE <=0.12 S * CLINDAMYCIN R * ERYTHROMYCIN R * LEVOFLOXACIN 2 S * LINEZOLID <=2 S * PENICILLIN-G 0.25 I * VANCOMYCIN 1 S X-Rays, CTs and MRIs . X-RAY CHEST ONE VIEW, PORTABLE IMPRESSION: Moderate diffuse appearance of bilateral pulmonary opacities. This can represent diffuse edema, ARDS and/or superimposed infection such as pneumonia. Dictated by: Martha Elder M.D. on 05/16/2016 at 15:04 X-RAY CHEST ONE VIEW, PORTABLE IMPRESSION: Decrease in appearance of bilateral pulmonary opacities likely related to decreasing edema and/or diffuse bilateral pneumonia. Dictated by: Errol AVILEZ Interpreted: Marita Jade MD on 05/17/2016 at 10: 23 X-RAY CHEST ONE VIEW, PORTABLE IMPRESSION: Slight decrease in appearance of bilateral pulmonary opacities suggesting resolving edema and/or diffuse bilateral pneumonia. Dictated by: Errol AVILEZ Interpreted: Marita Jade MD on 05/19/2016 at 9:55 X-RAY CHEST ONE VIEW, PORTABLE IMPRESSION: 1. Right greater than left, patchy pulmonary opacities, suspicious for pneumonia. Differential considerations include fluid overload in the setting of cardiomegaly. Short interval followup is recommended to ensure resolution of this finding and exclude underlying pulmonary pathology. Dictated by: Marita Jade M.D. on 05/21/2016 at 8:28 Cardiac Echo Impressions . Echocardiogram Report Interpretation Summary There is moderate concentric left ventricular hypertrophy. The ejection fraction is estimated to be 40-45%. There is mild global hypokinesis of the left ventricle. Severe inferolateral hypokinesis. Prominent trabeculations in apex are noted. The right ventricle is mild to moderately dilated. Right ventricular systolic function is mildly reduced. The left atrium is severely dilated. There is moderate mitral regurgitation. There is mild to moderate tricuspid regurgitation. The right ventricular systolic pressure is estimated at 51 mmHg assuming a right atrial pressure of 8 mm Hg. Electronically signed by: Wisam TALBERT Echocardiogram Report Interpretation Summary The left ventricle is normal in size and left ventricular systolic function is mildly reduced with the ejection fraction visually estimated to be 45-50% with mild global hypokinesis but no focal wall motion abnormalities. The right ventricle grossly appears normal in size with probable normal systolic function. The interatrial septum is intact with no evidence for an atrial septal defect and no Doppler evidence for an atrial septal defect. No left atrial mass or thrombus is visualized. The mitral valve is grossly normal and no vegetation is seen on the mitral valve. There is mild to moderate mitral regurgitation. The aortic valve is normal in structure and function and there is no aortic valvular vegetation. There is no vegetation on the pulmonic valve or tricuspid valve. Plan Impression 1. End-stage renal disease HD prescription. 4 hr, UF 2-3L, 2K, 35HCO3, DFR 600, BFR 400, revaclear right AVF. 2. Streptococcus Salivarius bacteremia HERNESTO showed no evidence of IE. 3. Hypertension with hypertensive heart disease and hypertensive nephrosclerosis 4. Antiphospholipid syndrome 5. Avascular necrosis of right hip. Plan: Continue IV ceftriaxone while in house. If d/c home, vancomycin 750 mg will be given after each HD til May [address] Barajas's recommendation. Next HD on . Nina Goodman MD May 24, 2016 16:56
--- NOTE | 2016-05-24 18:04 | NUR ---
Pain Pt complaining of head and L hip pain throughout the shift. Rating this pain as high as "10/10". Reports that his headache is unrelieved by current pain regimen. He is requesting IV pain medication more frequently than he is able to get it. He has been appearing sedated and drifts off shortly after interactions with staff.
--- NOTE | 2016-05-24 18:09 | PCM.PNMED ---
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 Hospital day #9. Overnight: Patient complains of some itchiness, relieved with Benadryl. Still states some right hip pain which is managed with his pain medications Today: Today patient awake and alert, sitting in hospital bed undergoing dialysis at time of interview. Does not state any specific complaints, states he feels ready to go home. Exam Vital Signs Vital Sign - Last Date Time Temp Pulse Resp B/P Pulse Ox O2 Delivery O2 Flow Rate FiO2 05/24/16 16:56 Supplement Oxygen 05/24/16 16:56 36.8 79 15 151/108 96 4.00 Intake and Output 05/23/16 05/23/16 05/24/16 Cumulative From/Thru 15:00 23:00 07:00 05/16/16 14:48 - 05/24/16 06:22 Intake Total 1006 ml 200 ml 35256 ml Output Total 0 ml 93806 ml Balance 1006 ml 200 ml -2536 ml Intake Oral 936 ml 200 ml 7629 ml IV Total 70 ml 1380 ml Packed Cells 1050 ml Output Urine Total 0 ml 295 ml Ultrafiltrate 94006 ml # Voids 2 12 # Bowel Movements 0 5 Exam General: Awake and alert laying in hospital bed undergoing dialysis at time of interview Appropriately interactive and conversant. HEENT: Normocephalic, atraumatic. External ears without defect. Pupils equal, round, and reactive to light and accommodation. Cardiovascular: Regular rate and rhythm. Murmur difficult to appreciate secondary to ambient noise Pulmonary: Clear to auscultation bilaterally. No use of accessory muscles, good air movement. Abdomen: Bowel tones present. Soft, nontender, nondistended. Extremities: Left lower extremity is larger than right. Left lower extremity with ichthyosis Skin: Normal temperature, turgor, and texture Neurological: Cranial nerves grossly intact. IVs and Medications Medications Reviewed: Medications were reviewed in detail Lab and Diagnostics Result Diagram: 05/24/16 0345 05/24/16 0345 Microbiology Nasal swab positive for MRSA Microbiology TANIA CULTURE BLOOD Final 05/19/16-0815 Organism 1 STREPTOCOCCUS SALIVARIUS GROUP STREPTOCOCCUS SALIVARIUS GROUP Species: salivarius ISOLATED FROM FOUR OF FOUR BOTTLES COLLECTED 05/16/16. 1. STREPTOCOCCUS SALIVARIUS GROUP M.I.C Interp --------- ------ * AMPICILLIN <=0.25 S * CEFOTAXIME <=0.12 S * CEFTRIAXONE <=0.12 S * CLINDAMYCIN R * ERYTHROMYCIN R * LEVOFLOXACIN 2 S * LINEZOLID <=2 S * PENICILLIN-G 0.25 I * VANCOMYCIN 1 S X-Rays, CTs and MRIs . X-RAY CHEST ONE VIEW, PORTABLE IMPRESSION: Moderate diffuse appearance of bilateral pulmonary opacities. This can represent diffuse edema, ARDS and/or superimposed infection such as pneumonia. Dictated by: Martha Elder M.D. on 05/16/2016 at 15:04 X-RAY CHEST ONE VIEW, PORTABLE IMPRESSION: Decrease in appearance of bilateral pulmonary opacities likely related to decreasing edema and/or diffuse bilateral pneumonia. Dictated by: Errol AVILEZ Interpreted: Marita Jade MD on 05/17/2016 at 10: 23 X-RAY CHEST ONE VIEW, PORTABLE IMPRESSION: Slight decrease in appearance of bilateral pulmonary opacities suggesting resolving edema and/or diffuse bilateral pneumonia. Dictated by: Errol AVILEZ Interpreted: Marita Jade MD on 05/19/2016 at 9:55 X-RAY CHEST ONE VIEW, PORTABLE IMPRESSION: 1. Right greater than left, patchy pulmonary opacities, suspicious for pneumonia. Differential considerations include fluid overload in the setting of cardiomegaly. Short interval followup is recommended to ensure resolution of this finding and exclude underlying pulmonary pathology. Dictated by: Marita Jade M.D. on 05/21/2016 at 8:28 Cardiac Echo Impressions . Echocardiogram Report Interpretation Summary There is moderate concentric left ventricular hypertrophy. The ejection fraction is estimated to be 40-45%. There is mild global hypokinesis of the left ventricle. Severe inferolateral hypokinesis. Prominent trabeculations in apex are noted. The right ventricle is mild to moderately dilated. Right ventricular systolic function is mildly reduced. The left atrium is severely dilated. There is moderate mitral regurgitation. There is mild to moderate tricuspid regurgitation. The right ventricular systolic pressure is estimated at 51 mmHg assuming a right atrial pressure of 8 mm Hg. Electronically signed by: Wisam TALBERT Echocardiogram Report Interpretation Summary The left ventricle is normal in size and left ventricular systolic function is mildly reduced with the ejection fraction visually estimated to be 45-50% with mild global hypokinesis but no focal wall motion abnormalities. The right ventricle grossly appears normal in size with probable normal systolic function. The interatrial septum is intact with no evidence for an atrial septal defect and no Doppler evidence for an atrial septal defect. No left atrial mass or thrombus is visualized. The mitral valve is grossly normal and no vegetation is seen on the mitral valve. There is mild to moderate mitral regurgitation. The aortic valve is normal in structure and function and there is no aortic valvular vegetation. There is no vegetation on the pulmonic valve or tricuspid valve. Assessment & Plan Patient is a 40-year-old male with history of PE and DVT s/p IVC filter placement, lupus nephritis, ESRD on hemodialysis, congestive heart failure, antiphospholipid syndrome, CVA, and recent hospitalization for pulmonary capillaritis presenting with shortness of breath. Hospital day #8. 1. Sepsis/bactremia, present on admission. Active -Met criteria with HR (121), RR (48), WBC (12.8) bacteremic -Infectious disease following, recommendations are appreciated -Antibiotics per ID. Continue ceftriaxone 2 g daily -Blood culture positive for Streptococcus salivaris -HERNESTO showed no evidence of vegetations or thrombus 2. Acute on chronic normocytic anemia requiring transfusion, present on admission, active. -Review of past records indicate similar levels but possible superimposed blood loss given supratherapeutic INR (10.63) -LDH elevated 883, Haptoglobin less than 10 -Oncology consulted. Recommendations per oncology appreciated -Threshold for transfusion only if hemoglobin less than 6.5 due to iron overload 3. Thrombocytopenia. Presently on admission. Ongoing -Most likely secondary to autoimmune disease -No heparin -Transfuse if any signs of active bleeding or if platelets less than 10 4. Supratherapeutic INR, present on admission. Resolved -INR 10.63. Patient received vitamin K 2.5mg PO one time -Uncertain etiology -Pharmacy to dose Coumadin 5. Acute hypoxemic respiratory failure. Present on admission, stable -Possibly secondary to pneumonia, fluid overload, heart failure, pulmonary embolism, pulmonary capillaritis -Patient has required oxygen via nasal candidate maintain saturations, will most likely need oxygen upon discharge -Negative studies: legionella and strep pneumo urine ag, sputum culture -Respiratory PCR panel negative 6. ESRD on HD, chronic. present on admission. active -Likely secondary to lupus nephritis -Currently undergoing dialysis per nephrology -Nephrology following. Recommendations per nephrology appreciated -HD per Nephrology 7. Systolic and diastolic heart failure, present on admission. -Echo 11/2015: LV EF estimated 40-45% with mild global hypokinesis of the LV. -Repeat Echocardiogram as above 8. Elevated troponin, present on admission, active. -Troponin 0.067 in setting of ESRD -Similar troponin levels during past hospitalizations. Unlikely cardiac ischemia 9. Chronic hypertension with hypertensive urgency. Present on admission. Ongoing -BP 204/91 on arrival to ED -Remains hypertensive -Per nephrology recommendations -Stopped carvedilol 50 mg twice a day -Continue Labetalol 300 BID -Continue spironolactone 25mg BID 10. 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 -Holding mycophenolate mofetil -Prednisone 10 mg daily -Dr. Rosales of Hematology following. Recommends outpatient follow-up with possible bone marrow biopsy to follow -Low C3 and C4 complement consistent with activation of classic pathway -Holding mycophenolate mofetil 11. History of thromboembolic disease s/p IVC filter, present on admission. Stable. -D-dimer elevated (1.18), possibly secondary to sepsis -INR supratherapeutic on admit (10.63) -Warfarin and INR as in #4 Pain acetaminophen when necessary, Dilaudid for breakthrough Code status: FULL Disposition: Patient will most likely discharge home tomorrow, after dialysis today patient felt much worse and it was thought safest to hold onto him for 1 more day. Anticipate discharge tomorrow Pain Evaluation: Adequate Pain Control GI Prophylaxis: Proton Pump Inhibitor VTE Prophylaxis: Theraputic Anticoag with Warfarin Resuscitation Status: CPR: Attempt Resuscitation Attending Statement The patient was seen and examined together with Dr. Granda on 05/24/2016 and I agree with the history, exam and plan as outlined in the note above. . ZAY GRANDA DO May 24, 2016 18:09 Ludwig Gutiérrez MD May 26, 2016 07:45
[2016-05-25] VITALS (9 sets, daily range): BP systolic 149–172; BP diastolic 63–117; PULSE 78–97; RESP 16–20; O2SAT 96–100
[2016-05-25 03:51] LABS: BASOPHILS % (AUTO) 0.3 % (0-3); EOSINOPHILS % (AUTO) 1.7 % (0-5); MONOCYTES % (AUTO) 14.8 % (4-12); Mean Corpuscular Hemoglobin 29.7 pg (27.0-35.0); Mean Corpuscular Volume 95.7 fL (81-100); NEUTROPHILS % (AUTO) 60.6 % (40-74); Platelet Count 63 bil/L (150-400)
[2016-05-25 04:03] LABS: INR 2.54 ratio
[2016-05-25 04:08] LABS: Magnesium 1.8 mg/dL (1.6-2.6)
[2016-05-25] MEDS ORDERED: 0.9% Sodium Chloride 250 ML IV SCH (04:55)
--- NOTE | 2016-05-25 05:06 | NUR ---
[facility]/Pain/Critical Lab Offered foreign language interpreter for pt and he declined at this time. Pt stating right hip pain and headache 6-09/15. Administered oxycodone and Tylenol x2 this shift and effective. Pt will drift off shortly after talking with staff. Pt H&H this shift 6.4 & 20.0. MD notified and orders to Type and cross and Transfuse 1 unit, waiting for blood to be ready and will transfuse when ready.
[2016-05-25] MEDS: LORazepam 1 mg Tablet PO PRN (05:16)
[2016-05-25] MEDS: [UNRECOGNIZED DRUG - OTHER] PO SCH ×3 (06:30→16:30)
[2016-05-25] MEDS: Pantoprazole 40 mg ER24 Tablet PO SCH (08:16)
[2016-05-25] MEDS: Calcium Carbonate (Oyster Shell) 500 mg Tablet PO SCH ×2 (08:17→14:10)
[2016-05-25] MEDS: predniSONE 10 mg Tablet PO SCH (08:17)
[2016-05-25] MEDS: HYDROmorphone 1 mg/mL Inj IVPUSH PRN ×2 (10:59→15:38)
--- NOTE | 2016-05-25 11:03 | PCM.PHAPRO ---
Progress Date of Service: May 25, 2016 Warfarin dosing per pharmacy Indication: Hx of repeat PE with IVC filter in place Home dose: 5mg/d INR on admit 10.6 Pt admitted for sepsis with respiratory failure. Significant history for SLE with nephritis and antiphospholipid syndrome, CHF, ESRD. Active problems include acute on chronic anemia with thrombocytopenia. 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 INR is therapeutic but trending up aggressively after 3 doses of 5 mg (INR change of +0.64 since yesterday). Will significantly reduce dose today. Plan: Give warfarin 1.5 mg PO today at 1700. Pharmacy to continue to monitor and dose warfarin daily. Thank you, Chacha sEpana Pharmacist Chacha Espana May 25, 2016 11:03
--- NOTE | 2016-05-25 12:58 | PCM.PNNEPH ---
Subjective Date of Service May 25, 2016 Subjective Hb dropped to 6.2, s/p PRBC, repeat Hb 7.1. HD yesterday, unfinished due to anxiety attack. now feeling fine, has mild pain on right hip. no CP/SOB. Exam Vital Signs Vital Sign - Last Date Time Temp Pulse Resp B/P Pulse Ox O2 Delivery O2 Flow Rate FiO2 05/25/16 12:24 36.9 87 16 169/63 100 OxyMask 3.00 05/25/16 03:32 97 Intake and Output 05/24/16 05/24/16 05/25/16 Cumulative From/Thru 15:00 23:00 07:00 05/16/16 14:48 - 05/25/16 05:34 Intake Total 290 ml 400 ml 90950 ml Output Total 1000 ml 0 ml 0 ml 11977 ml Balance -1000 ml 290 ml 400 ml -2846 ml Intake Oral 200 ml 400 ml 8229 ml IV Total 90 ml 1470 ml Packed Cells 1050 ml Output Urine Total 0 ml 0 ml 295 ml Ultrafiltrate 1000 ml 47788 ml # Voids 12 # Bowel Movements 0 5 Exam GA: lying in bed comfortably, NAD. HEENT: no pallor, atraumatic, moist MM. puffy face and eyelids. Lungs: Clear to auscultation. Heart: Regular and rhythmical with a soft systolic murmur. Abdomen: Soft without any tenderness or rebound guarding masses or hepatosplenomegaly. Extremities not show any evidence of any clubbing cyanosis or edema. Lab and Diagnostics Result Diagram: 05/25/16 1135 05/25/16 0345 Microbiology Nasal swab positive for MRSA Microbiology TANIA CULTURE BLOOD Final 05/19/16-0815 Organism 1 STREPTOCOCCUS SALIVARIUS GROUP STREPTOCOCCUS SALIVARIUS GROUP Species: salivarius ISOLATED FROM FOUR OF FOUR BOTTLES COLLECTED 05/16/16. 1. STREPTOCOCCUS SALIVARIUS GROUP M.I.C Interp --------- ------ * AMPICILLIN <=0.25 S * CEFOTAXIME <=0.12 S * CEFTRIAXONE <=0.12 S * CLINDAMYCIN R * ERYTHROMYCIN R * LEVOFLOXACIN 2 S * LINEZOLID <=2 S * PENICILLIN-G 0.25 I * VANCOMYCIN 1 S X-Rays, CTs and MRIs . X-RAY CHEST ONE VIEW, PORTABLE IMPRESSION: Moderate diffuse appearance of bilateral pulmonary opacities. This can represent diffuse edema, ARDS and/or superimposed infection such as pneumonia. Dictated by: Martha Elder M.D. on 05/16/2016 at 15:04 X-RAY CHEST ONE VIEW, PORTABLE IMPRESSION: Decrease in appearance of bilateral pulmonary opacities likely related to decreasing edema and/or diffuse bilateral pneumonia. Dictated by: Errol AVILEZ Interpreted: Marita Jade MD on 05/17/2016 at 10: 23 X-RAY CHEST ONE VIEW, PORTABLE IMPRESSION: Slight decrease in appearance of bilateral pulmonary opacities suggesting resolving edema and/or diffuse bilateral pneumonia. Dictated by: Errol AVILEZ Interpreted: Marita Jade MD on 05/19/2016 at 9:55 X-RAY CHEST ONE VIEW, PORTABLE IMPRESSION: 1. Right greater than left, patchy pulmonary opacities, suspicious for pneumonia. Differential considerations include fluid overload in the setting of cardiomegaly. Short interval followup is recommended to ensure resolution of this finding and exclude underlying pulmonary pathology. Dictated by: Marita Jade M.D. on 05/21/2016 at 8:28 Cardiac Echo Impressions . Echocardiogram Report Interpretation Summary There is moderate concentric left ventricular hypertrophy. The ejection fraction is estimated to be 40-45%. There is mild global hypokinesis of the left ventricle. Severe inferolateral hypokinesis. Prominent trabeculations in apex are noted. The right ventricle is mild to moderately dilated. Right ventricular systolic function is mildly reduced. The left atrium is severely dilated. There is moderate mitral regurgitation. There is mild to moderate tricuspid regurgitation. The right ventricular systolic pressure is estimated at 51 mmHg assuming a right atrial pressure of 8 mm Hg. Electronically signed by: Wisam TALBERT Echocardiogram Report Interpretation Summary The left ventricle is normal in size and left ventricular systolic function is mildly reduced with the ejection fraction visually estimated to be 45-50% with mild global hypokinesis but no focal wall motion abnormalities. The right ventricle grossly appears normal in size with probable normal systolic function. The interatrial septum is intact with no evidence for an atrial septal defect and no Doppler evidence for an atrial septal defect. No left atrial mass or thrombus is visualized. The mitral valve is grossly normal and no vegetation is seen on the mitral valve. There is mild to moderate mitral regurgitation. The aortic valve is normal in structure and function and there is no aortic valvular vegetation. There is no vegetation on the pulmonic valve or tricuspid valve. Plan Impression 1. End-stage renal disease 2. Streptococcus Salivarius bacteremia HERNESTO showed no evidence of IE. 3. Hypertension with hypertensive heart disease and hypertensive nephrosclerosis 4. Antiphospholipid syndrome 5. Avascular necrosis of right hip. 6. Acute on chronic anemia, need to rule out hemolysis and GIB. Plan: h/o DVT, not a candidate for epogen. h/o bacterremia, not a candidate for IV iron. Monitor H&H. Continue IV ceftriaxone while in house. If d/c home, vancomycin 750 mg will be given after each HD til May [address] Barajas's recommendation. Next HD on . Nina Goodman MD May 25, 2016 12:58
--- NOTE | 2016-05-25 14:25 | NUR ---
Sched[facility], June 01 check in 1010 check in for a 1020 AM appointment with
[2016-05-25] MEDS: cefTRIAXone Inj 2,000 MG in Dextrose 5% Minibag Plus 50 ML IV SCH (14:34)
--- NOTE | 2016-05-25 14:37 | NUR ---
NUTRITION ASSESSMENT: ASSESS: Pt is a 40yo M admitted for respiratory distress. Pt has ESRD and is on chronic dialysis. He is on a renal diet and tolerating well at ~75% of all meals. PMHX: PE and DVT s/p IVC filter placement, lupus nephritis, ESRD on hemodialysis, congestive heart failure, antiphospholipid syndrome, CVA, LABS: Reviewed. Cl 95, Bun 38, Regulator Operator 6.2, Alb 2.9 MEDS: Reviewed. Vit D, Calcium Carbonate, phosLo, Prednisone, zofran GI: BMx1 05/22 SKIN: Conner 23, no major issues CURRENT WTS: 67.1kg, BMI 28kg/m2, admit wt: 66kg DIET: Renal, PO 75% EST. NEEDS: ESRD Kcals: 2015-2350kcal/day (30-35kcal/kg) Pro: 80-130g/day (1.2-2.0g/kg) NUTRITION DIAGNOSIS: 1.) Increased nutritional needs related to increased demand for nutrients as evidence by pt on chronic HD NUTRITION INTERVENTION: 1.) Continue current diet and continue Nepro on L tray. MONITOR / EVAL: PO, wt, GI, labs, POC, nutrition status. Will continue to monitor per low nutrition risk guidelines.
[2016-05-25] MEDS ORDERED: LABE200T PO (16:10)
[2016-05-25] MEDS ORDERED: SPIR25TA PO (16:22)
[2016-05-25] MEDS ORDERED: LOSA50TA3 PO (16:22)
[2016-05-25] MEDS ORDERED: HYDR-4003 PO (16:22)
--- NOTE | 2016-05-25 16:36 | PCM.DIMED ---
ZAY GRANDA DO 05/25/16 0942: Discharge Instructions Date of Service May 25, 2016 Dates of Hospitalization May 16, 2016 at 16:03 Discharge Diagnosis Discharge Diagnosis 1. Sepsis/bactremia 2. Acute on chronic normocytic anemia requiring transfusion 3. Thrombocytopenia 4. Supratherapeutic INR 5. Acute hypoxemic respiratory failure 6. ESRD on HD 7. Systolic and diastolic heart failure 8. Elevated troponin 9. Chronic hypertension with hypertensive urgency 10. SLE with lupus nephritis and antiphospholipid syndrome 11. History of thromboembolic disease s/p IVC filter Medication Instructions I have continued your home medications as follows: Albuterol inhaler Calcitriol Calcium acetate Calcium carbonate Ferrous sulfate Hydroxyzine pamoate Mycophenolate mofetil Ondansetron Pantoprazole Prednisone Renvela Bactrim DS Vitamin B complex Warfarin I have stopped the following medications: Carvedilol 50 mg by mouth twice a day Oxycodone 5 mg by mouth every 4 when necessary I have started the following medications: 1. For your hip pain I have given you Percocet 5/325 mg tablets - please take 1 -2 tablet of this medication by mouth every 4 hours as needed for pain. - Is important to remember that these tablets also include acetaminophen at the sees also known as Tylenol) please do not take more than 4000 mg of this medication each day. 2. For your elevated heart rate and blood pressure I am giving you a prescription for a medication called labetalol (this will replace your previous medication carvedilol). Your to take 400 mg (two 200 mg tablets) by mouth 3 times a day. This means that you take 2 of these tablets in the morning, 2 of these tablets in the middle of the day and 2 of these tablets in the evening. 3. For your blood pressure you are being starting on a medication called losartan potassium (Cozaar). Please take 50 mg (one tablet) of this medication by mouth daily 4. Also for your blood pressure you are being started on a medication called spironolactone (Aldactone). Please take 25 mg (one tablet) of this medication by mouth 2 times a day. That is one time in the morning and one time in the evening At the end of your dialysis treatments you are going to be given a medication called vancomycin through May 29. The dose of this medication will be 750 mg at the conclusion of each dialysis treatment you receive until May 29. Your first dialysis treatment is scheduled for tomorrow 05/26/2016 at the conclusion of which you will receive the antibiotic vancomycin. Diet Renal Diet Activity Limited until seen by PCP Call your provider Fever or Chills, Shortness of breath, Bleeding, Chest pain, Vomitting, Excessive diarrhea, Weakness (unilateral) Patient Instructions Please Take your medications as prescribed. Please do not forget to attend her dialysis appointment tomorrow 05/26/2016 Please follow-up on 06/01/2016 at 10:[address] Comer at the residency clinic Follow-up plan Patient will follow up tomorrow with hemodialysis, he will also follow-up with Dr. Comer at the residency clinic on 06/01/2016. He also follow-up with Dr. Barajas, scheduling an appointment within the next week or 2, he will also follow-up with Dr. Rosales of oncology in the next week or 2. He will also continue to follow up with nephrology for continuing hemodialysis appointments as well as overall kidney function. Follow-up Provider: Leo Comer DO Follow-up with PCP in: 1 week (scheduled appointment June 01 at [facility] with Dr. comer at 10:10 AM) Provider: Nina Goodman MD Follow-up in: 2 weeks (HD tomorrow 05/26/2016) Additional Information Please follow up with oncologist regarding your anemia Ludwig Gutiérrez MD 05/26/16 0746: Discharge Instructions Attending's Statement The patient was seen and examined together with Dr. Granda on 05/25/2016 and I agree with the history, exam and plan as outlined in the note above. . ZAY GRANDA DO May 25, 2016 09:42 Ludwig Gutiérrez MD May 26, 2016 07:46
[2016-05-25] MEDS ORDERED: OXYC1TAB24 PO (16:43)
--- NOTE | 2016-05-25 18:04 | NUR ---
Discharge Pt left the facility today around 1800 with his friend by his side. Pt was provided educational materials in sinhala and we went over all of it together. Pt demonstrated understanding of new meds he is on. Folow up appointment was included in the documents. Telemetry leads were removed. IV was removed. Pt received all daytime medications.
--- NOTE | 2016-05-25 19:20 | PCM.DC.MED ---
Discharge Summary Date of Service May 25, 2016 Dates of Hospitalization Date of Hospital Admission May 16, 2016 at 16:03 Date of Discharge: May 25, 2016 Providers: Admitting Physician: Momo Swift MD Primary Care Physician: Nopcp Attending Physician: Momo Swift MD Diagnosis at Time of Discharge Diagnosis at Time of Discharge 1. Sepsis/bactremia 2. Acute on chronic normocytic anemia requiring transfusion 3. Thrombocytopenia 4. Supratherapeutic INR 5. Acute hypoxemic respiratory failure 6. ESRD on HD 7. Systolic and diastolic heart failure 8. Elevated troponin 9. Chronic hypertension with hypertensive urgency 10. SLE with lupus nephritis and antiphospholipid syndrome 11. History of thromboembolic disease s/p IVC filter Consultations Dr. Harjinder D.O., nephrology Dr. Byron M.D., infectious disease Cait Smallwood, hematology oncology Dr. Braulio M.D., cardiology Dr. Maxine M.D., nephrology Procedures XRay, CTs & MRIs . X-RAY CHEST ONE VIEW, PORTABLE IMPRESSION: Moderate diffuse appearance of bilateral pulmonary opacities. This can represent diffuse edema, ARDS and/or superimposed infection such as pneumonia. Dictated by: Martha Elder M.D. on 05/16/2016 at 15:04 X-RAY CHEST ONE VIEW, PORTABLE IMPRESSION: Decrease in appearance of bilateral pulmonary opacities likely related to decreasing edema and/or diffuse bilateral pneumonia. Dictated by: Errol AVILEZ Interpreted: Marita Jade MD on 05/17/2016 at 10: 23 X-RAY CHEST ONE VIEW, PORTABLE IMPRESSION: Slight decrease in appearance of bilateral pulmonary opacities suggesting resolving edema and/or diffuse bilateral pneumonia. Dictated by: Errol AVILEZ Interpreted: Marita Jade MD on 05/19/2016 at 9:55 X-RAY CHEST ONE VIEW, PORTABLE IMPRESSION: 1. Right greater than left, patchy pulmonary opacities, suspicious for pneumonia. Differential considerations include fluid overload in the setting of cardiomegaly. Short interval followup is recommended to ensure resolution of this finding and exclude underlying pulmonary pathology. Dictated by: Marita Jade M.D. on 05/21/2016 at 8:28 Cardiac Echo Impression . Echocardiogram Report Interpretation Summary There is moderate concentric left ventricular hypertrophy. The ejection fraction is estimated to be 40-45%. There is mild global hypokinesis of the left ventricle. Severe inferolateral hypokinesis. Prominent trabeculations in apex are noted. The right ventricle is mild to moderately dilated. Right ventricular systolic function is mildly reduced. The left atrium is severely dilated. There is moderate mitral regurgitation. There is mild to moderate tricuspid regurgitation. The right ventricular systolic pressure is estimated at 51 mmHg assuming a right atrial pressure of 8 mm Hg. Electronically signed by: Wisam TALBERT Echocardiogram Report Interpretation Summary The left ventricle is normal in size and left ventricular systolic function is mildly reduced with the ejection fraction visually estimated to be 45-50% with mild global hypokinesis but no focal wall motion abnormalities. The right ventricle grossly appears normal in size with probable normal systolic function. The interatrial septum is intact with no evidence for an atrial septal defect and no Doppler evidence for an atrial septal defect. No left atrial mass or thrombus is visualized. The mitral valve is grossly normal and no vegetation is seen on the mitral valve. There is mild to moderate mitral regurgitation. The aortic valve is normal in structure and function and there is no aortic valvular vegetation. There is no vegetation on the pulmonic valve or tricuspid valve. Brief History History and physical per Dr. Romi D.O. 05/17/2016 "Patient is a 40-year-old male with history of PE and DVT s/p IVC filter placement, lupus nephritis, ESRD on hemodialysis, congestive heart failure, antiphospholipid syndrome, CVA, and recent hospitalization for pulmonary capillaritis presenting with shortness of breath. At time of visit the patient is somnolent, intermittently falling asleep during the interview and unable to elaborate very much. Patient reports waking up this morning with shortness of breath, fever, chills and a productive cough. He states his sputum is clear. The patient waited about half an hour and without any improvement he he summoned EMS and was brought to [facility] ED for further evaluation. His breathing reportedly worsened prior to his arrival with accompanying chest pain. His blood pressure was 207/100, heart rate in the low 100s, respiratory rate in the 50s. His initial O2 sat was 57%. AB.402 / 37.8 / 63.6 / 23. Patient was placed on a non-rebreather with increase in his oxygen saturation. At time of visit, the patient reports his breathing has improved since his arrival to the emergency department. The patient denies chest pain, nausea, emesis, abdominal pain, dysuria. In the ED, vitals: HR 121, RR 48 satting 94% on 15L non-rebreather. Notable labs : WBC 12.8, Hgb 6.7, Hct 20.3, Plt 97, Na 134, K 5.8, Cl 91, CO2 19, BUN 68, creatinine 6.86. Troponin 0.067, LDH 883, procalcitonin 0.88. Chest x-ray reads moderate diffuse appearance of bilateral pulmonary opacities. Patient admitted to ICU for further management." Hospital Course 1. Sepsis/bactremia -Met criteria with HR (121), RR (48), WBC (12.8) bacteremic -Infectious disease followed patient throughout stay -Antibiotics per ID. Continue ceftriaxone 2 g daily DC'd at discharge, continue with vancomycin 750 mg to be administered until 05/29/2016 after he receives dialysis -Blood culture positive for Streptococcus salivaris -HERNESTO showed no evidence of vegetations or thrombus 2. Acute on chronic normocytic anemia requiring transfusion -Review of past records indicate similar levels but possible superimposed blood loss given supratherapeutic INR (10.63) -LDH elevated 883, Haptoglobin less than 10 -Oncology consulted. Recommended transfusion threshold only if hemoglobin is less than 6.5 secondary to iron overload 3. Thrombocytopenia -Most likely secondary to autoimmune disease -No heparin given - Per oncology recommendations recommended transfusion threshold only if platelets fall below 10 4. Supratherapeutic INR -INR 10.63. Patient received vitamin K 2.5mg PO one time -Uncertain etiology -Pharmacy to dose Coumadin -INR 2.5 for time of discharge 5. Acute hypoxemic respiratory failure -Possibly secondary to pneumonia, fluid overload, heart failure, pulmonary embolism, pulmonary capillaritis -Patient has required oxygen via nasal candidate maintain saturations - recommend home O2 -Negative studies: legionella and strep pneumo urine ag, sputum culture -Respiratory PCR panel negative 6. ESRD on HD -Likely secondary to lupus nephritis -Patient underwent dialysis during hospital admission -Nephrology followed patient throughout admission 7. Systolic and diastolic heart failure -Echo 11/2015: LV EF estimated 40-45% with mild global hypokinesis of the LV. -Repeat echo as above 8. Elevated troponin -Troponin 0.067 in setting of ESRD -Similar troponin levels during past hospitalizations. Unlikely cardiac ischemia 9. Chronic hypertension with hypertensive urgency -BP 204/91 on arrival to ED -Remains hypertensive -Per nephrology recommendations -Stopped carvedilol 50 mg twice a day -Started Labetalol 300 BID, this was increased to 400 mg 3 times a day -Spironolactone 50mg BID 10. SLE with lupus nephritis and antiphospholipid syndrome -Held mycophenolate mofetil -Prednisone 10 mg daily -Dr. Rosales of Hematology followed patient during hospital admission. Recommends outpatient follow-up with possible bone marrow biopsy to follow -Low C3 and C4 complement consistent with activation of classic pathway 11. History of thromboembolic disease s/p IVC filter -D-dimer elevated (1.18), possibly secondary to sepsis -INR supratherapeutic on admit (10.63) -Warfarin and INR as in #4 Exam Vital Signs (Last) Date Time Temp Pulse Resp B/P Pulse Ox O2 Delivery O2 Flow Rate FiO2 05/25/16 16:03 36.6 78 18 172/117 100 OxyMask 3.00 05/25/16 03:32 97 Exam General: Awake and alert sitting up in hospital bed watching computer TV. Appropriately interactive and conversant. HEENT: Normocephalic, atraumatic. External ears without defect. Pupils equal, round, and reactive to light and accommodation. Cardiovascular: Regular rate and rhythm. Soft systolic murmur Pulmonary: Clear to auscultation bilaterally. No use of accessory muscles, good air movement. Abdomen: Bowel tones present. Soft, nontender, nondistended. Extremities: Left lower extremity is larger than right. Left lower extremity with ichthyosis Skin: Normal temperature, turgor, and texture Neurological: Cranial nerves grossly intact. Test 05/16/16 15:06 05/16/16 17:00 05/16/16 17:55 05/17/16 00:00 Lactate Dehydrogenase 883U/L (100-190) Troponin T 0.067ug/L (0.0-0.011) Pro-B-Type Natriuretic Peptide > 13815bq/mL (0-86) Erythrocyte Sedimentation Rate 39mm/hr (0-15) Haptoglobin < 10mg/dL (34-200) Myeloperoxidase <9.0U/mL (0.0-9.0) Anti-Nuclear Antibody Screen Negative (Negative) Cytoplasmic ANCA (c-ANCA) Antibody <1:20titer (Neg:<1:20) Proteinase 3 (PR3) Antibodies <3.5U/mL (0.0-3.5) Atypical p-ANCA <1:20titer (Neg:<1:20) Perinuclear ANCA (p-ANCA) Antibody <1:20titer (Neg:<1:20) Complement C3 71mg/dL (82-167) Complement C4 7mg/dL (14-44) D-Dimer 1.18mg/L FEU (<0.50) Lactic Acid Level 0.4mmol/L (0.4-2.0) Urine Color Straw (YELLOW) Urine Appearance Hazy (CLEAR,HAZY) Urine pH 8.5 (5.0-8.0) Urine Specific [place] 1.015 (1.003-1.035) Urine Protein 100mg/dL (NEG,TRACE) Urine Glucose (UA) 100mg/dL (NEGATIVE) Urine Ketones Negativemg/dL (NEGATIVE) Urine Occult Blood Trace (NEGATIVE) Urine Nitrite Negative (NEGATIVE) Urine Bilirubin Negative (NEGATIVE) Urine Urobilinogen Normalmg/dL (NORMAL) Urine Leukocyte Esterase Negative (NEGATIVE) Urine RBC 0-2/hpf (0-2) Urine WBC 0-5/hpf (0-5) Urine Epithelial Cells Occasional/hpf (NONE-MOD) Urine Crystals None seen (NONE SEEN) Urine Bacteria None/hpf (NONE-FEW) Urine Hyaline Casts None/lpf (NONE) Urine Granular Casts None seen (NONE SEEN) Urine Waxy Casts None seen (NONE SEEN) Urine Red Blood Cell Casts None seen (NONE SEEN) Urine White Blood Cell Casts None seen (NONE SEEN) Urine Mucus None seen (None Seen) Urine Trichomonas None seen (NONE SEEN) Urine Yeast None (NONE SEEN) Urinalysis Comment Urine Culture Reflexed Not indicated Test 05/17/16 05:00 05/17/16 10:05 05/17/16 14:07 05/18/16 05:05 Reticulocyte Count,Calculated 2.5% (0.6-2.6) Iron Level 40ug/dL (35-150) Total Iron Binding Capacity 193ug/dL (250-450) Percent Iron Saturation 21%sat (15-50) Unsaturated Iron Binding 153.2ug/dL Hemoglobin A 93.5% (94.0-98.0) Hemoglobin A2 25.0% (0.7-3.1) Hemoglobin C 0.0% (0.0) Hemoglobin F () 0.0% (0.0-2.0) Hemoglobin S 0.0% (0.0) Variant Hemoglobin 4.0%% (0.0) Hemoglobin Electrophoresis Interp Comment: (.) Hemoglobin Solubility Negative (Negative) Hmsffxy-9-Icbssjpdc Dehydrogenase 279 (146-376) G-6-PD Red Blood Cell Count 2.47n71X5/uL (4.14-5.80) Heparin-PF4 Ab Optical Density 0.026OD (<0.4) Heparin-PF4 Antibody Interpretation Not indicated Urine Legionella pneumophilia Ag Negative (Negative) Vancomycin Level Trough 22.7mcg/mL Strongyloides IgG Antibody Negative (Negative) TB Test (QFT) Gold In Tube Negative (Negative) TB Test (QFT) Incubation Comment (.) TB Test (QFT) Mitogen 6.22IU/mL (.) TB Test (QFT) Antigen 0.13IU/mL (.) TB Test (QFT) Antigen Minus Nil 0.05IU/mL (.) TB Test (QFT) TB - Nil 0.08IU/mL (.) TB Test (QFT) Positive Criteria Comment (.) TB Test (QFT) Interpretation Comment (.) Test 05/19/16 04:40 05/20/16 04:30 05/22/16 04:40 05/24/16 09:30 Band Neutrophils % 0% (1-5) Random Vancomycin Level 10.5ug/mL Rx Procalcitonin 1.10ng/mL (0.00-0.08) Hold Climax Top Tube Received (Received) Test 05/24/16 10:46 05/25/16 03:45 05/25/16 11:35 Hepatitis B Surface Antigen Negative (Negative) Hepatitis B Surface Antibody Reactive (.) Hepatitis B Core Total Antibody Negative (Negative) White Blood Count 3.0th/mm3 (3.8-10.1) Red Blood Count 2.09mil/mm3 (4.40-5.80) Mean Corpuscular Volume 95.7fL (81-100) Mean Corpuscular Hemoglobin 29.7pg (27.0-35.0) Mean Corpuscular Hemoglobin Concent 31.0% (32.0-37.0) Red Cell Distribution Width 14.9% (12.3-15.4) Platelet Count 63bil/L (150-400) Neutrophils (%) (Auto) 60.6% (40-74) Lymphocytes (%) (Auto) 20.9% (14-46) Monocytes (%) (Auto) 14.8% (4-12) Eosinophils (%) (Auto) 1.7% (0-5) Basophils (%) (Auto) 0.3% (0-3) Prothrombin Time 27.7sec (8.1-12.5) Prothromb Time International Ratio 2.54ratio Sodium Level 134mEq/L (134-144) Potassium Level 5.1mEq/L (3.5-5.2) Chloride Level 95mEq/L (97-108) Carbon Dioxide Level 29mmol/L (18-29) Blood Urea Nitrogen 38mg/dL (6-20) Creatinine 6.20mg/dL (0.76-1.27) Estimat Glomerular Filtration Rate 11mL/min (>59) Glucose Level 86mg/dL (60-99) Calcium Level 9.1mg/dL (8.5-10.1) Phosphorus Level 3.2mg/dL (2.5-4.9) Magnesium Level 1.8mg/dL (1.6-2.6) Total Bilirubin 0.7mg/dL (0.0-1.2) Aspartate Amino Transf (AST/SGOT) 13U/L (0-50) Alanine Aminotransferase (ALT/SGPT) 11U/L (0-44) Alkaline Phosphatase 67U/L (25-150) Total Protein 4.5g/dL (6.4-8.4) Albumin 2.9g/dL (3.4-5.0) Hemoglobin 7.1g/dL (13.8-17.2) Hematocrit 22.7% (41.0-50.0) Microbiology Results Nasal swab positive for MRSA Microbiology TANIA CULTURE BLOOD Final 05/19/16-0815 Organism 1 STREPTOCOCCUS SALIVARIUS GROUP STREPTOCOCCUS SALIVARIUS GROUP Species: salivarius ISOLATED FROM FOUR OF FOUR BOTTLES COLLECTED 05/16/16. 1. STREPTOCOCCUS SALIVARIUS GROUP M.I.C Interp --------- ------ * AMPICILLIN <=0.25 S * CEFOTAXIME <=0.12 S * CEFTRIAXONE <=0.12 S * CLINDAMYCIN R * ERYTHROMYCIN R * LEVOFLOXACIN 2 S * LINEZOLID <=2 S * PENICILLIN-G 0.25 I * VANCOMYCIN 1 S Discharge Medications Discharge Medications Calcitriol (Rocaltrol) 0.25 Mcg Capsule 0.25 MCG PO Pretty Izquierdo, Sat (Reported) Calcium Acetate (Calcium Acetate) 667 Mg Capsule 1,334 MG PO TIDWM (Reported) Calcium Carbonate/Vitamin D3 (Calcium 500 + Vit D 400 Tablet) 1 Each Tablet 2 EACH PO DAILYWM (Reported) Ferrous Sulfate (Feosol) 325 Mg Tablet 325 MG PO TIDWM Prescribed by: BALAJI WREN DO Labetalol (Labetalol) 200 Mg Tablet 400 MG PO TID Prescribed by: ZAY GRANDA DO Losartan Potassium (Cozaar) 50 Mg Tablet 50 MG PO DAILY Prescribed by: ZAY GRANDA DO Mycophenolate Mofetil (Cellcept) 250 Mg Capsule 1,000 MG PO BIDAC (Reported) Pantoprazole DR (Protonix) 40 Mg Tablet 40 MG PO QAM (Reported) Prednisone (PredniSONE) 10 Mg Tablet 10 MG PO DAILYWM (Reported) Sevelamer Carbonate (Renvela) 800 Mg Tablet 1,600 MG PO TIDWM (Reported) Spironolactone (Aldactone) 25 Mg Tablet 25 MG PO BID Prescribed by: ZAY GRANDA DO Sulfamethoxazole/Trimeth 800-160 mg (Bactrim DS) 1 Each Tablet 1 TABLET PO three times a week (Reported) Vitamin B Complex/Vit C (Bethany-Myrtle Tablet) 1 Tab Tab 1 TAB PO DAILYWM (Reported ) Warfarin Sodium (Warfarin Sodium) 5 Mg Tablet 5 MG PO DAILYWD (Reported) As needed Albuterol HFA (Proair HFA) 8.5 Gm Hfa.aer.ad 2 PUFFS INHALATION Q4H PRN PRN For Shortness of Breath (Reported) Hydroxyzine Pamoate (HydrOXYzine Pamoate) 25 Mg Capsule 25 MG PO BID PRN PRN For Itching (Reported) Ondansetron (Zofran) 4 Mg Tablet 4 MG PO BID PRN PRN For Nausea (Reported) oxyCODONE-Acetaminophen 5-325 mg (oxyCODONE-Acetaminophen 5-325 mg) 1 Each Tablet 1-2 TAB PO Q6H PRN PRN For Pain Prescribed by: ZAY GRANDA DO Durable Medical Equipment Walker (Ultra-Light Rollator) 1 Each Each 1 EACH [facility] DAILY (DME) 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 Prescribed by: BALAJI WREN DO Additional med instructions I have continued your home medications as follows: Albuterol inhaler Calcitriol Calcium acetate Calcium carbonate Ferrous sulfate Hydroxyzine pamoate Mycophenolate mofetil Ondansetron Pantoprazole Prednisone Renvela Bactrim DS Vitamin B complex Warfarin I have stopped the following medications: Carvedilol 50 mg by mouth twice a day Oxycodone 5 mg by mouth every 4 when necessary I have started the following medications: 1. For your hip pain I have given you Percocet 5/325 mg tablets - please take 1 -2 tablet of this medication by mouth every 4 hours as needed for pain. - Is important to remember that these tablets also include acetaminophen at the sees also known as Tylenol) please do not take more than 4000 mg of this medication each day. 2. For your elevated heart rate and blood pressure I am giving you a prescription for a medication called labetalol (this will replace your previous medication carvedilol). Your to take 400 mg (two 200 mg tablets) by mouth 3 times a day. This means that you take 2 of these tablets in the morning, 2 of these tablets in the middle of the day and 2 of these tablets in the evening. 3. For your blood pressure you are being starting on a medication called losartan potassium (Cozaar). Please take 50 mg (one tablet) of this medication by mouth daily 4. Also for your blood pressure you are being started on a medication called spironolactone (Aldactone). Please take 25 mg (one tablet) of this medication by mouth 2 times a day. That is one time in the morning and one time in the evening At the end of your dialysis treatments you are going to be given a medication called vancomycin through May 29. The dose of this medication will be 750 mg at the conclusion of each dialysis treatment you receive until May 29. Your first dialysis treatment is scheduled for tomorrow 05/26/2016 at the conclusion of which you will receive the antibiotic vancomycin. Followup Plan Disposition: Discharged to home in stable condition Follow-up plan Patient will follow up tomorrow with hemodialysis, he will also follow-up with Dr. Smith at the residency clinic on 06/01/2016. He also follow-up with Dr. Barajas, scheduling an appointment within the next week or 2, he will also follow-up with Dr. Rosales of oncology in the next week or 2. He will also continue to follow up with nephrology for continuing hemodialysis appointments as well as overall kidney function. Discharge Diet: Renal Diet Discharge Activity: Limited until seen by PCP Patient Instructions Please Take your medications as prescribed. Please do not forget to attend her dialysis appointment tomorrow 05/26/2016 Please follow-up on 06/01/2016 at 10:[address] Smith at the residency clinic Follow-up Provider: Leo Smith DO Follow-up with PCP in: 1 week (scheduled appointment June 01 at residency clinic with Dr. smith at 10:10 AM) Provider: Nina Goodman MD Follow-up in: 2 weeks (HD tomorrow 05/26/2016) Time spent Greater than 30 minutes was spent in preparation of discharge with greater than 50% of that time dedicated to patient counseling and coordination of care. . Attending Statement The patient was seen and examined together with Dr. Granda on 05/25/2016 and I agree with the history, exam and plan as outlined in the note above. . copies to: Stepan Grande DO; Leo Smith DO; Luis Alberto Rosales MD; Stepan Barajas MD, GILES A DO May 25, 2016 19:20 Ludwig Gutiérrez MD May 26, 2016 07:47
== END 2016-05-25 18:11 | disposition home or self-care (01) | DRG 720 ==
LOC: SED 14:47 → PCC 16:03 → CCU 16:10 → PCC 05-17 08:50
PROVIDERS: ADMIT Internal Medicine; ATTEND Internal Medicine
PROC: 4A033R1 Measurement of Arterial Saturation, Peripheral, Percutaneous Approach (ICD-10-PCS; principal; 2016-05-16)
PROC: 30233N1 Transfusion of Nonautologous Red Blood Cells into Peripheral Vein, Percutaneous Approach (ICD-10-PCS; 2016-05-16)
PROC: 5A1D60Z (ICD-10-PCS; 2016-05-16)
PROC: 30233N1 Transfusion of Nonautologous Red Blood Cells into Peripheral Vein, Percutaneous Approach (ICD-10-PCS; 2016-05-17)
PROC: 30233N1 Transfusion of Nonautologous Red Blood Cells into Peripheral Vein, Percutaneous Approach (ICD-10-PCS; 2016-05-19)
PROC: B246ZZ4 Ultrasonography of Right and Left Heart, Transesophageal (ICD-10-PCS; 2016-05-23)
PROC: 30233N1 Transfusion of Nonautologous Red Blood Cells into Peripheral Vein, Percutaneous Approach (ICD-10-PCS; 2016-05-25)
DX: A40.8 Other streptococcal sepsis (principal); J96.01 Acute respiratory failure with hypoxia; I13.2 Hypertensive heart and chronic kidney disease with heart failure and with stage 5 chronic kidney disease, or end stage renal disease; N18.6 End stage renal disease; D68.61 Antiphospholipid syndrome; D62 Acute posthemorrhagic anemia; D69.6 Thrombocytopenia, unspecified; M32.14 Glomerular disease in systemic lupus erythematosus; I50.42 Chronic combined systolic (congestive) and diastolic (congestive) heart failure; F11.20 Opioid dependence, uncomplicated; M87.851 Other osteonecrosis, right femur; M35.9 Systemic involvement of connective tissue, unspecified; Z99.2 Dependence on renal dialysis; G89.4 Chronic pain syndrome; Z86.711 Personal history of pulmonary embolism; Z79.01 Long term (current) use of anticoagulants; I16.0 Hypertensive urgency

== ENCOUNTER 2016-06-09 12:27 | Emergency (ER) | payer MEDICAID ==
[~2016-06-09 12:27] MED LIST changes: +ALBU8.5H2 INHALATION; -ALBUTEROL 90 MCG INHALATION; +CALC-51 PO; -CARV25TA PO; +HYDR-3797 PO; +LABE200T PO; +LOSA50TA3 PO; +NEPHVIT PO; -OXYC-474 PO; +OXYC1TAB24 PO; +SPIR25TA PO; -[UNRECOGNIZED DRUG - MIXTURE] PO
== END 2016-06-09 12:46 | disposition left against medical advice (07) ==
LOC: SED 12:27
DX: M25.551 Pain in right hip (principal); Z53.21 Procedure and treatment not carried out due to patient leaving prior to being seen by health care provider

== ENCOUNTER 2016-06-11 22:00 | Emergency (ER) | payer MEDICAID ==
[~2016-06-11] VITALS: Ht 165.1 cm; Wt 64.0 kg
[2016-06-11 22:07] VITALS: BP 166/100; PULSE 95; RESP 20; O2SAT 95
[2016-06-11 23:23] LABS: Platelet Count 67 bil/L (150-400)
[2016-06-11 23:24] LABS: BASOPHILS % (AUTO) 0 % (0-3); EOSINOPHILS % (AUTO) 0.6 % (0-5); MONOCYTES % (AUTO) 3.9 % (4-12); Mean Corpuscular Hemoglobin 30.9 pg (27.0-35.0); Mean Corpuscular Volume 93.7 fL (81-100); NEUTROPHILS % (AUTO) 82.6 % (40-74)
--- NOTE | 2016-06-12 00:04 | ED.REPORT ---
HPI-General Illness Date of Service June 12, 2016 ED Provider: Dr. Benjamin Whitfield D.O. 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 Associated symptoms include generalized weakness, bilateral lower extremity cramping, and RLQ abdominal pain with radiation down his right leg. The patient denies cough, hemoptysis, or other symptoms. He dialyzed and received platelets today. One month ago the patient was admitted to the hospital for nine nights with diagnoses including sepsis/bacteremia, chronic normocytic anemia, thrombocytopenia, and acute hypoxemic respiratory failure. Nursing Notes Stated Complaint: SOB, CRAMPING AND PAIN IN BOTH LEGS Chief Complaint: Respiratory Distress Nursing Notes Reviewed: Yes Allergies: Coded Allergies: amlodipine (Verified Allergy, Unknown, 05/16/16) hydralazine (Verified Allergy, Unknown, 05/16/16) morphine (Verified Allergy, Unknown, 05/16/16) Scheduled Calcitriol (Rocaltrol) 0.25 Mcg Capsule 0.25 MCG PO e, , Sat Calcium Acetate (Calcium Acetate) 667 Mg Capsule 1,334 MG PO TIDWM Calcium Carbonate/Vitamin D3 (Calcium 500 + Vit D 400 Tablet) 1 Each Tablet 2 EACH PO DAILYWM Ferrous Sulfate (Feosol) 325 Mg Tablet 325 MG PO TIDWM Labetalol (Labetalol) 200 Mg Tablet 400 MG PO TID Losartan Potassium (Cozaar) 50 Mg Tablet 50 MG PO DAILY Mycophenolate Mofetil (Cellcept) 250 Mg Capsule 1,000 MG PO BIDAC Pantoprazole DR (Protonix) 40 Mg Tablet 40 MG PO QAM Prednisone (PredniSONE) 10 Mg Tablet 10 MG PO DAILYWM Sevelamer Carbonate (Renvela) 800 Mg Tablet 1,600 MG PO TIDWM Spironolactone (Aldactone) 25 Mg Tablet 25 MG PO BID Sulfamethoxazole/Trimeth 800-160 mg (Bactrim DS) 1 Each Tablet 1 TABLET PO three times a week Vitamin B Complex/Vit C (Bethany-Myrtle Tablet) 1 Tab Tab 1 TAB PO DAILYWM Warfarin Sodium (Warfarin Sodium) 5 Mg Tablet 5 MG PO DAILYWD Scheduled PRN Albuterol HFA (Proair HFA) 8.5 Gm Hfa.aer.ad 2 PUFFS INHALATION Q4H PRN PRN For Shortness of Breath Hydroxyzine Pamoate (HydrOXYzine Pamoate) 25 Mg Capsule 25 MG PO BID PRN PRN For Itching Ondansetron (Zofran) 4 Mg Tablet 4 MG PO BID PRN PRN For Nausea oxyCODONE-Acetaminophen 5-325 mg (oxyCODONE-Acetaminophen 5-325 mg) 1 Each Tablet 1-2 TAB PO Q6H PRN PRN For Pain General Time Seen by MD: 00:04 Chief Complaint Breathing problem Hx Obtained From: Patient Arrived By: Walk-in Onset Occurred: 2 days ago Symptom Duration: Since onset Location: : Abdomen: Leg left: Leg right Quality: Cramping, Itching Radiation: : Leg right Severity: Current: Moderate Severity: Maximum: Moderate Pertinent Negative: Relieved by nothing Context Related History: Reports Autoimmune disorder Recent Healthcare: Recent doctor visit, Recent hospitalization Past Medical History Past Medical History Notes: [place]: Dr. Velasco [employer] Facility Supervisor: Dr. Beckman Dialysis pt at [facility] Past Medical History 1. End-stage renal disease on chronic hemodialysis, since 2011 Hemodialysis on Monday, , Monday. right brachiocephalic fistula. 2. 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 h/o previous CVA while at [facility] 4. 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 Pulmonary embolism-s/p IVC filter placement, DVT-chronic anticoagulation on warfarin 6. Systolic and diastolic cardiomyopathy w/EF ~40% 7. Hypertension 8. Chronic autoimmune thrombocytopenia 9. Anemia 10. Chronic pain w/opioid dependence 11. h/o left lower extremity arterial ulcer 12. h/o Oral herpes infection 13. Thrush Past Surgical History 1. AV fistula, R upper extremity 2. Former fistula L arm 3. IVC filter Family History Noncontributory Smoking History Never Smoker Social History Drug Use: Denies drug use Other Social History: Good social support, Local resident Ambulatory Status Independent Review of Systems Full Review of Systems Constitutional: Reports: Weakness - generalized, Denies: Fever Respiratory: Reports: Shortness of breath, Denies: Hemoptysis, Non-productive cough GI: Reports: Abdominal pain (RLQ w/ radiation down right leg), Denies: Diarrhea, Vomiting Musculoskeletal: Reports: Extremity pain (Bilateral lower extremity cramping) Complete sys rev & neg: except as marked. Physical Exam Vital Signs Vital Signs Date Time Temp Pulse Resp B/P Pulse Ox O2 Delivery O2 Flow Rate FiO2 06/12/16 01:58 36.8 90 24 158/98 99 Nasal Cannula 3 06/12/16 00:49 93 24 163/103 99 Nasal Cannula 3 06/11/16 22:07 36.8 95 20 166/100 95 Room Air Initial VS: Reviewed Neck: Supple, Full range of motion Skin: Warm, Dry, No cyanosis Neurologic: Alert, Oriented, Nonfocal Psychiatric: Mood/affect normal, Behavior normal, Normal thought content General/Constitutional: Awake, Alert Distress / Hydration: Positive: Distress moderate Appearance / Presentation: Positive: Ill appearing/not toxic, Pale Head / Eyes: Atraumatic, Normocephalic Conjunctiva / Sclera: Positive: Pallor Respiratory / Chest: Breath sounds = bilat Coarse breath sounds Tachypneic Cardiovascular: Regular rhythm Heart Rate / Rhythm: Positive: Tachycardia Heart Sounds / Murmur: Positive: Systolic murmur present.. Abdomen: Soft, Non-tender Interpretation & Diagnostics Lab Results Interpretation Result Diagram: 06/11/16 2305 06/11/16 2305 Test 06/11/16 23:05 White Blood Count 5.4th/mm3 (3.8-10.1) Red Blood Count 1.91mil/mm3 (4.40-5.80) Hemoglobin 5.9g/dL (13.8-17.2) Hematocrit 17.9% (41.0-50.0) Mean Corpuscular Volume 93.7fL (81-100) Mean Corpuscular Hemoglobin 30.9pg (27.0-35.0) Mean Corpuscular Hemoglobin Concent 33.0% (32.0-37.0) Red Cell Distribution Width 17.5% (12.3-15.4) Platelet Count 67bil/L (150-400) Neutrophils (%) (Auto) 82.6% (40-74) Lymphocytes (%) (Auto) 12.2% (14-46) Monocytes (%) (Auto) 3.9% (4-12) Eosinophils (%) (Auto) 0.6% (0-5) Basophils (%) (Auto) 0% (0-3) Prothrombin Time 32.2sec (8.1-12.5) Prothromb Time International Ratio 2.94ratio Sodium Level 137mEq/L (134-144) Potassium Level 5.1mEq/L (3.5-5.2) Chloride Level 97mEq/L (97-108) Carbon Dioxide Level 26mmol/L (18-29) Blood Urea Nitrogen 30mg/dL (6-20) Creatinine 3.58mg/dL (0.76-1.27) Estimat Glomerular Filtration Rate 20mL/min (>59) Glucose Level 120mg/dL (60-99) Calcium Level 8.9mg/dL (8.5-10.1) Total Bilirubin 1.2mg/dL (0.0-1.2) Aspartate Amino Transf (AST/SGOT) 25U/L (0-50) Alanine Aminotransferase (ALT/SGPT) 33U/L (0-44) Alkaline Phosphatase 91U/L (25-150) Pro-B-Type Natriuretic Peptide > 35991ft/mL (0-86) Total Protein 5.2g/dL (6.4-8.4) Albumin 3.7g/dL (3.4-5.0) Hold Henry Top Tube Received (Received) ECG Interpretation ECG Interpretation: Sinus rhythm rate 89 Probable left atrial enlargement LVH with secondary repolarization abnormality Time: 22:37 Interpreted by: ED physician X-Ray Chest Interpretation Chest Xray Interpretation: Bilateral pulmonary edema Mild cardiomegaly ARDS appearing View: Portable, 1 view Interpretation / Wet Read by: Wet read ED physician Re-Eval/Medical Decision Med Decision/Clinical Course This is a very ill-appearing 40-year-old male who presents with 2 days of shortness of breath. Evidently he has a litany of health problems including lupus and multiple lupus complications including end-stage renal disease. He is been feeling short of breath and having leg cramping for 48 hours. He tells me that he was dialyzed today and after dialysis he became more short of breath. He was also given a platelet transfusion per his recollection today at dialysis. He does have a mild cough however he is not coughing up sputum or blood. He does not have any chest pain however he does have to take frequent deep breaths to keep from losing his breath. He has bilateral lower extremity pain that he thinks is a chronic issue. Remainder of 10 per review of systems was negative. On examination he was tachypneic at 28. I measured room air saturation of 89%. His blood pressure has been stable though. He looks pale and ill. He has mild JVD. He has a systolic ejection murmur. He has crackles in both lung fisher. His belly is soft. His limbs are grossly normal. He has a functioning fistula with a palpable thrill in the right arm. His neck is supple without signs of meningitis. Diagnostics were performed. Chest x-ray is consistent with ARDS versus atypical pneumonia/pulmonary edema. He does not have significant cardiomegaly. CBC shows severe anemia and thrombocytopenia. Comprehensive metabolic panel shows elevated BUN/creatinine consistent with end- stage renal disease. His BNP is greater than 70,000. His EKG shows LVH with strain pattern and this is unchanged from prior. Assessment: #1 ARDS/Acute lung injury #2 profound anemia #3 thrombocytopenia # 4ESRD Plan: I consulted with our hospitalist. He concurs with me that this gentleman needs subspecialty input. We do not have pulmonology or rheumatology for inpatient consultation right now. I am concerned that this gentleman has lupus pneumonitis. This certainly could also be a pulmonary alveolar hemorrhage however I would expect him to be coughing up some blood. Fluid overload seems less likely due to the fact that he was dialyzed today but this still needs to be considered. Sepsis and atypical pneumonia are in the differential as well. We will treat with IV cefepime, oxygen and plan for transfer. Consider steroids at the discretion of a floating derrick operator. He may need another run of dialysis as well. I consulted with Dr. Geovanny Connor the hospitalist on-call at [facility]. Dr. Connor has graciously accepted Mr. Johnson for transfer. Source of Hx: Old records Time of Eval: 01:41 Patient Status: Condition improved Re-Evaluation/Progress Note: Discussed with patient x-ray and lab results, diagnosis, and plan for tranfer to [facility]. Patient agrees with plan for care and all questions were addressed. Consultation #1: Referral / Consult Name: Yossi Reardon MD Consulted With: Hospitalist Call Returned at: 00:30 Reservation Agent: Agrees with eval, Agrees with plan Note: Recommends tranfer to [facility], [place] Consultation #2: Call Returned at: 01:18 Reservation Agent: Agrees with eval, Agrees with plan Note: Dr. Connor, [facility], [place]: Accepts transfer. Counseled Regarding: Diagnosis, Lab results, Need for transfer ([facility]) Discharge & Departure Primary Impression: Acute respiratory failure with hypoxia Additional Impressions: SLE (systemic lupus erythematosus) Systemic lupus erythematosus type: unspecified Systemic lupus erythematosus organ involvement: lung involvement Qualified Code: M32.13 - Lung involvement in systemic lupus erythematosus Chronic renal failure Chronic kidney disease stage: stage 5 Qualified Code: N18.5 - Chronic kidney disease, stage 5 Bilateral leg pain Anticoagulated on Coumadin Pulmonary capillaritis Disposition: Transfer, Acute Care Facility Receiving Hospital: [facility] [place] Transfer Accepted: Yes Transfer Accepted at: 01:18 Transfer Reason: Higher level of care Spoke with: Attending physician Patient Status: Stable for transfer Patient Informed: Yes Discharge Condition All VS Reviewed: Yes Condition: Improved Referrals: NOPCP (PCP) Crit Care Except Billable Proc Time Spent: 105-134 minutes Services Performed: Patient management by me, Time spent at bedside, Reviewing test results, Reviewing imaging, Discussing patient care, Documentation in record Scribe Attestation Portions of this note were transcribed by Shanda Velasco. I, Dr. Whitfield, personally performed the history, physical exam, and medical decision-making; I reviewed and confirmed the accuracy of the information in the transcribed note. Signed by: Brandon Mullins, 06/12/2016, 03:00 Benjamin Whitfield DO June 12, 2016 00:04 SHANDA VELASCO June 12, 2016 00:14
[2016-06-12] MEDS ORDERED: Cefepime Inj 2,000 MG in Dextrose 5% Minibag Plus 100 ML IV ONE (00:15)
[2016-06-12 00:18] LABS: INR 2.94 ratio
[2016-06-12 00:49] VITALS: BP 163/103; PULSE 93; RESP 24; O2SAT 99
[2016-06-12] MEDS: HYDROmorphone 0.5 mg/0.5 mL iSecure Syringe IVPUSH PRN ×2 (00:59→01:57)
[2016-06-12 01:58] VITALS: BP 158/98; PULSE 90; RESP 24; O2SAT 99
--- NOTE | 2016-06-12 07:29 | DRSVH ---
PROCEDURE: X-RAY CHEST ONE VIEW, PORTABLE ([id number]) INDICATIONS: CHEST PAIN TECHNIQUE: One view of the chest was acquired. COMPARISON: [facility], CR, XR CHEST 1VW (PORTABLE), 05/21/2016, 4:50. [facility], CR, XR CHEST 1VW (PORTABLE), 05/19/2016, 5:10. FINDINGS: Surgical changes and devices: None. Lungs and pleura: No pleural effusions or pneumothorax. Increased, severe right and moderate left ef fusion airspace opacity. Mediastinum: Mediastinal contours appear normal. Heart size is enlarged. Bones and chest wall: No suspicious bony lesions. Overlying soft tissues appear unremarkable. IMPRESSION: Increased bilateral pneumonia. Dictated by: Orlin Holguin M.D. on 06/12/2016 at 7:27 Approved by: Orlin Holguin M.D. on 06/12/2016 at 7:27
== END 2016-06-12 02:21 | disposition short-term general hospital (02) ==
LOC: SED 22:00
DX: J96.01 Acute respiratory failure with hypoxia (principal); M32.13 Lung involvement in systemic lupus erythematosus; I12.0 Hypertensive chronic kidney disease with stage 5 chronic kidney disease or end stage renal disease; N18.6 End stage renal disease; I78.8 Other diseases of capillaries; M79.661 Pain in right lower leg; M79.662 Pain in left lower leg; D69.6 Thrombocytopenia, unspecified; Z87.891 Personal history of nicotine dependence; Z99.2 Dependence on renal dialysis; Z86.711 Personal history of pulmonary embolism; Z86.73 Personal history of transient ischemic attack (TIA), and cerebral infarction without residual deficits; Z86.79 Personal history of other diseases of the circulatory system; Z99.81 Dependence on supplemental oxygen; Z79.52 Long term (current) use of systemic steroids; Z79.01 Long term (current) use of anticoagulants; Z79.51 Long term (current) use of inhaled steroids; Z88.8 Allergy status to other drugs, medicaments and biological substances; Z88.5 Allergy status to narcotic agent
CPT/HCPCS: 36415; 71010; 80053; 83880; 85025; 85610; 86922; 87040; 93005; 96365; 96375; 96376; 99291; 99292; J0692; J1170

== ENCOUNTER 2016-06-30 00:41 | Emergency (ER) | payer MEDICAID ==
[~2016-06-30] VITALS: Ht 167.6 cm; Wt 63.0 kg
[2016-06-30 00:44] VITALS: BP 136/76; PULSE 84; RESP 26; O2SAT 98
--- NOTE | 2016-06-30 00:56 | ED.REPORT ---
HPI-Extremity Problem Lower Date of Service June 30, 2016 ED Provider: Giuseppe Fleming MD Pt is a 40 y/o male anticoagulated on Warfarin w/ a hx of chronic pain with opioid dependence, ESRD on HD, CVA, chronic LLE DVT s/p IVC filter, HTN, CHF, chronic autoimmune thrombocytopenia, SLE, presenting to the ED c/o right hip pain with radiation down the RLE onset 2 days ago. He denies any injury and does not know why he is experiencing this pain. Pain is exacerbated by movement and is located in the buttock. He c/o associated RLE numbness, mild dry cough. He denies any fever, abdominal pain, chest pain, SOB. He takes hydroxychloroquine for his SLE. He has not had any pain medication for the past 3 days because he does not have a PCP in [place]. He is from [place]. He was admitted at [facility] earlier this month for hypoxic respiratory failure and was discharged in good condition. Nursing Notes Stated Complaint: RIGHT HIP PAIN NO INJURY Chief Complaint: Extremity Trauma Nursing Notes Reviewed: Yes Allergies: Coded Allergies: amlodipine (Verified Allergy, Unknown, 06/30/16) hydralazine (Verified Allergy, Unknown, 06/30/16) morphine (Verified Allergy, Unknown, 06/30/16) Scheduled Calcitriol (Rocaltrol) 0.25 Mcg Capsule 0.25 MCG PO e, , Sat Calcium Acetate (Calcium Acetate) 667 Mg Capsule 1,334 MG PO TIDWM Calcium Carbonate/Vitamin D3 (Calcium 500 + Vit D 400 Tablet) 1 Each Tablet 2 EACH PO DAILYWM Ferrous Sulfate (Feosol) 325 Mg Tablet 325 MG PO TIDWM Labetalol (Labetalol) 200 Mg Tablet 400 MG PO TID Losartan Potassium (Cozaar) 50 Mg Tablet 50 MG PO DAILY Mycophenolate Mofetil (Cellcept) 250 Mg Capsule 1,000 MG PO BIDAC Pantoprazole DR (Protonix) 40 Mg Tablet 40 MG PO QAM Prednisone (PredniSONE) 10 Mg Tablet 10 MG PO DAILYWM Sevelamer Carbonate (Renvela) 800 Mg Tablet 1,600 MG PO TIDWM Spironolactone (Aldactone) 25 Mg Tablet 25 MG PO BID Sulfamethoxazole/Trimeth 800-160 mg (Bactrim DS) 1 Each Tablet 1 TABLET PO three times a week Vitamin B Complex/Vit C (Bethany-Myrtle Tablet) 1 Tab Tab 1 TAB PO DAILYWM Warfarin Sodium (Warfarin Sodium) 5 Mg Tablet 5 MG PO DAILYWD Scheduled PRN Albuterol HFA (Proair HFA) 8.5 Gm Hfa.aer.ad 2 PUFFS INHALATION Q4H PRN PRN For Shortness of Breath Hydroxyzine Pamoate (HydrOXYzine Pamoate) 25 Mg Capsule 25 MG PO BID PRN PRN For Itching Ondansetron (Zofran) 4 Mg Tablet 4 MG PO BID PRN PRN For Nausea oxyCODONE-Acetaminophen 5-325 mg (oxyCODONE-Acetaminophen 5-325 mg) 1 Each Tablet 1-2 TAB PO Q6H PRN PRN For Pain General Time Seen by MD: 00:53 Chief Complaint Other (right hip pain) Hx Obtained From: Patient Arrived By: Walk-in Onset Occurred: 2 days ago Symptom Duration: Since onset Location: : Hip right Quality: Painful Severity: Current: Moderate Severity: Maximum: Moderate Past Medical History Past Medical History Notes: [place]: Dr. Velasco Compensation/Benefits Specialist: Dr. Beckman Dialysis pt at [facility] Past Medical History 1. End-stage renal disease on chronic hemodialysis, since 2011 Hemodialysis on Monday, , Monday. right brachiocephalic fistula. 2. 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 h/o previous CVA while at [facility] 4. 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 Pulmonary embolism-s/p IVC filter placement, DVT-chronic anticoagulation on warfarin 6. Systolic and diastolic cardiomyopathy w/EF ~40% 7. Hypertension 8. Chronic autoimmune thrombocytopenia 9. Anemia 10. Chronic pain w/opioid dependence 11. h/o left lower extremity arterial ulcer 12. h/o Oral herpes infection 13. Thrush Past Surgical History 1. AV fistula, R upper extremity 2. Former fistula L arm 3. IVC filter Family History Noncontributory Smoking History Never Smoker Social History Drug Use: Denies drug use Other Social History: Good social support, Local resident Ambulatory Status Walker Review of Systems Constitutional: Denies: Chills, Fever Musculoskeletal: Reports: Extremity pain, Joint pain Neurologic: Reports: Numbness, Denies: Focal weakness Complete sys rev & neg: except as marked. Respiratory: Denies: Shortness of breath Cardiovascular: Denies: Chest pain, Dyspnea on exertion GI: Denies: Abdominal pain Physical Exam Initial Vital Signs Vital Signs (First) Date Time Temp Pulse Resp B/P Pulse Ox O2 Delivery O2 Flow Rate FiO2 06/30/16 00:44 37.1 84 26 136/76 98 Room Air Initial VS: Reviewed, Vital signs normal Head / Eyes: Atraumatic, Normocephalic, PERRL ENT: Mucous membranes moist, Conjunctiva normal, No scleral icterus Neck: Supple, Full range of motion Respiratory: Breath sounds normal, Clear to auscultation, No respiratory distress Cardiovascular: Regular rate & rhythm, Heart sounds normal, Intact distal pulses Abdomen / GI: Soft, Non-tender Skin: Warm, Dry Neurologic: Alert, Oriented, Nonfocal Psychiatric: Mood/affect normal, Behavior normal, Normal thought content Lower Extremity / Pelvis / MS: Atraumatic, Full range of motion, No deformity, Neurologic intact, Vascular intact, No compartment syndrome RLE: Tender with movement of right hip. Tender over sacral and sciatic area. No groin tenderness with rotation. Good ROM. Distal leg normal LLE: diffusely indurated and chronic changes of DVT Ankle / Foot: Atraumatic, Inspection NL, Full range of motion, No swelling, No erythema, Non-tender, No deformity, Neurologic intact, Vascular intact General/Constitutional: Awake, Alert, Cooperative, Not toxic appearing Appearance / Presentation: Positive: In pain, Uncomfortable Chronically ill-appearing Interpretation & Diagnostics Interpretation & Diagnostics: CT lumbar spine: Conclusion: Bilateral L5 pars defects, no anterolisthesis. Normal disc height. Mild annular disc bulges. No herniated disc is identified. No significant spinal or significant neural foraminal stenosis. IVC filter. At least mildly atrophic kidneys with at least one cyst of each kidney. Moderate stool in the right colon and sigmoid. Transmitted to the ED at 02:56 by Jose Golden MD Lab Results Interpretation Result Diagram: 06/30/16 0240 06/30/16 0240 Test 06/30/16 02:40 White Blood Count 5.5th/mm3 (3.8-10.1) Red Blood Count 3.00mil/mm3 (4.40-5.80) Hemoglobin 9.1g/dL (13.8-17.2) Hematocrit 27.0% (41.0-50.0) Mean Corpuscular Volume 90.0fL (81-100) Mean Corpuscular Hemoglobin 30.3pg (27.0-35.0) Mean Corpuscular Hemoglobin Concent 33.7% (32.0-37.0) Red Cell Distribution Width 16.1% (12.3-15.4) Platelet Count 82bil/L (150-400) Neutrophils (%) (Auto) 55.4% (40-74) Lymphocytes (%) (Auto) 25.0% (14-46) Monocytes (%) (Auto) 16.1% (4-12) Eosinophils (%) (Auto) 2.9% (0-5) Basophils (%) (Auto) 0.2% (0-3) Prothrombin Time 16.2sec (8.1-12.5) Prothromb Time International Ratio 1.50ratio Sodium Level 138mEq/L (134-144) Potassium Level 5.8mEq/L (3.5-5.2) Chloride Level 98mEq/L (97-108) Carbon Dioxide Level 22mmol/L (18-29) Blood Urea Nitrogen 45mg/dL (6-20) Creatinine 7.06mg/dL (0.76-1.27) Estimat Glomerular Filtration Rate 9mL/min (>59) Glucose Level 108mg/dL (60-99) Calcium Level 10.1mg/dL (8.5-10.1) Magnesium Level 2.0mg/dL (1.6-2.6) Total Bilirubin 0.3mg/dL (0.0-1.2) Aspartate Amino Transf (AST/SGOT) 13U/L (0-50) Alanine Aminotransferase (ALT/SGPT) 13U/L (0-44) Alkaline Phosphatase 98U/L (25-150) Total Protein 6.0g/dL (6.4-8.4) Albumin 4.1g/dL (3.4-5.0) X-Ray Chest Interpretation View: Portable, 1 view Interpretation / Wet Read by: Wet read ED physician NL X-Ray Chest Findings: No infiltrate, No acute disease X-Ray Interpretation Xray Interpretation: Some arthritis No acute process Study Performed: 2 view X-Ray Ordered: Hip right Interpretation / Wet Read by: Wet read ED physician Interpretation: No fracture/dislocation Re-Eval/Medical Decision Med Decision/Clinical Course 40 year-old lupus nephritis and dialysis-dependent renal failure, presents with chronic sciatic pain. He does not have medical care beyond his dialysis sessions at the moment. CT of the lumbosacral area does not show hematoma or other identifiable cause. Hip is negative to x-ray and actually fairly negative to exam, with good range of motion. All of his pain refers to the sciatic area and his sciatica by clinical description. On with a ten pack of Percocet non-removal here. Follow up with PCP. [facility] referral given. Follow up with dialysis as planned. Re-Evaluation/Progress : Time of Eval: 04:30 Re-Evaluation/Progress Note: Pt rechecked. Informed pt of plan for treatment. Pt understands and agrees with plan for treatment. F/U instructions and RTER warnings given. All questions addressed. Counseled Regarding: Diagnosis, Lab results, Need for follow-up, When/why to return to ED Discharge & Departure Impression: Primary Impression: Sciatica Laterality: right Qualified Code: M54.31 - Sciatica, right side Additional Impressions: Chronic renal failure Chronic kidney disease stage: stage 5 Qualified Code: N18.5 - Chronic kidney disease, stage 5 SLE (systemic lupus erythematosus) Anticoagulated on Coumadin Dialysis patient Disposition: Home Discharge Condition All VS Reviewed: Yes Condition: Stable Patient Instructions: Sciatica (ED) Additional Instructions: CT scan does not show any bleeding or other acute problem. You have degenerative joint disease and sciatica. Follow-up with your doctor in the office for ongoing care. This is a chronic problem, in one we cannot manage out of the emergency department. Continue your oxycodone for now, but this is not a penitentiary goal for you. Follow-up with dialysis and keep your appointments as directed. Follow up at [facility] for ongoing medical care. Referrals: NOPCP (PCP) Brandon Attestation Portions of this note were transcribed by John Kumari. I, Dr. Dudley personally performed the history, physical exam and medical decision-making; I reviewed and confirmed the accuracy of the information in the transcribed note. Signed by Brandon Greenfield, 06/30/16 - 0100 Giuseppe Fleming MD June 30, 2016 00:56 JOHN KUMARI June 30, 2016 01:02
[2016-06-30] MEDS ORDERED: oxyCODONE-Acetamin 5-325 mg Tablet PO ONE (01:25)
[2016-06-30 02:48] LABS: BASOPHILS % (AUTO) 0.2 % (0-3); EOSINOPHILS % (AUTO) 2.9 % (0-5); MONOCYTES % (AUTO) 16.1 % (4-12); Mean Corpuscular Hemoglobin 30.3 pg (27.0-35.0); NEUTROPHILS % (AUTO) 55.4 % (40-74); Platelet Count 82 bil/L (150-400)
[2016-06-30 03:02] LABS: INR 1.5 ratio
[2016-06-30] MEDS ORDERED: _oxyCODONE/APAP 5-325 mg Tablet PO PRN (04:25)
[2016-06-30 04:50] VITALS: BP 139/83; PULSE 80; RESP 22; O2SAT 98
--- NOTE | 2016-06-30 08:49 | DRSVH ---
PROCEDURE: X-RAY RIGHT HIP COMPLETE, MINIMUM TWO VIEWS ([id number]) INDICATIONS: pain rt hip TECHNIQUE: 2 views of the hip were acquired. COMPARISON: [facility], MR, MR HIP RT WO CON, 05/07/2016, 13:35. [facility], CR, XR HIP 2VW RT, 05/06/2016, 5:23. FINDINGS: Bones: No fractures or dislocations. No joint narrowing present and there is subchondral sclerosis and cystic change increased from prior examination. Flattening of the gravity dependent portion of t he femoral head present. The visualized pelvic ring appears intact. Soft tissues: No suspicious soft tissue calcifications or masses. IVC filter noted. Vascular calcif ications indicate atherosclerosis. IMPRESSION: 1. Mild right hip joint narrowing and there has been interval increase in subchondral lucency and scl erosis with mild collapse of the gravity dependent portion of the femoral head in this patient with k nown right hip avascular necrosis. Dr. Al Fleming given results at 0849 hrs. 06/30/2016. Dictated by: Errol Sánchez [facility] Interpreted: Dora Augustine MD on 06/30/2016 at 8:41 Transcribed by: ABEBA on 06/30/2016 at 8:49 Approved by: Dora Augustine MD, PhD on 06/30/2016 at 9:40
--- NOTE | 2016-06-30 08:49 | DRSVH ---
PROCEDURE: X-RAY CHEST, TWO VIEWS ([id number]) INDICATIONS: STEPHANY TECHNIQUE: 2 views of the chest were acquired. COMPARISON: [facility], CR, XR HIP 2VW RT, 06/30/2016, 1:39. [facility], CR, XR CHEST 1VW (PORTABLE), 06/11/2016, 22:13. [facility], CR, XR CHEST 1VW (PORTABLE), 05/07, 4:50. FINDINGS: Surgical changes and devices: None. Lungs and pleura: Interval decrease in bilateral air space opacities with residual involving the righ t upper and lower lobes. Mediastinum: Mediastinal contours are normal. Heart size is normal. Bones and chest wall: No suspicious bony abnormalities. Soft tissues appear unremarkable. IMPRESSION: Resolving pneumonia. Dictated by: Errol Sánchez [facility] Interpreted: Dora Augustine MD on 06/30/2016 at 8:44 Transcribed by: ABEBA on 06/30/2016 at 8:48 Approved by: Dora Augustine MD, PhD on 06/30/2016 at 9:40
--- NOTE | 2016-06-30 09:23 | PCM.EDPN ---
ED Note Date of Service June 30, 2016 ED Attending Statement Patient seen this morning for hip pain. He has a h/o AVN. The radiologist called me this morning and reports that his AVN is worsening. He wanted to make sure the patient had follow-up with orthopedics. On review of the note, patient did not have follow-up with orthopedics. I called the patient and spoke with him. I gave him number for the orthopedic clinic and he will call today for an appointment in next week. Hermelindo Mehta MD June 30, 2016 09:23
--- NOTE | 2016-06-30 10:07 | DRSVH ---
PROCEDURE: CT LUMBAR SPINE WITHOUT CONTRAST ([id number]) INDICATIONS: rt sciatica, lupus, anticoagulated TECHNIQUE: Noncontrast 3 mm thick sections acquired from the T12 level to the sacrum. Sagittal and coronal refo rmats were constructed. For radiation dose reduction, the following was used: automated exposure co ntrol. COMPARISON: None. FINDINGS: Image quality: Excellent. Bones: There is normal bony alignment. No acute vertebral body compression fractures. No suspiciou s lytic or blastic bony lesions. Central spinal caliber is of normal overall caliber. Bilateral L5 p ars interarticularis defects are noted. Soft tissues: Bilateral renal cortical thinning noted. Bilateral renal cysts are noted. Presence of inferior vena cava filter noted. No retroperitoneal masses or hematomas. Visualized aorta is normal in caliber. Vascular calcifications are noted. IMPRESSION: 1. Bilateral L5 pars interarticularis defects. 2. No spondylolisthesis. 3. No fracture. No acute osseous lesion. If symptoms and/or clinical suspicion for pathology persists , further assessment with repeat radiographs or advanced imaging (e.g. CT, MRI or bone scan) may be h elpful for further assessment. 4. Bilateral renal cortical thickening suggesting medical renal disease. Please correlate with clinic al data. Dictated by: Dora Augustine MD, PhD on 06/30/2016 at 10:02 Approved by: Dora Augustine MD, PhD on 06/30/2016 at 10:06
== END 2016-06-30 05:15 | disposition home or self-care (01) ==
LOC: SED 00:41
DX: M54.31 Sciatica, right side (principal); I13.2 Hypertensive heart and chronic kidney disease with heart failure and with stage 5 chronic kidney disease, or end stage renal disease; N18.5 Chronic kidney disease, stage 5; I50.9 Heart failure, unspecified; M32.9 Systemic lupus erythematosus, unspecified; Z99.2 Dependence on renal dialysis; Z79.01 Long term (current) use of anticoagulants; Z86.73 Personal history of transient ischemic attack (TIA), and cerebral infarction without residual deficits; Z86.711 Personal history of pulmonary embolism; Z88.5 Allergy status to narcotic agent; Z88.8 Allergy status to other drugs, medicaments and biological substances

== ENCOUNTER 2016-08-07 01:51 | Emergency (ER) | payer MEDICAID ==
[~2016-08-07] VITALS: Ht 167.6 cm; Wt 64.0 kg
[2016-08-07 02:41] VITALS: BP 125/79; PULSE 70; RESP 18; O2SAT 99
--- NOTE | 2016-08-07 03:39 | ED.REPORT ---
HPI-General Illness Date of Service Aug 07, 2016 ED Provider: Avel Pedro MD Pt is a 40 year old male with a history of CHF and HTN who presents to the ED complaining of intermittent extremity cramping onset 3 months ago. He c/o associated insomnia onset 3 days ago. He denies any other symptoms. Pt reports that he is out of Percocet for the last 4 days. Pt undergoes dialysis on Monday , , and Monday. Nursing Notes Stated Complaint: BODY PAIN Chief Complaint: General Complaint Nursing Notes Reviewed: Yes Allergies: Coded Allergies: amlodipine (Verified Allergy, Unknown, 08/07/16) hydralazine (Verified Allergy, Unknown, 08/07/16) morphine (Verified Allergy, Unknown, 08/07/16) Scheduled Calcitriol (Rocaltrol) 0.25 Mcg Capsule 0.25 MCG PO Mon, , Mon Calcium Acetate (Calcium Acetate) 667 Mg Capsule 1,334 MG PO TIDWM Calcium Carbonate/Vitamin D3 (Calcium 500 + Vit D 400 Tablet) 1 Each Tablet 2 EACH PO DAILYWM Ferrous Sulfate (Feosol) 325 Mg Tablet 325 MG PO TIDWM Labetalol (Labetalol) 200 Mg Tablet 400 MG PO TID Losartan Potassium (Cozaar) 50 Mg Tablet 50 MG PO DAILY Mycophenolate Mofetil (Cellcept) 250 Mg Capsule 1,000 MG PO BIDAC Pantoprazole DR (Protonix) 40 Mg Tablet 40 MG PO QAM Prednisone (PredniSONE) 10 Mg Tablet 10 MG PO DAILYWM Sevelamer Carbonate (Renvela) 800 Mg Tablet 1,600 MG PO TIDWM Spironolactone (Aldactone) 25 Mg Tablet 25 MG PO BID Sulfamethoxazole/Trimeth 800-160 mg (Bactrim DS) 1 Each Tablet 1 TABLET PO three times a week Vitamin B Complex/Vit C (Bethany-Myrtle Tablet) 1 Tab Tab 1 TAB PO DAILYWM Warfarin Sodium (Warfarin Sodium) 5 Mg Tablet 5 MG PO DAILYWD Scheduled PRN Albuterol HFA (Proair HFA) 8.5 Gm Hfa.aer.ad 2 PUFFS INHALATION Q4H PRN PRN For Shortness of Breath Hydroxyzine Pamoate (HydrOXYzine Pamoate) 25 Mg Capsule 25 MG PO BID PRN PRN For Itching Ondansetron (Zofran) 4 Mg Tablet 4 MG PO BID PRN PRN For Nausea oxyCODONE-Acetaminophen 5-325 mg (oxyCODONE-Acetaminophen 5-325 mg) 1 Each Tablet 1-2 TAB PO Q6H PRN PRN For Pain General Time Seen by MD: 03:36 Chief Complaint Other (Extremity crampying) Hx Obtained From: Patient Arrived By: Walk-in Sudden in Onset?: No Onset Occurred: More than a week ago... (3 months) Symptom Duration: Since onset Location: : Forearm left: Forearm right: Leg left: Leg right Quality: Cramping Severity: Current: Moderate Severity: Maximum: Moderate Recent Healthcare: Recent doctor visit Similar Sx Previous: Yes Past Medical History Past Medical History Notes: [place]: Dr. Velasco Funds Development Director: Dr. Beckman Dialysis pt at [facility] Past Medical History 1. End-stage renal disease on chronic hemodialysis, since 2011 Hemodialysis on Monday, , Monday. right brachiocephalic fistula. 2. 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 CVA while at [facility] 4. 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 Pulmonary embolism-s/p IVC filter placement, DVT-chronic anticoagulation on warfarin 6. Systolic and diastolic cardiomyopathy w/EF ~40% 7. Hypertension 8. Chronic autoimmune thrombocytopenia 9. Anemia 10. Chronic pain w/opioid dependence 11. Left lower extremity arterial ulcer 12. Oral herpes infection 13. Thrush 14. Pneumonia Reports: Congestive heart failure Past Surgical History 1. AV fistula, R upper extremity 2. Former fistula L arm 3. IVC filter Family History Noncontributory Smoking History Never Smoker Social History Alcohol Use: Denies alcohol use Drug Use: Denies drug use Other Social History: Good social support, Local resident Ambulatory Status Independent Review of Systems Full Review of Systems Constitutional: Denies: Fever Respiratory: Denies: Non-productive cough, Shortness of breath Musculoskeletal: Reports: Extremity pain, Denies: Extremity swelling Complete sys rev & neg: except as marked. Physical Exam Vital Signs Vital Signs Date Time Temp Pulse Resp B/P Pulse Ox O2 Delivery O2 Flow Rate FiO2 08/07/16 02:41 36.8 70 18 125/79 99 Room Air Initial VS: Reviewed, Vital signs normal Head / Eyes: Atraumatic, Normocephalic Neck: Supple, Full range of motion Respiratory: Breath sounds normal, Clear to auscultation, No respiratory distress Cardiovascular: Regular rate & rhythm, Heart sounds normal, Intact distal pulses Abdomen / GI: Soft, Non-tender Extremities: Vascular intact, Neuro intact Skin: Warm, Dry, No cyanosis Neurologic: Alert, Oriented, Nonfocal Psychiatric: Mood/affect normal, Behavior normal, Normal thought content General/Constitutional: Awake, Alert, Well hydrated, Cooperative, Not toxic appearing Pacing. Interpretation & Diagnostics Lab Results Interpretation Result Diagram: 08/07/165 08/07/16 0415 Test 08/07/16 04:15 White Blood Count 6.4th/mm3 (3.8-10.1) Red Blood Count 2.83mil/mm3 (4.40-5.80) Hemoglobin 8.6g/dL (13.8-17.2) Hematocrit 26.4% (41.0-50.0) Mean Corpuscular Volume 93.3fL (81-100) Mean Corpuscular Hemoglobin 30.4pg (27.0-35.0) Mean Corpuscular Hemoglobin Concent 32.6% (32.0-37.0) Red Cell Distribution Width 14.9% (12.3-15.4) Platelet Count 76bil/L (150-400) Neutrophils (%) (Auto) 50.3% (40-74) Lymphocytes (%) (Auto) 35.7% (14-46) Monocytes (%) (Auto) 11.5% (4-12) Eosinophils (%) (Auto) 1.7% (0-5) Basophils (%) (Auto) 0.2% (0-3) Prothrombin Time 29.6sec (8.1-12.5) Prothromb Time International Ratio 2.71ratio Sodium Level 138mEq/L (134-144) Potassium Level 4.3mEq/L (3.5-5.2) Chloride Level 99mEq/L (97-108) Carbon Dioxide Level 23mmol/L (18-29) Blood Urea Nitrogen 45mg/dL (6-20) Creatinine 5.04mg/dL (0.76-1.27) Estimat Glomerular Filtration Rate 14mL/min (>59) Glucose Level 97mg/dL (60-99) Calcium Level 9.1mg/dL (8.5-10.1) Magnesium Level 1.6mg/dL (1.6-2.6) Total Bilirubin 0.3mg/dL (0.0-1.2) Aspartate Amino Transf (AST/SGOT) 11U/L (0-50) Alanine Aminotransferase (ALT/SGPT) 16U/L (0-44) Alkaline Phosphatase 95U/L (25-150) Total Protein 5.4g/dL (6.4-8.4) Albumin 3.9g/dL (3.4-5.0) Hold Henry Top Tube Received (Received) Lab Results Interpretation: Chronic anemia, chronic kidney injury, chronic thrombocytopenia Re-Eval/Medical Decision Med Decision/Clinical Course 40-year-old male who is on chronic pain management. From reviewing the [facility] and his outpatient pharmacy reports, it appears that he was prescribed 60 tablets of Percocet to last 30 days on July 05. He therefore ran out several days ago and was told by the pharmacy that he could not get another refill for 10 days. He is complaining of myalgias and muscle cramping and just generally does not feel well, all consistent with opiate withdrawal. His laboratory show no acute abnormalities. I gave him 1 Percocet here in the emergency room with improvement of his symptoms. I will discharge him with a prepack of 10 Percocet tablets. He will talk to his regular doctor about ongoing pain management. Source of Hx: Old records Time of Eval: 03:44 Re-Evaluation/Progress Note: Pt rechecked. Informed pt of plan for discharge. Pt understands and agrees with plan for discharge. F/U instructions and RTER warnings given. All questions addressed. Counseled Regarding: Diagnosis, Need for follow-up, When/why to return to ED Discharge & Departure Primary Impression: Muscle cramps Additional Impression: Opioid dependence with withdrawal Disposition: Home Discharge Condition All VS Reviewed: Yes Condition: Stable Patient Instructions: Opioid Pain Management (ED) Additional Instructions: There seems to be a discrepancy between the amount that you were prescribed and the timing of the refill, so I am giving you 10 tablets to bridge that gap. Talk to your regular doctor about further pain management. All of your electrolytes are normal. Referrals: [facility] Scribe Attestation Portions of this note were transcribed by Delmy Lawrence. I, Dr. Pedro personally performed the history, physical exam and medical decision-making; I reviewed and confirmed the accuracy of the information in the transcribed note. Signed by: Brandon Godinez, 08/07/16 and 04:30. copies to: [facility] Avel Pedro MD Aug 07, 2016 03:39 Delmy Marin Aug 07, 2016 03:47
[2016-08-07] MEDS ORDERED: oxyCODONE-Acetamin 5-325 mg Tablet PO ONE (03:45)
[2016-08-07 04:24] LABS: BASOPHILS % (AUTO) 0.2 % (0-3); EOSINOPHILS % (AUTO) 1.7 % (0-5); MONOCYTES % (AUTO) 11.5 % (4-12); Mean Corpuscular Hemoglobin 30.4 pg (27.0-35.0); Mean Corpuscular Volume 93.3 fL (81-100); NEUTROPHILS % (AUTO) 50.3 % (40-74); Platelet Count 76 bil/L (150-400)
[2016-08-07 04:48] LABS: INR 2.71 ratio
[2016-08-07 04:56] LABS: Magnesium 1.6 mg/dL (1.6-2.6)
[2016-08-07] MEDS ORDERED: _oxyCODONE/APAP 5-325 mg Tablet PO PRN (05:55)
== END 2016-08-07 06:38 | disposition home or self-care (01) ==
LOC: SED 01:51
DX: R25.2 Cramp and spasm (principal); F11.23 Opioid dependence with withdrawal; N18.6 End stage renal disease; I12.0 Hypertensive chronic kidney disease with stage 5 chronic kidney disease or end stage renal disease; I11.0 Hypertensive heart disease with heart failure; I50.9 Heart failure, unspecified; D64.9 Anemia, unspecified; Z99.2 Dependence on renal dialysis; Z86.73 Personal history of transient ischemic attack (TIA), and cerebral infarction without residual deficits; Z87.01 Personal history of pneumonia (recurrent); Z79.01 Long term (current) use of anticoagulants; Z88.8 Allergy status to other drugs, medicaments and biological substances; Z88.5 Allergy status to narcotic agent

== ENCOUNTER 2016-08-13 23:00 | Emergency (ER) | payer MEDICAID ==
[~2016-08-13] VITALS: Ht 165.1 cm; Wt 64.0 kg
[2016-08-13 23:16] VITALS: BP 160/96; PULSE 74; RESP 16; O2SAT 98
--- NOTE | 2016-08-14 00:20 | ED.REPORT ---
HPI-General Illness Date of Service Aug 14, 2016 ED Provider: Giuseppe Fleming MD A 40 year old male with a complicated medical history including CHF, ESRD on chronic hemodialysis since 2011, SLE complicated by lupus nephritis, chronic pain w/opioid dependence, chronic autoimmune thrombocytopenia, PE s/p IVC filter placement, previous DVT on Warfarin, previous CVA and hypertension presents to the ED seeking medication refill for his worsening myalgias and anxiety. He reports recent insomnia secondary to pain and states that his pain has become increasingly worse over the past few days. The pain in his muscles is often relieved by kneading the muscles with his hands. Patient was seen in the ED on 08/07 for similar muscle cramping and was discharged with 10 tablets of Percocet which he has used. He denies any new onset fevers, chills, difficulty breathing, nausea, vomiting or recent injuries. Patient has been unable to schedule an appointment with his PCP. Nursing Notes Stated Complaint: PAIN & ANXIETY Chief Complaint: General Complaint Nursing Notes Reviewed: Yes Allergies: Coded Allergies: amlodipine (Verified Allergy, Unknown, 08/07/16) hydralazine (Verified Allergy, Unknown, 08/07/16) morphine (Verified Allergy, Unknown, 08/07/16) Scheduled Calcitriol (Rocaltrol) 0.25 Mcg Capsule 0.25 MCG PO Tue, Thur, Sat Calcium Acetate (Calcium Acetate) 667 Mg Capsule 1,334 MG PO TIDWM Calcium Carbonate/Vitamin D3 (Calcium 500 + Vit D 400 Tablet) 1 Each Tablet 2 EACH PO DAILYWM Clonidine (Clonidine) 0.2 Mg Tablet 0.2 MG PO BID Ferrous Sulfate (Feosol) 325 Mg Tablet 325 MG PO TIDWM Labetalol (Labetalol) 200 Mg Tablet 400 MG PO TID Losartan Potassium (Cozaar) 50 Mg Tablet 50 MG PO DAILY Mycophenolate Mofetil (Cellcept) 250 Mg Capsule 1,000 MG PO BIDAC Pantoprazole DR (Protonix) 40 Mg Tablet 40 MG PO QAM Prednisone (PredniSONE) 10 Mg Tablet 10 MG PO DAILYWM Sevelamer Carbonate (Renvela) 800 Mg Tablet 1,600 MG PO TIDWM Spironolactone (Aldactone) 25 Mg Tablet 25 MG PO BID Sulfamethoxazole/Trimeth 800-160 mg (Bactrim DS) 1 Each Tablet 1 TABLET PO three times a week Vitamin B Complex/Vit C (Bethany-Myrtle Tablet) 1 Tab Tab 1 TAB PO DAILYWM Warfarin Sodium (Warfarin Sodium) 5 Mg Tablet 5 MG PO DAILYWD Scheduled PRN Albuterol HFA (Proair HFA) 8.5 Gm Hfa.aer.ad 2 PUFFS INHALATION Q4H PRN PRN For Shortness of Breath Hydroxyzine Pamoate (HydrOXYzine Pamoate) 25 Mg Capsule 25 MG PO BID PRN PRN For Itching Ondansetron (Zofran) 4 Mg Tablet 4 MG PO BID PRN PRN For Nausea oxyCODONE-Acetaminophen 5-325 mg (oxyCODONE-Acetaminophen 5-325 mg) 1 Each Tablet 1-2 TAB PO Q6H PRN PRN For Pain General Time Seen by MD: 23:59 Chief Complaint Medication refill Hx Obtained From: Patient, [employer] Arrived By: Walk-in Sudden in Onset?: No Onset Occurred: 3 days ago Context of Onset: Ran out of medication Symptom Duration: 3 days Quality: Same as prior Radiation: : Does not radiate Severity: Current: Mild Severity: Maximum: Moderate Associated with: Reports: Pain, Denies: Fever, Nausea, Vomiting Pertinent Negative: Pt denies other symptoms Recent Healthcare: No recent hospitalization, Recent doctor visit Past Medical History Past Medical History Notes: [place]: Dr. Velasco Nut Blanker Operator: Dr. Beckman Dialysis pt at [facility] Past Medical History 1. End-stage renal disease on chronic hemodialysis, since 2011 Hemodialysis on Monday, , Monday. right brachiocephalic fistula. 2. 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 CVA while at [facility] 4. 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 Pulmonary embolism-s/p IVC filter placement, DVT-chronic anticoagulation on warfarin 6. Systolic and diastolic cardiomyopathy w/EF ~40% 7. Hypertension 8. Chronic autoimmune thrombocytopenia 9. Anemia 10. Chronic pain w/opioid dependence 11. Left lower extremity arterial ulcer 12. Oral herpes infection 13. Thrush 14. Pneumonia Past Surgical History 1. AV fistula, R upper extremity 2. Former fistula L arm 3. IVC filter Family History Noncontributory Smoking History Never Smoker Social History Alcohol Use: Denies alcohol use Drug Use: Denies drug use Other Social History: Good social support, Local resident Ambulatory Status Independent Review of Systems medication refill denies any recent injury Full Review of Systems Constitutional: Denies: Chills, Fever Respiratory: Denies: Dyspnea on exertion, Shortness of breath GI: Denies: Nausea, Vomiting Musculoskeletal: Reports: Myalgia Psychiatric: Reports: Anxiety, Insomnia Complete sys rev & neg: except as marked. Physical Exam Vital Signs Vital Signs Date Time Temp Pulse Resp B/P Pulse Ox O2 Delivery O2 Flow Rate FiO2 08/14/16 02:55 36.8 72 16 148/86 97 Room Air 08/13/16 23:16 36.9 74 16 160/96 98 Room Air Initial VS: Reviewed Neck: Supple, Non-tender, Full range of motion Extremities: Vascular intact, Neuro intact, No swelling, No tenderness Skin: Warm, Dry, No cyanosis Neurologic: Alert, Oriented, Nonfocal Psychiatric: Mood/affect normal, Behavior normal, Normal thought content General/Constitutional: Awake, Alert Behavior: Positive: Anxious GENERAL: Appears to be in withdrawal Fidgety and massaging his muscles Head / Eyes: Atraumatic, Normocephalic, PERRL Respiratory / Chest: Atraumatic, Breath sounds NL, Breath sounds = bilat, No respiratory distress Cardiovascular: Heart rate NL, Regular rhythm, Heart sounds NL Abdomen: Atraumatic, Soft Interpretation & Diagnostics Lab Results Interpretation Result Diagram: 08/14/168 08/14/168 Test 08/14/16 00:58 White Blood Count 4.3th/mm3 (3.8-10.1) Red Blood Count 2.67mil/mm3 (4.40-5.80) Hemoglobin 8.2g/dL (13.8-17.2) Hematocrit 24.8% (41.0-50.0) Mean Corpuscular Volume 92.9fL (81-100) Mean Corpuscular Hemoglobin 30.7pg (27.0-35.0) Mean Corpuscular Hemoglobin Concent 33.1% (32.0-37.0) Red Cell Distribution Width 14.4% (12.3-15.4) Platelet Count 76bil/L (150-400) Neutrophils (%) (Auto) 35.1% (40-74) Lymphocytes (%) (Auto) 49.9% (14-46) Monocytes (%) (Auto) 12.0% (4-12) Eosinophils (%) (Auto) 2.3% (0-5) Basophils (%) (Auto) 0.2% (0-3) Erythrocyte Sedimentation Rate 14mm/hr (0-15) Sodium Level 134mEq/L (134-144) Potassium Level 4.7mEq/L (3.5-5.2) Chloride Level 95mEq/L (97-108) Carbon Dioxide Level 22mmol/L (18-29) Blood Urea Nitrogen 31mg/dL (6-20) Creatinine 3.90mg/dL (0.76-1.27) Estimat Glomerular Filtration Rate 18mL/min (>59) Glucose Level 87mg/dL (60-99) Calcium Level 8.9mg/dL (8.5-10.1) Total Bilirubin 0.4mg/dL (0.0-1.2) Aspartate Amino Transf (AST/SGOT) 15U/L (0-50) Alanine Aminotransferase (ALT/SGPT) 18U/L (0-44) Alkaline Phosphatase 88U/L (25-150) Total Creatine Kinase 61U/L (21-232) Creatine Kinase MB 3.9ng/mL (0.0-10.4) Creatine Kinase MB % % (0.0-5.0) Total Protein 5.9g/dL (6.4-8.4) Albumin 4.3g/dL (3.4-5.0) Hold Henry Top Tube Received (Received) Re-Eval/Medical Decision Med Decision/Clinical Course 40-year-old with lupus nephritis and end-stage renal disease, presents out of his narcotic pain relievers previously described. He has generalized muscle aches that seem to be improved by massage. He is requesting renewal of his pain medicines. It was explained him that this was not legally possible. He has anxiety and is unable sleep and he was given single doses of Ativan with minimal improvement. His primary issue appears to be withdrawal from narcotics at this point. He is provided with clonidine with mild improvement. He is discharged home with clonidine for support until his doctor determines whether ongoing opioids are appropriate. Discharged in stable condition. No evidence of myositis no evidence of other acute process. Time of Eval: 02:05 Re-Evaluation/Progress Note: Pain and anxiety are still present after receiving Ativan. He is informed of his reassuring lab work. Time of Eval: 02:23 Patient Status: Condition improved Re-Evaluation/Progress Note: Patient is rechecked. His symptoms have improved. All questions about the intended treatment plan are addressed. Counseled Regarding: Diagnosis, Lab results, Need for follow-up, When/why to return to ED Discharge & Departure Primary Impression: Myalgia Additional Impressions: Opioid withdrawal Opioid dependence with withdrawal Disposition: Home Discharge Condition All VS Reviewed: Yes Condition: Improved Patient Instructions: Anxiety (ED) Additional Instructions: You will need to see your doctor about ongoing pain medicine. We are legally prohibited from prescribing ongoing pain medicine for you for chronic pain. In the meantime, you may take clonidine twice daily to help with your withdrawal symptoms. If they ultimately renew your oxycodone, stop the clonidine. You may take acetaminophen for pain. Take lorazepam at night for anxiety for the next few days. Your doctor would need to renew that if appropriate. Return if any immediate issues. Tendr que consultar a blevins mdico acerca del medicamento para el dolor en curso. Estamos legalmente prohibidos de prescribir medicina para el dolor continuo para usted para el dolor crnico. Mientras tanto, puede andrea clonidina dos veces al da para ayudar con samra s ntomas de abstinencia. Si en ltima instancia, renovar blevins oxicodona, detener la clonidina. Puede andrea acetaminofn para el dolor. Helen lorazepam por la noche para la ansiedad para los melchor prximos. Blevins mdico necesitara renovarlo si es apropiado. Vuelva si cualquier ediciones inmediatas. Referrals: [facility] (PCP) Scribe Attestation Portions of this note were transcribed by Belinda Casillas. I, Dr. Fleming personally performed the history, physical exam and medical decision-making; I reviewed and confirmed the accuracy of the information in the transcribed note. Signed by: Brandon Reagan, 08/14/16 0224. copies to: [facility] Christopher W MD Aug 14, 2016 00:19 BELINDA CASILLAS Aug 14, 2016 00:28
[2016-08-14] MEDS ORDERED: LORazepam 2 mg Tablet PO ONE (00:35)
[2016-08-14] MEDS ORDERED: predniSONE 20 mg Tablet PO ONE (00:35)
[2016-08-14 01:10] LABS: BASOPHILS % (AUTO) 0.2 % (0-3); EOSINOPHILS % (AUTO) 2.3 % (0-5); Mean Corpuscular Hemoglobin 30.7 pg (27.0-35.0); Mean Corpuscular Volume 92.9 fL (81-100); NEUTROPHILS % (AUTO) 35.1 % (40-74); Platelet Count 76 bil/L (150-400)
[2016-08-14 01:29] LABS: ERYTHROCYTE SEDIMENTATION RATE 14 mm/hr (0-15)
[2016-08-14 01:54] LABS: Creatine Kinase 61 U/L (21-232)
[2016-08-14] MEDS ORDERED: LORazepam 1 mg Tablet PO ONE (02:05)
[2016-08-14] MEDS ORDERED: Ketorolac 15 mg/mL Inj IVPUSH ONE (02:05)
[2016-08-14] MEDS ORDERED: CLON0.2T PO (02:07)
[2016-08-14 02:55] VITALS: BP 148/86; PULSE 72; RESP 16; O2SAT 97
== END 2016-08-14 02:56 | disposition home or self-care (01) ==
LOC: SED 23:00
DX: M79.1 Myalgia (principal); F11.23 Opioid dependence with withdrawal; F41.9 Anxiety disorder, unspecified; G47.00 Insomnia, unspecified; I13.2 Hypertensive heart and chronic kidney disease with heart failure and with stage 5 chronic kidney disease, or end stage renal disease; I50.9 Heart failure, unspecified; I42.9 Cardiomyopathy, unspecified; N18.6 End stage renal disease; Z87.01 Personal history of pneumonia (recurrent); Z99.2 Dependence on renal dialysis; Z86.73 Personal history of transient ischemic attack (TIA), and cerebral infarction without residual deficits; Z79.01 Long term (current) use of anticoagulants; Z88.5 Allergy status to narcotic agent; Z88.8 Allergy status to other drugs, medicaments and biological substances
CPT/HCPCS: 36415; 80053; 82550; 82553; 85025; 85651; 96374; 99284; J1885